=== PATIENT | male | born 1960 | race Caucasian/White ===

== ENCOUNTER 2020-08-04 15:48 | Inpatient (IN) | payer OTHER ==
[2020-08-04] VITALS (7 sets, daily range): BP systolic 118–152; BP diastolic 62–94
[~2020-08-04] VITALS: Ht 175.3 cm; Wt 97.4 kg
[~2020-08-04 15:48] MED LIST: AMIODARONE 150 MG/3 ML VIAL ONE; ATROPINE 1 MG/10 ML DISP.SYRINGE. ONE; CALCIUM CHLORIDE IV ONE; DOPamine 400MG/250ML PREMIX 400 MG/250 ML BAG IV ONE; EPINEPHrine SYRINGE 1 MG/10 ML SYRINGE ONE; LIDOCAINE 2% 100 MG/5 ML SYRINGE. ONE; SODIUM BICARB ADULT 8.4% 50 MEQ/50 ML DISP.SYRIN. ONE
[2020-08-04] MEDS ORDERED: HEPARIN for IV BOLUS 10,000 UNIT/10 ML VIAL. IV ONE (16:30)
[2020-08-04] MEDS ORDERED: NOREPINEPHRINE VIAL 8 MG in IV DEXTROSE 5% 250 ML IV ONE (16:30)
[2020-08-04] MEDS ORDERED: LIDOCAINE 1% Multi-Dose 20 ML VIAL. ONE (16:31)
[2020-08-04] MEDS ORDERED: IODIXANOL 320 MG/ML 100 ML VIAL. ONE (16:31)
[2020-08-04 16:41] LABS: BASO # 0.1 x10^3/uL (0.0-0.2); BASO % 1 % (0-3); EOS # 0.1 x10^3/uL (0.0-0.7); EOS % 1 % (0-3); HEMATOCRIT 53.2 % (39.0-53.0); LYMPH % 75 % (24-48); MEAN CORPUSCULAR HEMOGLOBIN 32 pg (25-35); MEAN CORPUSCULAR HGB CONC 32 g/dL (31-37); MEAN CORPUSCULAR VOLUME 99 fL (79-100); MONO # 0.3 x10^3/uL (0.0-1.1); MONO % 5 % (0-9); NEUT # 1.2 x10^3/uL (1.8-7.7); NEUT % 18 % (31-73); PLATELET COUNT 81 x10^3/uL (140-400); RED CELL DISTRIBUTION WIDTH 14.7 % (11.5-14.5); WHITE BLOOD COUNT 6.8 x10^3/uL (4.0-11.0)
[2020-08-04] MEDS ORDERED: NOREPINEPHRINE VIAL 8 MG in IV DEXTROSE 5% 250 ML IV PRN ×2 (16:45→17:45)
[2020-08-04 16:52] LABS: CREATININE ISTAT 1.6 mg/dL (0.5-1.4); HEMOGLOBIN ISTAT 18.4 g/dL (14-18); ION CA ISTAT 1.06 mmol/L (1.13-1.32); POTASSIUM ISTAT 2.9 mmol/L (3.5-5.0)
[2020-08-04] MEDS ORDERED: PHENYLEPHRINE INJ 50 MG in IV NS 250 ML IV ONE (17:15)
[2020-08-04] MEDS ORDERED: IODIXANOL 320 MG/ML 100 ML VIAL. IART ONE (17:15)
[2020-08-04] MEDS ORDERED: LIDOCAINE 1% Multi-Dose 20 ML VIAL. INJ ONE (17:15)
[2020-08-04] MEDS ORDERED: VASOPRESSIN 20 UNIT in IV DEXTROSE 5% 100ML 100 ML IV ONE (17:15)
[2020-08-04] MEDS ORDERED: IOHEXOL 350 MG/ML 100 ML VIAL. IV ONE (17:30)
--- NOTE | 2020-08-04 17:44 | ED.ADGEN ---
General Adult EDM: Chief Complaint: CPR/FULL ARREST HPI: HPI: Patient is 60-year-old male who presents to the emergency room in cardiac arrest. 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 His coworkers witnessed him become diaphoretic and dizzy. He clutched his chest and then fell to the ground. He did not have a pulse at that time and the school grabbed an AED which shocked him 3 times. Upon EMS arrival they found that the patient was then ventricular fibrillation. He was shocked multiple times prior to arrival as well as given amiodarone and epinephrine. Patient reportedly has a history of high blood pressure but is otherwise healthy. He reportedly was not ill prior to the episode. EMS does state that he tried to make purposeful movements while in the ambulance and that he had a gag reflex. They tried to put an LMA in him which he coughed out. Review of Systems: Review of Systems: Complete ROS is negative unless otherwise documented in HPI Current Medications: Current Medications Medications (Trade) Dose Ordered Sig/Imelda Start Time Stop Time Status Last Admin Dose Admin Heparin Sodium (Porcine) (Heparin Sodium) 4,000 unit 1X ONCE 08/04/20 16:30 08/04/20 16:36 DC Heparin Sodium/ Sodium Chloride (HEPARIN for ARTERIAL LINE FLUSH) 1,000 unit 1X ONCE 08/04/20 17:15 08/04/20 17:16 DC Iodixanol (Visipaque 320) 100 ml 1X ONCE 08/04/20 17:15 08/04/20 17:16 DC Iohexol (Omnipaque 350 Mg/ml) 100 ml 1X ONCE 08/04/20 17:30 08/04/20 17:31 UNV Lidocaine HCl (Lidocaine 1% 20ml Vial) 20 ml 1X ONCE 08/04/20 17:15 08/04/20 17:16 DC Norepinephrine Bitartrate 8 mg/ Dextrose 258 ml @ 0 mls/hr CONT PRN 08/04/20 16:45 Phenylephrine HCl 50 mg/Sodium Chloride 255 ml @ 0 mls/hr 1X ONCE 08/04/20 17:15 08/04/20 17:16 DC Vasopressin 20 unit/Dextrose 101 ml @ 11.882 mls/ hr 1X ONCE 08/04/20 17:15 08/05/20 01:44 Allergies: Allergies: Allergies Coded Allergies Type Severity Reaction Last Updated Verified No Known Drug Allergies 08/04/20 No Physical Exam: PE: General: unresponsive, toxic appearing, CPR in progress HEENT: Normocephalic, atraumatic, no drainage from eyes Neck: Supple, atraumatic, trachea midline Cardiology: No radial/femoral pulses bilaterally, no heart sounds Pulmonary: Bilateral breath sounds, agonal breathing Abdomen: soft, nondistended Skin: intact, dry, cool Extremities: No deformities Neurology: nonresponsive, nonverbal, no movement, GCS 3 Current Patient Data: Labs: Laboratory Tests Test 08/04/20 16:00 08/04/20 16:17 White Blood Count 6.8 x10^3/uL (4.0-11.0) Red Blood Count 5.40 x10^6/uL (4.30-5.70) Hemoglobin 17.0 g/dL (13.0-17.5) Hematocrit 53.2 % (39.0-53.0) H Mean Corpuscular Volume 99 fL (79-100) Mean Corpuscular Hemoglobin 32 pg (25-35) Mean Corpuscular Hemoglobin Concent 32 g/dL (31-37) Red Cell Distribution Width 14.7 % (11.5-14.5) H Platelet Count 81 x10^3/uL (140-400) L Neutrophils (%) (Auto) 18 % (31-73) L Lymphocytes (%) (Auto) 75 % (24-48) H Monocytes (%) (Auto) 5 % (0-9) Eosinophils (%) (Auto) 1 % (0-3) Basophils (%) (Auto) 1 % (0-3) Neutrophils # (Auto) 1.2 x10^3/uL (1.8-7.7) L Lymphocytes # (Auto) 5.0 x10^3/uL (1.0-4.8) H Monocytes # (Auto) 0.3 x10^3/uL (0.0-1.1) Eosinophils # (Auto) 0.1 x10^3/uL (0.0-0.7) Basophils # (Auto) 0.1 x10^3/uL (0.0-0.2) POC Hemoglobin 18.4 g/dL (14-18) H POC Hematocrit 54 % (37-52) H POC Sodium 141 mmol/L (135-145) POC Potassium 2.9 mmol/L (3.5-5.0) L POC Chloride 108 mmol/L (98-110) POC Total CO2 15 mmol/L (23-32) L Anion Gap 22 mmol/L (6-14) H POC Blood Urea Nitrogen 33 mg/dL (8-26) H POC Creatinine 1.6 mg/dL (0.5-1.4) H Glucose Level 321 mg/dL (70-99) H POC Ionized Calcium (Radha) 1.06 mmol/L (1.13-1.32) L POC Troponin I 0.11 ng/ml (<0.08) Laboratory Tests 08/04/20 16:00 Laboratory Tests 08/04/20 16:17 Vital Signs: Vital Signs Date Time Temp Pulse Resp B/P (MAP) Pulse Ox O2 Delivery O2 Flow Rate FiO2 08/04/20 17:27 69 24 100 Ventilator EKG: EKG: [] Heart Score: Risk Factors: Risk Factors: DM, Current or recent (<one month) smoker, HTN, HLP, family history of CAD, obesity. Risk Scores: Score 0 - 3: 2.5% MACE over next 6 weeks - Discharge Home Score 4 - 6: 20.3% MACE over next 6 weeks - Admit for Clinical Observation Score 7 - 10: 72.7% MACE over next 6 weeks - Early Invasive Strategies Radiology/Procedures: Radiology/Procedures: [] Course & Med Decision Making: Course & Med Decision Making Pertinent Labs and Imaging studies reviewed. (See chart for details) Patient is a 60-year-old male who presents to the emergency room in cardiac arrest. Upon arrival patient is in ventricular fibrillation. He received multiple shocks here in the emergency room. Patient also received epinephrine, lidocaine, bicarbonate, amiodarone. ROSC was obtained and patient has a bradycardia arrhythmia. I discussed the case with the on-call loss mitigation specialist Dr. Baer. At this time he will do an emergent cath. He was started on dopamine and norepinephrine drip. I have given updates to the family and have discussed with them that he is in grave condition. Family states understanding. Bharati Disclaimer: Bharati Disclaimer: This electronic medical record was generated, in whole or in part, using a voice recognition dictation system. Departure Departure Impression: Primary Impression: Cardiac arrest Disposition: ADMITTED INPT THIS HOSP Condition: CRITICAL Referrals: ANN MCKINLEY DO (PCP) Critical Care Time Critical Care: Authorized and Performed by: Johnson Kyle MD Total critical care time: approximately 75 minutes Due to a high probability of clinically significant, life threatening deterioration, the patient required my highest level of preparedness to intervene emergently and I personally spent this critical care time directly and personally managing the patient. This critical care time included obtaining a history; examining the patient; pulse oximetry; ventilator management if necessary; ordering and review of studies; arranging urgent treatment with development of a management plan; evaluation of patient's response to treatment; frequent reassessment; discussion with patient/family; and, discussions with other providers. This critical care time was performed to assess and manage the high probability of imminent, life-threatening deterioration that could result in multi-organ failure. It was exclusive of separately billable procedures and treating other patients and teaching time. Please see MDM section and the rest of the note for further information on patient assessment and treatment. PROCEDURE Procedure Intubation Performed by: Johnson Kyle MD Consent: Verbal consent not obtained. The procedure was performed in an emergent situation. Required items: required blood products, implants, devices, and special equipment available Patient identity confirmed: arm band Time out: Immediately prior to procedure a "time out" was called to verify the correct patient, procedure, equipment, legal support assistant and site/side marked as required. Indications: respiratory failure and airway protection Intubation method: direct Patient status: paralyzed (RSI) Preoxygenation: BVM Laryngoscope size: Mac 4 Tube size: 7.5 mm Tube type: cuffed Number of attempts: 1 Cords visualized: yes Post-procedure assessment: chest rise, BS = bilaterally none over epigastrum, +CO2 detector Breath sounds: equal and absent over the epigastrium Cuff inflated: yes Tube secured with: adhesive tape Chest x-ray interpreted by me. Chest x-ray findings: endotracheal tube in appropriate position Patient tolerance: Patient tolerated the procedure well with no immediate complications. JOHNSON KYLE MD Aug 04, 2020 17:44
[2020-08-04] MEDS ORDERED: VECURONIUM BOLUS 10 MG VIAL. IV PRN (17:45)
[2020-08-04] MEDS ORDERED: MORPHINE SULFATE 2 MG/ML VIAL. IV PRN ×2 (17:45→18:15)
[2020-08-04] MEDS ORDERED: MIDAZOLAM HCL/PF 2 MG/2 ML VIAL. IV ONE (17:45)
[2020-08-04] MEDS ORDERED: MORPHINE SULFATE 4 MG/ML VIAL. IV PRN (17:45)
[2020-08-04] MEDS ORDERED: CONTRAST GIVEN. MC PRN (17:45)
[2020-08-04] MEDS ORDERED: fentaNYL PF VIAL 100 MCG/2 ML VIAL IV ONE (17:45)
[2020-08-04] MEDS ORDERED: POLYVINYL ALCOHOL 1.4% OPHTH SOLUTION 15ML BOTTLE. OU PRN (17:45)
[2020-08-04] MEDS ORDERED: fentaNYL PF VIAL 100 MCG/2 ML VIAL IV PRN ×3 (17:45→18:15)
--- NOTE | 2020-08-04 17:51 | PDOC1 ---
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 Per EMS report, patient clutched his chest and began complaining of dizziness prior to his collapse. Chest compressions were initiated and patient received one defibrillation prior to EMS arrival. Patient was coded in EMS prior to arrival in ED. ROSC was obtained shortly after arrival in the ED. He was taken emergently to [facility] where he coded again. He was ultimately intubated and placed in ICU. Will admit patient for medical management. Past Medical History Past Medical History Unable to obtain at this time due to clinical condition Past Surgical History Past Surgical History Unable to obtain at this time due to clinical condition Family History Family History Unable to obtain at this time due to clinical condition Current Medications Current Medications Current Medications Heparin Sodium (Porcine) (Heparin Sodium) 4,000 unit 1X ONCE IV ; Start 08/04/20 at 16:30; Stop 08/04/20 at 16:36; Status DC Norepinephrine Bitartrate 8 mg/ Dextrose 258 ml @ 17.609 mls/ hr 1X ONCE IV ; Start 08/04/20 at 16:30; Stop 08/05/20 at 07:09; Status UNV Norepinephrine Bitartrate 8 mg/ Dextrose 258 ml @ 0 mls/hr 1X ONCE IV ; Start 08/04/20 at 16:30; Stop 08/04/20 at 16:31; Status DC Norepinephrine Bitartrate 8 mg/ Dextrose 258 ml @ 0 mls/hr CONT PRN IV PER PROTOCOL; Start 08/04/20 at 16:45 Iodixanol (Visipaque 320) 100 ml STK-MED ONCE .ROUTE ; Start 08/04/20 at 16:31; Stop 08/04/20 at 16:31; Status DC Lidocaine HCl (Lidocaine 1% 20ml Vial) 20 ml STK-MED ONCE .ROUTE ; Start at 16:31; Stop 08/04/20 at 16:31; Status DC Heparin Sodium/ Sodium Chloride 1,000 ml @ As Directed STK-MED ONCE .ROUTE ; Start 08/04/20 at 16:31; Stop 08/04/20 at 16:32; Status DC Heparin Sodium/ Sodium Chloride (HEPARIN for ARTERIAL LINE FLUSH) 1,000 unit 1X ONCE IART ; Start 08/04/20 at 17:15; Stop 08/04/20 at 17:16; Status DC Heparin Sodium/ Sodium Chloride (HEPARIN for ARTERIAL LINE FLUSH) 1,000 unit 1X ONCE IART ; Start 08/04/20 at 17:15; Stop 08/04/20 at 17:16; Status DC Iodixanol (Visipaque 320) 100 ml 1X ONCE IART ; Start 08/04/20 at 17:15; Stop 08/04/20 at 17:16; Status DC Lidocaine HCl (Lidocaine 1% 20ml Vial) 20 ml 1X ONCE INJ ; Start 08/04/20 at 17:15; Stop 08/04/20 at 17:16; Status DC Vasopressin 20 unit/Dextrose 101 ml @ 11.882 mls/ hr 1X ONCE IV ; Start 08/04/20 at 17:15; Stop 08/05/20 at 01:44 Phenylephrine HCl 50 mg/Sodium Chloride 255 ml @ 0 mls/hr 1X ONCE IV ; Start 08/04/20 at 17:15; Stop 08/04/20 at 17:16; Status DC Iohexol (Omnipaque 350 Mg/ml) 100 ml 1X ONCE IV ; Start 08/04/20 at 17:30; Stop 08/04/20 at 17:32; Status DC Info (CONTRAST GIVEN -- Rx MONITORING) 1 each PRN DAILY PRN MC SEE COMMENTS; Start 08/04/20 at 17:45; Stop 08/06/20 at 17:44 Fentanyl Citrate 30 ml @ 0 mls/hr CONT PRN IV SEE PROTOCOL; Start 08/04/20 at 17:45; Status UNV Fentanyl Citrate (Fentanyl 2ml Vial) 25 mcg PRN Q1HR PRN IV SEE COMMENTS; Start 08/04/20 at 17:45; Status UNV Fentanyl Citrate (Fentanyl 2ml Vial) 50 mcg PRN Q1HR PRN IV SEE COMMENTS; Start 08/04/20 at 17:45; Status UNV Chlorhexidine Gluconate (Peridex) 15 ml BID MM ; Start 08/04/20 at 21:00; Status UNV Morphine Sulfate (Morphine Sulfate) 2 mg PRN Q1HR PRN IV SEE COMMENTS.; Start 08/04/20 at 17:45; Status UNV Morphine Sulfate (Morphine Sulfate) 4 mg PRN Q1HR PRN IV SEE COMMENTS.; Start 08/04/20 at 17:45; Status UNV Midazolam HCl 100 ml @ 0 mls/hr CONT PRN IV SEE PROTOCOL; Start 08/04/20 at 17:45; Status UNV Norepinephrine Bitartrate 8 mg/ Dextrose 258 ml @ 17.609 mls/ hr CONT PRN IV PER PROTOCOL; Start 08/04/20 at 17:45; Status UNV Dopamine HCl/ Dextrose 250 ml @ 17.063 mls/ hr CONT PRN IV SEE I/O RECORD; Start 08/04/20 at 17:45; Status UNV Allergies Allergies: Coded Allergies: No Known Drug Allergies (Unverified , 08/04/20) ROS Review of System Unable to obtain at this time due to clinical condition Physical Exam Physical Exam General: Intubated and sedated, no acute distress HEENT: Normocephalic atraumatic Lungs: Intubated, some slight bibasilar crackles Heart: RRR, no murmurs Cardiovascular: S1, S2 Abdomen: Normal bowel sounds, Soft, No tenderness Extremities: No clubbing, No cyanosis Skin: Bruising to mid-sternum. No rashes, No significant lesion Neuro: Sedated on vent Psych/Mental Status: Sedated on vent Vitals Vitals Vital Signs Date Time Temp Pulse Resp B/P (MAP) Pulse Ox O2 Delivery O2 Flow Rate FiO2 08/04/20 17:27 69 24 100 Ventilator Labs Labs Laboratory Tests Test 08/04/20 16:00 08/04/20 16:17 White Blood Count 6.8 x10^3/uL (4.0-11.0) Red Blood Count 5.40 x10^6/uL (4.30-5.70) Hemoglobin 17.0 g/dL (13.0-17.5) Hematocrit 53.2 % (39.0-53.0) Mean Corpuscular Volume 99 fL (79-100) Mean Corpuscular Hemoglobin 32 pg (25-35) Mean Corpuscular Hemoglobin Concent 32 g/dL (31-37) Red Cell Distribution Width 14.7 % (11.5-14.5) Platelet Count 81 x10^3/uL (140-400) Neutrophils (%) (Auto) 18 % (31-73) Lymphocytes (%) (Auto) 75 % (24-48) Monocytes (%) (Auto) 5 % (0-9) Eosinophils (%) (Auto) 1 % (0-3) Basophils (%) (Auto) 1 % (0-3) Neutrophils # (Auto) 1.2 x10^3/uL (1.8-7.7) Lymphocytes # (Auto) 5.0 x10^3/uL (1.0-4.8) Monocytes # (Auto) 0.3 x10^3/uL (0.0-1.1) Eosinophils # (Auto) 0.1 x10^3/uL (0.0-0.7) Basophils # (Auto) 0.1 x10^3/uL (0.0-0.2) Bedside Hemoglobin 18.4 g/dL (14-18) Bedside Hematocrit 54 % (37-52) Bedside Sodium 141 mmol/L (135-145) Bedside Potassium 2.9 mmol/L (3.5-5.0) Bedside Chloride 108 mmol/L (98-110) Bedside Total CO2 15 mmol/L (23-32) Anion Gap 22 mmol/L (6-14) Bedside Blood Urea Nitrogen 33 mg/dL (8-26) Bedside Creatinine 1.6 mg/dL (0.5-1.4) Glucose Level 321 mg/dL (70-99) Bedside Ionized Calcium (Radha) 1.06 mmol/L (1.13-1.32) Bedside Troponin I 0.11 ng/ml (<0.08) Laboratory Tests Test 08/04/20 16:00 08/04/20 16:17 White Blood Count 6.8 x10^3/uL (4.0-11.0) Red Blood Count 5.40 x10^6/uL (4.30-5.70) Hemoglobin 17.0 g/dL (13.0-17.5) Hematocrit 53.2 % (39.0-53.0) Mean Corpuscular Volume 99 fL (79-100) Mean Corpuscular Hemoglobin 32 pg (25-35) Mean Corpuscular Hemoglobin Concent 32 g/dL (31-37) Red Cell Distribution Width 14.7 % (11.5-14.5) Platelet Count 81 x10^3/uL (140-400) Neutrophils (%) (Auto) 18 % (31-73) Lymphocytes (%) (Auto) 75 % (24-48) Monocytes (%) (Auto) 5 % (0-9) Eosinophils (%) (Auto) 1 % (0-3) Basophils (%) (Auto) 1 % (0-3) Neutrophils # (Auto) 1.2 x10^3/uL (1.8-7.7) Lymphocytes # (Auto) 5.0 x10^3/uL (1.0-4.8) Monocytes # (Auto) 0.3 x10^3/uL (0.0-1.1) Eosinophils # (Auto) 0.1 x10^3/uL (0.0-0.7) Basophils # (Auto) 0.1 x10^3/uL (0.0-0.2) Bedside Hemoglobin 18.4 g/dL (14-18) Bedside Hematocrit 54 % (37-52) Bedside Sodium 141 mmol/L (135-145) Bedside Potassium 2.9 mmol/L (3.5-5.0) Bedside Chloride 108 mmol/L (98-110) Bedside Total CO2 15 mmol/L (23-32) Anion Gap 22 mmol/L (6-14) Bedside Blood Urea Nitrogen 33 mg/dL (8-26) Bedside Creatinine 1.6 mg/dL (0.5-1.4) Glucose Level 321 mg/dL (70-99) Bedside Ionized Calcium (Radha) 1.06 mmol/L (1.13-1.32) Bedside Troponin I 0.11 ng/ml (<0.08) VTE Prophylaxis Ordered VTE Prophylaxis Devices: No VTE Pharmacological Prophylaxi: Yes Assessment/Plan Assessment/Plan Cardiopulmonary arrest Plan: Patient was taken to the [facility] upon arrival in ER, and subsequently coded. Consults to cardiology Consult to pulmonology Patient currently intubated Will initiate therapeutic hypothermia over next 24 hours to reduce risk of neurologic injury; target temperature range 32-34 (89.6-39.2 F); avoid fever Titrate sedation to supress shivering (propofol, fentanyl, midazolam) Appreciate cardiology and pulmonology recommendations FEN - NPO PPX - Lovenox FULL CODE Dispo - inpatient for above Justifications for Admission Other Justification TEJ WOODS MD Aug 04, 2020 17:51
--- NOTE | 2020-08-04 18:04 | PDOC2 ---
CONSULT Date of Consult Date of Consult DATE: 08/04/20 TIME: 18:04 Reason for Consult Reason for Consult: Cardiopulmonary arrest Referring Physician Referring Physician: Dr. 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 AED was placed immediately and he was shocked few times. EMS found him in ventricular fibrillation and he underwent CPR/defibrillation/epinephrine/amiodarone and brought to ED where he was found to be in ventricular fibrillation. He was defibrillated few more times with ROSC. He was intubated and placed on pressors for hypotension. Per his , he has been very active and actually went for a run with her yesterday without any problems. Since he had an episode of diaphoresis and near syncope in may, his PCP obtained coronary calcium score recently and they were told it was normal. Per his , he did not complain of any recent chest pain or palpitations. Past Medical History Past Medical History HTN HLP Past Surgical History Past Surgical History: No pertinent history Family History Family History: Coronary Artery Disease Social History Social History Patient has history of social intake of alcohol but per his does not smoke or use illicit drugs Current Problem List Problem List Problems Medical Problems: (1) Cardiac arrest Status: Acute Current Medications Current Medications Current Medications Heparin Sodium (Porcine) (Heparin Sodium) 4,000 unit 1X ONCE IV ; Start 08/04/20 at 16:30; Stop 08/04/20 at 16:36; Status DC Norepinephrine Bitartrate 8 mg/ Dextrose 258 ml @ 17.609 mls/ hr 1X ONCE IV ; Start 08/04/20 at 16:30; Stop 08/05/20 at 07:09; Status UNV Norepinephrine Bitartrate 8 mg/ Dextrose 258 ml @ 0 mls/hr 1X ONCE IV ; Start 08/04/20 at 16:30; Stop 08/04/20 at 16:31; Status DC Norepinephrine Bitartrate 8 mg/ Dextrose 258 ml @ 0 mls/hr CONT PRN IV PER PROTOCOL; Start 08/04/20 at 16:45 Iodixanol (Visipaque 320) 100 ml STK-MED ONCE .ROUTE ; Start 08/04/20 at 16:31; Stop 08/04/20 at 16:31; Status DC Lidocaine HCl (Lidocaine 1% 20ml Vial) 20 ml STK-MED ONCE .ROUTE ; Start 08/04/20 at 16:31; Stop 08/04/20 at 16:31; Status DC Heparin Sodium/ Sodium Chloride 1,000 ml @ As Directed STK-MED ONCE .ROUTE ; Start 08/04/20 at 16:31; Stop 08/04/20 at 16:32; Status DC Heparin Sodium/ Sodium Chloride (HEPARIN for ARTERIAL LINE FLUSH) 1,000 unit 1X ONCE IART ; Start 08/04/20 at 17:15; Stop 08/04/20 at 17:16; Status DC Heparin Sodium/ Sodium Chloride (HEPARIN for ARTERIAL LINE FLUSH) 1,000 unit 1X ONCE IART ; Start 08/04/20 at 17:15; Stop 08/04/20 at 17:16; Status DC Iodixanol (Visipaque 320) 100 ml 1X ONCE IART ; Start 08/04/20 at 17:15; Stop 08/04/20 at 17:16; Status DC Lidocaine HCl (Lidocaine 1% 20ml Vial) 20 ml 1X ONCE INJ ; Start 08/04/20 at 17:15; Stop 08/04/20 at 17:16; Status DC Vasopressin 20 unit/Dextrose 101 ml @ 11.882 mls/ hr 1X ONCE IV ; Start 08/04/20 at 17:15; Stop 08/05/20 at 01:44 Phenylephrine HCl 50 mg/Sodium Chloride 255 ml @ 0 mls/hr 1X ONCE IV ; Start 08/04/20 at 17:15; Stop 08/04/20 at 17:16; Status DC Iohexol (Omnipaque 350 Mg/ml) 100 ml 1X ONCE IV ; Start 08/04/20 at 17:30; Stop 08/04/20 at 17:32; Status DC Info (CONTRAST GIVEN -- Rx MONITORING) 1 each PRN DAILY PRN MC SEE COMMENTS; Start 08/04/20 at 17:45; Stop 08/06/20 at 17:44 Fentanyl Citrate 30 ml @ 0 mls/hr CONT PRN IV SEE PROTOCOL; Start 08/04/20 at 17:45 Fentanyl Citrate (Fentanyl 2ml Vial) 25 mcg PRN Q1HR PRN IV SEE COMMENTS; Start 08/04/20 at 17:45 Fentanyl Citrate (Fentanyl 2ml Vial) 50 mcg PRN Q1HR PRN IV SEE COMMENTS; Start 08/04/20 at 17:45 Chlorhexidine Gluconate (Peridex) 15 ml BID MM ; Start 08/04/20 at 21:00 Morphine Sulfate (Morphine Sulfate) 2 mg PRN Q1HR PRN IV SEE COMMENTS.; Start 08/04/20 at 17:45 Morphine Sulfate (Morphine Sulfate) 4 mg PRN Q1HR PRN IV SEE COMMENTS.; Start 08/04/20 at 17:45 Midazolam HCl 100 ml @ 0 mls/hr CONT PRN IV SEE PROTOCOL; Start 08/04/20 at 17:45 Norepinephrine Bitartrate 8 mg/ Dextrose 258 ml @ 17.609 mls/ hr CONT PRN IV PER PROTOCOL; Start 08/04/20 at 17:45 Dopamine HCl/ Dextrose 250 ml @ 17.063 mls/ hr CONT PRN IV SEE I/O RECORD; Start 08/04/20 at 17:45 Norepinephrine Bitartrate 32 mg/ Dextrose 250 ml @ 4.266 mls/ hr CONT PRN IV SEE I/O RECORD; Start 08/04/20 at 18:00 Fentanyl Citrate (Fentanyl 2ml Vial) 100 mcg 1X ONCE IV ; Start 08/04/20 at 17:45; Stop 08/04/20 at 17:46 Midazolam HCl (Versed) 2 mg 1X ONCE IV ; Start 08/04/20 at 17:45; Stop 08/04/20 at 17:46 Magnesium Sulfate/ Dextrose 100 ml @ 100 mls/hr 1X ONCE IV ; Start 08/04/20 at 17:45; Stop 08/04/20 at 18:44; Status UNV Buspirone HCl (Buspar) 30 mg Q8H NG ; Start 08/04/20 at 17:45; Stop 08/06/20 at 09:46; Status UNV Acetaminophen (Tylenol) 650 mg Q4H NG ; Start 08/04/20 at 17:45; Status UNV Glycerin/ Hypromellose/ Polyethylene (Artificial Tears) 1 drop Q6HRS OU ; Start 08/04/20 at 18:00; Status UNV Glycerin/ Hypromellose/ Polyethylene (Artificial Tears) 1 drop PRN Q15MIN PRN OU DRY EYE; Start 08/04/20 at 17:45; Status UNV Pantoprazole Sodium (PROTONIX VIAL for IV PUSH) 40 mg DAILY IVP ; Start 08/05/20 at 09:00; Status UNV Vecuronium Clinchco (Norcuron Bolus) 9 mg PRN Q1HR PRN IV SHIVERING; Start 08/04/20 at 17:45; Status UNV Allergies Allergies: Coded Allergies: No Known Drug Allergies (Unverified , 08/04/20) ROS Review of System cannot be obtained since he is intubated Physical Exam General: Other (intubated and sedated) HEENT: Atraumatic Lungs: Clear to auscultation Heart: Regular rate Abdomen: Soft Extremities: No edema Vitals VITALS Vital Signs Date Time Temp Pulse Resp B/P (MAP) Pulse Ox O2 Delivery O2 Flow Rate FiO2 08/04/20 17:27 69 24 100 Ventilator Labs Labs Laboratory Tests Test 08/04/20 16:00 08/04/20 16:17 White Blood Count 6.8 x10^3/uL (4.0-11.0) Red Blood Count 5.40 x10^6/uL (4.30-5.70) Hemoglobin 17.0 g/dL (13.0-17.5) Hematocrit 53.2 % (39.0-53.0) Mean Corpuscular Volume 99 fL (79-100) Mean Corpuscular Hemoglobin 32 pg (25-35) Mean Corpuscular Hemoglobin Concent 32 g/dL (31-37) Red Cell Distribution Width 14.7 % (11.5-14.5) Platelet Count 81 x10^3/uL (140-400) Neutrophils (%) (Auto) 18 % (31-73) Lymphocytes (%) (Auto) 75 % (24-48) Monocytes (%) (Auto) 5 % (0-9) Eosinophils (%) (Auto) 1 % (0-3) Basophils (%) (Auto) 1 % (0-3) Neutrophils # (Auto) 1.2 x10^3/uL (1.8-7.7) Lymphocytes # (Auto) 5.0 x10^3/uL (1.0-4.8) Monocytes # (Auto) 0.3 x10^3/uL (0.0-1.1) Eosinophils # (Auto) 0.1 x10^3/uL (0.0-0.7) Basophils # (Auto) 0.1 x10^3/uL (0.0-0.2) Bedside Hemoglobin 18.4 g/dL (14-18) Bedside Hematocrit 54 % (37-52) Bedside Sodium 141 mmol/L (135-145) Bedside Potassium 2.9 mmol/L (3.5-5.0) Bedside Chloride 108 mmol/L (98-110) Bedside Total CO2 15 mmol/L (23-32) Anion Gap 22 mmol/L (6-14) Bedside Blood Urea Nitrogen 33 mg/dL (8-26) Bedside Creatinine 1.6 mg/dL (0.5-1.4) Glucose Level 321 mg/dL (70-99) Bedside Ionized Calcium (Radha) 1.06 mmol/L (1.13-1.32) Bedside Troponin I 0.11 ng/ml (<0.08) Laboratory Tests Test 08/04/20 16:00 08/04/20 16:17 White Blood Count 6.8 x10^3/uL (4.0-11.0) Red Blood Count 5.40 x10^6/uL (4.30-5.70) Hemoglobin 17.0 g/dL (13.0-17.5) Hematocrit 53.2 % (39.0-53.0) Mean Corpuscular Volume 99 fL (79-100) Mean Corpuscular Hemoglobin 32 pg (25-35) Mean Corpuscular Hemoglobin Concent 32 g/dL (31-37) Red Cell Distribution Width 14.7 % (11.5-14.5) Platelet Count 81 x10^3/uL (140-400) Neutrophils (%) (Auto) 18 % (31-73) Lymphocytes (%) (Auto) 75 % (24-48) Monocytes (%) (Auto) 5 % (0-9) Eosinophils (%) (Auto) 1 % (0-3) Basophils (%) (Auto) 1 % (0-3) Neutrophils # (Auto) 1.2 x10^3/uL (1.8-7.7) Lymphocytes # (Auto) 5.0 x10^3/uL (1.0-4.8) Monocytes # (Auto) 0.3 x10^3/uL (0.0-1.1) Eosinophils # (Auto) 0.1 x10^3/uL (0.0-0.7) Basophils # (Auto) 0.1 x10^3/uL (0.0-0.2) Bedside Hemoglobin 18.4 g/dL (14-18) Bedside Hematocrit 54 % (37-52) Bedside Sodium 141 mmol/L (135-145) Bedside Potassium 2.9 mmol/L (3.5-5.0) Bedside Chloride 108 mmol/L (98-110) Bedside Total CO2 15 mmol/L (23-32) Anion Gap 22 mmol/L (6-14) Bedside Blood Urea Nitrogen 33 mg/dL (8-26) Bedside Creatinine 1.6 mg/dL (0.5-1.4) Glucose Level 321 mg/dL (70-99) Bedside Ionized Calcium (Radha) 1.06 mmol/L (1.13-1.32) Bedside Troponin I 0.11 ng/ml (<0.08) Assessment/Plan Assessment/Plan 1. Acute respiratory failure secondary to cardiopulmonary arrest s/p intubation. CTA chest did not show any acute pulm embolism. Start hypothermia protocol. We will consult pulm for further recommendations. 2. Cardiac arrest secondary to ventricular fibrillation s/p CPR and multiple shock therapies, brief PEA/asystole s/p multiple epinephrine injections presently in SR. Emergent cardiac cath did not show any major coronary stenosis (he had diagonal branch stenosis that does not explain his presentation. His LVEF is within normal limits and has atleast moderate mitral regurgitation on left ventriculography. We will evaluate further with 2D echocardiogram. Start amiodarone infusion to suppress VT/VF. Consult neurology team to evaluate neurological prognosis. If he has meaningful recovery, we will consider AICD implantation. 3. Hypotension needing pressor support. Patient's family denied any recent symptoms suggestive of any infection/covid. Wean pressors off as tolerated. 4. Hypokalemia: replace Thank you for your consultation Total critical care time spent evaluating patient and talking to family 45 mins. DOMINGA DOAN MD Aug 04, 2020 18:04
[2020-08-04] MEDS ORDERED: 0.9 % SODIUM CHLORIDE 10 ML DISP.SYRIN. IV PRN (18:15)
[2020-08-04] MEDS ORDERED: MAGNESIUM SULFATE 1GM 100 ML IV ONE (18:15)
[2020-08-04] MEDS ORDERED: ONDANSETRON PF 4 MG/2 ML VIAL. IVP PRN (18:15)
--- NOTE | 2020-08-04 18:21 | RAD ---
Exam: CT of chest with contrast INDICATION: Post code, TECHNIQUE: Sequential axial images through the chest obtained following the administration 100 mL of Omni 350 IV contrast. Sagittal and coronal reformatted images were reconstructed from the axial data and reviewed. 3-D reformatted images were reconstructed from the axial data and reviewed. Comparisons: None FINDINGS: Visualized portions of the thyroid are unremarkable. No enlarged mediastinal nodes are identified. Heart size is normal. No pericardial effusion. Thoracic aorta has a normal course and caliber. Pulmon arianna artery is not enlarged. No pulmonary embolus identified within the main, lobar or segmental pulmo nary arteries. Airways are patent. There is a endotracheal tube noted within the trachea. Dependent consolidative ch anges noted in the lungs bilaterally. No pneumothorax. No pleural effusion or thickening. No suspicious osseous lesions. Displaced anterior rib fractures noted bilaterally. Evaluation of the sternum is markedly limited secondary to extensive respiratory motion. IMPRESSION: 1. No pulmonary embolus identified within the main, lobar or proximal segmental pulmonary arteries. Evaluation distally is limited secondary to extensive respiratory motion. 2. Consolidative changes at the dependent portion lungs bilaterally may relate to edema. 3. Bilateral anterior rib fractures. Exposure: One or more of the following in the visualized dose reduction techniques were utilized for this examination: 1. Automated exposure control 2. Adjustment of the MA and/or KV according to patient size 3. Use of iterative of reconstructive technique Electronically signed by: Kiarra Sandoval MD (08/04/2020 6:18 PM) [facility]
[2020-08-04] MEDS: MIDAZOLAM 100mg/100ml NS BAG 100 ML IV PRN (18:47)
[2020-08-04] MEDS: NOREPINEPHRINE VIAL 32 MG in IV D5W 250ML IV PRN (18:48)
--- NOTE | 2020-08-04 19:08 | NUR ---
Pt was in central lab technician, code was called, this RN and the charge nurse responded, code was conducted by Dr Baer and ER physician, see code sheet. Pt cath was clean and CTA chest for PE was ordered, this RN and central lab technician RN took pt to CT. Pt in central lab technician for quite a while trying to get IV to work. Pt HR stable and being bagged by RT the whole time, pt ears and fingers cold and unable to obtain spo2 most of the time, when able spo2 was 94%. Pt started waking up and moving in central lab technician so he was given 10 mg versed. Pt then brought to ICU, arctic sun placed on pt, pt was already 32 degrees, temp fermin and rectal temp probe inserted, [address] pt on levophed, dopamine, vasopressin and normal saline. og in place and ett. family was updated and report given to shift production supervisor rn
[2020-08-04 19:59] LABS: BASE EXCESS ABG -19 mmol/L (-3-3); CORRECTED PCO2 ABG 49 mmHg; CORRECTED PH ABG 7.03; CORRECTED PO2 ABG 35 mmHg; HCO3 ABG 13 mmol/L (21-28); PCO2 ABG 57 mmHg (35-46)
[2020-08-04] MEDS ORDERED: POTASSIUM BICARB 20 MEQ EFFERVESCENT TABLET. PEG ONE (20:15)
[2020-08-04] MEDS ORDERED: FUROSEMIDE 40 MG/4 ML VIAL. IVP ONE (20:15)
[2020-08-04 20:22] LABS: FIO2 ABG 100; PO2 ABG 44 mmHg (65-108); SAT O2 ABG 60 % (92-99)
[2020-08-04] MEDS: ENOXAPARIN 40 MG/0.4 ML SYRINGE. SQ SCH (20:28)
[2020-08-04] MEDS ORDERED: AMIODARONE 450 MG in IV DEXTROSE 5% 250 ML IV ONE (20:30)
[2020-08-04] MEDS: POLYVINYL ALCOHOL 1.4% OPHTH SOLUTION 15ML BOTTLE. OU SCH (20:33)
[2020-08-04] MEDS: ACETAMINOPHEN 650 MG/20.3 ML SOLUTION. NG SCH ×2 (20:35→23:00)
[2020-08-04] MEDS: busPIRone 10 MG TABLET. NG SCH (20:40)
--- NOTE | 2020-08-04 20:40 | RAD ---
Single view chest and single view abdomen dated 08/04/2020. Comparison made to CT dated same day. CLINICAL INDICATION: Tube placement. FINDINGS: Single supine portable view of the chest shows endotracheal tube at mid trachea, unchanged. NG tube e xtends to the level of the gastric fundus, also unchanged. Heart and mediastinal contours are stable. There is widespread airspace disease, unchanged. Single supine portable exam of the abdomen show mildly dilated right colon with scattered gas in the small bowel and colon. There are bilateral nephrograms with contrast material in the collecting syste ms. IMPRESSION: 1. Bilateral airspace disease, unchanged. 2. Tubes and lines as above. 3. Mildly prominent gas-filled loops of small and large bowel, nonspecific. Electronically signed by: Qasim Echevarria MD (08/04/2020 8:38 PM) [id number]
[2020-08-04] MEDS ORDERED: SODIUM BICARB ADULT 8.4% 50 MEQ/50 ML DISP.SYRIN. IV ONE ×2 (20:45→23:00)
[2020-08-04] MEDS: FAMOTIDINE 20 MG/2 ML VIAL IVP SCH (20:54)
[2020-08-04] MEDS: CHLORHEXIDINE 0.12% 15 ML MOUTHWASH. MM SCH (20:54)
[2020-08-04] MEDS: PANTOPRAZOLE IV PUSH 40 MG VIAL. IVP SCH (21:00)
[2020-08-04 21:51] LABS: BASO # 0.1 x10^3/uL (0.0-0.2); BASO % 0 % (0-3); EOS # 0.1 x10^3/uL (0.0-0.7); EOS % 0 % (0-3); HEMATOCRIT 47.5 % (39.0-53.0); HEMOGLOBIN 15.7 g/dL (13.0-17.5); LYMPH % 9 % (24-48); MEAN CORPUSCULAR HEMOGLOBIN 32 pg (25-35); MEAN CORPUSCULAR HGB CONC 33 g/dL (31-37); MEAN CORPUSCULAR VOLUME 96 fL (79-100); MONO # 0.3 x10^3/uL (0.0-1.1); MONO % 1 % (0-9); NEUT # 19.3 x10^3/uL (1.8-7.7); NEUT % 89 % (31-73); PLATELET COUNT 153 x10^3/uL (140-400); RED BLOOD COUNT 4.97 x10^6/uL (4.30-5.70); RED CELL DISTRIBUTION WIDTH 14.2 % (11.5-14.5); WHITE BLOOD COUNT 21.6 x10^3/uL (4.0-11.0)
[2020-08-04 22:01] LABS: PROTHROMBIN TIME PATIENT 19.6 SEC (11.7-14.0)
[2020-08-04 22:09] LABS: CALCIUM 7.3 mg/dL (8.5-10.1); CREATININE 2.2 mg/dL (0.7-1.3); GFR 30.8; MAGNESIUM 2.6 mg/dL (1.8-2.4); POTASSIUM 3.6 mmol/L (3.5-5.1)
[2020-08-04 22:11] LABS: PHOSPHORUS 9.1 mg/dL (2.6-4.7)
[2020-08-04 22:19] LABS: BASE EXCESS ABG -15 mmol/L (-3-3); CORRECTED PCO2 ABG 41 mmHg; CORRECTED PH ABG 7.14; CORRECTED PO2 ABG 63 mmHg; HCO3 ABG 14 mmol/L (21-28); PCO2 ABG 45 mmHg (35-46); PO2 ABG 73 mmHg (65-108); SAT O2 ABG 90 % (92-99)
[2020-08-04] MEDS ORDERED: INSULIN REGULAR VIAL 100 UNIT in IV NORMAL SALINE 100ML 100 ML IV PRN (22:45)
[2020-08-04] MEDS ORDERED: PIP/TAZO PER PHARMACY MC PRN (22:45)
[2020-08-04 23:23] LABS: FIO2 ABG 100
[2020-08-05] VITALS (25 sets, daily range): BP systolic 94–142; BP diastolic 70–92
[2020-08-05] MEDS ORDERED: LIDOCAINE 2% 100 MG/5 ML SYRINGE. IV ONE
--- NOTE | 2020-08-05 00:23 | CONS ---
DATE OF CONSULTATION: 08/04/2020 ATTENDING PHYSICIAN: Kyle Castillo MD REASON FOR CONSULTATION: Respiratory failure, cardiac arrest. HISTORY OF PRESENT ILLNESS: The patient is a 60-year-old male who has past medical history of hyperlipidemia and hypertension. He was brought in at [facility] in cardiac arrest. 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 His coworkers witnessed him becoming diaphoretic and dizzy. He clutched his chest and then fell to the ground. He did not have a pulse at that time. The school grabbed an AED, which shocked him 3 times. Upon EMS arrival, they found that the patient was in ventricular fibrillation. He was shocked multiple times prior to arrival. He was given amiodarone and epinephrine as well. The patient was intubated by the ER physician. He apparently and reportedly had a CPR and shock for close to an hour. The patient's CTA chest was reviewed by me. There was no evidence of pulmonary embolism within the lobar or proximal segmental arteries or main pulmonary artery. There were extensive atelectatic changes at the bases and some interstitial markings. There were bilateral anterior rib fractures. No definite pneumothorax seen. The patient was emergently taken to cardiac paint laboratory technician. I have discussed with Dr. Baer. There was no significant coronary artery disease. He did mention normal ejection fraction, but moderate to severe mitral regurgitation. Official report of cardiac paint laboratory technician is not available at the time of dictation. The patient's arterial blood gases showed a pH of 7.03, pCO2 of 57 and a pO2 of 35, on 100% oxygen and 10 of PEEP. I had given 2 amps of bicarbonate as his bicarbonate was low. He is in LEONOR. Not making much urine. The patient's ABGs improved after increasing the rate with a pH of 7.14, pCO2 of 40 and a pO2 of 62 with a bicarbonate of 14. Have done this consultation via Telemedicine. PAST MEDICAL HISTORY: 1. Hypertension. 2. Dyslipidemia. PAST SURGICAL HISTORY: None. ALLERGIES: None. MEDICATIONS: All reviewed that is listed in the MRAD. REVIEW OF SYSTEMS: Unable to obtain from the patient. PHYSICAL EXAMINATION: GENERAL: On examination which was done via Telemedicine, he is intubated and sedated. VITAL SIGNS: His blood pressure is 126 systolic. He is hypothermic. He is on 3 vasopressors. He is sedated with fentanyl and Versed. No obvious paradoxical breathing. EXTREMITIES: No obvious leg edema. SKIN: No skin rash. LABORATORY DATA: Reviewed. ABGs as discussed in my history of present illness. BUN is 31 and creatinine of 2.2. Phosphorus 9.1. Magnesium 2.6. Triglycerides 102. Sodium 137, potassium 3.6, bicarbonate is 15. CT chest findings are discussed in my history of present illness. IMPRESSION: 1. Acute hypoxic and hypercapnic respiratory failure secondary to cardiac arrest. 2. Ventricular fibrillation cardiac arrest. 3. Shock, likely cardiogenic. 4. Abnormal CT chest with moderate amount of bilateral atelectasis and some interstitial markings suggestive of possible pulmonary edema. No evidence of pulmonary embolism. 5. Acute kidney injury. 6. Hyperphosphatemia. 7. Status post cardiac catheterization. No significant coronary artery disease. Normal ejection fraction, but moderate to severe mitral regurgitation. Official cardiac catheterization report pending. 8. Cannot exclude anoxic encephalopathy. RECOMMENDATIONS: 1. I have discussed with respiratory therapist and RN. I have increased the respiratory rate as well as given 2 more amps of bicarbonate. 2. Follow ABGs and make necessary adjustment. 3. The patient has severe hypoxia, likely related to acute lung injury and shock. Cannot exclude the possibility of aspiration as he does have moderate atelectasis or infiltrates in the lower lobes. I have empirically covered with Zosyn. 4. Follow cardiology recommendations. 5. Follow renal recommendations. He will need dialysis. His phosphorus needs to be corrected as well. 6. The patient did receive one dose of Lasix. We will withhold further Lasix. 7. Lovenox for deep vein thrombosis prophylaxis. 8. Follow hypothermic protocol. In fact, the patient was already hypothermic on arrival. 9. Prognosis is extremely grim with likelihood of anoxic brain injury from prolonged CPR and shock. 10. Obtain an echocardiogram. 11. Discussed with RN and RT. Chart reviewed. Imaging studies reviewed. 12. Consult done via Telemedicine. Critical care time, 37 minutes. ANDREINA TAMAYO MD DR: EVA/janet JOB#: [id number] / [id number]
--- NOTE | 2020-08-05 01:13 | NUR ---
Notified Dr. Felder regarding ABGs. Dr. Felder able to do rounds via teleconf. Vent settings reviewed, orders received. Notified Dr. Baer about wide complex rhythm and runs of Vtach. Given Lidocaine. I've been able to titrate dopamine down to help with ectopy. Family at bedside at beginning of shift and updated on pt status. To remain a full code. No urine output noted. Consult to Dr. Yi and contacted and reviewed case with her. [facility] vascular to place PICC line.
[2020-08-05] MEDS: PIPERACILLIN/TAZOBACTAM 3.375 GM in IV NORMAL SALINE 50ML 50 ML IV SCH ×5 (02:13→22:34)
--- NOTE | 2020-08-05 02:38 | RAD ---
EXAM: XR CHEST 1V 08/05/2020 1:20 AM CLINICAL INDICATION: PICC line COMPARISON: Chest radiograph 08/04/2020 TECHNIQUE: AP view of the chest FINDINGS: The endotracheal tube terminates approximately 5 cm above the ophelia. A right PICC tip pro jects over the lower superior vena cava. A nasogastric tube terminates in the gastric fundus. The car diac silhouette is stable. Bilateral airspace opacities have mildly decreased. No pleural effusion or pneumothorax. IMPRESSION: 1. Right PICC in appropriate position. 2. Improving pulmonary opacities, likely pulmonary edema. Electronically signed by: Celia Su MD (08/05/2020 2:35 AM) [id number]
[2020-08-05] MEDS: NOREPINEPHRINE VIAL 32 MG in IV D5W 250ML IV PRN ×2 (02:46→16:47)
--- NOTE | 2020-08-05 02:48 | NUR ---
At 0230 pt went into sustained Vtach, unsynchronized shock at 200j. Pulse back after shock with return of BP on a-line.
[2020-08-05] MEDS: ACETAMINOPHEN 650 MG/20.3 ML SOLUTION. NG SCH ×6 (03:41→23:25)
[2020-08-05] MEDS: busPIRone 10 MG TABLET. NG SCH ×3 (03:41→19:09)
[2020-08-05 04:00] LABS: BASO % 0 % (0-3); EOS % 0 % (0-3); HEMATOCRIT 43.7 % (39.0-53.0); HEMOGLOBIN 14.8 g/dL (13.0-17.5); LYMPH # 0.9 x10^3/uL (1.0-4.8); LYMPH % 4 % (24-48); MEAN CORPUSCULAR HEMOGLOBIN 32 pg (25-35); MEAN CORPUSCULAR HGB CONC 34 g/dL (31-37); MEAN CORPUSCULAR VOLUME 94 fL (79-100); MONO % 5 % (0-9); NEUT # 20.8 x10^3/uL (1.8-7.7); NEUT % 92 % (31-73); PLATELET COUNT 124 x10^3/uL (140-400); RED BLOOD COUNT 4.65 x10^6/uL (4.30-5.70); RED CELL DISTRIBUTION WIDTH 13.9 % (11.5-14.5); WHITE BLOOD COUNT 22.7 x10^3/uL (4.0-11.0)
[2020-08-05 04:12] LABS: PROTHROMBIN TIME PATIENT 22.4 SEC (11.7-14.0)
[2020-08-05 04:15] LABS: CALCIUM 7.2 mg/dL (8.5-10.1); CREATININE 2.7 mg/dL (0.7-1.3); GFR 24.3; MAGNESIUM 2.1 mg/dL (1.8-2.4); PHOSPHORUS 3.4 mg/dL (2.6-4.7)
[2020-08-05 04:19] LABS: POTASSIUM 2.8 mmol/L (3.5-5.1)
[2020-08-05] MEDS ORDERED: POTASSIUM CHLORIDE 20MEQ 100 ML IV ONE ×2 (04:30→09:30)
[2020-08-05] MEDS ORDERED: AMIODARONE 450 MG in IV DEXTROSE 5% 250 ML IV ONE ×2 (06:00→20:00)
[2020-08-05] MEDS: POLYVINYL ALCOHOL 1.4% OPHTH SOLUTION 15ML BOTTLE. OU SCH ×5 (06:03→23:25)
[2020-08-05 07:38] LABS: BASE EXCESS ABG -16 mmol/L (-3-3); CORRECTED PCO2 ABG 31 mmHg; CORRECTED PH ABG 7.19; CORRECTED PO2 ABG 143 mmHg; HCO3 ABG 12 mmol/L (21-28); PCO2 ABG 35 mmHg (35-46); PO2 ABG 156 mmHg (65-108); SAT O2 ABG 98 % (92-99)
[2020-08-05 07:42] LABS: FIO2 ABG 100 VENT
[2020-08-05] MEDS ORDERED: MAGNESIUM SULFATE 2GM 50 ML IV ONE (07:45)
[2020-08-05] MEDS ORDERED: LIDOCAINE WITH 8.4% SOD BICARB 3 ML DISP.SYRIN. ONE (08:02)
[2020-08-05] MEDS ORDERED: HEPARIN for IV BOLUS 10,000 UNIT/10 ML VIAL. ONE (08:02)
[2020-08-05] MEDS ORDERED: LIDOCAINE WITH 8.4% SOD BICARB 3 ML DISP.SYRIN. INJ ONE (08:30)
[2020-08-05] MEDS: SODIUM BICARBONATE VIAL 150 MEQ in IV DEXTROSE 5% 1,000 ML IV SCH ×2 (08:39→17:06)
[2020-08-05] MEDS: PANTOPRAZOLE IV PUSH 40 MG VIAL. IVP SCH (08:39)
[2020-08-05] MEDS: FAMOTIDINE 20 MG/2 ML VIAL IVP SCH ×2 (08:40→20:59)
[2020-08-05] MEDS: CHLORHEXIDINE 0.12% 15 ML MOUTHWASH. MM SCH ×2 (08:41→20:59)
[2020-08-05] MEDS ORDERED: MAGNESIUM SULFATE 1GM 100 ML IV ONE (08:45)
[2020-08-05] MEDS: MIDAZOLAM 100mg/100ml NS BAG 100 ML IV PRN (09:11)
[2020-08-05] MEDS: VASOPRESSIN 20 UNIT in IV DEXTROSE 5% 100ML 100 ML IV PRN ×2 (09:12→17:06)
--- NOTE | 2020-08-05 09:25 | PDOC2 ---
CONSULT Date of Consult Date of Consult DATE: 08/05/20 TIME: 09:18 Reason for Consult Reason for Consult: leonor Identification/Chief Complaint Chief Complaint Unable to Obtain, Intubated Source Source: Chart review History of Present Illness Reason for Visit: Patient is 60-year-old CM who presents to the emergency room in cardiac arrest. 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 His coworkers witnessed him become diaphoretic and dizzy. He clutched his chest and then fell to the ground. He did not have a pulse at that time and the school grabbed an AED which shocked him 3 times. Upon EMS arrival they found that the patient was then ventricular fibrillation. He was shocked multiple times prior to arrival as well as given amiodarone and epinephrine. Patient reportedly has a history of high blood pressure but is otherwise healthy. He reportedly was not ill prior to the episode. EMS does state that he tried to make purposeful movements while in the ambulance and that he had a gag reflex. at bedside- she reports he has history of chronic dizziness and feels every time he stands. He has been seen and evaluated by cardiology as OP. She is not sure if any Neuro burger including Carotid US has been done. She reports they work out regularly and eat healthy. She states recently he has not been eating much as trying to loose weight, Denies following any kind of specific diet (eg Keto etc) . Denies use of health supplements- like Creatine, steroids etc . Denies any urinary complaints reported by her , he doesnt drink much water and she feels his urine output in general is not great. No reported N/V/D. No abdominal pain She states they do drink socially but excessive etoh use, denies any Illegal drug use (No UDS done) CTA chest no evidence of pulmonary embolism within the lobar or proximal segmental arteries or main pulmonary artery. There were extensive atelectatic changes at the bases and some interstitial markings. There were bilateral anterior rib fractures. No definite pneumothorax seen. He was emergently taken to cardiac director of labor relations , no significant coronary artery disease with normal ejection fraction, but moderate to severe mitral regurgitation. Currently he is Oligoanuric with LEONOR Past Medical History Past Medical History Hypertension. Dyslipidemia. Chronic Dizziness Past Surgical History Past Surgical History None. Past Surgical History: No pertinent history Family History Family History: Coronary Artery Disease Social History Social History Per Social ETOH. No Illegal drugs Current Problem List Problem List Problems Medical Problems: (1) Cardiac arrest Status: Acute Current Medications Current Medications Current Medications Heparin Sodium (Porcine) (Heparin Sodium) 4,000 unit 1X ONCE IV Last administered on 08/04/20at 16:39; Start 08/04/20 at 16:30; Stop 08/04/20 at 16:36; Status DC Norepinephrine Bitartrate 8 mg/ Dextrose 258 ml @ 17.609 mls/ hr 1X ONCE IV ; Start 08/04/20 at 16:30; Stop 08/05/20 at 07:09; Status UNV Norepinephrine Bitartrate 8 mg/ Dextrose 258 ml @ 0 mls/hr 1X ONCE IV Last administered on 08/04/20at 16:28; Start 08/04/20 at 16:30; Stop 08/04/20 at 16:31; Status DC Norepinephrine Bitartrate 8 mg/ Dextrose 258 ml @ 0 mls/hr CONT PRN IV PER PROTOCOL Last administered on 08/04/20at 18:49; Start 08/04/20 at 16:45; Stop 08/05/20 at 01:41; Status DC Iodixanol (Visipaque 320) 100 ml STK-MED ONCE .ROUTE ; Start 08/04/20 at 16:31; Stop 08/04/20 at 16:31; Status DC Lidocaine HCl (Lidocaine 1% 20ml Vial) 20 ml STK-MED ONCE .ROUTE ; Start 08/04/20 at 16:31; Stop 08/04/20 at 16:31; Status DC Heparin Sodium/ Sodium Chloride 1,000 ml @ As Directed STK-MED ONCE .ROUTE ; Start 08/04/20 at 16:31; Stop 08/04/20 at 16:32; Status DC Heparin Sodium/ Sodium Chloride (HEPARIN for ARTERIAL LINE FLUSH) 1,000 unit 1X ONCE IART Last administered on 08/04/20at 17:15; Start 08/04/20 at 17:15; Stop 08/04/20 at 17:16; Status DC Heparin Sodium/ Sodium Chloride (HEPARIN for ARTERIAL LINE FLUSH) 1,000 unit 1X ONCE IART Last administered on 08/04/20at 17:15; Start 08/04/20 at 17:15; Stop 08/04/20 at 17:16; Status DC Iodixanol (Visipaque 320) 100 ml 1X ONCE IART Last administered on 08/04/20at 17:15; Start 08/04/20 at 17:15; Stop 08/04/20 at 17:16; Status DC Lidocaine HCl (Lidocaine 1% 20ml Vial) 20 ml 1X ONCE INJ Last administered on 08/04/20at 17:15; Start 08/04/20 at 17:15; Stop 08/04/20 at 17:16; Status DC Vasopressin 20 unit/Dextrose 101 ml @ 11.882 mls/ hr 1X ONCE IV Last administered on 08/04/20at 18:49; Start 08/04/20 at 17:15; Stop 08/05/20 at 01:44; Status DC Phenylephrine HCl 50 mg/Sodium Chloride 255 ml @ 0 mls/hr 1X ONCE IV ; Start 08/04/20 at 17:15; Stop 08/04/20 at 17:16; Status DC Iohexol (Omnipaque 350 Mg/ml) 100 ml 1X ONCE IV ; Start 08/04/20 at 17:30; Stop 08/04/20 at 17:32; Status DC Info (CONTRAST GIVEN -- Rx MONITORING) 1 each PRN DAILY PRN MC SEE COMMENTS; Start 08/04/20 at 17:45; Stop 08/06/20 at 17:44 Fentanyl Citrate 30 ml @ 0 mls/hr CONT PRN IV SEE PROTOCOL Last administered on 08/05/20at 02:44; Start 08/04/20 at 17:45 Fentanyl Citrate (Fentanyl 2ml Vial) 25 mcg PRN Q1HR PRN IV SEE COMMENTS; Start 08/04/20 at 17:45 Fentanyl Citrate (Fentanyl 2ml Vial) 50 mcg PRN Q1HR PRN IV SEE COMMENTS; Start 08/04/20 at 17:45 Chlorhexidine Gluconate (Peridex) 15 ml BID MM Last administered on 08/05/20at 08:41; Start 08/04/20 at 21:00 Morphine Sulfate (Morphine Sulfate) 2 mg PRN Q1HR PRN IV SEE COMMENTS.; Start 08/04/20 at 17:45 Morphine Sulfate (Morphine Sulfate) 4 mg PRN Q1HR PRN IV SEE COMMENTS.; Start 08/04/20 at 17:45 Midazolam HCl 100 ml @ 0 mls/hr CONT PRN IV SEE PROTOCOL Last administered on 08/05/20at 09:11; Start 08/04/20 at 17:45 Norepinephrine Bitartrate 8 mg/ Dextrose 258 ml @ 17.609 mls/ hr CONT PRN IV PER PROTOCOL; Start 08/04/20 at 17:45; Stop 08/05/20 at 01:41; Status DC Dopamine HCl/ Dextrose 250 ml @ 17.063 mls/ hr CONT PRN IV SEE I/O RECORD Last administered on 08/04/20at 19:32; Start 08/04/20 at 17:45 Norepinephrine Bitartrate 32 mg/ Dextrose 250 ml @ 4.266 mls/ hr CONT PRN IV SEE I/O RECORD Last administered on 08/05/20at 02:46; Start 08/04/20 at 18:00 Fentanyl Citrate (Fentanyl 2ml Vial) 100 mcg 1X ONCE IV ; Start 08/04/20 at 17:45; Stop 08/04/20 at 18:02; Status DC Midazolam HCl (Versed) 2 mg 1X ONCE IV ; Start 08/04/20 at 17:45; Stop 08/04/20 at 18:02; Status DC Magnesium Sulfate/ Dextrose 100 ml @ 100 mls/hr 1X ONCE IV Last administered on 08/04/20at 18:47; Start 08/04/20 at 18:15; Stop 08/04/20 at 19:14; Status DC Buspirone HCl (Buspar) 30 mg Q8H NG Last administered on 08/05/20at 03:41; Start 08/04/20 at 19:00; Stop 08/06/20 at 11:01 Acetaminophen (Tylenol) 650 mg Q4H NG Last administered on 08/05/20at 03:41; Start 08/04/20 at 19:00 Glycerin/ Hypromellose/ Polyethylene (Artificial Tears) 1 drop Q6HRS OU Last administered on 08/05/20at 06:03; Start 08/04/20 at 19:00 Glycerin/ Hypromellose/ Polyethylene (Artificial Tears) 1 drop PRN Q15MIN PRN OU DRY EYE; Start 08/04/20 at 17:45 Pantoprazole Sodium (PROTONIX VIAL for IV PUSH) 40 mg DAILY IVP Last administered on 08/05/20at 08:39; Start 08/04/20 at 21:00 Vecuronium [place] (Norcuron Bolus) 9 mg PRN Q1HR PRN IV SHIVERING; Start 08/04/20 at 17:45 Lorazepam (Ativan Inj) 0.5 mg PRN Q6HRS PRN IVP ANXIETY / AGITATION; Start 08/04/20 at 18:15 Ondansetron HCl (Zofran) 4 mg PRN Q6HRS PRN IVP NAUSEA/VOMITING; Start 08/04/20 at 18:15 Famotidine (Pepcid Vial) 20 mg BID IVP Last administered on 08/05/20at 08:40; Start 08/04/20 at 21:00 Enoxaparin Sodium (Lovenox 40mg Syringe) 40 mg Q24H SQ Last administered on 08/04/20at 20:28; Start 08/04/20 at 19:00 Sodium Chloride (Normal Saline Flush) 3 ml QSHIFT PRN IV AFTER MEDS AND BLOOD DRAWS; Start 08/04/20 at 18:15 Morphine Sulfate (Morphine Sulfate) 2 mg PRN Q1HR PRN IV PAIN-SEE COMMENTS; Start 08/04/20 at 18:15 Fentanyl Citrate (Fentanyl 2ml Vial) 50 mcg PRN Q1HR PRN IV PAIN-SEE COMMENTS; Start 08/04/20 at 18:15 Potassium Bicarbonate (Potassium Effervescent Tablet) 40 meq 1X ONCE PEG Last administered on 08/04/20at 20:29; Start 08/04/20 at 20:15; Stop 08/04/20 at 20:19; Status DC Furosemide (Lasix) 40 mg 1X ONCE IVP Last administered on 08/04/20at 20:28; Start 08/04/20 at 20:15; Stop 08/04/20 at 20:19; Status DC Amiodarone HCl 450 mg/Dextrose 259 ml @ 0 mls/hr 1X ONCE IV Last administered on 08/04/20at 20:29; Start 08/04/20 at 20:30; Stop 08/04/20 at 20:31; Status DC Sodium Bicarbonate (Sodium Bicarb Adult 8.4% Syr) 50 meq 1X ONCE IV Last administered on 08/04/20at 20:54; Start 08/04/20 at 20:45; Stop 08/04/20 at 20:46; Status DC Piperacillin Sod/ Tazobactam Sod (Zosyn Per Pharmacy) 1 each PRN DAILY PRN MC SEE COMMENTS; Start 08/04/20 at 22:45 Insulin Human Regular 100 unit/ Sodium Chloride 101 ml @ 0 mls/hr CONT PRN IV SEE I/O RECORD; Start 08/04/20 at 22:45 Piperacillin Sod/ Tazobactam Sod 3.375 gm/Sodium Chloride 50 ml @ 100 mls/hr Q6H IV Last administered on 08/05/20at 05:26; Start 08/04/20 at 23:00 Sodium Bicarbonate (Sodium Bicarb Adult 8.4% Syr) 100 meq 1X ONCE IV Last administered on 08/04/20at 23:17; Start 08/04/20 at 23:00; Stop 08/04/20 at 23:01; Status DC Lidocaine HCl (Lidocaine HCl 2% Abboject) 100 mg 1X ONCE IV Last administered on 08/04/20at 23:58; Start 08/05/20 at 00:00; Stop 08/05/20 at 00:01; Status DC Potassium Chloride/Water 100 ml @ 100 mls/hr 1X ONCE IV Last administered on 08/05/20at 04:27; Start 08/05/20 at 04:30; Stop 08/05/20 at 05:29; Status DC Amiodarone HCl 450 mg/Dextrose 259 ml @ 0 mls/hr 1X ONCE IV Last administered on 08/05/20at 06:01; Start 08/05/20 at 06:00; Stop 08/05/20 at 06:01; Status DC Sodium Bicarbonate 150 meq/Dextrose 1,150 ml @ 75 mls/hr [id number] IV Last administered on 08/05/20at 08:39; Start 08/05/20 at 07:45 Magnesium Sulfate 50 ml @ 25 mls/hr 1X ONCE IV ; Start 08/05/20 at 07:45; Stop 08/05/20 at 08:34; Status DC Lidocaine HCl (Buffered Lidocaine 1%) 3 ml STK-MED ONCE .ROUTE ; Start 08/05/20 at 08:02; Stop 08/05/20 at 08:02; Status DC Heparin Sodium (Porcine) (Heparin Sodium) 10,000 unit STK-MED ONCE .ROUTE ; Start 08/05/20 at 08:02; Stop 08/05/20 at 08:02; Status DC Lidocaine HCl (Buffered Lidocaine 1%) 6 ml 1X ONCE INJ Last administered on 08/05/20at 08:34; Start 08/05/20 at 08:30; Stop 08/05/20 at 08:31; Status DC Heparin Sodium (Porcine) (Heparin Sodium) 2,500 unit 1X ONCE INT CAT Last administered on 08/05/20at 08:35; Start 08/05/20 at 08:30; Stop 08/05/20 at 08:31; Status DC Magnesium Sulfate/ Dextrose 100 ml @ 100 mls/hr 1X ONCE IV Last administered on 08/05/20at 08:40; Start 08/05/20 at 08:45; Stop 08/05/20 at 09:44 Vasopressin 20 unit/Dextrose 101 ml @ 12 mls/hr CONT PRN IV SEE I/O RECORD Last administered on 08/05/20at 09:12; Start 08/05/20 at 09:00 Allergies Allergies: Coded Allergies: No Known Drug Allergies (Unverified , 08/04/20) ROS Review of System Unable to obtain 2/2 Intubated, unresponsive Physical Exam Physical Exam GENERAL: intubated and sedated, On pressor support HEEN Intubated Neck Supple Lungs CTA ant CV S1S2 Abd Sof Ext No LE edmema, No cyanosis SKIN: No skin rash [place] + Neuro- sedated, Intubated Psych Unable to assess Vital Signs Vital Signs Date Time Temp Pulse Resp B/P (MAP) Pulse Ox O2 Delivery O2 Flow Rate FiO2 08/05/20 07:29 100 Ventilator 08/05/20 06:00 94.2 74 26 95/74 (48) 94.2 Assessment & Plan LEONOR - ATN post cardiac arrest , shock, currently on therapeutic Hypothermia and pressor support E-Lytes stable, Bicarb Low , Oligoanuric Will start CRRt as tolerated (unlikely to tolerate dialysis, currently on pressor support) - until seen by Neuro for prognosis and evaluation for any meaningful recovery Acute hypoxic and hypercapnic respiratory failure secondary to cardiac arrest. No e/o PE on CTA Cardiac arrest secondary to ventricular fibrillation s/p CPR and multiple shock therapies, brief PEA/asystole s/p multiple epinephrine injections presently in SR. Emergent cardiac cath did not show any major coronary stenosis LVEF is within normal limits, has moderate mitral regurgitation on left ventriculography. Metabolic acidosis- 2/2 above- s/p IV bicarb. Started IV BIcarb gtt , continue HypoKalemia ken due to Therapeutic Hypothermia, may go up after he is off Hypothermia . Monitor HypoMg- Monitor Ventricular fibrillation cardiac arrest. Hyperphosphatemia POA - CK not done, pending this am . Phos back to normal Anoxic encephalopathy- neuro eval pending . Discussed with and Nursing at bedside Labs Labs Laboratory Tests Test 08/04/20 16:00 08/04/20 16:17 08/04/20 19:36 08/04/20 21:30 White Blood Count 6.8 x10^3/uL (4.0-11.0) 21.6 x10^3/uL (4.0-11.0) Red Blood Count 5.40 x10^6/uL (4.30-5.70) 4.97 x10^6/uL (4.30-5.70) Hemoglobin 17.0 g/dL (13.0-17.5) 15.7 g/dL (13.0-17.5) Hematocrit 53.2 % (39.0-53.0) 47.5 % (39.0-53.0) Mean Corpuscular Volume 99 fL (79-100) 96 fL (79-100) Mean Corpuscular Hemoglobin 32 pg (25-35) 32 pg (25-35) Mean Corpuscular Hemoglobin Concent 32 g/dL (31-37) 33 g/dL (31-37) Red Cell Distribution Width 14.7 % (11.5-14.5) 14.2 % (11.5-14.5) Platelet Count 81 x10^3/uL (140-400) 153 x10^3/uL (140-400) Neutrophils (%) (Auto) 18 % (31-73) 89 % (31-73) Lymphocytes (%) (Auto) 75 % (24-48) 9 % (24-48) Monocytes (%) (Auto) 5 % (0-9) 1 % (0-9) Eosinophils (%) (Auto) 1 % (0-3) 0 % (0-3) Basophils (%) (Auto) 1 % (0-3) 0 % (0-3) Neutrophils # (Auto) 1.2 x10^3/uL (1.8-7.7) 19.3 x10^3/uL (1.8-7.7) Lymphocytes # (Auto) 5.0 x10^3/uL (1.0-4.8) 2.0 x10^3/uL (1.0-4.8) Monocytes # (Auto) 0.3 x10^3/uL (0.0-1.1) 0.3 x10^3/uL (0.0-1.1) Eosinophils # (Auto) 0.1 x10^3/uL (0.0-0.7) 0.1 x10^3/uL (0.0-0.7) Basophils # (Auto) 0.1 x10^3/uL (0.0-0.2) 0.1 x10^3/uL (0.0-0.2) Bedside Hemoglobin 18.4 g/dL (14-18) Bedside Hematocrit 54 % (37-52) Bedside Sodium 141 mmol/L (135-145) Bedside Potassium 2.9 mmol/L (3.5-5.0) Bedside Chloride 108 mmol/L (98-110) Bedside Total CO2 15 mmol/L (23-32) Anion Gap 22 mmol/L (6-14) 20 (6-14) Bedside Blood Urea Nitrogen 33 mg/dL (8-26) Bedside Creatinine 1.6 mg/dL (0.5-1.4) Glucose Level 321 mg/dL (70-99) 300 mg/dL (70-99) Bedside Ionized Calcium (Radha) 1.06 mmol/L (1.13-1.32) Bedside Troponin I 0.11 ng/ml (<0.08) O2 Saturation 60 % (92-99) Arterial Blood pH 6.98 (7.35-7.45) Arterial Blood pH (Temp corrected) 7.03 Arterial Blood pCO2 at Patient Temp 57 mmHg (35-46) Arterial Blood pCO2 (Temp correct) 49 mmHg Arterial Blood pO2 at Patient Temp 44 mmHg (65-108) Arterial Blood pO2 (Temp corrected) 35 mmHg Arterial Blood HCO3 13 mmol/L (21-28) Arterial Blood Base Excess -19 mmol/L (-3-3) FiO2 100 Prothrombin Time 19.6 SEC (11.7-14.0) Prothromb Time International Ratio 1.7 (0.8-1.1) Activated Partial Thromboplast Time 61 SEC (24-38) Sodium Level 137 mmol/L (136-145) Potassium Level 3.6 mmol/L (3.5-5.1) Chloride Level 102 mmol/L (98-107) Carbon Dioxide Level 15 mmol/L (21-32) Blood Urea Nitrogen 31 mg/dL (8-26) Creatinine 2.2 mg/dL (0.7-1.3) Estimated GFR (Cockcroft-Gault) 30.8 Calcium Level 7.3 mg/dL (8.5-10.1) Phosphorus Level 9.1 mg/dL (2.6-4.7) Magnesium Level 2.6 mg/dL (1.8-2.4) Triglycerides Level 102 mg/dL (0-150) Test 08/04/20 22:08 08/05/20 03:30 08/05/20 06:15 08/05/20 07:35 O2 Saturation 90 % (92-99) 98 % (92-99) Arterial Blood pH 7.11 (7.35-7.45) 7.16 (7.35-7.45) Arterial Blood pH (Temp corrected) 7.14 7.19 Arterial Blood pCO2 at Patient Temp 45 mmHg (35-46) 35 mmHg (35-46) Arterial Blood pCO2 (Temp correct) 41 mmHg 31 mmHg Arterial Blood pO2 at Patient Temp 73 mmHg (65-108) 156 mmHg (65-108) Arterial Blood pO2 (Temp corrected) 63 mmHg 143 mmHg Arterial Blood HCO3 14 mmol/L (21-28) 12 mmol/L (21-28) Arterial Blood Base Excess -15 mmol/L (-3-3) -16 mmol/L (-3-3) FiO2 100 100 vent White Blood Count 22.7 x10^3/uL (4.0-11.0) Red Blood Count 4.65 x10^6/uL (4.30-5.70) Hemoglobin 14.8 g/dL (13.0-17.5) Hematocrit 43.7 % (39.0-53.0) Mean Corpuscular Volume 94 fL (79-100) Mean Corpuscular Hemoglobin 32 pg (25-35) Mean Corpuscular Hemoglobin Concent 34 g/dL (31-37) Red Cell Distribution Width 13.9 % (11.5-14.5) Platelet Count 124 x10^3/uL (140-400) Neutrophils (%) (Auto) 92 % (31-73) Lymphocytes (%) (Auto) 4 % (24-48) Monocytes (%) (Auto) 5 % (0-9) Eosinophils (%) (Auto) 0 % (0-3) Basophils (%) (Auto) 0 % (0-3) Neutrophils # (Auto) 20.8 x10^3/uL (1.8-7.7) Lymphocytes # (Auto) 0.9 x10^3/uL (1.0-4.8) Monocytes # (Auto) 1.0 x10^3/uL (0.0-1.1) Eosinophils # (Auto) 0.0 x10^3/uL (0.0-0.7) Basophils # (Auto) 0.0 x10^3/uL (0.0-0.2) Prothrombin Time 22.4 SEC (11.7-14.0) Prothromb Time International Ratio 2.0 (0.8-1.1) Activated Partial Thromboplast Time 47 SEC (24-38) Sodium Level 141 mmol/L (136-145) Potassium Level 2.8 mmol/L (3.5-5.1) 3.6 mmol/L (3.5-5.1) Chloride Level 105 mmol/L (98-107) Carbon Dioxide Level 17 mmol/L (21-32) Anion Gap 19 (6-14) Blood Urea Nitrogen 33 mg/dL (8-26) Creatinine 2.7 mg/dL (0.7-1.3) Estimated GFR (Cockcroft-Gault) 24.3 Glucose Level 169 mg/dL (70-99) Calcium Level 7.2 mg/dL (8.5-10.1) Phosphorus Level 3.4 mg/dL (2.6-4.7) Magnesium Level 2.1 mg/dL (1.8-2.4) Laboratory Tests Test 08/04/20 16:00 08/04/20 16:17 08/04/20 19:36 08/04/20 21:30 White Blood Count 6.8 x10^3/uL (4.0-11.0) 21.6 x10^3/uL (4.0-11.0) Red Blood Count 5.40 x10^6/uL (4.30-5.70) 4.97 x10^6/uL (4.30-5.70) Hemoglobin 17.0 g/dL (13.0-17.5) 15.7 g/dL (13.0-17.5) Hematocrit 53.2 % (39.0-53.0) 47.5 % (39.0-53.0) Mean Corpuscular Volume 99 fL (79-100) 96 fL (79-100) Mean Corpuscular Hemoglobin 32 pg (25-35) 32 pg (25-35) Mean Corpuscular Hemoglobin Concent 32 g/dL (31-37) 33 g/dL (31-37) Red Cell Distribution Width 14.7 % (11.5-14.5) 14.2 % (11.5-14.5) Platelet Count 81 x10^3/uL (140-400) 153 x10^3/uL (140-400) Neutrophils (%) (Auto) 18 % (31-73) 89 % (31-73) Lymphocytes (%) (Auto) 75 % (24-48) 9 % (24-48) Monocytes (%) (Auto) 5 % (0-9) 1 % (0-9) Eosinophils (%) (Auto) 1 % (0-3) 0 % (0-3) Basophils (%) (Auto) 1 % (0-3) 0 % (0-3) Neutrophils # (Auto) 1.2 x10^3/uL (1.8-7.7) 19.3 x10^3/uL (1.8-7.7) Lymphocytes # (Auto) 5.0 x10^3/uL (1.0-4.8) 2.0 x10^3/uL (1.0-4.8) Monocytes # (Auto) 0.3 x10^3/uL (0.0-1.1) 0.3 x10^3/uL (0.0-1.1) Eosinophils # (Auto) 0.1 x10^3/uL (0.0-0.7) 0.1 x10^3/uL (0.0-0.7) Basophils # (Auto) 0.1 x10^3/uL (0.0-0.2) 0.1 x10^3/uL (0.0-0.2) Bedside Hemoglobin 18.4 g/dL (14-18) Bedside Hematocrit 54 % (37-52) Bedside Sodium 141 mmol/L (135-145) Bedside Potassium 2.9 mmol/L (3.5-5.0) Bedside Chloride 108 mmol/L (98-110) Bedside Total CO2 15 mmol/L (23-32) Anion Gap 22 mmol/L (6-14) 20 (6-14) Bedside Blood Urea Nitrogen 33 mg/dL (8-26) Bedside Creatinine 1.6 mg/dL (0.5-1.4) Glucose Level 321 mg/dL (70-99) 300 mg/dL (70-99) Bedside Ionized Calcium (Radha) 1.06 mmol/L (1.13-1.32) Bedside Troponin I 0.11 ng/ml (<0.08) O2 Saturation 60 % (92-99) Arterial Blood pH 6.98 (7.35-7.45) Arterial Blood pH (Temp corrected) 7.03 Arterial Blood pCO2 at Patient Temp 57 mmHg (35-46) Arterial Blood pCO2 (Temp correct) 49 mmHg Arterial Blood pO2 at Patient Temp 44 mmHg (65-108) Arterial Blood pO2 (Temp corrected) 35 mmHg Arterial Blood HCO3 13 mmol/L (21-28) Arterial Blood Base Excess -19 mmol/L (-3-3) FiO2 100 Prothrombin Time 19.6 SEC (11.7-14.0) Prothromb Time International Ratio 1.7 (0.8-1.1) Activated Partial Thromboplast Time 61 SEC (24-38) Sodium Level 137 mmol/L (136-145) Potassium Level 3.6 mmol/L (3.5-5.1) Chloride Level 102 mmol/L (98-107) Carbon Dioxide Level 15 mmol/L (21-32) Blood Urea Nitrogen 31 mg/dL (8-26) Creatinine 2.2 mg/dL (0.7-1.3) Estimated GFR (Cockcroft-Gault) 30.8 Calcium Level 7.3 mg/dL (8.5-10.1) Phosphorus Level 9.1 mg/dL (2.6-4.7) Magnesium Level 2.6 mg/dL (1.8-2.4) Triglycerides Level 102 mg/dL (0-150) Test 08/04/20 22:08 08/05/20 03:30 08/05/20 06:15 08/05/20 07:35 O2 Saturation 90 % (92-99) 98 % (92-99) Arterial Blood pH 7.11 (7.35-7.45) 7.16 (7.35-7.45) Arterial Blood pH (Temp corrected) 7.14 7.19 Arterial Blood pCO2 at Patient Temp 45 mmHg (35-46) 35 mmHg (35-46) Arterial Blood pCO2 (Temp correct) 41 mmHg 31 mmHg Arterial Blood pO2 at Patient Temp 73 mmHg (65-108) 156 mmHg (65-108) Arterial Blood pO2 (Temp corrected) 63 mmHg 143 mmHg Arterial Blood HCO3 14 mmol/L (21-28) 12 mmol/L (21-28) Arterial Blood Base Excess -15 mmol/L (-3-3) -16 mmol/L (-3-3) FiO2 100 100 vent White Blood Count 22.7 x10^3/uL (4.0-11.0) Red Blood Count 4.65 x10^6/uL (4.30-5.70) Hemoglobin 14.8 g/dL (13.0-17.5) Hematocrit 43.7 % (39.0-53.0) Mean Corpuscular Volume 94 fL (79-100) Mean Corpuscular Hemoglobin 32 pg (25-35) Mean Corpuscular Hemoglobin Concent 34 g/dL (31-37) Red Cell Distribution Width 13.9 % (11.5-14.5) Platelet Count 124 x10^3/uL (140-400) Neutrophils (%) (Auto) 92 % (31-73) Lymphocytes (%) (Auto) 4 % (24-48) Monocytes (%) (Auto) 5 % (0-9) Eosinophils (%) (Auto) 0 % (0-3) Basophils (%) (Auto) 0 % (0-3) Neutrophils # (Auto) 20.8 x10^3/uL (1.8-7.7) Lymphocytes # (Auto) 0.9 x10^3/uL (1.0-4.8) Monocytes # (Auto) 1.0 x10^3/uL (0.0-1.1) Eosinophils # (Auto) 0.0 x10^3/uL (0.0-0.7) Basophils # (Auto) 0.0 x10^3/uL (0.0-0.2) Prothrombin Time 22.4 SEC (11.7-14.0) Prothromb Time International Ratio 2.0 (0.8-1.1) Activated Partial Thromboplast Time 47 SEC (24-38) Sodium Level 141 mmol/L (136-145) Potassium Level 2.8 mmol/L (3.5-5.1) 3.6 mmol/L (3.5-5.1) Chloride Level 105 mmol/L (98-107) Carbon Dioxide Level 17 mmol/L (21-32) Anion Gap 19 (6-14) Blood Urea Nitrogen 33 mg/dL (8-26) Creatinine 2.7 mg/dL (0.7-1.3) Estimated GFR (Cockcroft-Gault) 24.3 Glucose Level 169 mg/dL (70-99) Calcium Level 7.2 mg/dL (8.5-10.1) Phosphorus Level 3.4 mg/dL (2.6-4.7) Magnesium Level 2.1 mg/dL (1.8-2.4) Review All relevant outside records, renal labs, imaging studies, telemetry/EKG's were reviewed. Images Images Exam: CT of chest with contrast INDICATION: Post code, TECHNIQUE: Sequential axial images through the chest obtained following the administration 100 mL of Omni 350 IV contrast. Sagittal and coronal reformatted images were reconstructed from the axial data and reviewed. 3-D reformatted images were reconstructed from the axial data and reviewed. Comparisons: None FINDINGS: Visualized portions of the thyroid are unremarkable. No enlarged mediastinal nodes are identified. Heart size is normal. No pericardial effusion. Thoracic aorta has a normal course and caliber. Pulmonary artery is not enlarged. No pulmonary embolus identified within the main, lobar or segmental pulmonary arteries. Airways are patent. There is a endotracheal tube noted within the trachea. Dependent consolidative changes noted in the lungs bilaterally. No pneumothorax. No pleural effusion or thickening. No suspicious osseous lesions. Displaced anterior rib fractures noted bilaterally. Evaluation of the sternum is markedly limited secondary to extensive respiratory motion. IMPRESSION: 1. No pulmonary embolus identified within the main, lobar or proximal segmental pulmonary arteries. Evaluation distally is limited secondary to extensive respiratory motion. 2. Consolidative changes at the dependent portion lungs bilaterally may relate to edema. 3. Bilateral anterior rib fractures. ALEJANDRO WATERS MD Aug 05, 2020 09:25
--- NOTE | 2020-08-05 09:26 | RAD ---
XR CHEST 1V 8:32 AM CLINICAL INDICATIONS: Reason: Temporary hemodialysis catheter placement COMPARISON: 1:11 AM on same day Findings: Right IJ hemodialysis catheter is in place and the inferior tip is seen at the junction of the superior vena cava with the right atrium. No pneumothorax is evident. ET tube and NG tube and rig ht upper extremity PICC line remain in place. Improvement in bilateral perihilar pulmonary edema is e vident. No pleural effusion is seen. Heart size and mediastinum are stable. IMPRESSION: Placement of right IJ hemodialysis catheter without pneumothorax. Improvement of bilatera l pulmonary edema. Electronically signed by: Patric Wilson MD (08/05/2020 9:24 AM) [id number]
--- NOTE | 2020-08-05 09:38 | EKG ---
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 Architect: [facility] : 1960 Requested By: DANYA DIXON Order Number: [id number] Reading MD: Measurements Intervals [place] Rate: 54 P: 75 NM: 346 QRS: 68 QRSD: 114 T: 68 QT: 526 QTc: 501 Interpretive Statements SINUS RHYTHM PROLONGED NM INTERVAL LOW LIMB LEAD VOLTAGE QRS(T) CONTOUR ABNORMALITY CONSISTENT WITH ANTERIOR INFARCT AGE UNDETERMINED ABNORMAL ECG RI6.02 Compared to ECG 08/04/2020 16:05:37 First degree AV block now present Right superior axis no longer present Right ventricular hypertrophy no longer present Early repolarization no longer present Myocardial infarct finding still present
[2020-08-05 09:41] LABS: CHOLESTEROL/HDL RATIO 2.6
--- NOTE | 2020-08-05 09:53 | PDOC ---
PULMONARY PROGRESS NOTES DATE: 08/05/20 TIME: 09:49 Subjective remains on 2 pressors, AC mode shocked again last night for V-Tac no U/O Vitals Vital Signs Date Time Temp Pulse Resp B/P (MAP) Pulse Ox O2 Delivery O2 Flow Rate FiO2 08/05/20 07:29 100 Ventilator 08/05/20 06:00 94.2 74 26 95/74 (81) 94.2 Lungs: Clear Cardiovascular: S1 Abdomen: Soft Extremities: Other (cold, decrease pulses) Labs Laboratory Tests Test 08/04/20 16:00 08/04/20 16:17 08/04/20 19:36 08/04/20 21:30 White Blood Count 6.8 x10^3/uL (4.0-11.0) 21.6 x10^3/uL (4.0-11.0) Red Blood Count 5.40 x10^6/uL (4.30-5.70) 4.97 x10^6/uL (4.30-5.70) Hemoglobin 17.0 g/dL (13.0-17.5) 15.7 g/dL (13.0-17.5) Hematocrit 53.2 % (39.0-53.0) 47.5 % (39.0-53.0) Mean Corpuscular Volume 99 fL (79-100) 96 fL (79-100) Mean Corpuscular Hemoglobin 32 pg (25-35) 32 pg (25-35) Mean Corpuscular Hemoglobin Concent 32 g/dL (31-37) 33 g/dL (31-37) Red Cell Distribution Width 14.7 % (11.5-14.5) 14.2 % (11.5-14.5) Platelet Count 81 x10^3/uL (140-400) 153 x10^3/uL (140-400) Neutrophils (%) (Auto) 18 % (31-73) 89 % (31-73) Lymphocytes (%) (Auto) 75 % (24-48) 9 % (24-48) Monocytes (%) (Auto) 5 % (0-9) 1 % (0-9) Eosinophils (%) (Auto) 1 % (0-3) 0 % (0-3) Basophils (%) (Auto) 1 % (0-3) 0 % (0-3) Neutrophils # (Auto) 1.2 x10^3/uL (1.8-7.7) 19.3 x10^3/uL (1.8-7.7) Lymphocytes # (Auto) 5.0 x10^3/uL (1.0-4.8) 2.0 x10^3/uL (1.0-4.8) Monocytes # (Auto) 0.3 x10^3/uL (0.0-1.1) 0.3 x10^3/uL (0.0-1.1) Eosinophils # (Auto) 0.1 x10^3/uL (0.0-0.7) 0.1 x10^3/uL (0.0-0.7) Basophils # (Auto) 0.1 x10^3/uL (0.0-0.2) 0.1 x10^3/uL (0.0-0.2) Bedside Hemoglobin 18.4 g/dL (14-18) Bedside Hematocrit 54 % (37-52) Bedside Sodium 141 mmol/L (135-145) Bedside Potassium 2.9 mmol/L (3.5-5.0) Bedside Chloride 108 mmol/L (98-110) Bedside Total CO2 15 mmol/L (23-32) Anion Gap 22 mmol/L (6-14) 20 (6-14) Bedside Blood Urea Nitrogen 33 mg/dL (8-26) Bedside Creatinine 1.6 mg/dL (0.5-1.4) Glucose Level 321 mg/dL (70-99) 300 mg/dL (70-99) Bedside Ionized Calcium (Radha) 1.06 mmol/L (1.13-1.32) Bedside Troponin I 0.11 ng/ml (<0.08) O2 Saturation 60 % (92-99) Arterial Blood pH 6.98 (7.35-7.45) Arterial Blood pH (Temp corrected) 7.03 Arterial Blood pCO2 at Patient Temp 57 mmHg (35-46) Arterial Blood pCO2 (Temp correct) 49 mmHg Arterial Blood pO2 at Patient Temp 44 mmHg (65-108) Arterial Blood pO2 (Temp corrected) 35 mmHg Arterial Blood HCO3 13 mmol/L (21-28) Arterial Blood Base Excess -19 mmol/L (-3-3) FiO2 100 Prothrombin Time 19.6 SEC (11.7-14.0) Prothromb Time International Ratio 1.7 (0.8-1.1) Activated Partial Thromboplast Time 61 SEC (24-38) Sodium Level 137 mmol/L (136-145) Potassium Level 3.6 mmol/L (3.5-5.1) Chloride Level 102 mmol/L (98-107) Carbon Dioxide Level 15 mmol/L (21-32) Blood Urea Nitrogen 31 mg/dL (8-26) Creatinine 2.2 mg/dL (0.7-1.3) Estimated GFR (Cockcroft-Gault) 30.8 Calcium Level 7.3 mg/dL (8.5-10.1) Phosphorus Level 9.1 mg/dL (2.6-4.7) Magnesium Level 2.6 mg/dL (1.8-2.4) Triglycerides Level 102 mg/dL (0-150) Test 08/04/20 22:08 08/05/20 03:30 08/05/20 06:15 08/05/20 07:35 O2 Saturation 90 % (92-99) 98 % (92-99) Arterial Blood pH 7.11 (7.35-7.45) 7.16 (7.35-7.45) Arterial Blood pH (Temp corrected) 7.14 7.19 Arterial Blood pCO2 at Patient Temp 45 mmHg (35-46) 35 mmHg (35-46) Arterial Blood pCO2 (Temp correct) 41 mmHg 31 mmHg Arterial Blood pO2 at Patient Temp 73 mmHg (65-108) 156 mmHg (65-108) Arterial Blood pO2 (Temp corrected) 63 mmHg 143 mmHg Arterial Blood HCO3 14 mmol/L (21-28) 12 mmol/L (21-28) Arterial Blood Base Excess -15 mmol/L (-3-3) -16 mmol/L (-3-3) FiO2 100 100 vent White Blood Count 22.7 x10^3/uL (4.0-11.0) Red Blood Count 4.65 x10^6/uL (4.30-5.70) Hemoglobin 14.8 g/dL (13.0-17.5) Hematocrit 43.7 % (39.0-53.0) Mean Corpuscular Volume 94 fL (79-100) Mean Corpuscular Hemoglobin 32 pg (25-35) Mean Corpuscular Hemoglobin Concent 34 g/dL (31-37) Red Cell Distribution Width 13.9 % (11.5-14.5) Platelet Count 124 x10^3/uL (140-400) Neutrophils (%) (Auto) 92 % (31-73) Lymphocytes (%) (Auto) 4 % (24-48) Monocytes (%) (Auto) 5 % (0-9) Eosinophils (%) (Auto) 0 % (0-3) Basophils (%) (Auto) 0 % (0-3) Neutrophils # (Auto) 20.8 x10^3/uL (1.8-7.7) Lymphocytes # (Auto) 0.9 x10^3/uL (1.0-4.8) Monocytes # (Auto) 1.0 x10^3/uL (0.0-1.1) Eosinophils # (Auto) 0.0 x10^3/uL (0.0-0.7) Basophils # (Auto) 0.0 x10^3/uL (0.0-0.2) Prothrombin Time 22.4 SEC (11.7-14.0) Prothromb Time International Ratio 2.0 (0.8-1.1) Activated Partial Thromboplast Time 47 SEC (24-38) Sodium Level 141 mmol/L (136-145) Potassium Level 2.8 mmol/L (3.5-5.1) 3.6 mmol/L (3.5-5.1) Chloride Level 105 mmol/L (98-107) Carbon Dioxide Level 17 mmol/L (21-32) Anion Gap 19 (6-14) Blood Urea Nitrogen 33 mg/dL (8-26) Creatinine 2.7 mg/dL (0.7-1.3) Estimated GFR (Cockcroft-Gault) 24.3 Glucose Level 169 mg/dL (70-99) Calcium Level 7.2 mg/dL (8.5-10.1) Phosphorus Level 3.4 mg/dL (2.6-4.7) Magnesium Level 2.1 mg/dL (1.8-2.4) Triglycerides Level 97 mg/dL (0-150) Cholesterol Level 132 mg/dL (0-200) LDL Cholesterol, Calculated 63 mg/dL (0-100) VLDL Cholesterol, Calculated 19 mg/dL (0-40) Non-HDL Cholesterol Calculated 82 mg/dL (0-129) HDL Cholesterol 50 mg/dL (40-60) Cholesterol/HDL Ratio 2.6 Thyroid Stimulating Hormone (TSH) 2.498 uIU/mL (0.358-3.74) Laboratory Tests Test 08/04/20 16:00 08/04/20 16:17 08/04/20 19:36 08/04/20 21:30 White Blood Count 6.8 x10^3/uL (4.0-11.0) 21.6 x10^3/uL (4.0-11.0) Red Blood Count 5.40 x10^6/uL (4.30-5.70) 4.97 x10^6/uL (4.30-5.70) Hemoglobin 17.0 g/dL (13.0-17.5) 15.7 g/dL (13.0-17.5) Hematocrit 53.2 % (39.0-53.0) 47.5 % (39.0-53.0) Mean Corpuscular Volume 99 fL (79-100) 96 fL (79-100) Mean Corpuscular Hemoglobin 32 pg (25-35) 32 pg (25-35) Mean Corpuscular Hemoglobin Concent 32 g/dL (31-37) 33 g/dL (31-37) Red Cell Distribution Width 14.7 % (11.5-14.5) 14.2 % (11.5-14.5) Platelet Count 81 x10^3/uL (140-400) 153 x10^3/uL (140-400) Neutrophils (%) (Auto) 18 % (31-73) 89 % (31-73) Lymphocytes (%) (Auto) 75 % (24-48) 9 % (24-48) Monocytes (%) (Auto) 5 % (0-9) 1 % (0-9) Eosinophils (%) (Auto) 1 % (0-3) 0 % (0-3) Basophils (%) (Auto) 1 % (0-3) 0 % (0-3) Neutrophils # (Auto) 1.2 x10^3/uL (1.8-7.7) 19.3 x10^3/uL (1.8-7.7) Lymphocytes # (Auto) 5.0 x10^3/uL (1.0-4.8) 2.0 x10^3/uL (1.0-4.8) Monocytes # (Auto) 0.3 x10^3/uL (0.0-1.1) 0.3 x10^3/uL (0.0-1.1) Eosinophils # (Auto) 0.1 x10^3/uL (0.0-0.7) 0.1 x10^3/uL (0.0-0.7) Basophils # (Auto) 0.1 x10^3/uL (0.0-0.2) 0.1 x10^3/uL (0.0-0.2) Bedside Hemoglobin 18.4 g/dL (14-18) Bedside Hematocrit 54 % (37-52) Bedside Sodium 141 mmol/L (135-145) Bedside Potassium 2.9 mmol/L (3.5-5.0) Bedside Chloride 108 mmol/L (98-110) Bedside Total CO2 15 mmol/L (23-32) Anion Gap 22 mmol/L (6-14) 20 (6-14) Bedside Blood Urea Nitrogen 33 mg/dL (8-26) Bedside Creatinine 1.6 mg/dL (0.5-1.4) Glucose Level 321 mg/dL (70-99) 300 mg/dL (70-99) Bedside Ionized Calcium (Radha) 1.06 mmol/L (1.13-1.32) Bedside Troponin I 0.11 ng/ml (<0.08) O2 Saturation 60 % (92-99) Arterial Blood pH 6.98 (7.35-7.45) Arterial Blood pH (Temp corrected) 7.03 Arterial Blood pCO2 at Patient Temp 57 mmHg (35-46) Arterial Blood pCO2 (Temp correct) 49 mmHg Arterial Blood pO2 at Patient Temp 44 mmHg (65-108) Arterial Blood pO2 (Temp corrected) 35 mmHg Arterial Blood HCO3 13 mmol/L (21-28) Arterial Blood Base Excess -19 mmol/L (-3-3) FiO2 100 Prothrombin Time 19.6 SEC (11.7-14.0) Prothromb Time International Ratio 1.7 (0.8-1.1) Activated Partial Thromboplast Time 61 SEC (24-38) Sodium Level 137 mmol/L (136-145) Potassium Level 3.6 mmol/L (3.5-5.1) Chloride Level 102 mmol/L (98-107) Carbon Dioxide Level 15 mmol/L (21-32) Blood Urea Nitrogen 31 mg/dL (8-26) Creatinine 2.2 mg/dL (0.7-1.3) Estimated GFR (Cockcroft-Gault) 30.8 Calcium Level 7.3 mg/dL (8.5-10.1) Phosphorus Level 9.1 mg/dL (2.6-4.7) Magnesium Level 2.6 mg/dL (1.8-2.4) Triglycerides Level 102 mg/dL (0-150) Test 08/04/20 22:08 08/05/20 03:30 08/05/20 06:15 08/05/20 07:35 O2 Saturation 90 % (92-99) 98 % (92-99) Arterial Blood pH 7.11 (7.35-7.45) 7.16 (7.35-7.45) Arterial Blood pH (Temp corrected) 7.14 7.19 Arterial Blood pCO2 at Patient Temp 45 mmHg (35-46) 35 mmHg (35-46) Arterial Blood pCO2 (Temp correct) 41 mmHg 31 mmHg Arterial Blood pO2 at Patient Temp 73 mmHg (65-108) 156 mmHg (65-108) Arterial Blood pO2 (Temp corrected) 63 mmHg 143 mmHg Arterial Blood HCO3 14 mmol/L (21-28) 12 mmol/L (21-28) Arterial Blood Base Excess -15 mmol/L (-3-3) -16 mmol/L (-3-3) FiO2 100 100 vent White Blood Count 22.7 x10^3/uL (4.0-11.0) Red Blood Count 4.65 x10^6/uL (4.30-5.70) Hemoglobin 14.8 g/dL (13.0-17.5) Hematocrit 43.7 % (39.0-53.0) Mean Corpuscular Volume 94 fL (79-100) Mean Corpuscular Hemoglobin 32 pg (25-35) Mean Corpuscular Hemoglobin Concent 34 g/dL (31-37) Red Cell Distribution Width 13.9 % (11.5-14.5) Platelet Count 124 x10^3/uL (140-400) Neutrophils (%) (Auto) 92 % (31-73) Lymphocytes (%) (Auto) 4 % (24-48) Monocytes (%) (Auto) 5 % (0-9) Eosinophils (%) (Auto) 0 % (0-3) Basophils (%) (Auto) 0 % (0-3) Neutrophils # (Auto) 20.8 x10^3/uL (1.8-7.7) Lymphocytes # (Auto) 0.9 x10^3/uL (1.0-4.8) Monocytes # (Auto) 1.0 x10^3/uL (0.0-1.1) Eosinophils # (Auto) 0.0 x10^3/uL (0.0-0.7) Basophils # (Auto) 0.0 x10^3/uL (0.0-0.2) Prothrombin Time 22.4 SEC (11.7-14.0) Prothromb Time International Ratio 2.0 (0.8-1.1) Activated Partial Thromboplast Time 47 SEC (24-38) Sodium Level 141 mmol/L (136-145) Potassium Level 2.8 mmol/L (3.5-5.1) 3.6 mmol/L (3.5-5.1) Chloride Level 105 mmol/L (98-107) Carbon Dioxide Level 17 mmol/L (21-32) Anion Gap 19 (6-14) Blood Urea Nitrogen 33 mg/dL (8-26) Creatinine 2.7 mg/dL (0.7-1.3) Estimated GFR (Cockcroft-Gault) 24.3 Glucose Level 169 mg/dL (70-99) Calcium Level 7.2 mg/dL (8.5-10.1) Phosphorus Level 3.4 mg/dL (2.6-4.7) Magnesium Level 2.1 mg/dL (1.8-2.4) Triglycerides Level 97 mg/dL (0-150) Cholesterol Level 132 mg/dL (0-200) LDL Cholesterol, Calculated 63 mg/dL (0-100) VLDL Cholesterol, Calculated 19 mg/dL (0-40) Non-HDL Cholesterol Calculated 82 mg/dL (0-129) HDL Cholesterol 50 mg/dL (40-60) Cholesterol/HDL Ratio 2.6 Thyroid Stimulating Hormone (TSH) 2.498 uIU/mL (0.358-3.74) Impression . 1. Acute hypoxic and hypercapnic respiratory failure secondary to cardiac arrest. 2. Ventricular fibrillation cardiac arrest. 3. Shock, likely cardiogenic. 4. Abnormal CT chest with moderate amount of bilateral atelectasis and some interstitial markings suggestive of possible pulmonary edema. No evidence of pulmonary embolism. 5. Acute kidney injury. 6. Hyperphosphatemia.improved 7. Status post cardiac catheterization. No significant coronary artery disease. Normal ejection fraction, but moderate to severe mitral regurgitation. Official cardiac catheterization report pending. 8. Cannot exclude anoxic encephalopathy. 9. V-Tac/ V-Fib Plan . 1. AC mode, wean FIO2/ PEEP, improving oxygenation. 2. Follow ABGs and make necessary adjustment. 3. The patient has severe hypoxia, likely related to acute lung injury and shock. Cannot exclude the possibility of aspiration as he does have moderate atelectasis or infiltrates in the lower lobes. I have empirically covered with Zosyn. cxr with improving CHF 4. Follow cardiology recommendations. 5. Follow renal recommendations. He will need dialysis. 6. PRN Bicarb 7. Lovenox for deep vein thrombosis prophylaxis. 8. Follow hypothermic protocol. In fact, the patient was already hypothermic on arrival. 9. Prognosis is extremely grim with likelihood of anoxic brain injury from prolonged CPR and shock. 10. Obtain an echocardiogram. 11. Discussed with RN and RT. Chart reviewed. Imaging studies reviewed. 12. d/w in detail. d/w Renal Critical care time, 35 minutes. ANDREINA TAMAYO MD Aug 05, 2020 09:53
[2020-08-05 09:59] LABS: % BANDS 16 % (0-9); % EOS 1 % (0-5); % LYMPHS 6 % (24-48); % MONOS 4 % (0-10); % SEGS 73 % (35-66); PLT ESTIMATE DECREASED (ADEQUATE)
--- NOTE | 2020-08-05 09:59 | NUR ---
SS following for discharge planning. SS reviewed pt chart and discussed with pt RN. Pt is from home with spouse and is currently on the vent at 100%. 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 Coded yesterday. Pt on IV Zosyn and Amiodarone. Pressors. Dialysis cath placed today and pt to start CRRT. Hypothermia protocol. Not stable. SS will continue to follow for discharge planning.
[2020-08-05 12:11] LABS: BASO # 0.1 x10^3/uL (0.0-0.2); BASO % 1 % (0-3); EOS % 0 % (0-3); HEMATOCRIT 41.5 % (39.0-53.0); HEMOGLOBIN 13.8 g/dL (13.0-17.5); LYMPH # 0.8 x10^3/uL (1.0-4.8); LYMPH % 4 % (24-48); MEAN CORPUSCULAR HEMOGLOBIN 31 pg (25-35); MEAN CORPUSCULAR HGB CONC 33 g/dL (31-37); MEAN CORPUSCULAR VOLUME 95 fL (79-100); MONO # 0.4 x10^3/uL (0.0-1.1); MONO % 2 % (0-9); NEUT # 19.9 x10^3/uL (1.8-7.7); NEUT % 94 % (31-73); PLATELET COUNT 79 x10^3/uL (140-400); RED BLOOD COUNT 4.39 x10^6/uL (4.30-5.70); RED CELL DISTRIBUTION WIDTH 14.2 % (11.5-14.5); WHITE BLOOD COUNT 21.3 x10^3/uL (4.0-11.0)
[2020-08-05 12:18] LABS: BASE EXCESS ABG -18 mmol/L (-3-3); CORRECTED PCO2 ABG 26 mmHg; CORRECTED PH ABG 7.18; CORRECTED PO2 ABG 88 mmHg; HCO3 ABG 10 mmol/L (21-28); PCO2 ABG 32 mmHg (35-46); PO2 ABG 112 mmHg (65-108); SAT O2 ABG 97 % (92-99)
[2020-08-05 12:22] LABS: PROTHROMBIN TIME PATIENT 30.2 SEC (11.7-14.0)
[2020-08-05 12:22] LABS: FIO2 ABG 100
[2020-08-05 12:25] LABS: CALCIUM 6.5 mg/dL (8.5-10.1); CREATININE 3.2 mg/dL (0.7-1.3); MAGNESIUM 2.4 mg/dL (1.8-2.4); PHOSPHORUS 5.3 mg/dL (2.6-4.7); POTASSIUM 3.7 mmol/L (3.5-5.1)
--- NOTE | 2020-08-05 12:50 | PDOC ---
DANYA DIXON PUBLIC HEALTH PHYSICIAN 08/05/20 1250: CARDIO Progress Notes Date and Time Date of Service 08/05/2020 Time of Evaluation 1030 Subjective Subjective: Other (sedated) Vitals Vitals Vital Signs Date Time Temp Pulse Resp B/P (MAP) Pulse Ox O2 Delivery O2 Flow Rate FiO2 08/05/20 12:20 94 08/05/20 12:08 Mechanical Ventilator 08/05/20 12:08 90.3 08/05/20 12:00 50 26 Weight Weight [ ] Input and Output Intake and Output Intake and Output 08/05/20 07:00 Intake Total 1415 ml Output Total 35 ml Balance 1380 ml Intake IV Total 1415 ml Output Urine Total 35 ml Laboratory Labs Laboratory Tests Test 08/04/20 16:00 08/04/20 16:17 08/04/20 19:36 08/04/20 21:30 White Blood Count 6.8 x10^3/uL (4.0-11.0) 21.6 x10^3/uL (4.0-11.0) Red Blood Count 5.40 x10^6/uL (4.30-5.70) 4.97 x10^6/uL (4.30-5.70) Hemoglobin 17.0 g/dL (13.0-17.5) 15.7 g/dL (13.0-17.5) Hematocrit 53.2 % (39.0-53.0) 47.5 % (39.0-53.0) Mean Corpuscular Volume 99 fL (79-100) 96 fL (79-100) Mean Corpuscular Hemoglobin 32 pg (25-35) 32 pg (25-35) Mean Corpuscular Hemoglobin Concent 32 g/dL (31-37) 33 g/dL (31-37) Red Cell Distribution Width 14.7 % (11.5-14.5) 14.2 % (11.5-14.5) Platelet Count 81 x10^3/uL (140-400) 153 x10^3/uL (140-400) Neutrophils (%) (Auto) 18 % (31-73) 89 % (31-73) Lymphocytes (%) (Auto) 75 % (24-48) 9 % (24-48) Monocytes (%) (Auto) 5 % (0-9) 1 % (0-9) Eosinophils (%) (Auto) 1 % (0-3) 0 % (0-3) Basophils (%) (Auto) 1 % (0-3) 0 % (0-3) Neutrophils # (Auto) 1.2 x10^3/uL (1.8-7.7) 19.3 x10^3/uL (1.8-7.7) Lymphocytes # (Auto) 5.0 x10^3/uL (1.0-4.8) 2.0 x10^3/uL (1.0-4.8) Monocytes # (Auto) 0.3 x10^3/uL (0.0-1.1) 0.3 x10^3/uL (0.0-1.1) Eosinophils # (Auto) 0.1 x10^3/uL (0.0-0.7) 0.1 x10^3/uL (0.0-0.7) Basophils # (Auto) 0.1 x10^3/uL (0.0-0.2) 0.1 x10^3/uL (0.0-0.2) Bedside Hemoglobin 18.4 g/dL (14-18) Bedside Hematocrit 54 % (37-52) Bedside Sodium 141 mmol/L (135-145) Bedside Potassium 2.9 mmol/L (3.5-5.0) Bedside Chloride 108 mmol/L (98-110) Bedside Total CO2 15 mmol/L (23-32) Anion Gap 22 mmol/L (6-14) 20 (6-14) Bedside Blood Urea Nitrogen 33 mg/dL (8-26) Bedside Creatinine 1.6 mg/dL (0.5-1.4) Glucose Level 321 mg/dL (70-99) 300 mg/dL (70-99) Bedside Ionized Calcium (Radha) 1.06 mmol/L (1.13-1.32) Bedside Troponin I 0.11 ng/ml (<0.08) O2 Saturation 60 % (92-99) Arterial Blood pH 6.98 (7.35-7.45) Arterial Blood pH (Temp corrected) 7.03 Arterial Blood pCO2 at Patient Temp 57 mmHg (35-46) Arterial Blood pCO2 (Temp correct) 49 mmHg Arterial Blood pO2 at Patient Temp 44 mmHg (65-108) Arterial Blood pO2 (Temp corrected) 35 mmHg Arterial Blood HCO3 13 mmol/L (21-28) Arterial Blood Base Excess -19 mmol/L (-3-3) FiO2 100 Prothrombin Time 19.6 SEC (11.7-14.0) Prothromb Time International Ratio 1.7 (0.8-1.1) Activated Partial Thromboplast Time 61 SEC (24-38) Sodium Level 137 mmol/L (136-145) Potassium Level 3.6 mmol/L (3.5-5.1) Chloride Level 102 mmol/L (98-107) Carbon Dioxide Level 15 mmol/L (21-32) Blood Urea Nitrogen 31 mg/dL (8-26) Creatinine 2.2 mg/dL (0.7-1.3) Estimated GFR (Cockcroft-Gault) 30.8 Calcium Level 7.3 mg/dL (8.5-10.1) Phosphorus Level 9.1 mg/dL (2.6-4.7) Magnesium Level 2.6 mg/dL (1.8-2.4) Triglycerides Level 102 mg/dL (0-150) Test 08/04/20 22:08 08/05/20 03:30 08/05/20 06:15 08/05/20 07:35 O2 Saturation 90 % (92-99) 98 % (92-99) Arterial Blood pH 7.11 (7.35-7.45) 7.16 (7.35-7.45) Arterial Blood pH (Temp corrected) 7.14 7.19 Arterial Blood pCO2 at Patient Temp 45 mmHg (35-46) 35 mmHg (35-46) Arterial Blood pCO2 (Temp correct) 41 mmHg 31 mmHg Arterial Blood pO2 at Patient Temp 73 mmHg (65-108) 156 mmHg (65-108) Arterial Blood pO2 (Temp corrected) 63 mmHg 143 mmHg Arterial Blood HCO3 14 mmol/L (21-28) 12 mmol/L (21-28) Arterial Blood Base Excess -15 mmol/L (-3-3) -16 mmol/L (-3-3) FiO2 100 100 vent White Blood Count 22.7 x10^3/uL (4.0-11.0) Red Blood Count 4.65 x10^6/uL (4.30-5.70) Hemoglobin 14.8 g/dL (13.0-17.5) Hematocrit 43.7 % (39.0-53.0) Mean Corpuscular Volume 94 fL (79-100) Mean Corpuscular Hemoglobin 32 pg (25-35) Mean Corpuscular Hemoglobin Concent 34 g/dL (31-37) Red Cell Distribution Width 13.9 % (11.5-14.5) Platelet Count 124 x10^3/uL (140-400) Neutrophils (%) (Auto) 92 % (31-73) Lymphocytes (%) (Auto) 4 % (24-48) Monocytes (%) (Auto) 5 % (0-9) Eosinophils (%) (Auto) 0 % (0-3) Basophils (%) (Auto) 0 % (0-3) Neutrophils # (Auto) 20.8 x10^3/uL (1.8-7.7) Lymphocytes # (Auto) 0.9 x10^3/uL (1.0-4.8) Monocytes # (Auto) 1.0 x10^3/uL (0.0-1.1) Eosinophils # (Auto) 0.0 x10^3/uL (0.0-0.7) Basophils # (Auto) 0.0 x10^3/uL (0.0-0.2) Segmented Neutrophils % 73 % (35-66) Band Neutrophils % 16 % (0-9) Lymphocytes % 6 % (24-48) Monocytes % 4 % (0-10) Eosinophils % 1 % (0-5) Platelet Estimate Decreased (ADEQUATE) Large Platelets Few Prothrombin Time 22.4 SEC (11.7-14.0) Prothromb Time International Ratio 2.0 (0.8-1.1) Activated Partial Thromboplast Time 47 SEC (24-38) Sodium Level 141 mmol/L (136-145) Potassium Level 2.8 mmol/L (3.5-5.1) 3.6 mmol/L (3.5-5.1) Chloride Level 105 mmol/L (98-107) Carbon Dioxide Level 17 mmol/L (21-32) Anion Gap 19 (6-14) Blood Urea Nitrogen 33 mg/dL (8-26) Creatinine 2.7 mg/dL (0.7-1.3) Estimated GFR (Cockcroft-Gault) 24.3 Glucose Level 169 mg/dL (70-99) Calcium Level 7.2 mg/dL (8.5-10.1) Phosphorus Level 3.4 mg/dL (2.6-4.7) Magnesium Level 2.1 mg/dL (1.8-2.4) Hepatitis B Surface Antigen Nonreactive (Nonreactive) Creatine Kinase 76538 U/L (39-308) Triglycerides Level 97 mg/dL (0-150) Cholesterol Level 132 mg/dL (0-200) LDL Cholesterol, Calculated 63 mg/dL (0-100) VLDL Cholesterol, Calculated 19 mg/dL (0-40) Non-HDL Cholesterol Calculated 82 mg/dL (0-129) HDL Cholesterol 50 mg/dL (40-60) Cholesterol/HDL Ratio 2.6 Thyroid Stimulating Hormone (TSH) 2.498 uIU/mL (0.358-3.74) Test 08/05/20 11:55 08/05/20 12:14 White Blood Count 21.3 x10^3/uL (4.0-11.0) Red Blood Count 4.39 x10^6/uL (4.30-5.70) Hemoglobin 13.8 g/dL (13.0-17.5) Hematocrit 41.5 % (39.0-53.0) Mean Corpuscular Volume 95 fL (79-100) Mean Corpuscular Hemoglobin 31 pg (25-35) Mean Corpuscular Hemoglobin Concent 33 g/dL (31-37) Red Cell Distribution Width 14.2 % (11.5-14.5) Platelet Count 79 x10^3/uL (140-400) Neutrophils (%) (Auto) 94 % (31-73) Lymphocytes (%) (Auto) 4 % (24-48) Monocytes (%) (Auto) 2 % (0-9) Eosinophils (%) (Auto) 0 % (0-3) Basophils (%) (Auto) 1 % (0-3) Neutrophils # (Auto) 19.9 x10^3/uL (1.8-7.7) Lymphocytes # (Auto) 0.8 x10^3/uL (1.0-4.8) Monocytes # (Auto) 0.4 x10^3/uL (0.0-1.1) Eosinophils # (Auto) 0.0 x10^3/uL (0.0-0.7) Basophils # (Auto) 0.1 x10^3/uL (0.0-0.2) Ionized Calcium 0.93 mmol/L (1.13-1.32) O2 Saturation 97 % (92-99) Arterial Blood pH 7.12 (7.35-7.45) Arterial Blood pH (Temp corrected) 7.18 Arterial Blood pCO2 at Patient Temp 32 mmHg (35-46) Arterial Blood pCO2 (Temp correct) 26 mmHg Arterial Blood pO2 at Patient Temp 112 mmHg (65-108) Arterial Blood pO2 (Temp corrected) 88 mmHg Arterial Blood HCO3 10 mmol/L (21-28) Arterial Blood Base Excess -18 mmol/L (-3-3) FiO2 100 Physical Exam HEENT: Neck Supple W Full Motion Chest: Symmetric LUNGS: Other (intubated vent) Heart: RRR (SR with LBBB with long first degree AV block) Abdomen: Other (sodt) Extremities: Other (currently on hypothermia protocol) Neurology: other (sedated) Assessment Assessment 1. Acute respiratory failure secondary to cardiopulmonary arrest s/p intubation. No PE per CTA. Hypothermia protocol ongoing. 2. OOH VFIB cardiac arrest: Immediate AED occurred at [employer]. Multiple shocks since then and multiple CPR episodes. Also with brief PEA/asystole s/p multiple epinephrine injections presently in SR. This necessitated emergent cardiac cath did not show any major coronary stenosis (he had diagonal branch stenosis that does not explain his presentation. His LVEF is within normal limits and has at least moderate mitral regurgitation on left ventriculography. He did have another episodes of monomorphic VT around 230 AM prompting another shock. Since then no further sustained VT with amiodarone in place. 3. Hypotension needing pressor support. Patient's family denied any recent symptoms suggestive of any infection/covid. 4. Hypokalemia: replace 5. Severe LEONOR 6. Severe rhabdomyolysis 7. Coagulopathy 8. Hx of presyncopal events but no known MCOT prior per spouse 9. MR 10. LBBB with long first degree AV block Recommendations 1. Consult neurology team to evaluate neurological prognosis. Consult pulmonary. 2. Continue pressor support with levophed and vasopressin. DC dopamine. 3. Continue amiodarone for VT suppression. QTc is 501. 4. Differentials include possible conduction issues, myocarditis, viral. Pt has been having presyncopal events more lately but only have one episode to which it was more pronounced related to postural changes per spouse but has not had any MCOT. If he has meaningful recovery, we will consider AICD implantation for secondary prevention. Also genetic studies and EP referral would also be a consideration. Would also consider for EMB 5. He will likely need CRRT. Consult nephrology. 6. TTE, check LFTs 7. Maintain K and Mg at 4.0 and 2.0 respectively. 8. Await Covid PCR Justicifation of Admission Dx: Justifications for Admission: Justification of Admission Dx: Yes DOMINGA DOAN MD 08/05/201954: CARDIO Progress Notes Assessment Assessment Patient seen and examined. 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 Tele with VT episodes overnight noted - presently in SR Continue amiodarone infusion - if VT recurs we will consider Lidocaine gtt Cardiac cath did not show any lesions needing intervention. LVEF within normal limits. Plan neuro eval once hypothermia protocol completed. K replaced. PUI - covid pcr pending Plan ICD implantation if he has meaningful neurological recovery. Wean pressors off as tolerated. Continue vent management per pulm team. DANYA DIXON APRN Aug 05, 2020 12:50 DOMINGA DOAN MD Aug 05, 2020 19:55
--- NOTE | 2020-08-05 12:54 | PDOC ---
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 Pt shocked 9 times in field, without return of pulse, maybe 90 total minutes of CPR given had been healthy will r/o COVID infection Vitals Vitals Vital Signs Date Time Temp Pulse Resp B/P (MAP) Pulse Ox O2 Delivery O2 Flow Rate FiO2 08/05/20 12:20 94 08/05/20 12:08 Mechanical Ventilator 08/05/20 12:08 90.3 08/05/20 12:00 50 26 Physical Exam General: Other (intubated and sedated) Heart: Regular rate Lungs: Clear Abdomen: Soft Extremities: No cyanosis, No edema Skin: No rashes, No breakdown Labs LABS Laboratory Tests Test 08/04/20 16:00 08/04/20 16:17 08/04/20 19:36 08/04/20 21:30 White Blood Count 6.8 x10^3/uL (4.0-11.0) 21.6 x10^3/uL (4.0-11.0) Red Blood Count 5.40 x10^6/uL (4.30-5.70) 4.97 x10^6/uL (4.30-5.70) Hemoglobin 17.0 g/dL (13.0-17.5) 15.7 g/dL (13.0-17.5) Hematocrit 53.2 % (39.0-53.0) 47.5 % (39.0-53.0) Mean Corpuscular Volume 99 fL (79-100) 96 fL (79-100) Mean Corpuscular Hemoglobin 32 pg (25-35) 32 pg (25-35) Mean Corpuscular Hemoglobin Concent 32 g/dL (31-37) 33 g/dL (31-37) Red Cell Distribution Width 14.7 % (11.5-14.5) 14.2 % (11.5-14.5) Platelet Count 81 x10^3/uL (140-400) 153 x10^3/uL (140-400) Neutrophils (%) (Auto) 18 % (31-73) 89 % (31-73) Lymphocytes (%) (Auto) 75 % (24-48) 9 % (24-48) Monocytes (%) (Auto) 5 % (0-9) 1 % (0-9) Eosinophils (%) (Auto) 1 % (0-3) 0 % (0-3) Basophils (%) (Auto) 1 % (0-3) 0 % (0-3) Neutrophils # (Auto) 1.2 x10^3/uL (1.8-7.7) 19.3 x10^3/uL (1.8-7.7) Lymphocytes # (Auto) 5.0 x10^3/uL (1.0-4.8) 2.0 x10^3/uL (1.0-4.8) Monocytes # (Auto) 0.3 x10^3/uL (0.0-1.1) 0.3 x10^3/uL (0.0-1.1) Eosinophils # (Auto) 0.1 x10^3/uL (0.0-0.7) 0.1 x10^3/uL (0.0-0.7) Basophils # (Auto) 0.1 x10^3/uL (0.0-0.2) 0.1 x10^3/uL (0.0-0.2) Bedside Hemoglobin 18.4 g/dL (14-18) Bedside Hematocrit 54 % (37-52) Bedside Sodium 141 mmol/L (135-145) Bedside Potassium 2.9 mmol/L (3.5-5.0) Bedside Chloride 108 mmol/L (98-110) Bedside Total CO2 15 mmol/L (23-32) Anion Gap 22 mmol/L (6-14) 20 (6-14) Bedside Blood Urea Nitrogen 33 mg/dL (8-26) Bedside Creatinine 1.6 mg/dL (0.5-1.4) Glucose Level 321 mg/dL (70-99) 300 mg/dL (70-99) Bedside Ionized Calcium (Radha) 1.06 mmol/L (1.13-1.32) Bedside Troponin I 0.11 ng/ml (<0.08) O2 Saturation 60 % (92-99) Arterial Blood pH 6.98 (7.35-7.45) Arterial Blood pH (Temp corrected) 7.03 Arterial Blood pCO2 at Patient Temp 57 mmHg (35-46) Arterial Blood pCO2 (Temp correct) 49 mmHg Arterial Blood pO2 at Patient Temp 44 mmHg (65-108) Arterial Blood pO2 (Temp corrected) 35 mmHg Arterial Blood HCO3 13 mmol/L (21-28) Arterial Blood Base Excess -19 mmol/L (-3-3) FiO2 100 Prothrombin Time 19.6 SEC (11.7-14.0) Prothromb Time International Ratio 1.7 (0.8-1.1) Activated Partial Thromboplast Time 61 SEC (24-38) Sodium Level 137 mmol/L (136-145) Potassium Level 3.6 mmol/L (3.5-5.1) Chloride Level 102 mmol/L (98-107) Carbon Dioxide Level 15 mmol/L (21-32) Blood Urea Nitrogen 31 mg/dL (8-26) Creatinine 2.2 mg/dL (0.7-1.3) Estimated GFR (Cockcroft-Gault) 30.8 Calcium Level 7.3 mg/dL (8.5-10.1) Phosphorus Level 9.1 mg/dL (2.6-4.7) Magnesium Level 2.6 mg/dL (1.8-2.4) Triglycerides Level 102 mg/dL (0-150) Test 08/04/20 22:08 08/05/20 03:30 08/05/20 06:15 08/05/20 07:35 O2 Saturation 90 % (92-99) 98 % (92-99) Arterial Blood pH 7.11 (7.35-7.45) 7.16 (7.35-7.45) Arterial Blood pH (Temp corrected) 7.14 7.19 Arterial Blood pCO2 at Patient Temp 45 mmHg (35-46) 35 mmHg (35-46) Arterial Blood pCO2 (Temp correct) 41 mmHg 31 mmHg Arterial Blood pO2 at Patient Temp 73 mmHg (65-108) 156 mmHg (65-108) Arterial Blood pO2 (Temp corrected) 63 mmHg 143 mmHg Arterial Blood HCO3 14 mmol/L (21-28) 12 mmol/L (21-28) Arterial Blood Base Excess -15 mmol/L (-3-3) -16 mmol/L (-3-3) FiO2 100 100 vent White Blood Count 22.7 x10^3/uL (4.0-11.0) Red Blood Count 4.65 x10^6/uL (4.30-5.70) Hemoglobin 14.8 g/dL (13.0-17.5) Hematocrit 43.7 % (39.0-53.0) Mean Corpuscular Volume 94 fL (79-100) Mean Corpuscular Hemoglobin 32 pg (25-35) Mean Corpuscular Hemoglobin Concent 34 g/dL (31-37) Red Cell Distribution Width 13.9 % (11.5-14.5) Platelet Count 124 x10^3/uL (140-400) Neutrophils (%) (Auto) 92 % (31-73) Lymphocytes (%) (Auto) 4 % (24-48) Monocytes (%) (Auto) 5 % (0-9) Eosinophils (%) (Auto) 0 % (0-3) Basophils (%) (Auto) 0 % (0-3) Neutrophils # (Auto) 20.8 x10^3/uL (1.8-7.7) Lymphocytes # (Auto) 0.9 x10^3/uL (1.0-4.8) Monocytes # (Auto) 1.0 x10^3/uL (0.0-1.1) Eosinophils # (Auto) 0.0 x10^3/uL (0.0-0.7) Basophils # (Auto) 0.0 x10^3/uL (0.0-0.2) Segmented Neutrophils % 73 % (35-66) Band Neutrophils % 16 % (0-9) Lymphocytes % 6 % (24-48) Monocytes % 4 % (0-10) Eosinophils % 1 % (0-5) Platelet Estimate Decreased (ADEQUATE) Large Platelets Few Prothrombin Time 22.4 SEC (11.7-14.0) Prothromb Time International Ratio 2.0 (0.8-1.1) Activated Partial Thromboplast Time 47 SEC (24-38) Sodium Level 141 mmol/L (136-145) Potassium Level 2.8 mmol/L (3.5-5.1) 3.6 mmol/L (3.5-5.1) Chloride Level 105 mmol/L (98-107) Carbon Dioxide Level 17 mmol/L (21-32) Anion Gap 19 (6-14) Blood Urea Nitrogen 33 mg/dL (8-26) Creatinine 2.7 mg/dL (0.7-1.3) Estimated GFR (Cockcroft-Gault) 24.3 Glucose Level 169 mg/dL (70-99) Calcium Level 7.2 mg/dL (8.5-10.1) Phosphorus Level 3.4 mg/dL (2.6-4.7) Magnesium Level 2.1 mg/dL (1.8-2.4) Hepatitis B Surface Antigen Nonreactive (Nonreactive) Creatine Kinase 59835 U/L (39-308) Triglycerides Level 97 mg/dL (0-150) Cholesterol Level 132 mg/dL (0-200) LDL Cholesterol, Calculated 63 mg/dL (0-100) VLDL Cholesterol, Calculated 19 mg/dL (0-40) Non-HDL Cholesterol Calculated 82 mg/dL (0-129) HDL Cholesterol 50 mg/dL (40-60) Cholesterol/HDL Ratio 2.6 Thyroid Stimulating Hormone (TSH) 2.498 uIU/mL (0.358-3.74) Test 08/05/20 11:55 08/05/20 12:14 White Blood Count 21.3 x10^3/uL (4.0-11.0) Red Blood Count 4.39 x10^6/uL (4.30-5.70) Hemoglobin 13.8 g/dL (13.0-17.5) Hematocrit 41.5 % (39.0-53.0) Mean Corpuscular Volume 95 fL (79-100) Mean Corpuscular Hemoglobin 31 pg (25-35) Mean Corpuscular Hemoglobin Concent 33 g/dL (31-37) Red Cell Distribution Width 14.2 % (11.5-14.5) Platelet Count 79 x10^3/uL (140-400) Neutrophils (%) (Auto) 94 % (31-73) Lymphocytes (%) (Auto) 4 % (24-48) Monocytes (%) (Auto) 2 % (0-9) Eosinophils (%) (Auto) 0 % (0-3) Basophils (%) (Auto) 1 % (0-3) Neutrophils # (Auto) 19.9 x10^3/uL (1.8-7.7) Lymphocytes # (Auto) 0.8 x10^3/uL (1.0-4.8) Monocytes # (Auto) 0.4 x10^3/uL (0.0-1.1) Eosinophils # (Auto) 0.0 x10^3/uL (0.0-0.7) Basophils # (Auto) 0.1 x10^3/uL (0.0-0.2) Prothrombin Time 30.2 SEC (11.7-14.0) Prothromb Time International Ratio 2.9 (0.8-1.1) Activated Partial Thromboplast Time 52 SEC (24-38) Sodium Level 143 mmol/L (136-145) Potassium Level 3.7 mmol/L (3.5-5.1) Chloride Level 106 mmol/L (98-107) Carbon Dioxide Level 13 mmol/L (21-32) Anion Gap 24 (6-14) Blood Urea Nitrogen 35 mg/dL (8-26) Creatinine 3.2 mg/dL (0.7-1.3) Estimated GFR (Cockcroft-Gault) 20.0 Glucose Level 238 mg/dL (70-99) Calcium Level 6.5 mg/dL (8.5-10.1) Ionized Calcium 0.93 mmol/L (1.13-1.32) Phosphorus Level 5.3 mg/dL (2.6-4.7) Magnesium Level 2.4 mg/dL (1.8-2.4) O2 Saturation 97 % (92-99) Arterial Blood pH 7.12 (7.35-7.45) Arterial Blood pH (Temp corrected) 7.18 Arterial Blood pCO2 at Patient Temp 32 mmHg (35-46) Arterial Blood pCO2 (Temp correct) 26 mmHg Arterial Blood pO2 at Patient Temp 112 mmHg (65-108) Arterial Blood pO2 (Temp corrected) 88 mmHg Arterial Blood HCO3 10 mmol/L (21-28) Arterial Blood Base Excess -18 mmol/L (-3-3) FiO2 100 Review of Systems Review of Systems unable, sedate on vent Assessment and Plan Assessmemt and Plan Problems Medical Problems: (1) Cardiac arrest Status: Acute Comment Review of Relevant I have reviewed the following items rachel (where applicable) has been applied. Labs Laboratory Tests Test 08/04/20 16:00 08/04/20 16:17 08/04/20 19:36 08/04/20 21:30 White Blood Count 6.8 x10^3/uL (4.0-11.0) 21.6 x10^3/uL (4.0-11.0) Red Blood Count 5.40 x10^6/uL (4.30-5.70) 4.97 x10^6/uL (4.30-5.70) Hemoglobin 17.0 g/dL (13.0-17.5) 15.7 g/dL (13.0-17.5) Hematocrit 53.2 % (39.0-53.0) 47.5 % (39.0-53.0) Mean Corpuscular Volume 99 fL (79-100) 96 fL (79-100) Mean Corpuscular Hemoglobin 32 pg (25-35) 32 pg (25-35) Mean Corpuscular Hemoglobin Concent 32 g/dL (31-37) 33 g/dL (31-37) Red Cell Distribution Width 14.7 % (11.5-14.5) 14.2 % (11.5-14.5) Platelet Count 81 x10^3/uL (140-400) 153 x10^3/uL (140-400) Neutrophils (%) (Auto) 18 % (31-73) 89 % (31-73) Lymphocytes (%) (Auto) 75 % (24-48) 9 % (24-48) Monocytes (%) (Auto) 5 % (0-9) 1 % (0-9) Eosinophils (%) (Auto) 1 % (0-3) 0 % (0-3) Basophils (%) (Auto) 1 % (0-3) 0 % (0-3) Neutrophils # (Auto) 1.2 x10^3/uL (1.8-7.7) 19.3 x10^3/uL (1.8-7.7) Lymphocytes # (Auto) 5.0 x10^3/uL (1.0-4.8) 2.0 x10^3/uL (1.0-4.8) Monocytes # (Auto) 0.3 x10^3/uL (0.0-1.1) 0.3 x10^3/uL (0.0-1.1) Eosinophils # (Auto) 0.1 x10^3/uL (0.0-0.7) 0.1 x10^3/uL (0.0-0.7) Basophils # (Auto) 0.1 x10^3/uL (0.0-0.2) 0.1 x10^3/uL (0.0-0.2) Bedside Hemoglobin 18.4 g/dL (14-18) Bedside Hematocrit 54 % (37-52) Bedside Sodium 141 mmol/L (135-145) Bedside Potassium 2.9 mmol/L (3.5-5.0) Bedside Chloride 108 mmol/L (98-110) Bedside Total CO2 15 mmol/L (23-32) Anion Gap 22 mmol/L (6-14) 20 (6-14) Bedside Blood Urea Nitrogen 33 mg/dL (8-26) Bedside Creatinine 1.6 mg/dL (0.5-1.4) Glucose Level 321 mg/dL (70-99) 300 mg/dL (70-99) Bedside Ionized Calcium (Radha) 1.06 mmol/L (1.13-1.32) Bedside Troponin I 0.11 ng/ml (<0.08) O2 Saturation 60 % (92-99) Arterial Blood pH 6.98 (7.35-7.45) Arterial Blood pH (Temp corrected) 7.03 Arterial Blood pCO2 at Patient Temp 57 mmHg (35-46) Arterial Blood pCO2 (Temp correct) 49 mmHg Arterial Blood pO2 at Patient Temp 44 mmHg (65-108) Arterial Blood pO2 (Temp corrected) 35 mmHg Arterial Blood HCO3 13 mmol/L (21-28) Arterial Blood Base Excess -19 mmol/L (-3-3) FiO2 100 Prothrombin Time 19.6 SEC (11.7-14.0) Prothromb Time International Ratio 1.7 (0.8-1.1) Activated Partial Thromboplast Time 61 SEC (24-38) Sodium Level 137 mmol/L (136-145) Potassium Level 3.6 mmol/L (3.5-5.1) Chloride Level 102 mmol/L (98-107) Carbon Dioxide Level 15 mmol/L (21-32) Blood Urea Nitrogen 31 mg/dL (8-26) Creatinine 2.2 mg/dL (0.7-1.3) Estimated GFR (Cockcroft-Gault) 30.8 Calcium Level 7.3 mg/dL (8.5-10.1) Phosphorus Level 9.1 mg/dL (2.6-4.7) Magnesium Level 2.6 mg/dL (1.8-2.4) Triglycerides Level 102 mg/dL (0-150) Test 08/04/20 22:08 08/05/20 03:30 08/05/20 06:15 08/05/20 07:35 O2 Saturation 90 % (92-99) 98 % (92-99) Arterial Blood pH 7.11 (7.35-7.45) 7.16 (7.35-7.45) Arterial Blood pH (Temp corrected) 7.14 7.19 Arterial Blood pCO2 at Patient Temp 45 mmHg (35-46) 35 mmHg (35-46) Arterial Blood pCO2 (Temp correct) 41 mmHg 31 mmHg Arterial Blood pO2 at Patient Temp 73 mmHg (65-108) 156 mmHg (65-108) Arterial Blood pO2 (Temp corrected) 63 mmHg 143 mmHg Arterial Blood HCO3 14 mmol/L (21-28) 12 mmol/L (21-28) Arterial Blood Base Excess -15 mmol/L (-3-3) -16 mmol/L (-3-3) FiO2 100 100 vent White Blood Count 22.7 x10^3/uL (4.0-11.0) Red Blood Count 4.65 x10^6/uL (4.30-5.70) Hemoglobin 14.8 g/dL (13.0-17.5) Hematocrit 43.7 % (39.0-53.0) Mean Corpuscular Volume 94 fL (79-100) Mean Corpuscular Hemoglobin 32 pg (25-35) Mean Corpuscular Hemoglobin Concent 34 g/dL (31-37) Red Cell Distribution Width 13.9 % (11.5-14.5) Platelet Count 124 x10^3/uL (140-400) Neutrophils (%) (Auto) 92 % (31-73) Lymphocytes (%) (Auto) 4 % (24-48) Monocytes (%) (Auto) 5 % (0-9) Eosinophils (%) (Auto) 0 % (0-3) Basophils (%) (Auto) 0 % (0-3) Neutrophils # (Auto) 20.8 x10^3/uL (1.8-7.7) Lymphocytes # (Auto) 0.9 x10^3/uL (1.0-4.8) Monocytes # (Auto) 1.0 x10^3/uL (0.0-1.1) Eosinophils # (Auto) 0.0 x10^3/uL (0.0-0.7) Basophils # (Auto) 0.0 x10^3/uL (0.0-0.2) Segmented Neutrophils % 73 % (35-66) Band Neutrophils % 16 % (0-9) Lymphocytes % 6 % (24-48) Monocytes % 4 % (0-10) Eosinophils % 1 % (0-5) Platelet Estimate Decreased (ADEQUATE) Large Platelets Few Prothrombin Time 22.4 SEC (11.7-14.0) Prothromb Time International Ratio 2.0 (0.8-1.1) Activated Partial Thromboplast Time 47 SEC (24-38) Sodium Level 141 mmol/L (136-145) Potassium Level 2.8 mmol/L (3.5-5.1) 3.6 mmol/L (3.5-5.1) Chloride Level 105 mmol/L (98-107) Carbon Dioxide Level 17 mmol/L (21-32) Anion Gap 19 (6-14) Blood Urea Nitrogen 33 mg/dL (8-26) Creatinine 2.7 mg/dL (0.7-1.3) Estimated GFR (Cockcroft-Gault) 24.3 Glucose Level 169 mg/dL (70-99) Calcium Level 7.2 mg/dL (8.5-10.1) Phosphorus Level 3.4 mg/dL (2.6-4.7) Magnesium Level 2.1 mg/dL (1.8-2.4) Hepatitis B Surface Antigen Nonreactive (Nonreactive) Creatine Kinase 42200 U/L (39-308) Triglycerides Level 97 mg/dL (0-150) Cholesterol Level 132 mg/dL (0-200) LDL Cholesterol, Calculated 63 mg/dL (0-100) VLDL Cholesterol, Calculated 19 mg/dL (0-40) Non-HDL Cholesterol Calculated 82 mg/dL (0-129) HDL Cholesterol 50 mg/dL (40-60) Cholesterol/HDL Ratio 2.6 Thyroid Stimulating Hormone (TSH) 2.498 uIU/mL (0.358-3.74) Test 08/05/20 11:55 08/05/20 12:14 White Blood Count 21.3 x10^3/uL (4.0-11.0) Red Blood Count 4.39 x10^6/uL (4.30-5.70) Hemoglobin 13.8 g/dL (13.0-17.5) Hematocrit 41.5 % (39.0-53.0) Mean Corpuscular Volume 95 fL (79-100) Mean Corpuscular Hemoglobin 31 pg (25-35) Mean Corpuscular Hemoglobin Concent 33 g/dL (31-37) Red Cell Distribution Width 14.2 % (11.5-14.5) Platelet Count 79 x10^3/uL (140-400) Neutrophils (%) (Auto) 94 % (31-73) Lymphocytes (%) (Auto) 4 % (24-48) Monocytes (%) (Auto) 2 % (0-9) Eosinophils (%) (Auto) 0 % (0-3) Basophils (%) (Auto) 1 % (0-3) Neutrophils # (Auto) 19.9 x10^3/uL (1.8-7.7) Lymphocytes # (Auto) 0.8 x10^3/uL (1.0-4.8) Monocytes # (Auto) 0.4 x10^3/uL (0.0-1.1) Eosinophils # (Auto) 0.0 x10^3/uL (0.0-0.7) Basophils # (Auto) 0.1 x10^3/uL (0.0-0.2) Prothrombin Time 30.2 SEC (11.7-14.0) Prothromb Time International Ratio 2.9 (0.8-1.1) Activated Partial Thromboplast Time 52 SEC (24-38) Sodium Level 143 mmol/L (136-145) Potassium Level 3.7 mmol/L (3.5-5.1) Chloride Level 106 mmol/L (98-107) Carbon Dioxide Level 13 mmol/L (21-32) Anion Gap 24 (6-14) Blood Urea Nitrogen 35 mg/dL (8-26) Creatinine 3.2 mg/dL (0.7-1.3) Estimated GFR (Cockcroft-Gault) 20.0 Glucose Level 238 mg/dL (70-99) Calcium Level 6.5 mg/dL (8.5-10.1) Ionized Calcium 0.93 mmol/L (1.13-1.32) Phosphorus Level 5.3 mg/dL (2.6-4.7) Magnesium Level 2.4 mg/dL (1.8-2.4) O2 Saturation 97 % (92-99) Arterial Blood pH 7.12 (7.35-7.45) Arterial Blood pH (Temp corrected) 7.18 Arterial Blood pCO2 at Patient Temp 32 mmHg (35-46) Arterial Blood pCO2 (Temp correct) 26 mmHg Arterial Blood pO2 at Patient Temp 112 mmHg (65-108) Arterial Blood pO2 (Temp corrected) 88 mmHg Arterial Blood HCO3 10 mmol/L (21-28) Arterial Blood Base Excess -18 mmol/L (-3-3) FiO2 100 Laboratory Tests Test 08/04/20 16:00 08/04/20 16:17 08/04/20 19:36 08/04/20 21:30 White Blood Count 6.8 x10^3/uL (4.0-11.0) 21.6 x10^3/uL (4.0-11.0) Red Blood Count 5.40 x10^6/uL (4.30-5.70) 4.97 x10^6/uL (4.30-5.70) Hemoglobin 17.0 g/dL (13.0-17.5) 15.7 g/dL (13.0-17.5) Hematocrit 53.2 % (39.0-53.0) 47.5 % (39.0-53.0) Mean Corpuscular Volume 99 fL (79-100) 96 fL (79-100) Mean Corpuscular Hemoglobin 32 pg (25-35) 32 pg (25-35) Mean Corpuscular Hemoglobin Concent 32 g/dL (31-37) 33 g/dL (31-37) Red Cell Distribution Width 14.7 % (11.5-14.5) 14.2 % (11.5-14.5) Platelet Count 81 x10^3/uL (140-400) 153 x10^3/uL (140-400) Neutrophils (%) (Auto) 18 % (31-73) 89 % (31-73) Lymphocytes (%) (Auto) 75 % (24-48) 9 % (24-48) Monocytes (%) (Auto) 5 % (0-9) 1 % (0-9) Eosinophils (%) (Auto) 1 % (0-3) 0 % (0-3) Basophils (%) (Auto) 1 % (0-3) 0 % (0-3) Neutrophils # (Auto) 1.2 x10^3/uL (1.8-7.7) 19.3 x10^3/uL (1.8-7.7) Lymphocytes # (Auto) 5.0 x10^3/uL (1.0-4.8) 2.0 x10^3/uL (1.0-4.8) Monocytes # (Auto) 0.3 x10^3/uL (0.0-1.1) 0.3 x10^3/uL (0.0-1.1) Eosinophils # (Auto) 0.1 x10^3/uL (0.0-0.7) 0.1 x10^3/uL (0.0-0.7) Basophils # (Auto) 0.1 x10^3/uL (0.0-0.2) 0.1 x10^3/uL (0.0-0.2) Bedside Hemoglobin 18.4 g/dL (14-18) Bedside Hematocrit 54 % (37-52) Bedside Sodium 141 mmol/L (135-145) Bedside Potassium 2.9 mmol/L (3.5-5.0) Bedside Chloride 108 mmol/L (98-110) Bedside Total CO2 15 mmol/L (23-32) Anion Gap 22 mmol/L (6-14) 20 (6-14) Bedside Blood Urea Nitrogen 33 mg/dL (8-26) Bedside Creatinine 1.6 mg/dL (0.5-1.4) Glucose Level 321 mg/dL (70-99) 300 mg/dL (70-99) Bedside Ionized Calcium (Radha) 1.06 mmol/L (1.13-1.32) Bedside Troponin I 0.11 ng/ml (<0.08) O2 Saturation 60 % (92-99) Arterial Blood pH 6.98 (7.35-7.45) Arterial Blood pH (Temp corrected) 7.03 Arterial Blood pCO2 at Patient Temp 57 mmHg (35-46) Arterial Blood pCO2 (Temp correct) 49 mmHg Arterial Blood pO2 at Patient Temp 44 mmHg (65-108) Arterial Blood pO2 (Temp corrected) 35 mmHg Arterial Blood HCO3 13 mmol/L (21-28) Arterial Blood Base Excess -19 mmol/L (-3-3) FiO2 100 Prothrombin Time 19.6 SEC (11.7-14.0) Prothromb Time International Ratio 1.7 (0.8-1.1) Activated Partial Thromboplast Time 61 SEC (24-38) Sodium Level 137 mmol/L (136-145) Potassium Level 3.6 mmol/L (3.5-5.1) Chloride Level 102 mmol/L (98-107) Carbon Dioxide Level 15 mmol/L (21-32) Blood Urea Nitrogen 31 mg/dL (8-26) Creatinine 2.2 mg/dL (0.7-1.3) Estimated GFR (Cockcroft-Gault) 30.8 Calcium Level 7.3 mg/dL (8.5-10.1) Phosphorus Level 9.1 mg/dL (2.6-4.7) Magnesium Level 2.6 mg/dL (1.8-2.4) Triglycerides Level 102 mg/dL (0-150) Test 08/04/20 22:08 08/05/20 03:30 08/05/20 06:15 08/05/20 07:35 O2 Saturation 90 % (92-99) 98 % (92-99) Arterial Blood pH 7.11 (7.35-7.45) 7.16 (7.35-7.45) Arterial Blood pH (Temp corrected) 7.14 7.19 Arterial Blood pCO2 at Patient Temp 45 mmHg (35-46) 35 mmHg (35-46) Arterial Blood pCO2 (Temp correct) 41 mmHg 31 mmHg Arterial Blood pO2 at Patient Temp 73 mmHg (65-108) 156 mmHg (65-108) Arterial Blood pO2 (Temp corrected) 63 mmHg 143 mmHg Arterial Blood HCO3 14 mmol/L (21-28) 12 mmol/L (21-28) Arterial Blood Base Excess -15 mmol/L (-3-3) -16 mmol/L (-3-3) FiO2 100 100 vent White Blood Count 22.7 x10^3/uL (4.0-11.0) Red Blood Count 4.65 x10^6/uL (4.30-5.70) Hemoglobin 14.8 g/dL (13.0-17.5) Hematocrit 43.7 % (39.0-53.0) Mean Corpuscular Volume 94 fL (79-100) Mean Corpuscular Hemoglobin 32 pg (25-35) Mean Corpuscular Hemoglobin Concent 34 g/dL (31-37) Red Cell Distribution Width 13.9 % (11.5-14.5) Platelet Count 124 x10^3/uL (140-400) Neutrophils (%) (Auto) 92 % (31-73) Lymphocytes (%) (Auto) 4 % (24-48) Monocytes (%) (Auto) 5 % (0-9) Eosinophils (%) (Auto) 0 % (0-3) Basophils (%) (Auto) 0 % (0-3) Neutrophils # (Auto) 20.8 x10^3/uL (1.8-7.7) Lymphocytes # (Auto) 0.9 x10^3/uL (1.0-4.8) Monocytes # (Auto) 1.0 x10^3/uL (0.0-1.1) Eosinophils # (Auto) 0.0 x10^3/uL (0.0-0.7) Basophils # (Auto) 0.0 x10^3/uL (0.0-0.2) Segmented Neutrophils % 73 % (35-66) Band Neutrophils % 16 % (0-9) Lymphocytes % 6 % (24-48) Monocytes % 4 % (0-10) Eosinophils % 1 % (0-5) Platelet Estimate Decreased (ADEQUATE) Large Platelets Few Prothrombin Time 22.4 SEC (11.7-14.0) Prothromb Time International Ratio 2.0 (0.8-1.1) Activated Partial Thromboplast Time 47 SEC (24-38) Sodium Level 141 mmol/L (136-145) Potassium Level 2.8 mmol/L (3.5-5.1) 3.6 mmol/L (3.5-5.1) Chloride Level 105 mmol/L (98-107) Carbon Dioxide Level 17 mmol/L (21-32) Anion Gap 19 (6-14) Blood Urea Nitrogen 33 mg/dL (8-26) Creatinine 2.7 mg/dL (0.7-1.3) Estimated GFR (Cockcroft-Gault) 24.3 Glucose Level 169 mg/dL (70-99) Calcium Level 7.2 mg/dL (8.5-10.1) Phosphorus Level 3.4 mg/dL (2.6-4.7) Magnesium Level 2.1 mg/dL (1.8-2.4) Hepatitis B Surface Antigen Nonreactive (Nonreactive) Creatine Kinase 95153 U/L (39-308) Triglycerides Level 97 mg/dL (0-150) Cholesterol Level 132 mg/dL (0-200) LDL Cholesterol, Calculated 63 mg/dL (0-100) VLDL Cholesterol, Calculated 19 mg/dL (0-40) Non-HDL Cholesterol Calculated 82 mg/dL (0-129) HDL Cholesterol 50 mg/dL (40-60) Cholesterol/HDL Ratio 2.6 Thyroid Stimulating Hormone (TSH) 2.498 uIU/mL (0.358-3.74) Test 08/05/20 11:55 08/05/20 12:14 White Blood Count 21.3 x10^3/uL (4.0-11.0) Red Blood Count 4.39 x10^6/uL (4.30-5.70) Hemoglobin 13.8 g/dL (13.0-17.5) Hematocrit 41.5 % (39.0-53.0) Mean Corpuscular Volume 95 fL (79-100) Mean Corpuscular Hemoglobin 31 pg (25-35) Mean Corpuscular Hemoglobin Concent 33 g/dL (31-37) Red Cell Distribution Width 14.2 % (11.5-14.5) Platelet Count 79 x10^3/uL (140-400) Neutrophils (%) (Auto) 94 % (31-73) Lymphocytes (%) (Auto) 4 % (24-48) Monocytes (%) (Auto) 2 % (0-9) Eosinophils (%) (Auto) 0 % (0-3) Basophils (%) (Auto) 1 % (0-3) Neutrophils # (Auto) 19.9 x10^3/uL (1.8-7.7) Lymphocytes # (Auto) 0.8 x10^3/uL (1.0-4.8) Monocytes # (Auto) 0.4 x10^3/uL (0.0-1.1) Eosinophils # (Auto) 0.0 x10^3/uL (0.0-0.7) Basophils # (Auto) 0.1 x10^3/uL (0.0-0.2) Prothrombin Time 30.2 SEC (11.7-14.0) Prothromb Time International Ratio 2.9 (0.8-1.1) Activated Partial Thromboplast Time 52 SEC (24-38) Sodium Level 143 mmol/L (136-145) Potassium Level 3.7 mmol/L (3.5-5.1) Chloride Level 106 mmol/L (98-107) Carbon Dioxide Level 13 mmol/L (21-32) Anion Gap 24 (6-14) Blood Urea Nitrogen 35 mg/dL (8-26) Creatinine 3.2 mg/dL (0.7-1.3) Estimated GFR (Cockcroft-Gault) 20.0 Glucose Level 238 mg/dL (70-99) Calcium Level 6.5 mg/dL (8.5-10.1) Ionized Calcium 0.93 mmol/L (1.13-1.32) Phosphorus Level 5.3 mg/dL (2.6-4.7) Magnesium Level 2.4 mg/dL (1.8-2.4) O2 Saturation 97 % (92-99) Arterial Blood pH 7.12 (7.35-7.45) Arterial Blood pH (Temp corrected) 7.18 Arterial Blood pCO2 at Patient Temp 32 mmHg (35-46) Arterial Blood pCO2 (Temp correct) 26 mmHg Arterial Blood pO2 at Patient Temp 112 mmHg (65-108) Arterial Blood pO2 (Temp corrected) 88 mmHg Arterial Blood HCO3 10 mmol/L (21-28) Arterial Blood Base Excess -18 mmol/L (-3-3) FiO2 100 Medications Current Medications Heparin Sodium (Porcine) (Heparin Sodium) 4,000 unit 1X ONCE IV Last administered on 08/04/20at 16:39; Start 08/04/20 at 16:30; Stop 08/04/20 at 16:36; Status DC Norepinephrine Bitartrate 8 mg/ Dextrose 258 ml @ 17.609 mls/ hr 1X ONCE IV ; Start 08/04/20 at 16:30; Stop 08/05/20 at 07:09; Status UNV Norepinephrine Bitartrate 8 mg/ Dextrose 258 ml @ 0 mls/hr 1X ONCE IV Last administered on 08/04/20at 16:28; Start 08/04/20 at 16:30; Stop 08/04/20 at 16:31; Status DC Norepinephrine Bitartrate 8 mg/ Dextrose 258 ml @ 0 mls/hr CONT PRN IV PER PROTOCOL Last administered on 08/04/20at 18:49; Start 08/04/20 at 16:45; Stop 08/05/20 at 01:41; Status DC Iodixanol (Visipaque 320) 100 ml STK-MED ONCE .ROUTE ; Start 08/04/20 at 16:31; Stop 08/04/20 at 16:31; Status DC Lidocaine HCl (Lidocaine 1% 20ml Vial) 20 ml STK-MED ONCE .ROUTE ; Start 08/04/20 at 16:31; Stop 08/04/20 at 16:31; Status DC Heparin Sodium/ Sodium Chloride 1,000 ml @ As Directed STK-MED ONCE .ROUTE ; Start 08/04/20 at 16:31; Stop 08/04/20 at 16:32; Status DC Heparin Sodium/ Sodium Chloride (HEPARIN for ARTERIAL LINE FLUSH) 1,000 unit 1X ONCE IART Last administered on 08/04/20at 17:15; Start 08/04/20 at 17:15; Stop 08/04/20 at 17:16; Status DC Heparin Sodium/ Sodium Chloride (HEPARIN for ARTERIAL LINE FLUSH) 1,000 unit 1X ONCE IART Last administered on 08/04/20at 17:15; Start 08/04/20 at 17:15; Stop 08/04/20 at 17:16; Status DC Iodixanol (Visipaque 320) 100 ml 1X ONCE IART Last administered on 08/04/20at 17:15; Start 08/04/20 at 17:15; Stop 08/04/20 at 17:16; Status DC Lidocaine HCl (Lidocaine 1% 20ml Vial) 20 ml 1X ONCE INJ Last administered on 08/04/20at 17:15; Start 08/04/20 at 17:15; Stop 08/04/20 at 17:16; Status DC Vasopressin 20 unit/Dextrose 101 ml @ 11.882 mls/ hr 1X ONCE IV Last administered on 08/04/20at 18:49; Start 08/04/20 at 17:15; Stop 08/05/20 at 01:44; Status DC Phenylephrine HCl 50 mg/Sodium Chloride 255 ml @ 0 mls/hr 1X ONCE IV ; Start 08/04/20 at 17:15; Stop 08/04/20 at 17:16; Status DC Iohexol (Omnipaque 350 Mg/ml) 100 ml 1X ONCE IV ; Start 08/04/20 at 17:30; Stop 08/04/20 at 17:32; Status DC Info (CONTRAST GIVEN -- Rx MONITORING) 1 each PRN DAILY PRN MC SEE COMMENTS; Start 08/04/20 at 17:45; Stop 08/06/20 at 17:44 Fentanyl Citrate 30 ml @ 0 mls/hr CONT PRN IV SEE PROTOCOL Last administered on 08/05/20at 02:44; Start 08/04/20 at 17:45 Fentanyl Citrate (Fentanyl 2ml Vial) 25 mcg PRN Q1HR PRN IV SEE COMMENTS; Sta rt 08/04/20 at 17:45 Fentanyl Citrate (Fentanyl 2ml Vial) 50 mcg PRN Q1HR PRN IV SEE COMMENTS; Start 08/04/20 at 17:45 Chlorhexidine Gluconate (Peridex) 15 ml BID MM Last administered on 08/05/20at 08:41; Start 08/04/20 at 21:00 Morphine Sulfate (Morphine Sulfate) 2 mg PRN Q1HR PRN IV SEE COMMENTS.; Start 08/04/20 at 17:45 Morphine Sulfate (Morphine Sulfate) 4 mg PRN Q1HR PRN IV SEE COMMENTS.; Start 08/04/20 at 17:45 Midazolam HCl 100 ml @ 0 mls/hr CONT PRN IV SEE PROTOCOL Last administered on 08/05/20at 09:11; Start 08/04/20 at 17:45 Norepinephrine Bitartrate 8 mg/ Dextrose 258 ml @ 17.609 mls/ hr CONT PRN IV PER PROTOCOL; Start 08/04/20 at 17:45; Stop 08/05/20 at 01:41; Status DC Dopamine HCl/ Dextrose 250 ml @ 17.063 mls/ hr CONT PRN IV SEE I/O RECORD Last administered on 08/04/20at 19:32; Start 08/04/20 at 17:45 Norepinephrine Bitartrate 32 mg/ Dextrose 250 ml @ 4.266 mls/ hr CONT PRN IV SEE I/O RECORD Last administered on 08/05/20at 02:46; Start 08/04/20 at 18:00 Fentanyl Citrate (Fentanyl 2ml Vial) 100 mcg 1X ONCE IV ; Start 08/04/20 at 17:45; Stop 08/04/20 at 18:02; Status DC Midazolam HCl (Versed) 2 mg 1X ONCE IV ; Start 08/04/20 at 17:45; Stop 08/04/20 at 18:02; Status DC Magnesium Sulfate/ Dextrose 100 ml @ 100 mls/hr 1X ONCE IV Last administered on 08/04/20at 18:47; Start 08/04/20 at 18:15; Stop 08/04/20 at 19:14; Status DC Buspirone HCl (Buspar) 30 mg Q8H NG Last administered on 08/05/20at 10:48; Start 08/04/20 at 19:00; Stop 08/06/20 at 11:01 Acetaminophen (Tylenol) 650 mg Q4H NG Last administered on 08/05/20at 10:48; Start 08/04/20 at 19:00 Glycerin/ Hypromellose/ Polyethylene (Artificial Tears) 1 drop Q6HRS OU Last administered on 08/05/20at 10:48; Start 08/04/20 at 19:00 Glycerin/ Hypromellose/ Polyethylene (Artificial Tears) 1 drop PRN Q15MIN PRN OU DRY EYE; Start 08/04/20 at 17:45 Pantoprazole Sodium (PROTONIX VIAL for IV PUSH) 40 mg DAILY IVP Last admin istered on 08/05/20at 08:39; Start 08/04/20 at 21:00 Vecuronium [place] (Norcuron Bolus) 9 mg PRN Q1HR PRN IV SHIVERING; Start 08/04/20 at 17:45 Lorazepam (Ativan Inj) 0.5 mg PRN Q6HRS PRN IVP ANXIETY / AGITATION; Start 08/04/20 at 18:15 Ondansetron HCl (Zofran) 4 mg PRN Q6HRS PRN IVP NAUSEA/VOMITING; Start 08/04/20 at 18:15 Famotidine (Pepcid Vial) 20 mg BID IVP Last administered on 08/05/20at 08:40; Start 08/04/20 at 21:00 Enoxaparin Sodium (Lovenox 40mg Syringe) 40 mg Q24H SQ Last administered on 08/04/20at 20:28; Start 08/04/20 at 19:00 Sodium Chloride (Normal Saline Flush) 3 ml QSHIFT PRN IV AFTER MEDS AND BLOOD DRAWS; Start 08/04/20 at 18:15 Morphine Sulfate (Morphine Sulfate) 2 mg PRN Q1HR PRN IV PAIN-SEE COMMENTS; Start 08/04/20 at 18:15 Fentanyl Citrate (Fentanyl 2ml Vial) 50 mcg PRN Q1HR PRN IV PAIN-SEE COMMENTS; Start 08/04/20 at 18:15 Potassium Bicarbonate (Potassium Effervescent Tablet) 40 meq 1X ONCE PEG Last administered on 08/04/20at 20:29; Start 08/04/20 at 20:15; Stop 08/04/20 at 20:19 ; Status DC Furosemide (Lasix) 40 mg 1X ONCE IVP Last administered on 08/04/20at 20:28; Start 08/04/20 at 20:15; Stop 08/04/20 at 20:19; Status DC Amiodarone HCl 450 mg/Dextrose 259 ml @ 0 mls/hr 1X ONCE IV Last administered on 08/04/20at 20:29; Start 08/04/20 at 20:30; Stop 08/04/20 at 20:31; Status DC Sodium Bicarbonate (Sodium Bicarb Adult 8.4% Syr) 50 meq 1X ONCE IV Last administered on 08/04/20at 20:54; Start 08/04/20 at 20:45; Stop 08/04/20 at 20:46; Status DC Piperacillin Sod/ Tazobactam Sod (Zosyn Per Pharmacy) 1 each PRN DAILY PRN MC SEE COMMENTS; Start 08/04/20 at 22:45 Insulin Human Regular 100 unit/ Sodium Chloride 101 ml @ 0 mls/hr CONT PRN IV SEE I/O RECORD; Start 08/04/20 at 22:45 Piperacillin Sod/ Tazobactam Sod 3.375 gm/Sodium Chloride 50 ml @ 100 mls/hr Q6H IV Last administered on 08/05/20at 10:48; Start 08/04/20 at 23:00 Sodium Bicarbonate (Sodium Bicarb Adult 8.4% Syr) 100 meq 1X ONCE IV Last administered on 08/04/20at 23:17; Start 08/04/20 at 23:00; Stop 08/04/20 at 23:01; Status DC Lidocaine HCl (Lidocaine HCl 2% Abboject) 100 mg 1X ONCE IV Last administered on 08/04/20at 23:58; Start 08/05/20 at 00:00; Stop 08/05/20 at 00:01; Status DC Potassium Chloride/Water 100 ml @ 100 mls/hr 1X ONCE IV Last administered on 08/05/20at 04:27; Start 08/05/20 at 04:30; Stop 08/05/20 at 05:29; Status DC Amiodarone HCl 450 mg/Dextrose 259 ml @ 0 mls/hr 1X ONCE IV Last administered on 08/05/20at 06:01; Start 08/05/20 at 06:00; Stop 08/05/20 at 06:01; Status DC Sodium Bicarbonate 150 meq/Dextrose 1,150 ml @ 150 mls/hr Q7H40M IV Last administered on 08/05/20at 08:39; Start 08/05/20 at 07:45 Magnesium Sulfate 50 ml @ 25 mls/hr 1X ONCE IV ; Start 08/05/20 at 07:45; Stop 08/05/20 at 08:34; Status DC Lidocaine HCl (Buffered Lidocaine 1%) 3 ml STK-MED ONCE .ROUTE ; Start 08/05/20 at 08:02; Stop 08/05/20 at 08:02; Status DC Heparin Sodium (Porcine) (Heparin Sodium) 10,000 unit STK-MED ONCE .ROUTE ; Start 08/05/20 at 08:02; Stop 08/05/20 at 08:02; Status DC Lidocaine HCl (Buffered Lidocaine 1%) 6 ml 1X ONCE INJ Last administered on 08/05/20at 08:34; Start 08/05/20 at 08:30; Stop 08/05/20 at 08:31; Status DC Heparin Sodium (Porcine) (Heparin Sodium) 2,500 unit 1X ONCE INT CAT Last administered on 08/05/20at 08:35; Start 08/05/20 at 08:30; Stop 08/05/20 at 08:31; Status DC Magnesium Sulfate/ Dextrose 100 ml @ 100 mls/hr 1X ONCE IV Last administered on 08/05/20at 08:40; Start 08/05/20 at 08:45; Stop 08/05/20 at 09:44; Status DC Vasopressin 20 unit/Dextrose 101 ml @ 12 mls/hr CONT PRN IV SEE I/O RECORD Last administered on 08/05/20at 09:12; Start 08/05/20 at 09:00 Potassium Chloride/Water 100 ml @ 100 mls/hr 1X ONCE IV Last administered on 08/05/20at 10:14; Start 08/05/20 at 09:30; Stop 08/05/20 at 10:29; Status DC Potassium Chloride 15 meq/ Bicarbonate Dialysis Soln w/ out KCl 5,007.5 ml @ 1,100 mls/ hr Q4H34M IV ; Start 08/05/20 at 11:00 Potassium Chloride 15 meq/ Bicarbonate Dialysis Soln w/ out KCl 5,007.5 ml @ 1,100 mls/ hr Q4H34M IV ; Start 08/05/20 at 11:00 Potassium Chloride 15 meq/ Bicarbonate Dialysis Soln w/ out KCl 5,007.5 ml @ 1,100 mls/ hr Q4H34M IV ; Start 08/05/20 at 11:00 Vitals/I & O Vital Sign - Last 24 Hours 08/04/20 08/04/20 08/04/20 08/04/20 15:48 16:02 16:07 16:16 Pulse 42 42 Resp 34 B/P (MAP) 101/57 (72) 66/35 (45) 70/44 (53) O2 Delivery NonRebreather Mask Bag Valve Mask Bag Valve Mask Bag Valve Mask 08/04/20 08/04/20 08/04/20 08/04/20 16:19 16:22 16:25 16:27 Pulse 40 52 41 39 B/P (MAP) 65/43 (50) 79/51 (60) 75/39 (51) 67/35 (46) O2 Delivery Bag Valve Mask Bag Valve Mask Bag Valve Mask Bag Valve Mask 08/04/20 08/04/20 08/04/20 08/04/20 16:29 16:32 16:36 17:27 Pulse 37 38 38 69 Resp 24 B/P (MAP) 60/32 (41) 65/31 (42) 64/32 (43) Pulse Ox 100 O2 Delivery Bag Valve Mask Bag Valve Mask Bag Valve Mask Ventilator 08/04/20 08/04/20 08/04/20 08/04/20 18:15 18:47 19:00 19:30 Temp 93.6 91.0 91.0 Pulse 110 92 Resp 24 26 B/P (MAP) 128/62 144/73 (96) O2 Delivery Ventilator Ventilator Ventilator Ventilator 08/04/20 08/04/20 08/04/20 08/04/20 20:00 20:00 20:00 20:16 Temp 93.8 Pulse 77 96 Resp 26 B/P (MAP) 137/88 134/79 (97) O2 Delivery Mechanical Ventilator Ventilator Ventilator Ventilator 08/04/20 08/04/20 08/04/20 08/04/20 21:00 21:00 22:00 22:00 Temp 94.3 94.6 Pulse 87 64 76 84 Resp 26 B/P (MAP) 118/88 152/90 (110) 130/92 (105) 126/94 O2 Delivery Ventilator Ventilator Ventilator Ventilator 08/04/20 08/04/20 08/04/20 08/04/20 23:00 23:00 23:32 23:58 Temp 94.1 94.2 94.2 Pulse 84 86 89 Resp 26 B/P (MAP) 140/89 126/90 (102) 106/88 O2 Delivery Ventilator Ventilator Ventilator 08/04/20 08/05/20 08/05/20 08/05/20 23:59 00:00 00:00 01:00 Temp 93.2 93.0 93.2 93.2 93.2 Pulse 86 85 Resp 26 B/P (MAP) 140/92 (108) 142/86 (104) Pulse Ox 93 O2 Delivery Mechanical Ventilator Ventilator Ventilator 08/05/20 08/05/20 08/05/20 08/05/20 01:00 02:00 02:00 02:44 Temp 92.1 91.7 91.5 91.5 Pulse 79 Resp 26 B/P (MAP) 128/91 (103) Pulse Ox 94 97 O2 Delivery Ventilator Ventilator 08/05/20 08/05/20 08/05/20 08/05/20 03:00 03:00 03:55 04:00 Temp 91.9 91.9 93.7 91.9 Pulse 91 Resp 26 B/P (MAP) 111/75 (87) Pulse Ox 98 O2 Delivery Ventilator Mechanical Ventilator 08/05/20 08/05/20 08/05/20 08/05/20 04:00 04:12 05:00 06:00 Temp 93.3 94.1 94.6 93.3 94.1 Pulse 98 81 Resp B/P (MAP) 110/81 (91) 123/91 (102) Pulse Ox 100 100 O2 Delivery Ventilator Ventilator Ventilator 08/05/20 08/05/20 08/05/20 08/05/20 06:00 07:00 07:00 07:29 Temp 94.2 94.3 94.2 94.2 94.2 Pulse 74 68 Resp B/P (MAP) 95/74 (81) 122/88 (99) Pulse Ox 100 100 100 O2 Delivery Ventilator Ventilator Ventilator 08/05/20 08/05/20 08/05/20 08/05/20 08:00 08:00 08:00 09:00 Temp 93.5 93.6 91.8 93.5 Pulse 62 Resp B/P (MAP) 94/70 (78) Pulse Ox 100 O2 Delivery Mechanical Ventilator Ventilator 08/05/20 08/05/20 08/05/20 08/05/20 09:00 10:00 10:00 11:00 Temp 89.6 91.0 91.0 90.3 89.6 91.0 90.3 Pulse 60 48 48 Resp 26 B/P (MAP) 104/76 (85) 110/76 (87) 114/76 (89) Pulse Ox 100 100 100 O2 Delivery Ventilator Ventilator Ventilator 08/05/20 08/05/20 08/05/20 08/05/20 11:08 12:00 12:08 12:08 Temp 90.3 90.3 90.3 Pulse 50 Resp B/P (MAP) 110/72 (85) Pulse Ox 96 100 O2 Delivery Ventilator Ventilator Mechanical Ventilator 08/05/20 12:20 Pulse Ox 94 Intake and Output 08/04/20 08/04/20 08/05/20 15:00 23:00 07:00 Intake Total 1415 ml Output Total 0 ml 35 ml Balance 0 ml 1380 ml Justicifation of Admission Dx: Justifications for Admission: Justification of Admission Dx: Yes ALEKS MONTEIRO MD Aug 05, 2020 12:53
[2020-08-05 13:05] LABS: DIRECT BILIRUBIN 0.3 mg/dL (0.0-0.2); TOTAL PROTEIN 3.8 g/dL (6.4-8.2)
[2020-08-05] MEDS: POTASSIUM CHLORIDE 15 MEQ in DIALYSIS SOLUTION BGK 0/2.5 5,000 ML IV SCH ×8 (13:30→22:36)
--- NOTE | 2020-08-05 14:29 | PDOC2 ---
NEUROLOGY CONSULT Date of Service DOS: DATE: 08/05/20 TIME: 14:24 Reason for Consult Reason for Consult: Anoxic encephalopathy Referring Physician Referring Physician: Dr. Castillo Source Source: Caregiver (), Chart review History of Present Illness History of Present Illness The patient is a 60-year-old right-handed male without prior cardiac history who collapsed. AED was placed immediately and was shocked. Emergency medical services found him in ventricular fibrillation and continued CPR with defibrillation, epinephrine, and amiodarone. The patient has had dizzy spells since he was very young, did see some obgyn hospitalist physician, over the years, but it sounds like he never had any type of long-term monitoring. He is now in hypothermia protocol. 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, no tobacco Current Medications Current Medications Current Medications Heparin Sodium (Porcine) (Heparin Sodium) 4,000 unit 1X ONCE IV Last administered on 08/04/20at 16:39; Start 08/04/20 at 16:30; Stop 08/04/20 at 16:36; Status DC Norepinephrine Bitartrate 8 mg/ Dextrose 258 ml @ 17.609 mls/ hr 1X ONCE IV ; Start 08/04/20 at 16:30; Stop 08/05/20 at 07:09; Status UNV Norepinephrine Bitartrate 8 mg/ Dextrose 258 ml @ 0 mls/hr 1X ONCE IV Last administered on 08/04/20at 16:28; Start 08/04/20 at 16:30; Stop 08/04/20 at 16:31; Status DC Norepinephrine Bitartrate 8 mg/ Dextrose 258 ml @ 0 mls/hr CONT PRN IV PER PROTOCOL Last administered on 08/04/20at 18:49; Start 08/04/20 at 16:45; Stop 08/05/20 at 01:41; Status DC Iodixanol (Visipaque 320) 100 ml STK-MED ONCE .ROUTE ; Start 08/04/20 at 16:31; Stop 08/04/20 at 16:31; Status DC Lidocaine HCl (Lidocaine 1% 20ml Vial) 20 ml STK-MED ONCE .ROUTE ; Start 08/04/20 at 16:31; Stop 08/04/20 at 16:31; Status DC Heparin Sodium/ Sodium Chloride 1,000 ml @ As Directed STK-MED ONCE .ROUTE ; Start 08/04/20 at 16:31; Stop 08/04/20 at 16:32; Status DC Heparin Sodium/ Sodium Chloride (HEPARIN for ARTERIAL LINE FLUSH) 1,000 unit 1X ONCE IART Last administered on 08/04/20at 17:15; Start 08/04/20 at 17:15; Stop 08/04/20 at 17:16; Status DC Heparin Sodium/ Sodium Chloride (HEPARIN for ARTERIAL LINE FLUSH) 1,000 unit 1X ONCE IART Last administered on 08/04/20at 17:15; Start 08/04/20 at 17:15; Stop 08/04/20 at 17:16; Status DC Iodixanol (Visipaque 320) 100 ml 1X ONCE IART Last administered on 08/04/20at 17:15; Start 08/04/20 at 17:15; Stop 08/04/20 at 17:16; Status DC Lidocaine HCl (Lidocaine 1% 20ml Vial) 20 ml 1X ONCE INJ Last administered on 08/04/20at 17:15; Start 08/04/20 at 17:15; Stop 08/04/20 at 17:16; Status DC Vasopressin 20 unit/Dextrose 101 ml @ 11.882 mls/ hr 1X ONCE IV Last a dministered on 08/04/20at 18:49; Start 08/04/20 at 17:15; Stop 08/05/20 at 01:44; Status DC Phenylephrine HCl 50 mg/Sodium Chloride 255 ml @ 0 mls/hr 1X ONCE IV ; Start 08/04/20 at 17:15; Stop 08/04/20 at 17:16; Status DC Iohexol (Omnipaque 350 Mg/ml) 100 ml 1X ONCE IV ; Start 08/04/20 at 17:30; Stop 08/04/20 at 17:32; Status DC Info (CONTRAST GIVEN -- Rx MONITORING) 1 each PRN DAILY PRN MC SEE COMMENTS; Start 08/04/20 at 17:45; Stop 08/06/20 at 17:44 Fentanyl Citrate 30 ml @ 0 mls/hr CONT PRN IV SEE PROTOCOL Last administered on 08/05/20at 13:11; Start 08/04/20 at 17:45 Fentanyl Citrate (Fentanyl 2ml Vial) 25 mcg PRN Q1HR PRN IV SEE COMMENTS; Start 08/04/20 at 17:45 Fentanyl Citrate (Fentanyl 2ml Vial) 50 mcg PRN Q1HR PRN IV SEE COMMENTS; Start 08/04/20 at 17:45 Chlorhexidine Gluconate (Peridex) 15 ml BID MM Last administered on 08/05/20at 08:41; Start 08/04/20 at 21:00 Morphine Sulfate (Morphine Sulfate) 2 mg PRN Q1HR PRN IV SEE COMMENTS.; Start 08/04/20 at 17:45 Morphine Sulfate (Morphine Sulfate) 4 mg PRN Q1HR PRN IV SEE COMMENTS.; Start 08/04/20 at 17:45 Midazolam HCl 100 ml @ 0 mls/hr CONT PRN IV SEE PROTOCOL Last administered on 08/05/20at 09:11; Start 08/04/20 at 17:45 Norepinephrine Bitartrate 8 mg/ Dextrose 258 ml @ 17.609 mls/ hr CONT PRN IV PER PROTOCOL; Start 08/04/20 at 17:45; Stop 08/05/20 at 01:41; Status DC Dopamine HCl/ Dextrose 250 ml @ 17.063 mls/ hr CONT PRN IV SEE I/O RECORD Last administered on 08/04/20at 19:32; Start 08/04/20 at 17:45 Norepinephrine Bitartrate 32 mg/ Dextrose 250 ml @ 4.266 mls/ hr CONT PRN IV SEE I/O RECORD Last administered on 08/05/20at 02:46; Start 08/04/20 at 18:00 Fentanyl Citrate (Fentanyl 2ml Vial) 100 mcg 1X ONCE IV ; Start 08/04/20 at 17:45; Stop 08/04/20 at 18:02; Status DC Midazolam HCl (Versed) 2 mg 1X ONCE IV ; Start 08/04/20 at 17:45; Stop 08/04/20 at 18:02; Status DC Magnesium Sulfate/ Dextrose 100 ml @ 100 mls/hr 1X ONCE IV Last administered on 08/04/20at 18:47; Start 08/04/20 at 18:15; Stop 08/04/20 at 19:14; Status DC Buspirone HCl (Buspar) 30 mg Q8H NG Last administered on 08/05/20at 10:48; Start 08/04/20 at 19:00; Stop 08/06/20 at 11:01 Acetaminophen (Tylenol) 650 mg Q4H NG Last administered on 08/05/20at 10:48; Start 08/04/20 at 19:00 Glycerin/ Hypromellose/ Polyethylene (Artificial Tears) 1 drop Q6HRS OU Last administered on 08/05/20at 10:48; Start 08/04/20 at 19:00 Glycerin/ Hypromellose/ Polyethylene (Artificial Tears) 1 drop PRN Q15MIN PRN OU DRY EYE; Start 08/04/20 at 17:45 Pantoprazole Sodium (PROTONIX VIAL for IV PUSH) 40 mg DAILY IVP Last administered on 08/05/20at 08:39; Start 08/04/20 at 21:00 Vecuronium Bolivar (Norcuron Bolus) 9 mg PRN Q1HR PRN IV SHIVERING; Start 08/04/20 at 17:45 Lorazepam (Ativan Inj) 0.5 mg PRN Q6HRS PRN IVP ANXIETY / AGITATION; Start 08/04/20 at 18:15 Ondansetron HCl (Zofran) 4 mg PRN Q6HRS PRN IVP NAUSEA/VOMITING; Start 08/04/20 at 18:15 Famotidine (Pepcid Vial) 20 mg BID IVP Last administered on 08/05/20at 08:40; Start 08/04/20 at 21:00 Enoxaparin Sodium (Lovenox 40mg Syringe) 40 mg Q24H SQ Last administered on 08/04/20at 20:28; Start 08/04/20 at 19:00 Sodium Chloride (Normal Saline Flush) 3 ml QSHIFT PRN IV AFTER MEDS AND BLOOD DRAWS; Start 08/04/20 at 18:15 Morphine Sulfate (Morphine Sulfate) 2 mg PRN Q1HR PRN IV PAIN-SEE COMMENTS; Start 08/04/20 at 18:15 Fentanyl Citrate (Fentanyl 2ml Vial) 50 mcg PRN Q1HR PRN IV PAIN-SEE COMMENTS; Start 08/04/20 at 18:15 Potassium Bicarbonate (Potassium Effervescent Tablet) 40 meq 1X ONCE PEG Last administered on 08/04/20at 20:29; Start 08/04/20 at 20:15; Stop 08/04/20 at 20:19; Status DC Furosemide (Lasix) 40 mg 1X ONCE IVP Last administered on 08/04/20at 20:28; Start 08/04/20 at 20:15; Stop 08/04/20 at 20:19; Status DC Amiodarone HCl 450 mg/Dextrose 259 ml @ 0 mls/hr 1X ONCE IV Last administered on 08/04/20at 20:29; Start 08/04/20 at 20:30; Stop 08/04/20 at 20:31; Status DC Sodium Bicarbonate (Sodium Bicarb Adult 8.4% Syr) 50 meq 1X ONCE IV Last administered on 08/04/20at 20:54; Start 08/04/20 at 20:45; Stop 08/04/20 at 20:46; Status DC Piperacillin Sod/ Tazobactam Sod (Zosyn Per Pharmacy) 1 each PRN DAILY PRN MC SEE COMMENTS; Start 08/04/20 at 22:45 Insulin Human Regular 100 unit/ Sodium Chloride 101 ml @ 0 mls/hr CONT PRN IV SEE I/O RECORD; Start 08/04/20 at 22:45 Piperacillin Sod/ Tazobactam Sod 3.375 gm/Sodium Chloride 50 ml @ 100 mls/hr Q6H IV Last administered on 08/05/20at 10:48; Start 08/04/20 at 23:00 Sodium Bicarbonate (Sodium Bicarb Adult 8.4% Syr) 100 meq 1X ONCE IV Last administered on 08/04/20at 23:17; Start 08/04/20 at 23:00; Stop 08/04/20 at 23:01; Status DC Lidocaine HCl (Lidocaine HCl 2% Abboject) 100 mg 1X ONCE IV Last administered on 08/04/20at 23:58; Start 08/05/20 at 00:00; Stop 08/05/20 at 00:01; Status DC Potassium Chloride/Water 100 ml @ 100 mls/hr 1X ONCE IV Last administered on 08/05/20at 04:27; Start 08/05/20 at 04:30; Stop 08/05/20 at 05:29; Status DC Amiodarone HCl 450 mg/Dextrose 259 ml @ 0 mls/hr 1X ONCE IV Last administered on 08/05/20at 06:01; Start 08/05/20 at 06:00; Stop 08/05/20 at 06:01; Status DC Sodium Bicarbonate 150 meq/Dextrose 1,150 ml @ 150 mls/hr Q7H40M IV Last administered on 08/05/20at 08:39; Start 08/05/20 at 07:45 Magnesium Sulfate 50 ml @ 25 mls/hr 1X ONCE IV ; Start 08/05/20 at 07:45; Stop 08/05/20 at 08:34; Status DC Lidocaine HCl (Buffered Lidocaine 1%) 3 ml STK-MED ONCE .ROUTE ; Start 08/05/20 at 08:02; Stop 08/05/20 at 08:02; Status DC Heparin Sodium (Porcine) (Heparin Sodium) 10,000 unit STK-MED ONCE .ROUTE ; Start 08/05/20 at 08:02; Stop 08/05/20 at 08:02; Status DC Lidocaine HCl (Buffered Lidocaine 1%) 6 ml 1X ONCE INJ Last administered on 08/05/20at 08:34; Start 08/05/20 at 08:30; Stop 08/05/20 at 08:31; Status DC Heparin Sodium (Porcine) (Heparin Sodium) 2,500 unit 1X ONCE INT CAT Last administered on 08/05/20at 08:35; Start 08/05/20 at 08:30; Stop 08/05/20 at 08:31; Status DC Magnesium Sulfate/ Dextrose 100 ml @ 100 mls/hr 1X ONCE IV Last administered on 08/05/20at 08:40; Start 08/05/20 at 08:45; Stop 08/05/20 at 09:44; Status DC Vasopressin 20 unit/Dextrose 101 ml @ 12 mls/hr CONT PRN IV SEE I/O RECORD Last administered on 08/05/20at 09:12; Start 08/05/20 at 09:00 Potassium Chloride/Water 100 ml @ 100 mls/hr 1X ONCE IV Last administered on 08/05/20at 10:14; Start 08/05/20 at 09:30; Stop 08/05/20 at 10:29; Status DC Potassium Chloride 15 meq/ Bicarbonate Dialysis Soln w/ out KCl 5,007.5 ml @ 1,100 mls/ hr Q4H34M IV Last administered on 08/05/20at 13:31; Start 08/05/20 at 11:00 Potassium Chloride 15 meq/ Bicarbonate Dialysis Soln w/ out KCl 5,007.5 ml @ 1,100 mls/ hr Q4H34M IV Last administered on 08/05/20at 13:31; Start 08/05/20 at 11:00 Potassium Chloride 15 meq/ Bicarbonate Dialysis Soln w/ out KCl 5,007.5 ml @ 1,100 mls/ hr Q4H34M IV Last administered on 08/05/20at 13:30; Start 08/05/20 at 11:00 Allergies Allergies: Coded Allergies: No Known Drug Allergies (Unverified , 08/04/20) ROS Review of System Negative for fever, chills, weight loss, shortness of breath, chest pain, indigestion, hematochezia, melena, and dysuria. Full 14-point review of systems is negative. Physical Exam Physical Examination General: Well-developed, well-nourished white male in no acute distress HEENT: Normocephalic andatraumatic. Temporal arteriespulsatile and nontender. Neck: Supple without bruit, no meningismus Musculoskeletal: Stability:see neurologic. Gait exam:see neurologic. Tone:see neurologic.Strength:see neurologic. Neurological: Mental Status:Intubated, minimally sedated, hypothermic. Cranial Nerves:Pupils minimally reactive, no spontaneous extraocular movements. There is no facial asymmetry. Reflexes:1+ and symmetric with silent plantar responses. Motor:No response to pain. Coordination and gait:Not cooperative. Sensory:Not cooperative. Vitals VITALS Vital Signs Date Time Temp Pulse Resp B/P (MAP) Pulse Ox O2 Delivery O2 Flow Rate FiO2 08/05/20 13:11 26 100 Ventilator 08/05/20 12:08 90.3 08/05/20 12:00 50 Labs Labs Laboratory Tests Test 08/04/20 16:00 08/04/20 16:17 08/04/20 19:36 08/04/20 21:30 White Blood Count 6.8 x10^3/uL (4.0-11.0) 21.6 x10^3/uL (4.0-11.0) Red Blood Count 5.40 x10^6/uL (4.30-5.70) 4.97 x10^6/uL (4.30-5.70) Hemoglobin 17.0 g/dL (13.0-17.5) 15.7 g/dL (13.0-17.5) Hematocrit 53.2 % (39.0-53.0) 47.5 % (39.0-53.0) Mean Corpuscular Volume 99 fL (79-100) 96 fL (79-100) Mean Corpuscular Hemoglobin 32 pg (25-35) 32 pg (25-35) Mean Corpuscular Hemoglobin Concent 32 g/dL (31-37) 33 g/dL (31-37) Red Cell Distribution Width 14.7 % (11.5-14.5) 14.2 % (11.5-14.5) Platelet Count 81 x10^3/uL (140-400) 153 x10^3/uL (140-400) Neutrophils (%) (Auto) 18 % (31-73) 89 % (31-73) Lymphocytes (%) (Auto) 75 % (24-48) 9 % (24-48) Monocytes (%) (Auto) 5 % (0-9) 1 % (0-9) Eosinophils (%) (Auto) 1 % (0-3) 0 % (0-3) Basophils (%) (Auto) 1 % (0-3) 0 % (0-3) Neutrophils # (Auto) 1.2 x10^3/uL (1.8-7.7) 19.3 x10^3/uL (1.8-7.7) Lymphocytes # (Auto) 5.0 x10^3/uL (1.0-4.8) 2.0 x10^3/uL (1.0-4.8) Monocytes # (Auto) 0.3 x10^3/uL (0.0-1.1) 0.3 x10^3/uL (0.0-1.1) Eosinophils # (Auto) 0.1 x10^3/uL (0.0-0.7) 0.1 x10^3/uL (0.0-0.7) Basophils # (Auto) 0.1 x10^3/uL (0.0-0.2) 0.1 x10^3/uL (0.0-0.2) Bedside Hemoglobin 18.4 g/dL (14-18) Bedside Hematocrit 54 % (37-52) Bedside Sodium 141 mmol/L (135-145) Bedside Potassium 2.9 mmol/L (3.5-5.0) Bedside Chloride 108 mmol/L (98-110) Bedside Total CO2 15 mmol/L (23-32) Anion Gap 22 mmol/L (6-14) 20 (6-14) Bedside Blood Urea Nitrogen 33 mg/dL (8-26) Bedside Creatinine 1.6 mg/dL (0.5-1.4) Glucose Level 321 mg/dL (70-99) 300 mg/dL (70-99) Bedside Ionized Calcium (Radha) 1.06 mmol/L (1.13-1.32) Bedside Troponin I 0.11 ng/ml (<0.08) O2 Saturation 60 % (92-99) Arterial Blood pH 6.98 (7.35-7.45) Arterial Blood pH (Temp corrected) 7.03 Arterial Blood pCO2 at Patient Temp 57 mmHg (35-46) Arterial Blood pCO2 (Temp correct) 49 mmHg Arterial Blood pO2 at Patient Temp 44 mmHg (65-108) Arterial Blood pO2 (Temp corrected) 35 mmHg Arterial Blood HCO3 13 mmol/L (21-28) Arterial Blood Base Excess -19 mmol/L (-3-3) FiO2 100 Prothrombin Time 19.6 SEC (11.7-14.0) Prothromb Time International Ratio 1.7 (0.8-1.1) Activated Partial Thromboplast Time 61 SEC (24-38) Sodium Level 137 mmol/L (136-145) Potassium Level 3.6 mmol/L (3.5-5.1) Chloride Level 102 mmol/L (98-107) Carbon Dioxide Level 15 mmol/L (21-32) Blood Urea Nitrogen 31 mg/dL (8-26) Creatinine 2.2 mg/dL (0.7-1.3) Estimated GFR (Cockcroft-Gault) 30.8 Calcium Level 7.3 mg/dL (8.5-10.1) Phosphorus Level 9.1 mg/dL (2.6-4.7) Magnesium Level 2.6 mg/dL (1.8-2.4) Triglycerides Level 102 mg/dL (0-150) Test 08/04/20 22:08 08/05/20 03:30 08/05/20 06:15 08/05/20 07:35 O2 Saturation 90 % (92-99) 98 % (92-99) Arterial Blood pH 7.11 (7.35-7.45) 7.16 (7.35-7.45) Arterial Blood pH (Temp corrected) 7.14 7.19 Arterial Blood pCO2 at Patient Temp 45 mmHg (35-46) 35 mmHg (35-46) Arterial Blood pCO2 (Temp correct) 41 mmHg 31 mmHg Arterial Blood pO2 at Patient Temp 73 mmHg (65-108) 156 mmHg (65-108) Arterial Blood pO2 (Temp corrected) 63 mmHg 143 mmHg Arterial Blood HCO3 14 mmol/L (21-28) 12 mmol/L (21-28) Arterial Blood Base Excess -15 mmol/L (-3-3) -16 mmol/L (-3-3) FiO2 100 100 vent White Blood Count 22.7 x10^3/uL (4.0-11.0) Red Blood Count 4.65 x10^6/uL (4.30-5.70) Hemoglobin 14.8 g/dL (13.0-17.5) Hematocrit 43.7 % (39.0-53.0) Mean Corpuscular Volume 94 fL (79-100) Mean Corpuscular Hemoglobin 32 pg (25-35) Mean Corpuscular Hemoglobin Concent 34 g/dL (31-37) Red Cell Distribution Width 13.9 % (11.5-14.5) Platelet Count 124 x10^3/uL (140-400) Neutrophils (%) (Auto) 92 % (31-73) Lymphocytes (%) (Auto) 4 % (24-48) Monocytes (%) (Auto) 5 % (0-9) Eosinophils (%) (Auto) 0 % (0-3) Basophils (%) (Auto) 0 % (0-3) Neutrophils # (Auto) 20.8 x10^3/uL (1.8-7.7) Lymphocytes # (Auto) 0.9 x10^3/uL (1.0-4.8) Monocytes # (Auto) 1.0 x10^3/uL (0.0-1.1) Eosinophils # (Auto) 0.0 x10^3/uL (0.0-0.7) Basophils # (Auto) 0.0 x10^3/uL (0.0-0.2) Segmented Neutrophils % 73 % (35-66) Band Neutrophils % 16 % (0-9) Lymphocytes % 6 % (24-48) Monocytes % 4 % (0-10) Eosinophils % 1 % (0-5) Platelet Estimate Decreased (ADEQUATE) Large Platelets Few Prothrombin Time 22.4 SEC (11.7-14.0) Prothromb Time International Ratio 2.0 (0.8-1.1) Activated Partial Thromboplast Time 47 SEC (24-38) Sodium Level 141 mmol/L (136-145) Potassium Level 2.8 mmol/L (3.5-5.1) 3.6 mmol/L (3.5-5.1) Chloride Level 105 mmol/L (98-107) Carbon Dioxide Level 17 mmol/L (21-32) Anion Gap 19 (6-14) Blood Urea Nitrogen 33 mg/dL (8-26) Creatinine 2.7 mg/dL (0.7-1.3) Estimated GFR (Cockcroft-Gault) 24.3 Glucose Level 169 mg/dL (70-99) Calcium Level 7.2 mg/dL (8.5-10.1) Phosphorus Level 3.4 mg/dL (2.6-4.7) Magnesium Level 2.1 mg/dL (1.8-2.4) Hepatitis B Surface Antigen Nonreactive (Nonreactive) Creatine Kinase 56853 U/L (39-308) Triglycerides Level 97 mg/dL (0-150) Cholesterol Level 132 mg/dL (0-200) LDL Cholesterol, Calculated 63 mg/dL (0-100) VLDL Cholesterol, Calculated 19 mg/dL (0-40) Non-HDL Cholesterol Calculated 82 mg/dL (0-129) HDL Cholesterol 50 mg/dL (40-60) Cholesterol/HDL Ratio 2.6 Thyroid Stimulating Hormone (TSH) 2.498 uIU/mL (0.358-3.74) Test 08/05/20 11:55 08/05/20 12:14 White Blood Count 21.3 x10^3/uL (4.0-11.0) Red Blood Count 4.39 x10^6/uL (4.30-5.70) Hemoglobin 13.8 g/dL (13.0-17.5) Hematocrit 41.5 % (39.0-53.0) Mean Corpuscular Volume 95 fL (79-100) Mean Corpuscular Hemoglobin 31 pg (25-35) Mean Corpuscular Hemoglobin Concent 33 g/dL (31-37) Red Cell Distribution Width 14.2 % (11.5-14.5) Platelet Count 79 x10^3/uL (140-400) Neutrophils (%) (Auto) 94 % (31-73) Lymphocytes (%) (Auto) 4 % (24-48) Monocytes (%) (Auto) 2 % (0-9) Eosinophils (%) (Auto) 0 % (0-3) Basophils (%) (Auto) 1 % (0-3) Neutrophils # (Auto) 19.9 x10^3/uL (1.8-7.7) Lymphocytes # (Auto) 0.8 x10^3/uL (1.0-4.8) Monocytes # (Auto) 0.4 x10^3/uL (0.0-1.1) Eosinophils # (Auto) 0.0 x10^3/uL (0.0-0.7) Basophils # (Auto) 0.1 x10^3/uL (0.0-0.2) Prothrombin Time 30.2 SEC (11.7-14.0) Prothromb Time International Ratio 2.9 (0.8-1.1) Activated Partial Thromboplast Time 52 SEC (24-38) Sodium Level 143 mmol/L (136-145) Potassium Level 3.7 mmol/L (3.5-5.1) Chloride Level 106 mmol/L (98-107) Carbon Dioxide Level 13 mmol/L (21-32) Anion Gap 24 (6-14) Blood Urea Nitrogen 35 mg/dL (8-26) Creatinine 3.2 mg/dL (0.7-1.3) Estimated GFR (Cockcroft-Gault) 20.0 Glucose Level 238 mg/dL (70-99) Calcium Level 6.5 mg/dL (8.5-10.1) Ionized Calcium 0.93 mmol/L (1.13-1.32) Phosphorus Level 5.3 mg/dL (2.6-4.7) Magnesium Level 2.4 mg/dL (1.8-2.4) Total Bilirubin 1.0 mg/dL (0.2-1.0) Direct Bilirubin 0.3 mg/dL (0.0-0.2) Aspartate Amino Transf (AST/SGOT) 1886 U/L (15-37) Alanine Aminotransferase (ALT/SGPT) 747 U/L (16-63) Alkaline Phosphatase 60 U/L (46-116) Troponin I Quantitative 139.070 ng/mL (0.000-0.055) Total Protein 3.8 g/dL (6.4-8.2) Albumin 2.0 g/dL (3.4-5.0) O2 Saturation 97 % (92-99) Arterial Blood pH 7.12 (7.35-7.45) Arterial Blood pH (Temp corrected) 7.18 Arterial Blood pCO2 at Patient Temp 32 mmHg (35-46) Arterial Blood pCO2 (Temp correct) 26 mmHg Arterial Blood pO2 at Patient Temp 112 mmHg (65-108) Arterial Blood pO2 (Temp corrected) 88 mmHg Arterial Blood HCO3 10 mmol/L (21-28) Arterial Blood Base Excess -18 mmol/L (-3-3) FiO2 100 Laboratory Tests Test 08/04/20 16:00 08/04/20 16:17 08/04/20 19:36 08/04/20 21:30 White Blood Count 6.8 x10^3/uL (4.0-11.0) 21.6 x10^3/uL (4.0-11.0) Red Blood Count 5.40 x10^6/uL (4.30-5.70) 4.97 x10^6/uL (4.30-5.70) Hemoglobin 17.0 g/dL (13.0-17.5) 15.7 g/dL (13.0-17.5) Hematocrit 53.2 % (39.0-53.0) 47.5 % (39.0-53.0) Mean Corpuscular Volume 99 fL (79-100) 96 fL (79-100) Mean Corpuscular Hemoglobin 32 pg (25-35) 32 pg (25-35) Mean Corpuscular Hemoglobin Concent 32 g/dL (31-37) 33 g/dL (31-37) Red Cell Distribution Width 14.7 % (11.5-14.5) 14.2 % (11.5-14.5) Platelet Count 81 x10^3/uL (140-400) 153 x10^3/uL (140-400) Neutrophils (%) (Auto) 18 % (31-73) 89 % (31-73) Lymphocytes (%) (Auto) 75 % (24-48) 9 % (24-48) Monocytes (%) (Auto) 5 % (0-9) 1 % (0-9) Eosinophils (%) (Auto) 1 % (0-3) 0 % (0-3) Basophils (%) (Auto) 1 % (0-3) 0 % (0-3) Neutrophils # (Auto) 1.2 x10^3/uL (1.8-7.7) 19.3 x10^3/uL (1.8-7.7) Lymphocytes # (Auto) 5.0 x10^3/uL (1.0-4.8) 2.0 x10^3/uL (1.0-4.8) Monocytes # (Auto) 0.3 x10^3/uL (0.0-1.1) 0.3 x10^3/uL (0.0-1.1) Eosinophils # (Auto) 0.1 x10^3/uL (0.0-0.7) 0.1 x10^3/uL (0.0-0.7) Basophils # (Auto) 0.1 x10^3/uL (0.0-0.2) 0.1 x10^3/uL (0.0-0.2) Bedside Hemoglobin 18.4 g/dL (14-18) Bedside Hematocrit 54 % (37-52) Bedside Sodium 141 mmol/L (135-145) Bedside Potassium 2.9 mmol/L (3.5-5.0) Bedside Chloride 108 mmol/L (98-110) Bedside Total CO2 15 mmol/L (23-32) Anion Gap 22 mmol/L (6-14) 20 (6-14) Bedside Blood Urea Nitrogen 33 mg/dL (8-26) Bedside Creatinine 1.6 mg/dL (0.5-1.4) Glucose Level 321 mg/dL (70-99) 300 mg/dL (70-99) Bedside Ionized Calcium (Radha) 1.06 mmol/L (1.13-1.32) Bedside Troponin I 0.11 ng/ml (<0.08) O2 Saturation 60 % (92-99) Arterial Blood pH 6.98 (7.35-7.45) Arterial Blood pH (Temp corrected) 7.03 Arterial Blood pCO2 at Patient Temp 57 mmHg (35-46) Arterial Blood pCO2 (Temp correct) 49 mmHg Arterial Blood pO2 at Patient Temp 44 mmHg (65-108) Arterial Blood pO2 (Temp corrected) 35 mmHg Arterial Blood HCO3 13 mmol/L (21-28) Arterial Blood Base Excess -19 mmol/L (-3-3) FiO2 100 Prothrombin Time 19.6 SEC (11.7-14.0) Prothromb Time International Ratio 1.7 (0.8-1.1) Activated Partial Thromboplast Time 61 SEC (24-38) Sodium Level 137 mmol/L (136-145) Potassium Level 3.6 mmol/L (3.5-5.1) Chloride Level 102 mmol/L (98-107) Carbon Dioxide Level 15 mmol/L (21-32) Blood Urea Nitrogen 31 mg/dL (8-26) Creatinine 2.2 mg/dL (0.7-1.3) Estimated GFR (Cockcroft-Gault) 30.8 Calcium Level 7.3 mg/dL (8.5-10.1) Phosphorus Level 9.1 mg/dL (2.6-4.7) Magnesium Level 2.6 mg/dL (1.8-2.4) Triglycerides Level 102 mg/dL (0-150) Test 08/04/20 22:08 08/05/20 03:30 08/05/20 06:15 08/05/20 07:35 O2 Saturation 90 % (92-99) 98 % (92-99) Arterial Blood pH 7.11 (7.35-7.45) 7.16 (7.35-7.45) Arterial Blood pH (Temp corrected) 7.14 7.19 Arterial Blood pCO2 at Patient Temp 45 mmHg (35-46) 35 mmHg (35-46) Arterial Blood pCO2 (Temp correct) 41 mmHg 31 mmHg Arterial Blood pO2 at Patient Temp 73 mmHg (65-108) 156 mmHg (65-108) Arterial Blood pO2 (Temp corrected) 63 mmHg 143 mmHg Arterial Blood HCO3 14 mmol/L (21-28) 12 mmol/L (21-28) Arterial Blood Base Excess -15 mmol/L (-3-3) -16 mmol/L (-3-3) FiO2 100 100 vent White Blood Count 22.7 x10^3/uL (4.0-11.0) Red Blood Count 4.65 x10^6/uL (4.30-5.70) Hemoglobin 14.8 g/dL (13.0-17.5) Hematocrit 43.7 % (39.0-53.0) Mean Corpuscular Volume 94 fL (79-100) Mean Corpuscular Hemoglobin 32 pg (25-35) Mean Corpuscular Hemoglobin Concent 34 g/dL (31-37) Red Cell Distribution Width 13.9 % (11.5-14.5) Platelet Count 124 x10^3/uL (140-400) Neutrophils (%) (Auto) 92 % (31-73) Lymphocytes (%) (Auto) 4 % (24-48) Monocytes (%) (Auto) 5 % (0-9) Eosinophils (%) (Auto) 0 % (0-3) Basophils (%) (Auto) 0 % (0-3) Neutrophils # (Auto) 20.8 x10^3/uL (1.8-7.7) Lymphocytes # (Auto) 0.9 x10^3/uL (1.0-4.8) Monocytes # (Auto) 1.0 x10^3/uL (0.0-1.1) Eosinophils # (Auto) 0.0 x10^3/uL (0.0-0.7) Basophils # (Auto) 0.0 x10^3/uL (0.0-0.2) Segmented Neutrophils % 73 % (35-66) Band Neutrophils % 16 % (0-9) Lymphocytes % 6 % (24-48) Monocytes % 4 % (0-10) Eosinophils % 1 % (0-5) Platelet Estimate Decreased (ADEQUATE) Large Platelets Few Prothrombin Time 22.4 SEC (11.7-14.0) Prothromb Time International Ratio 2.0 (0.8-1.1) Activated Partial Thromboplast Time 47 SEC (24-38) Sodium Level 141 mmol/L (136-145) Potassium Level 2.8 mmol/L (3.5-5.1) 3.6 mmol/L (3.5-5.1) Chloride Level 105 mmol/L (98-107) Carbon Dioxide Level 17 mmol/L (21-32) Anion Gap 19 (6-14) Blood Urea Nitrogen 33 mg/dL (8-26) Creatinine 2.7 mg/dL (0.7-1.3) Estimated GFR (Cockcroft-Gault) 24.3 Glucose Level 169 mg/dL (70-99) Calcium Level 7.2 mg/dL (8.5-10.1) Phosphorus Level 3.4 mg/dL (2.6-4.7) Magnesium Level 2.1 mg/dL (1.8-2.4) Hepatitis B Surface Antigen Nonreactive (Nonreactive) Creatine Kinase 46047 U/L (39-308) Triglycerides Level 97 mg/dL (0-150) Cholesterol Level 132 mg/dL (0-200) LDL Cholesterol, Calculated 63 mg/dL (0-100) VLDL Cholesterol, Calculated 19 mg/dL (0-40) Non-HDL Cholesterol Calculated 82 mg/dL (0-129) HDL Cholesterol 50 mg/dL (40-60) Cholesterol/HDL Ratio 2.6 Thyroid Stimulating Hormone (TSH) 2.498 uIU/mL (0.358-3.74) Test 08/05/20 11:55 08/05/20 12:14 White Blood Count 21.3 x10^3/uL (4.0-11.0) Red Blood Count 4.39 x10^6/uL (4.30-5.70) Hemoglobin 13.8 g/dL (13.0-17.5) Hematocrit 41.5 % (39.0-53.0) Mean Corpuscular Volume 95 fL (79-100) Mean Corpuscular Hemoglobin 31 pg (25-35) Mean Corpuscular Hemoglobin Concent 33 g/dL (31-37) Red Cell Distribution Width 14.2 % (11.5-14.5) Platelet Count 79 x10^3/uL (140-400) Neutrophils (%) (Auto) 94 % (31-73) Lymphocytes (%) (Auto) 4 % (24-48) Monocytes (%) (Auto) 2 % (0-9) Eosinophils (%) (Auto) 0 % (0-3) Basophils (%) (Auto) 1 % (0-3) Neutrophils # (Auto) 19.9 x10^3/uL (1.8-7.7) Lymphocytes # (Auto) 0.8 x10^3/uL (1.0-4.8) Monocytes # (Auto) 0.4 x10^3/uL (0.0-1.1) Eosinophils # (Auto) 0.0 x10^3/uL (0.0-0.7) Basophils # (Auto) 0.1 x10^3/uL (0.0-0.2) Prothrombin Time 30.2 SEC (11.7-14.0) Prothromb Time International Ratio 2.9 (0.8-1.1) Activated Partial Thromboplast Time 52 SEC (24-38) Sodium Level 143 mmol/L (136-145) Potassium Level 3.7 mmol/L (3.5-5.1) Chloride Level 106 mmol/L (98-107) Carbon Dioxide Level 13 mmol/L (21-32) Anion Gap 24 (6-14) Blood Urea Nitrogen 35 mg/dL (8-26) Creatinine 3.2 mg/dL (0.7-1.3) Estimated GFR (Cockcroft-Gault) 20.0 Glucose Level 238 mg/dL (70-99) Calcium Level 6.5 mg/dL (8.5-10.1) Ionized Calcium 0.93 mmol/L (1.13-1.32) Phosphorus Level 5.3 mg/dL (2.6-4.7) Magnesium Level 2.4 mg/dL (1.8-2.4) Total Bilirubin 1.0 mg/dL (0.2-1.0) Direct Bilirubin 0.3 mg/dL (0.0-0.2) Aspartate Amino Transf (AST/SGOT) 1886 U/L (15-37) Alanine Aminotransferase (ALT/SGPT) 747 U/L (16-63) Alkaline Phosphatase 60 U/L (46-116) Troponin I Quantitative 139.070 ng/mL (0.000-0.055) Total Protein 3.8 g/dL (6.4-8.2) Albumin 2.0 g/dL (3.4-5.0) O2 Saturation 97 % (92-99) Arterial Blood pH 7.12 (7.35-7.45) Arterial Blood pH (Temp corrected) 7.18 Arterial Blood pCO2 at Patient Temp 32 mmHg (35-46) Arterial Blood pCO2 (Temp correct) 26 mmHg Arterial Blood pO2 at Patient Temp 112 mmHg (65-108) Arterial Blood pO2 (Temp corrected) 88 mmHg Arterial Blood HCO3 10 mmol/L (21-28) Arterial Blood Base Excess -18 mmol/L (-3-3) FiO2 100 Assessment/Plan Assessment/Plan Impression: Anoxic encephalopathy, still in hypothermia protocol, too soon to give a prognosis. Recommendations: He should be rewarmed tonight, I will reexamine him tomorrow Further recommendations, such as EEG or CT of the head, depending on his course I discussed with patient's . Thank you for letting me help with the patient's care. DEANNA MATTHEW MD Aug 05, 2020 14:29
--- NOTE | 2020-08-05 15:25 | RAD ---
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 Informed consent was obtained. A timeout procedure was performed. All elements of maximal sterile barrier technique including the use of a cap, mask, sterile gown, sterile gloves, large sterile sheet, appropriate hand hygiene, and 2% chlorhexidine for cutaneous antisepsis (or acceptable alternative antiseptic per current guidelines) were followed for this procedure. The patient was prepped and draped in the usual sterile fashion. Ultrasound interrogation of the right neck revealed patency and compressibility of the right internal jugular vein. A 21-gauge micropuncture was then used to gain access to this vein under ultrasound guidance. A hard copy ultrasound image was recorded. A guidewire was advanced centrally. 5 Tongan sheath was placed. Over a wire following dilatation, a temporary dialysis catheter was advanced centrally. Catheter was found to flush and aspirate normally. Follow-up chest radiograph demonstrates tip in acceptable position. The catheter was secured in place and a sterile dressing was applied. No immediate complications were identified. Impression: Successful ultrasound-guided placement of right internal jugular temporary dialysis catheter
--- NOTE | 2020-08-05 15:59 | CARD ---
MR#: [id number] Date of Study: 08/04/2020 Ordering Physician: DOMINGA BAER, Referring Physician: DOMINGA BAER, Tech: RT Mitch (R) APPROVED REPORT Technologist: RT Mitch (R) Nurse: Meri Vaughn RN Procedure(s) performed: Left heart catheterization, selective coronary angiography and left ventricul ography flouro time 1.5 minutes dose 36.26 Gycm2 contrast 99 Visipaque no sedation INDICATION The indication(s) include : 60-year-old male presented with sudden cardiac arrest secondary to ventri cular fibrillation and underwent CPR and repeated defibrillation therapies out of the hospital and in ED. He was intubated for acute respiratory failure. After discussion with family, we decided to proc eed with cardiac catheterization to rule out ischemic etiology for his ventricular fibrillation. As s oon as patient got to the [facility], he went into PEA and underwent CPR and multiple injections of epi nephrine with ROSC.. [place] Clinical Frailty Scale [place] Clinical Frailty Scale: Managing Well Heart Failure Heart Failure: No PROCEDURE NARRATIVE And informed consent was obtained from patient's family since patient was intubated. His right groin was prepped and draped in the usual fashion. 10 cc of 2% lidocaine was infiltrated in the skin and subcutaneous tissues for local anesthesia. Arterial access was obtained in the right common femoral artery and a 6 Croatian sheath was inserted. 6 Croatian JL4 and 6 Croatian JR4 catheters were used to perf orm selective angiography of the left and right coronary arteries. 6 Croatian pigtail catheter was use d to perform left ventriculography. Patient tolerated the procedure well. Hemostasis was achieved u sing Angio-Seal. There were no immediate complications. FINDINGS 1. Hemodynamics: Left ventricular end-diastolic pressure 25 mmHg. No pullback gradient across the a ortic valve. 2. Left ventriculography: Normal left ventricle systolic function with ejection fraction estimated a t 60%. 2-3+ mitral regurgitation with left atrial dilatation was seen. 3. Coronary angiography: a. Left main coronary artery arose from the left sinus of Valsalva, gave rise to the left anterior d escending and left circumflex arteries and did not show any significant stenosis. b. The left antidescending artery did not show any significant stenosis in the main vessel. The joshua gonal branch which is a small to medium caliber vessel showed 70% stenosis in the ostial segment. c. The left circumflex artery did not show any significant stenosis. d. The right coronary artery arose from the right sinus of Valsalva and did not show any significant stenosis. Conclusion 1. No significant major coronary artery stenosis. Patient had 70% stenosis in a small to medium marco a iber diagonal branch. 2. Normal left ventricle systolic function with ejection fraction estimated at 60%. 3. 2-3+ mitral regurgitation. Recommendations Plan CT chest to rule out PE although clinical suspicion low. Admit to ICU and continue amiodarone for antiarrhythmic therapy. Check 2D echo to further evaluate mitral regurgitation. Consider AICD implantation for secondary prevention of sudden cardiac if patient has meaningful neurological recovery. Signed by : Dominga Baer, Electronically Approved : 08/05/2020 15:59:12
--- NOTE | 2020-08-05 16:48 | CARD ---
MR#: [id number] Date of Study: 08/05/2020 Ordering Physician: DANYA DIXON, Referring Physician: DANYA DIXON Tech: Pura Bull YELENA APPROVED REPORT EXAM: LIMITED Two-dimensional echocardiogram with Doppler and color Doppler. Other Information Quality : Technically Limited Technically limited study due to ventilatora and supine position INDICATION Cardiac Arrest RISK FACTORS Hypertension Hyperlipidemia 2D DIMENSIONS RVDd2.9 (2.9-3.5cm)Left Atrium(2D)3.0 (1.6-4.0cm) IVSd1.2 (0.7-1.1cm)Aortic Root(2D)3.2 (2.0-3.7cm) LVDd4.1 (3.9-5.9cm)PWd1.0 (0.7-1.1cm) LVDs3.7 (2.5-4.0cm)FS (%) 9.0 % SV14.9 mlLVEF(%)20.0 (>50%) Tricuspid Valve TR P. [id number] [id number] TR Peak Gr.[id number] LEFT VENTRICLE The left ventricular systolic function appears to be normal. The ejection fraction is estimated at 50 -55%. Septal motion consistent with conduction abnormality. MITRAL VALVE There is no mitral valve stenosis. Doppler and Color-flow revealed moderate mitral regurgitation. TRICUSPID VALVE The tricuspid valve is normal in structure and function. Doppler and Color Flow revealed trace tricus pid regurgitation. The PA pressure was estimated at 22 mmHg. There is no tricuspid valve stenosis. PERICARDIAL EFFUSION There is no evidence of significant pericardial effusion. Critical Notification Critical Value: No <Conclusion> Technically very difficult study. The left ventricular systolic function appears to be normal. The ejection fraction is estimated at 50-55%. Moderate mitral regurgitation. Trace tricuspid regurgitation. The PA pressure was estimated at 22 mmHg. There is no evidence of significant pericardial effusion. Signed by : Jay Baer, Electronically Approved : 08/05/2020 16:47:52
[2020-08-05 17:44] LABS: BASO # 0.1 x10^3/uL (0.0-0.2); BASO % 1 % (0-3); EOS % 0 % (0-3); HEMATOCRIT 41.9 % (39.0-53.0); HEMOGLOBIN 14.1 g/dL (13.0-17.5); LYMPH # 1.2 x10^3/uL (1.0-4.8); LYMPH % 6 % (24-48); MEAN CORPUSCULAR HEMOGLOBIN 31 pg (25-35); MEAN CORPUSCULAR HGB CONC 34 g/dL (31-37); MEAN CORPUSCULAR VOLUME 93 fL (79-100); MONO # 0.4 x10^3/uL (0.0-1.1); MONO % 2 % (0-9); NEUT # 18.8 x10^3/uL (1.8-7.7); NEUT % 92 % (31-73); PLATELET COUNT 82 x10^3/uL (140-400); RED CELL DISTRIBUTION WIDTH 13.9 % (11.5-14.5); WHITE BLOOD COUNT 20.5 x10^3/uL (4.0-11.0)
[2020-08-05 17:54] LABS: PROTHROMBIN TIME PATIENT 28.1 SEC (11.7-14.0)
[2020-08-05 18:32] LABS: CALCIUM 6.6 mg/dL (8.5-10.1); CREATININE 2.6 mg/dL (0.7-1.3); GFR 25.4; MAGNESIUM 2.1 mg/dL (1.8-2.4); PHOSPHORUS 3.7 mg/dL (2.6-4.7); POTASSIUM 3.5 mmol/L (3.5-5.1)
[2020-08-05] MEDS: ENOXAPARIN 40 MG/0.4 ML SYRINGE. SQ SCH (19:10)
[2020-08-06] VITALS (16 sets, daily range): BP systolic 42–132; BP diastolic 30–74
[2020-08-06 00:10] LABS: BASO % 0 % (0-3); EOS % 0 % (0-3); HEMATOCRIT 43.2 % (39.0-53.0); HEMOGLOBIN 14.4 g/dL (13.0-17.5); LYMPH # 1.2 x10^3/uL (1.0-4.8); LYMPH % 6 % (24-48); MEAN CORPUSCULAR HEMOGLOBIN 31 pg (25-35); MEAN CORPUSCULAR HGB CONC 33 g/dL (31-37); MEAN CORPUSCULAR VOLUME 94 fL (79-100); MONO # 0.7 x10^3/uL (0.0-1.1); MONO % 4 % (0-9); NEUT # 17.5 x10^3/uL (1.8-7.7); NEUT % 90 % (31-73); PLATELET COUNT 57 x10^3/uL (140-400); RED CELL DISTRIBUTION WIDTH 13.8 % (11.5-14.5); WHITE BLOOD COUNT 19.4 x10^3/uL (4.0-11.0)
[2020-08-06 00:22] LABS: CALCIUM 6.4 mg/dL (8.5-10.1); CREATININE 2.4 mg/dL (0.7-1.3); GFR 27.8; MAGNESIUM 2.2 mg/dL (1.8-2.4); PHOSPHORUS 5.2 mg/dL (2.6-4.7); POTASSIUM 4.2 mmol/L (3.5-5.1)
[2020-08-06 00:23] LABS: PROTHROMBIN TIME PATIENT 28.7 SEC (11.7-14.0)
[2020-08-06] MEDS: NOREPINEPHRINE VIAL 32 MG in IV D5W 250ML IV PRN ×2 (00:24→09:22)
[2020-08-06] MEDS: SODIUM BICARBONATE VIAL 150 MEQ in IV DEXTROSE 5% 1,000 ML IV SCH ×2 (01:05→09:18)
[2020-08-06 01:08] LABS: HEMOGLOBIN A1C 5.6 % (4.8-5.6)
[2020-08-06] MEDS: VASOPRESSIN 20 UNIT in IV DEXTROSE 5% 100ML 100 ML IV PRN ×2 (02:40→11:25)
[2020-08-06] MEDS: busPIRone 10 MG TABLET. NG SCH ×2 (03:04→11:28)
[2020-08-06] MEDS: ACETAMINOPHEN 650 MG/20.3 ML SOLUTION. NG SCH ×2 (03:04→09:25)
[2020-08-06] MEDS: POTASSIUM CHLORIDE 15 MEQ in DIALYSIS SOLUTION BGK 0/2.5 5,000 ML IV SCH ×6 (03:28→08:44)
--- NOTE | 2020-08-06 04:55 | NUR ---
Nursing Note: Difficulty warming patient tonight with arctic sun. Paula hugger placed on high. Remains on levophed and vasopressin. Updated brother tonight on pt condition.
[2020-08-06] MEDS: PIPERACILLIN/TAZOBACTAM 3.375 GM in IV NORMAL SALINE 50ML 50 ML IV SCH ×2 (05:27→11:25)
[2020-08-06 05:53] LABS: BASO % 0 % (0-3); EOS % 0 % (0-3); HEMATOCRIT 42.6 % (39.0-53.0); LYMPH # 1.4 x10^3/uL (1.0-4.8); LYMPH % 7 % (24-48); MEAN CORPUSCULAR HEMOGLOBIN 32 pg (25-35); MEAN CORPUSCULAR HGB CONC 33 g/dL (31-37); MEAN CORPUSCULAR VOLUME 96 fL (79-100); MONO # 0.6 x10^3/uL (0.0-1.1); MONO % 3 % (0-9); NEUT # 17.2 x10^3/uL (1.8-7.7); NEUT % 89 % (31-73); PLATELET COUNT 58 x10^3/uL (140-400); RED BLOOD COUNT 4.45 x10^6/uL (4.30-5.70); RED CELL DISTRIBUTION WIDTH 14.6 % (11.5-14.5); WHITE BLOOD COUNT 19.3 x10^3/uL (4.0-11.0)
[2020-08-06 06:01] LABS: MAGNESIUM 2.5 mg/dL (1.8-2.4); PHOSPHORUS 7.3 mg/dL (2.6-4.7)
[2020-08-06] MEDS: POLYVINYL ALCOHOL 1.4% OPHTH SOLUTION 15ML BOTTLE. OU SCH (06:09)
[2020-08-06 08:10] LABS: BASE EXCESS ABG -20 mmol/L (-3-3); HCO3 ABG 11 mmol/L (21-28); PCO2 ABG 45 mmHg (35-46); PO2 ABG 109 mmHg (65-108); SAT O2 ABG 96 % (92-99)
[2020-08-06 08:12] LABS: CORRECTED PCO2 ABG 40 mmHg; CORRECTED PH ABG 7.04; CORRECTED PO2 ABG 96 mmHg
[2020-08-06] MEDS ORDERED: AMIODARONE 450 MG in IV DEXTROSE 5% 250 ML IV PRN (08:45)
--- NOTE | 2020-08-06 08:56 | RAD ---
EXAM: XR CHEST 1V INDICATION: Reason: covid pend; resp failure / Spl. Instructions: / History: . TECHNIQUE: Single view COMPARISON: 08/05/2020 FINDINGS: Right jugular approach dual-lumen central venous catheter remains in place. Enteric tube passes below the diaphragms. Endotracheal tube is present, tip terminating 5.7 cm above the ophelia. Right PICC line is present, tip terminating near the cavoatrial junction. The heart size is normal. The great vessels appear unremarkable. There is no hilar or mediastinal mass. Lungs show bibasilar atelectasis and perihilar airspace opacities compatible with edema that have imp roved in the interval. There is no pleural effusion or pneumothorax. There are no significant osseous abnormalities. IMPRESSION: Stable lines and tubes including endotracheal tube with improving bibasilar and perihilar airspace op acities, compatible with improving pulmonary edema. Electronically signed by: Tom Alcantar MD (08/06/2020 8:53 AM) [id number]
--- NOTE | 2020-08-06 09:08 | PDOC ---
PROGRESS NOTES Date of Service DATE: 08/06/20 TIME: 09:05 Assessment Problems Medical Problems: (1) Cardiac arrest Status: Acute Anoxic encephalopathy, still sedated and hypothermic, now also on dialysis, but I cannot give a prognosis. Plan Dr. Vega will check the patient tomorrow Further recommendations, such as EEG or CT of the head, depending on his course Subjective None Objective Vital Signs Date Time Temp Pulse Resp B/P (MAP) Pulse Ox O2 Delivery O2 Flow Rate FiO2 08/06/20 08:00 Mechanical Ventilator 08/06/20 06:00 93.7 08/06/20 06:00 54 26 08/06/20 04:12 96 Intake and Output 08/06/20 07:00 Intake Total 2873.14 ml Output Total 940 ml Balance 1933.14 ml Intake IV Total 2873.14 ml Output Urine Total 40 ml Gastric Drainage Total 900 ml PHYSICAL EXAM Sedated on ventilator No pupillary light reflex or oculocephalic response CN: no focal findings. Muscle tone: normal. Muscle strength: No response to pain DTR: 1+ Plantar reflex: Silent Gait: not examined. Sensory exam: Not cooperative. Cerebellar: Not cooperative. Review of Relevant I have reviewed the following items rachel (where applicable) has been applied. Labs Laboratory Tests Test 08/04/20 16:00 08/04/20 16:17 08/04/20 19:36 08/04/20 21:30 White Blood Count 6.8 x10^3/uL (4.0-11.0) 21.6 x10^3/uL (4.0-11.0) Red Blood Count 5.40 x10^6/uL (4.30-5.70) 4.97 x10^6/uL (4.30-5.70) Hemoglobin 17.0 g/dL (13.0-17.5) 15.7 g/dL (13.0-17.5) Hematocrit 53.2 % (39.0-53.0) 47.5 % (39.0-53.0) Mean Corpuscular Volume 99 fL (79-100) 96 fL (79-100) Mean Corpuscular Hemoglobin 32 pg (25-35) 32 pg (25-35) Mean Corpuscular Hemoglobin Concent 32 g/dL (31-37) 33 g/dL (31-37) Red Cell Distribution Width 14.7 % (11.5-14.5) 14.2 % (11.5-14.5) Platelet Count 81 x10^3/uL (140-400) 153 x10^3/uL (140-400) Neutrophils (%) (Auto) 18 % (31-73) 89 % (31-73) Lymphocytes (%) (Auto) 75 % (24-48) 9 % (24-48) Monocytes (%) (Auto) 5 % (0-9) 1 % (0-9) Eosinophils (%) (Auto) 1 % (0-3) 0 % (0-3) Basophils (%) (Auto) 1 % (0-3) 0 % (0-3) Neutrophils # (Auto) 1.2 x10^3/uL (1.8-7.7) 19.3 x10^3/uL (1.8-7.7) Lymphocytes # (Auto) 5.0 x10^3/uL (1.0-4.8) 2.0 x10^3/uL (1.0-4.8) Monocytes # (Auto) 0.3 x10^3/uL (0.0-1.1) 0.3 x10^3/uL (0.0-1.1) Eosinophils # (Auto) 0.1 x10^3/uL (0.0-0.7) 0.1 x10^3/uL (0.0-0.7) Basophils # (Auto) 0.1 x10^3/uL (0.0-0.2) 0.1 x10^3/uL (0.0-0.2) Bedside Hemoglobin 18.4 g/dL (14-18) Bedside Hematocrit 54 % (37-52) Bedside Sodium 141 mmol/L (135-145) Bedside Potassium 2.9 mmol/L (3.5-5.0) Bedside Chloride 108 mmol/L (98-110) Bedside Total CO2 15 mmol/L (23-32) Anion Gap 22 mmol/L (6-14) 20 (6-14) Bedside Blood Urea Nitrogen 33 mg/dL (8-26) Bedside Creatinine 1.6 mg/dL (0.5-1.4) Glucose Level 321 mg/dL (70-99) 300 mg/dL (70-99) Bedside Ionized Calcium (Radha) 1.06 mmol/L (1.13-1.32) Bedside Troponin I 0.11 ng/ml (<0.08) O2 Saturation 60 % (92-99) Arterial Blood pH 6.98 (7.35-7.45) Arterial Blood pH (Temp corrected) 7.03 Arterial Blood pCO2 at Patient Temp 57 mmHg (35-46) Arterial Blood pCO2 (Temp correct) 49 mmHg Arterial Blood pO2 at Patient Temp 44 mmHg (65-108) Arterial Blood pO2 (Temp corrected) 35 mmHg Arterial Blood HCO3 13 mmol/L (21-28) Arterial Blood Base Excess -19 mmol/L (-3-3) FiO2 100 Prothrombin Time 19.6 SEC (11.7-14.0) Prothromb Time International Ratio 1.7 (0.8-1.1) Activated Partial Thromboplast Time 61 SEC (24-38) Sodium Level 137 mmol/L (136-145) Potassium Level 3.6 mmol/L (3.5-5.1) Chloride Level 102 mmol/L (98-107) Carbon Dioxide Level 15 mmol/L (21-32) Blood Urea Nitrogen 31 mg/dL (8-26) Creatinine 2.2 mg/dL (0.7-1.3) Estimated GFR (Cockcroft-Gault) 30.8 Calcium Level 7.3 mg/dL (8.5-10.1) Phosphorus Level 9.1 mg/dL (2.6-4.7) Magnesium Level 2.6 mg/dL (1.8-2.4) Triglycerides Level 102 mg/dL (0-150) Test 08/04/20 22:08 08/05/20 03:00 08/05/20 03:30 08/05/20 06:15 O2 Saturation 90 % (92-99) Arterial Blood pH 7.11 (7.35-7.45) Arterial Blood pH (Temp corrected) 7.14 Arterial Blood pCO2 at Patient Temp 45 mmHg (35-46) Arterial Blood pCO2 (Temp correct) 41 mmHg Arterial Blood pO2 at Patient Temp 73 mmHg (65-108) Arterial Blood pO2 (Temp corrected) 63 mmHg Arterial Blood HCO3 14 mmol/L (21-28) Arterial Blood Base Excess -15 mmol/L (-3-3) FiO2 100 Hemoglobin A1c 5.6 % (4.8-5.6) White Blood Count 22.7 x10^3/uL (4.0-11.0) Red Blood Count 4.65 x10^6/uL (4.30-5.70) Hemoglobin 14.8 g/dL (13.0-17.5) Hematocrit 43.7 % (39.0-53.0) Mean Corpuscular Volume 94 fL (79-100) Mean Corpuscular Hemoglobin 32 pg (25-35) Mean Corpuscular Hemoglobin Concent 34 g/dL (31-37) Red Cell Distribution Width 13.9 % (11.5-14.5) Platelet Count 124 x10^3/uL (140-400) Neutrophils (%) (Auto) 92 % (31-73) Lymphocytes (%) (Auto) 4 % (24-48) Monocytes (%) (Auto) 5 % (0-9) Eosinophils (%) (Auto) 0 % (0-3) Basophils (%) (Auto) 0 % (0-3) Neutrophils # (Auto) 20.8 x10^3/uL (1.8-7.7) Lymphocytes # (Auto) 0.9 x10^3/uL (1.0-4.8) Monocytes # (Auto) 1.0 x10^3/uL (0.0-1.1) Eosinophils # (Auto) 0.0 x10^3/uL (0.0-0.7) Basophils # (Auto) 0.0 x10^3/uL (0.0-0.2) Segmented Neutrophils % 73 % (35-66) Band Neutrophils % 16 % (0-9) Lymphocytes % 6 % (24-48) Monocytes % 4 % (0-10) Eosinophils % 1 % (0-5) Platelet Estimate Decreased (ADEQUATE) Large Platelets Few Prothrombin Time 22.4 SEC (11.7-14.0) Prothromb Time International Ratio 2.0 (0.8-1.1) Activated Partial Thromboplast Time 47 SEC (24-38) Sodium Level 141 mmol/L (136-145) Potassium Level 2.8 mmol/L (3.5-5.1) 3.6 mmol/L (3.5-5.1) Chloride Level 105 mmol/L (98-107) Carbon Dioxide Level 17 mmol/L (21-32) Anion Gap 19 (6-14) Blood Urea Nitrogen 33 mg/dL (8-26) Creatinine 2.7 mg/dL (0.7-1.3) Estimated GFR (Cockcroft-Gault) 24.3 Glucose Level 169 mg/dL (70-99) Calcium Level 7.2 mg/dL (8.5-10.1) Phosphorus Level 3.4 mg/dL (2.6-4.7) Magnesium Level 2.1 mg/dL (1.8-2.4) Hepatitis B Surface Antigen Nonreactive (Nonreactive) Hepatitis B Surface Antibody, Quant 7.2 mIU/mL (Immunity>9.9) Creatine Kinase 28868 U/L (39-308) Triglycerides Level 97 mg/dL (0-150) Cholesterol Level 132 mg/dL (0-200) LDL Cholesterol, Calculated 63 mg/dL (0-100) VLDL Cholesterol, Calculated 19 mg/dL (0-40) Non-HDL Cholesterol Calculated 82 mg/dL (0-129) HDL Cholesterol 50 mg/dL (40-60) Cholesterol/HDL Ratio 2.6 Thyroid Stimulating Hormone (TSH) 2.498 uIU/mL (0.358-3.74) Test 08/05/20 06:27 08/05/20 07:35 08/05/20 11:55 08/05/20 12:14 Coronavirus (PCR) Not detected (Not Detected) O2 Saturation 98 % (92-99) 97 % (92-99) Arterial Blood pH 7.16 (7.35-7.45) 7.12 (7.35-7.45) Arterial Blood pH (Temp corrected) 7.19 7.18 Arterial Blood pCO2 at Patient Temp 35 mmHg (35-46) 32 mmHg (35-46) Arterial Blood pCO2 (Temp correct) 31 mmHg 26 mmHg Arterial Blood pO2 at Patient Temp 156 mmHg (65-108) 112 mmHg (65-108) Arterial Blood pO2 (Temp corrected) 143 mmHg 88 mmHg Arterial Blood HCO3 12 mmol/L (21-28) 10 mmol/L (21-28) Arterial Blood Base Excess -16 mmol/L (-3-3) -18 mmol/L (-3-3) FiO2 100 vent 100 White Blood Count 21.3 x10^3/uL (4.0-11.0) Red Blood Count 4.39 x10^6/uL (4.30-5.70) Hemoglobin 13.8 g/dL (13.0-17.5) Hematocrit 41.5 % (39.0-53.0) Mean Corpuscular Volume 95 fL (79-100) Mean Corpuscular Hemoglobin 31 pg (25-35) Mean Corpuscular Hemoglobin Concent 33 g/dL (31-37) Red Cell Distribution Width 14.2 % (11.5-14.5) Platelet Count 79 x10^3/uL (140-400) Neutrophils (%) (Auto) 94 % (31-73) Lymphocytes (%) (Auto) 4 % (24-48) Monocytes (%) (Auto) 2 % (0-9) Eosinophils (%) (Auto) 0 % (0-3) Basophils (%) (Auto) 1 % (0-3) Neutrophils # (Auto) 19.9 x10^3/uL (1.8-7.7) Lymphocytes # (Auto) 0.8 x10^3/uL (1.0-4.8) Monocytes # (Auto) 0.4 x10^3/uL (0.0-1.1) Eosinophils # (Auto) 0.0 x10^3/uL (0.0-0.7) Basophils # (Auto) 0.1 x10^3/uL (0.0-0.2) Prothrombin Time 30.2 SEC (11.7-14.0) Prothromb Time International Ratio 2.9 (0.8-1.1) Activated Partial Thromboplast Time 52 SEC (24-38) Sodium Level 143 mmol/L (136-145) Potassium Level 3.7 mmol/L (3.5-5.1) Chloride Level 106 mmol/L (98-107) Carbon Dioxide Level 13 mmol/L (21-32) Anion Gap 24 (6-14) Blood Urea Nitrogen 35 mg/dL (8-26) Creatinine 3.2 mg/dL (0.7-1.3) Estimated GFR (Cockcroft-Gault) 20.0 Glucose Level 238 mg/dL (70-99) Calcium Level 6.5 mg/dL (8.5-10.1) Ionized Calcium 0.93 mmol/L (1.13-1.32) Phosphorus Level 5.3 mg/dL (2.6-4.7) Magnesium Level 2.4 mg/dL (1.8-2.4) Total Bilirubin 1.0 mg/dL (0.2-1.0) Direct Bilirubin 0.3 mg/dL (0.0-0.2) Aspartate Amino Transf (AST/SGOT) 1886 U/L (15-37) Alanine Aminotransferase (ALT/SGPT) 747 U/L (16-63) Alkaline Phosphatase 60 U/L (46-116) Troponin I Quantitative 139.070 ng/mL (0.000-0.055) Total Protein 3.8 g/dL (6.4-8.2) Albumin 2.0 g/dL (3.4-5.0) Test 08/05/20 17:25 08/05/20 23:30 08/06/20 05:30 08/06/20 08:00 White Blood Count 20.5 x10^3/uL (4.0-11.0) 19.4 x10^3/uL (4.0-11.0) 19.3 x10^3/uL (4.0-11.0) Red Blood Count 4.50 x10^6/uL (4.30-5.70) 4.60 x10^6/uL (4.30-5.70) 4.45 x10^6/uL (4.30-5.70) Hemoglobin 14.1 g/dL (13.0-17.5) 14.4 g/dL (13.0-17.5) 14.0 g/dL (13.0-17.5) Hematocrit 41.9 % (39.0-53.0) 43.2 % (39.0-53.0) 42.6 % (39.0-53.0) Mean Corpuscular Volume 93 fL (79-100) 94 fL (79-100) 96 fL (79-100) Mean Corpuscular Hemoglobin 31 pg (25-35) 31 pg (25-35) 32 pg (25-35) Mean Corpuscular Hemoglobin Concent 34 g/dL (31-37) 33 g/dL (31-37) 33 g/dL (31-37) Red Cell Distribution Width 13.9 % (11.5-14.5) 13.8 % (11.5-14.5) 14.6 % (11.5-14.5) Platelet Count 82 x10^3/uL (140-400) 57 x10^3/uL (140-400) 58 x10^3/uL (140-400) Neutrophils (%) (Auto) 92 % (31-73) 90 % (31-73) 89 % (31-73) Lymphocytes (%) (Auto) 6 % (24-48) 6 % (24-48) 7 % (24-48) Monocytes (%) (Auto) 2 % (0-9) 4 % (0-9) 3 % (0-9) Eosinophils (%) (Auto) 0 % (0-3) 0 % (0-3) 0 % (0-3) Basophils (%) (Auto) 1 % (0-3) 0 % (0-3) 0 % (0-3) Neutrophils # (Auto) 18.8 x10^3/uL (1.8-7.7) 17.5 x10^3/uL (1.8-7.7) 17.2 x10^3/uL (1.8-7.7) Lymphocytes # (Auto) 1.2 x10^3/uL (1.0-4.8) 1.2 x10^3/uL (1.0-4.8) 1.4 x10^3/uL (1.0-4.8) Monocytes # (Auto) 0.4 x10^3/uL (0.0-1.1) 0.7 x10^3/uL (0.0-1.1) 0.6 x10^3/uL (0.0-1.1) Eosinophils # (Auto) 0.0 x10^3/uL (0.0-0.7) 0.0 x10^3/uL (0.0-0.7) 0.0 x10^3/uL (0.0-0.7) Basophils # (Auto) 0.1 x10^3/uL (0.0-0.2) 0.0 x10^3/uL (0.0-0.2) 0.0 x10^3/uL (0.0-0.2) Prothrombin Time 28.1 SEC (11.7-14.0) 28.7 SEC (11.7-14.0) Prothromb Time International Ratio 2.6 (0.8-1.1) 2.7 (0.8-1.1) Activated Partial Thromboplast Time 49 SEC (24-38) 53 SEC (24-38) Sodium Level 137 mmol/L (136-145) 136 mmol/L (136-145) Potassium Level 3.5 mmol/L (3.5-5.1) 4.2 mmol/L (3.5-5.1) Chloride Level 103 mmol/L (98-107) 102 mmol/L (98-107) Carbon Dioxide Level 16 mmol/L (21-32) 14 mmol/L (21-32) Anion Gap 18 (6-14) 20 (6-14) Blood Urea Nitrogen 29 mg/dL (8-26) 24 mg/dL (8-26) Creatinine 2.6 mg/dL (0.7-1.3) 2.4 mg/dL (0.7-1.3) Estimated GFR (Cockcroft-Gault) 25.4 27.8 Glucose Level 175 mg/dL (70-99) 71 mg/dL (70-99) Calcium Level 6.6 mg/dL (8.5-10.1) 6.4 mg/dL (8.5-10.1) Ionized Calcium 0.88 mmol/L (1.13-1.32) Phosphorus Level 3.7 mg/dL (2.6-4.7) 5.2 mg/dL (2.6-4.7) 7.3 mg/dL (2.6-4.7) Magnesium Level 2.1 mg/dL (1.8-2.4) 2.2 mg/dL (1.8-2.4) 2.5 mg/dL (1.8-2.4) O2 Saturation 96 % (92-99) Arterial Blood pH 7.01 (7.35-7.45) Arterial Blood pH (Temp corrected) 7.04 Arterial Blood pCO2 at Patient Temp 45 mmHg (35-46) Arterial Blood pCO2 (Temp correct) 40 mmHg Arterial Blood pO2 at Patient Temp 109 mmHg (65-108) Arterial Blood pO2 (Temp corrected) 96 mmHg Arterial Blood HCO3 11 mmol/L (21-28) Arterial Blood Base Excess -20 mmol/L (-3-3) Laboratory Tests Test 08/05/20 11:55 08/05/20 12:14 08/05/20 17:25 08/05/20 23:30 White Blood Count 21.3 x10^3/uL (4.0-11.0) 20.5 x10^3/uL (4.0-11.0) 19.4 x10^3/uL (4.0-11.0) Red Blood Count 4.39 x10^6/uL (4.30-5.70) 4.50 x10^6/uL (4.30-5.70) 4.60 x10^6/uL (4.30-5.70) Hemoglobin 13.8 g/dL (13.0-17.5) 14.1 g/dL (13.0-17.5) 14.4 g/dL (13.0-17.5) Hematocrit 41.5 % (39.0-53.0) 41.9 % (39.0-53.0) 43.2 % (39.0-53.0) Mean Corpuscular Volume 95 fL (79-100) 93 fL (79-100) 94 fL (79-100) Mean Corpuscular Hemoglobin 31 pg (25-35) 31 pg (25-35) 31 pg (25-35) Mean Corpuscular Hemoglobin Concent 33 g/dL (31-37) 34 g/dL (31-37) 33 g/dL (31-37) Red Cell Distribution Width 14.2 % (11.5-14.5) 13.9 % (11.5-14.5) 13.8 % (11.5-14.5) Platelet Count 79 x10^3/uL (140-400) 82 x10^3/uL (140-400) 57 x10^3/uL (140-400) Neutrophils (%) (Auto) 94 % (31-73) 92 % (31-73) 90 % (31-73) Lymphocytes (%) (Auto) 4 % (24-48) 6 % (24-48) 6 % (24-48) Monocytes (%) (Auto) 2 % (0-9) 2 % (0-9) 4 % (0-9) Eosinophils (%) (Auto) 0 % (0-3) 0 % (0-3) 0 % (0-3) Basophils (%) (Auto) 1 % (0-3) 1 % (0-3) 0 % (0-3) Neutrophils # (Auto) 19.9 x10^3/uL (1.8-7.7) 18.8 x10^3/uL (1.8-7.7) 17.5 x10^3/uL (1.8-7.7) Lymphocytes # (Auto) 0.8 x10^3/uL (1.0-4.8) 1.2 x10^3/uL (1.0-4.8) 1.2 x10^3/uL (1.0-4.8) Monocytes # (Auto) 0.4 x10^3/uL (0.0-1.1) 0.4 x10^3/uL (0.0-1.1) 0.7 x10^3/uL (0.0-1.1) Eosinophils # (Auto) 0.0 x10^3/uL (0.0-0.7) 0.0 x10^3/uL (0.0-0.7) 0.0 x10^3/uL (0.0-0.7) Basophils # (Auto) 0.1 x10^3/uL (0.0-0.2) 0.1 x10^3/uL (0.0-0.2) 0.0 x10^3/uL (0.0-0.2) Prothrombin Time 30.2 SEC (11.7-14.0) 28.1 SEC (11.7-14.0) 28.7 SEC (11.7-14.0) Prothromb Time International Ratio 2.9 (0.8-1.1) 2.6 (0.8-1.1) 2.7 (0.8-1.1) Activated Partial Thromboplast Time 52 SEC (24-38) 49 SEC (24-38) 53 SEC (24-38) Sodium Level 143 mmol/L (136-145) 137 mmol/L (136-145) 136 mmol/L (136-145) Potassium Level 3.7 mmol/L (3.5-5.1) 3.5 mmol/L (3.5-5.1) 4.2 mmol/L (3.5-5.1) Chloride Level 106 mmol/L (98-107) 103 mmol/L (98-107) 102 mmol/L (98-107) Carbon Dioxide Level 13 mmol/L (21-32) 16 mmol/L (21-32) 14 mmol/L (21-32) Anion Gap 24 (6-14) 18 (6-14) 20 (6-14) Blood Urea Nitrogen 35 mg/dL (8-26) 29 mg/dL (8-26) 24 mg/dL (8-26) Creatinine 3.2 mg/dL (0.7-1.3) 2.6 mg/dL (0.7-1.3) 2.4 mg/dL (0.7-1.3) Estimated GFR (Cockcroft-Gault) 20.0 25.4 27.8 Glucose Level 238 mg/dL (70-99) 175 mg/dL (70-99) 71 mg/dL (70-99) Calcium Level 6.5 mg/dL (8.5-10.1) 6.6 mg/dL (8.5-10.1) 6.4 mg/dL (8.5-10.1) Ionized Calcium 0.93 mmol/L (1.13-1.32) 0.88 mmol/L (1.13-1.32) Phosphorus Level 5.3 mg/dL (2.6-4.7) 3.7 mg/dL (2.6-4.7) 5.2 mg/dL (2.6-4.7) Magnesium Level 2.4 mg/dL (1.8-2.4) 2.1 mg/dL (1.8-2.4) 2.2 mg/dL (1.8-2.4) Total Bilirubin 1.0 mg/dL (0.2-1.0) Direct Bilirubin 0.3 mg/dL (0.0-0.2) Aspartate Amino Transf (AST/SGOT) 1886 U/L (15-37) Alanine Aminotransferase (ALT/SGPT) 747 U/L (16-63) Alkaline Phosphatase 60 U/L (46-116) Troponin I Quantitative 139.070 ng/mL (0.000-0.055) Total Protein 3.8 g/dL (6.4-8.2) Albumin 2.0 g/dL (3.4-5.0) O2 Saturation 97 % (92-99) Arterial Blood pH 7.12 (7.35-7.45) Arterial Blood pH (Temp corrected) 7.18 Arterial Blood pCO2 at Patient Temp 32 mmHg (35-46) Arterial Blood pCO2 (Temp correct) 26 mmHg Arterial Blood pO2 at Patient Temp 112 mmHg (65-108) Arterial Blood pO2 (Temp corrected) 88 mmHg Arterial Blood HCO3 10 mmol/L (21-28) Arterial Blood Base Excess -18 mmol/L (-3-3) FiO2 100 Test 08/06/20 05:30 08/06/20 08:00 White Blood Count 19.3 x10^3/uL (4.0-11.0) Red Blood Count 4.45 x10^6/uL (4.30-5.70) Hemoglobin 14.0 g/dL (13.0-17.5) Hematocrit 42.6 % (39.0-53.0) Mean Corpuscular Volume 96 fL (79-100) Mean Corpuscular Hemoglobin 32 pg (25-35) Mean Corpuscular Hemoglobin Concent 33 g/dL (31-37) Red Cell Distribution Width 14.6 % (11.5-14.5) Platelet Count 58 x10^3/uL (140-400) Neutrophils (%) (Auto) 89 % (31-73) Lymphocytes (%) (Auto) 7 % (24-48) Monocytes (%) (Auto) 3 % (0-9) Eosinophils (%) (Auto) 0 % (0-3) Basophils (%) (Auto) 0 % (0-3) Neutrophils # (Auto) 17.2 x10^3/uL (1.8-7.7) Lymphocytes # (Auto) 1.4 x10^3/uL (1.0-4.8) Monocytes # (Auto) 0.6 x10^3/uL (0.0-1.1) Eosinophils # (Auto) 0.0 x10^3/uL (0.0-0.7) Basophils # (Auto) 0.0 x10^3/uL (0.0-0.2) Phosphorus Level 7.3 mg/dL (2.6-4.7) Magnesium Level 2.5 mg/dL (1.8-2.4) O2 Saturation 96 % (92-99) Arterial Blood pH 7.01 (7.35-7.45) Arterial Blood pH (Temp corrected) 7.04 Arterial Blood pCO2 at Patient Temp 45 mmHg (35-46) Arterial Blood pCO2 (Temp correct) 40 mmHg Arterial Blood pO2 at Patient Temp 109 mmHg (65-108) Arterial Blood pO2 (Temp corrected) 96 mmHg Arterial Blood HCO3 11 mmol/L (21-28) Arterial Blood Base Excess -20 mmol/L (-3-3) Medications Current Medications Heparin Sodium (Porcine) (Heparin Sodium) 4,000 unit 1X ONCE IV Last administered on 08/04/20at 16:39; Start 08/04/20 at 16:30; Stop 08/04/20 at 16:36; Status DC Norepinephrine Bitartrate 8 mg/ Dextrose 258 ml @ 17.609 mls/ hr 1X ONCE IV ; Start 08/04/20 at 16:30; Stop 08/05/20 at 07:09; Status UNV Norepinephrine Bitartrate 8 mg/ Dextrose 258 ml @ 0 mls/hr 1X ONCE IV Last administered on 08/04/20at 16:28; Start 08/04/20 at 16:30; Stop 08/04/20 at 16:31; Status DC Norepinephrine Bitartrate 8 mg/ Dextrose 258 ml @ 0 mls/hr CONT PRN IV PER PROTOCOL Last administered on 08/04/20at 18:49; Start 08/04/20 at 16:45; Stop 08/05/20 at 01:41; Status DC Iodixanol (Visipaque 320) 100 ml STK-MED ONCE .ROUTE ; Start 08/04/20 at 16:31; Stop 08/04/20 at 16:31; Status DC Lidocaine HCl (Lidocaine 1% 20ml Vial) 20 ml STK-MED ONCE .ROUTE ; Start 08/04/20 at 16:31; Stop 08/04/20 at 16:31; Status DC Heparin Sodium/ Sodium Chloride 1,000 ml @ As Directed STK-MED ONCE .ROUTE ; Start 08/04/20 at 16:31; Stop 08/04/20 at 16:32; Status DC Heparin Sodium/ Sodium Chloride (HEPARIN for ARTERIAL LINE FLUSH) 1,000 unit 1X ONCE IART Last administered on 08/04/20at 17:15; Start 08/04/20 at 17:15; Stop 08/04/20 at 17:16; Status DC Heparin Sodium/ Sodium Chloride (HEPARIN for ARTERIAL LINE FLUSH) 1,000 unit 1X ONCE IART Last administered on 08/04/20at 17:15; Start 08/04/20 at 17:15; Stop 08/04/20 at 17:16; Status DC Iodixanol (Visipaque 320) 100 ml 1X ONCE IART Last administered on 08/04/20at 17:15; Start 08/04/20 at 17:15; Stop 08/04/20 at 17:16; Status DC Lidocaine HCl (Lidocaine 1% 20ml Vial) 20 ml 1X ONCE INJ Last administered on 08/04/20at 17:15; Start 08/04/20 at 17:15; Stop 08/04/20 at 17:16; Status DC Vasopressin 20 unit/Dextrose 101 ml @ 11.882 mls/ hr 1X ONCE IV Last administered on 08/04/20at 18:49; Start 08/04/20 at 17:15; Stop 08/05/20 at 01:44; Status DC Phenylephrine HCl 50 mg/Sodium Chloride 255 ml @ 0 mls/hr 1X ONCE IV ; Start 08/04/20 at 17:15; Stop 08/04/20 at 17:16; Status DC Iohexol (Omnipaque 350 Mg/ml) 100 ml 1X ONCE IV ; Start 08/04/20 at 17:30; Stop 08/04/20 at 17:32; Status DC Info (CONTRAST GIVEN -- Rx MONITORING) 1 each PRN DAILY PRN MC SEE COMMENTS; Start 08/04/20 at 17:45; Stop 08/06/20 at 17:44 Fentanyl Citrate 30 ml @ 0 mls/hr CONT PRN IV SEE PROTOCOL Last administered on 08/06/20at 00:25; Start 08/04/20 at 17:45 Fentanyl Citrate (Fentanyl 2ml Vial) 25 mcg PRN Q1HR PRN IV SEE COMMENTS; Start 08/04/20 at 17:45 Fentanyl Citrate (Fentanyl 2ml Vial) 50 mcg PRN Q1HR PRN IV SEE COMMENTS; Start 08/04/20 at 17:45 Chlorhexidine Gluconate (Peridex) 15 ml BID MM Last administered on 08/05/20at 20:59; Start 08/04/20 at 21:00 Morphine Sulfate (Morphine Sulfate) 2 mg PRN Q1HR PRN IV SEE COMMENTS.; Start 08/04/20 at 17:45 Morphine Sulfate (Morphine Sulfate) 4 mg PRN Q1HR PRN IV SEE COMMENTS.; Start 08/04/20 at 17:45 Midazolam HCl 100 ml @ 0 mls/hr CONT PRN IV SEE PROTOCOL Last administered on 08/05/20at 09:11; Start 08/04/20 at 17:45 Norepinephrine Bitartrate 8 mg/ Dextrose 258 ml @ 17.609 mls/ hr CONT PRN IV PER PROTOCOL; Start 08/04/20 at 17:45; Stop 08/05/20 at 01:41; Status DC Dopamine HCl/ Dextrose 250 ml @ 17.063 mls/ hr CONT PRN IV SEE I/O RECORD Last administered on 08/06/20at 08:04; Start 08/04/20 at 17:45 Norepinephrine Bitartrate 32 mg/ Dextrose 250 ml @ 4.266 mls/ hr CONT PRN IV SEE I/O RECORD Last administered on 08/06/20at 00:24; Start 08/04/20 at 18:00 Fentanyl Citrate (Fentanyl 2ml Vial) 100 mcg 1X ONCE IV ; Start 08/04/20 at 17:45; Stop 08/04/20 at 18:02; Status DC Midazolam HCl (Versed) 2 mg 1X ONCE IV ; Start 08/04/20 at 17:45; Stop 08/04/20 at 18:02; Status DC Magnesium Sulfate/ Dextrose 100 ml @ 100 mls/hr 1X ONCE IV Last administered on 08/04/20at 18:47; Start 08/04/20 at 18:15; Stop 08/04/20 at 19:14; Status DC Buspirone HCl (Buspar) 30 mg Q8H NG Last administered on 08/06/20at 03:04; Start 08/04/20 at 19:00; Stop 08/06/20 at 11:01 Acetaminophen (Tylenol) 650 mg Q4H NG Last administered on 08/06/20at 03:04; Start 08/04/20 at 19:00 Glycerin/ Hypromellose/ Polyethylene (Artificial Tears) 1 drop Q6HRS OU Last administered on 08/06/20at 06:09; Start 08/04/20 at 19:00 Glycerin/ Hypromellose/ Polyethylene (Artificial Tears) 1 drop PRN Q15MIN PRN OU DRY EYE; Start 08/04/20 at 17:45 Pantoprazole Sodium (PROTONIX VIAL for IV PUSH) 40 mg DAILY IVP Last administered on 08/05/20at 08:39; Start 08/04/20 at 21:00 Vecuronium [place] (Norcuron Bolus) 9 mg PRN Q1HR PRN IV SHIVERING; Start 08/04/20 at 17:45 Lorazepam (Ativan Inj) 0.5 mg PRN Q6HRS PRN IVP ANXIETY / AGITATION; Start 08/04/20 at 18:15 Ondansetron HCl (Zofran) 4 mg PRN Q6HRS PRN IVP NAUSEA/VOMITING; Start 08/04/20 at 18:15 Famotidine (Pepcid Vial) 20 mg BID IVP Last administered on 08/05/20at 20:59; Start 08/04/20 at 21:00 Enoxaparin Sodium (Lovenox 40mg Syringe) 40 mg Q24H SQ Last administered on 08/05/20at 19:10; Start 08/04/20 at 19:00 Sodium Chloride (Normal Saline Flush) 3 ml QSHIFT PRN IV AFTER MEDS AND BLOOD DRAWS; Start 08/04/20 at 18:15 Morphine Sulfate (Morphine Sulfate) 2 mg PRN Q1HR PRN IV PAIN-SEE COMMENTS; Start 08/04/20 at 18:15 Fentanyl Citrate (Fentanyl 2ml Vial) 50 mcg PRN Q1HR PRN IV PAIN-SEE COMMENTS; Start 08/04/20 at 18:15 Potassium Bicarbonate (Potassium Effervescent Tablet) 40 meq 1X ONCE PEG Last administered on 08/04/20at 20:29; Start 08/04/20 at 20:15; Stop 08/04/20 at 20:19; Status DC Furosemide (Lasix) 40 mg 1X ONCE IVP Last administered on 08/04/20at 20:28; S tart 08/04/20 at 20:15; Stop 08/04/20 at 20:19; Status DC Amiodarone HCl 450 mg/Dextrose 259 ml @ 0 mls/hr 1X ONCE IV Last administered on 08/04/20at 20:29; Start 08/04/20 at 20:30; Stop 08/04/20 at 20:31; Status DC Sodium Bicarbonate (Sodium Bicarb Adult 8.4% Syr) 50 meq 1X ONCE IV Last administered on 08/04/20at 20:54; Start 08/04/20 at 20:45; Stop 08/04/20 at 20:46; Status DC Piperacillin Sod/ Tazobactam Sod (Zosyn Per Pharmacy) 1 each PRN DAILY PRN MC SEE COMMENTS; Start 08/04/20 at 22:45 Insulin Human Regular 100 unit/ Sodium Chloride 101 ml @ 0 mls/hr CONT PRN IV SEE I/O RECORD Last administered on 08/05/20at 20:17; Start 08/04/20 at 22:45 Piperacillin Sod/ Tazobactam Sod 3.375 gm/Sodium Chloride 50 ml @ 100 mls/hr Q6H IV Last administered on 08/06/20at 05:27; Start 08/04/20 at 23:00 Sodium Bicarbonate (Sodium Bicarb Adult 8.4% Syr) 100 meq 1X ONCE IV Last administered on 08/04/20at 23:17; Start 08/04/20 at 23:00; Stop 08/04/20 at 23:01; Status DC Lidocaine HCl (Lidocaine HCl 2% Abboject) 100 mg 1X ONCE IV Last administered on 08/04/20at 23:58; Start 08/05/20 at 00:00; Stop 08/05/20 at 00:01; Status DC Potassium Chloride/Water 100 ml @ 100 mls/hr 1X ONCE IV Last administered on 08/05/20at 04:27; Start 08/05/20 at 04:30; Stop 08/05/20 at 05:29; Status DC Amiodarone HCl 450 mg/Dextrose 259 ml @ 0 mls/hr 1X ONCE IV Last administered on 08/05/20at 06:01; Start 08/05/20 at 06:00; Stop 08/05/20 at 06:01; Status DC Sodium Bicarbonate 150 meq/Dextrose 1,150 ml @ 150 mls/hr [id number] IV Last administered on 08/05/20at 17:06; Start 08/05/20 at 07:45 Magnesium Sulfate 50 ml @ 25 mls/hr 1X ONCE IV ; Start 08/05/20 at 07:45; Stop 08/05/20 at 08:34; Status DC Lidocaine HCl (Buffered Lidocaine 1%) 3 ml STK-MED ONCE .ROUTE ; Start 08/05/20 at 08:02; Stop 08/05/20 at 08:02; Status DC Heparin Sodium (Porcine) (Heparin Sodium) 10,000 unit STK-MED ONCE .ROUTE ; Start 08/05/20 at 08:02; Stop 08/05/20 at 08:02; Status DC Lidocaine HCl (Buffered Lidocaine 1%) 6 ml 1X ONCE INJ Last administered on 08/05/20at 08:34; Start 08/05/20 at 08:30; Stop 08/05/20 at 08:31; Status DC Heparin Sodium (Porcine) (Heparin Sodium) 2,500 unit 1X ONCE INT CAT Last administered on 08/05/20at 08:35; Start 08/05/20 at 08:30; Stop 08/05/20 at 08:31; Status DC Magnesium Sulfate/ Dextrose 100 ml @ 100 mls/hr 1X ONCE IV Last administered on 08/05/20at 08:40; Start 08/05/20 at 08:45; Stop 08/05/20 at 09:44; Status DC Vasopressin 20 unit/Dextrose 101 ml @ 12 mls/hr CONT PRN IV SEE I/O RECORD Last administered on 08/06/20at 02:40; Start 08/05/20 at 09:00 Potassium Chloride/Water 100 ml @ 100 mls/hr 1X ONCE IV Last administered on 08/05/20at 10:14; Start 08/05/20 at 09:30; Stop 08/05/20 at 10:29; Status DC Potassium Chloride 15 meq/ Bicarbonate Dialysis Soln w/ out KCl 5,007.5 ml @ 1, 100 mls/ hr Q4H34M IV Last administered on 08/06/20at 08:44; Start 08/05/20 at 11:00 Potassium Chloride 15 meq/ Bicarbonate Dialysis Soln w/ out KCl 5,007.5 ml @ 1,100 mls/ hr Q4H34M IV Last administered on 08/06/20at 08:44; Start 08/05/20 at 11:00 Potassium Chloride 15 meq/ Bicarbonate Dialysis Soln w/ out KCl 5,007.5 ml @ 1,100 mls/ hr Q4H34M IV Last administered on 08/06/20at 08:44; Start 08/05/20 at 11:00 Amiodarone HCl 450 mg/Dextrose 259 ml @ 0 mls/hr 1X ONCE IV Last administered on 08/05/20at 20:16; Start 08/05/20 at 20:00; Stop 08/05/20 at 20:01; Status DC Amiodarone HCl 450 mg/Dextrose 259 ml @ 16.7 mls/hr CONT PRN IV SEE I/O RECORD; Start 08/06/20 at 08:45 Vitals/I & O Vital Sign - Last 24 Hours 08/05/20 08/05/20 08/05/20 08/05/20 10:00 10:00 11:00 11:08 Temp 91.0 91.0 90.3 91.0 90.3 Pulse 48 48 Resp B/P (MAP) 110/76 (87) 114/76 (89) Pulse Ox 100 100 96 O2 Delivery Ventilator Ventilator Ventilator 08/05/20 08/05/20 08/05/20 08/05/20 12:00 12:08 12:08 12:20 Temp 90.3 90.3 90.3 Pulse 50 Resp 26 B/P (MAP) 110/72 (85) Pulse Ox 100 94 O2 Delivery Ventilator Mechanical Ventilator 08/05/20 08/05/20 08/05/20 08/05/20 13:00 13:00 13:11 14:00 Temp 90.7 90.7 91.7 90.7 91.7 Pulse 50 52 Resp B/P (MAP) 102/70 (81) 124/74 (91) Pulse Ox 100 100 100 O2 Delivery Ventilator Ventilator Ventilator 08/05/20 08/05/20 08/05/20 08/05/20 14:00 14:30 15:00 15:00 Temp 91.8 92.5 92.5 92.5 Pulse 48 Resp B/P (MAP) 116/74 (88) Pulse Ox 99 100 O2 Delivery Ventilator Ventilator 08/05/20 08/05/20 08/05/20 08/05/20 16:00 16:00 16:00 16:11 Temp 92.8 92.8 92.8 Pulse 45 Resp 26 B/P (MAP) 108/73 (85) Pulse Ox 97 99 O2 Delivery Mechanical Ventilator Ventilator Ventilator 08/05/20 08/05/20 08/05/20 08/05/20 17:00 17:00 18:00 18:00 Temp 92.8 92.8 92.9 92.9 92.8 92.9 Pulse 50 48 Resp 26 26 B/P (MAP) 107/78 (88) 110/77 (88) Pulse Ox 100 97 O2 Delivery Ventilator Ventilator 08/05/20 08/05/20 08/05/20 08/05/20 19:00 19:00 19:50 20:00 Temp 93.0 93.0 93.0 93.0 93.0 Pulse 49 49 Resp 26 B/P (MAP) 126/80 (95) 106/71 (83) Pulse Ox 93 O2 Delivery Ventilator Mechanical Ventilator Ventilator 08/05/20 08/05/20 08/05/20 08/05/20 20:00 20:28 21:00 21:00 Temp 93.0 93.2 93.2 93.2 Pulse 51 Resp 26 B/P (MAP) 127/77 (94) Pulse Ox 96 O2 Delivery Ventilator Ventilator 08/05/20 08/05/20 08/05/20 08/05/20 22:00 22:00 23:00 23:00 Temp 93.2 93.2 93.3 93.3 93.2 93.3 Pulse 50 52 Resp 26 26 B/P (MAP) 120/76 (91) 132/79 (96) O2 Delivery Ventilator Ventilator 08/06/20 08/06/20 08/06/20 08/06/20 00:00 00:00 00:00 00:25 Temp 93.3 93.3 93.3 Pulse 51 Resp 26 B/P (MAP) 132/74 (93) Pulse Ox 96 O2 Delivery Ventilator Mechanical Ventilator 08/06/20 08/06/20 08/06/20 08/06/20 00:47 00:55 01:00 01:00 Temp 93.3 93.3 93.3 Pulse 53 Resp 26 B/P (MAP) 111/65 (80) Pulse Ox 96 96 O2 Delivery Ventilator Ventilator 08/06/20 08/06/20 08/06/20 08/06/20 02:00 02:00 03:00 03:00 Temp 93.7 93.7 93.9 93.9 93.7 93.9 Pulse 49 51 Resp 26 B/P (MAP) 118/66 (83) 106/56 (73) O2 Delivery Ventilator Ventilator 08/06/20 08/06/20 08/06/20 08/06/20 04:00 04:00 04:00 04:12 Temp 93.7 93.7 93.7 Pulse 51 Resp B/P (MAP) 104/62 (76) Pulse Ox 96 O2 Delivery Mechanical Ventilator Ventilator Ventilator 08/06/20 08/06/20 08/06/20 08/06/20 05:00 05:00 06:00 06:00 Temp 93.7 93.5 93.9 93.7 93.7 93.9 Pulse 55 54 Resp B/P (MAP) 106/61 (76) 89/53 (65) O2 Delivery Ventilator Ventilator 08/06/20 08:00 O2 Delivery Mechanical Ventilator Intake and Output 08/05/20 08/05/20 08/06/20 15:00 23:00 07:00 Intake Total 299.5 ml 1447.04 ml 1126.6 ml Output Total 25 ml 565 ml 350 ml Balance 274.5 ml 882.04 ml 776.6 ml Justicifation of Admission Dx: Justifications for Admission: Justification of Admission Dx: Yes DEANNA MATTHEW MD Aug 06, 2020 09:08
[2020-08-06] MEDS: PANTOPRAZOLE IV PUSH 40 MG VIAL. IVP SCH (09:24)
[2020-08-06] MEDS: CHLORHEXIDINE 0.12% 15 ML MOUTHWASH. MM SCH (09:25)
[2020-08-06] MEDS: FAMOTIDINE 20 MG/2 ML VIAL IVP SCH (09:25)
[2020-08-06 09:28] LABS: ALBUMIN 2.6 g/dL (3.4-5.0); CALCIUM 6.2 mg/dL (8.5-10.1); CREATININE 2.5 mg/dL (0.7-1.3); GFR 26.6; TOTAL BILIRUBIN 2.2 mg/dL (0.2-1.0); TOTAL PROTEIN 5.2 g/dL (6.4-8.2)
[2020-08-06 09:38] LABS: PROTHROMBIN TIME PATIENT 41.4 SEC (11.7-14.0)
--- NOTE | 2020-08-06 09:39 | PDOC ---
DATE OF SERVICE DATE: 08/06/20 TIME: 09:31 SUBJECTIVE ROS Anoxic encephalopathy ( per neuro) , sedated, on pressor support, OBJECTIVE Vital Signs Vital Signs Date Time Temp Pulse Resp B/P (MAP) Pulse Ox O2 Delivery O2 Flow Rate FiO2 08/06/20 08:00 Mechanical Ventilator 08/06/20 06:00 93.7 08/06/20 06:00 54 26 08/06/20 04:12 96 I & 0 Intake and Output 08/06/20 07:00 Intake Total 2873.14 ml Output Total 940 ml Balance 1933.14 ml Intake IV Total 2873.14 ml Output Urine Total 40 ml Gastric Drainage Total 900 ml PHYSICAL EXAM Physical Exam GENERAL: intubated and sedated, On pressor support HEEN Intubated Neck Supple Lungs CTA ant CV S1S2 Abd Sof Ext No LE edema, No cyanosis SKIN: No skin rash [place] + Neuro- sedated, Intubated Psych Unable to assess DIAGNOSIS/ASSESSMENT Assessment & Plan LEONOR - ATN post cardiac arrest , shock, currently on therapeutic Hypothermia and pressor support Neuro cannot give prognosis , On CRRt , continue as tolerated Acute hypoxic and hypercapnic respiratory failure secondary to cardiac arrest. No e/o PE on CTA Cardiac arrest secondary to ventricular fibrillation s/p CPR and multiple shock therapies, brief PEA/asystole s/p multiple epinephrine injections presently in S R. Emergent cardiac cath did not show any major coronary stenosis LVEF is within normal limits, has moderate mitral regurgitation on left ventriculography. Metabolic acidosis- 2/2 above- No Improvement , PH 7.0, Incre Ventricular fibrillation cardiac arrest. Hyperphosphatemia POA - resolved Anoxic encephalopathy- neuro unable to give prognosis . Critical, prognosis poor Discussed with family at bedside and Nursing at bedside COMMENT/RELEVANT DATA Meds Current Medications Medications (Trade) Dose Ordered Sig/Imelda Start Time Stop Time Status Last Admin Dose Admin Acetaminophen (Tylenol) 650 mg Q4H 08/04/20 19:00 08/06/20 03:04 650 MG Amiodarone HCl 450 mg/Dextrose 259 ml @ 16.7 mls/hr CONT PRN 08/06/20 08:45 Buspirone HCl (Buspar) 30 mg Q8H 08/04/20 19:00 08/06/20 11:01 08/06/20 03:04 30 MG Chlorhexidine Gluconate (Peridex) 15 ml BID 08/04/20 21:00 08/05/20 20:59 15 ML Dopamine HCl/ Dextrose 250 ml @ 17.063 mls/ hr CONT PRN 08/04/20 17:45 08/06/20 08:04 6.825 MLS/HR Enoxaparin Sodium (Lovenox 40mg Syringe) 40 mg Q24H 08/04/20 19:00 08/05/20 19:10 40 MG Famotidine (Pepcid Vial) 20 mg BID 08/04/20 21:00 08/05/20 20:59 20 MG Fentanyl Citrate (Fentanyl 2ml Vial) 50 mcg PRN Q1HR PRN 08/04/20 18:15 Furosemide (Lasix) 40 mg 1X ONCE 08/04/20 20:15 08/04/20 20:19 DC 08/04/20 20:28 40 MG Glycerin/ Hypromellose/ Polyethylene (Artificial Tears) 1 drop PRN Q15MIN PRN 08/04/20 17:45 Heparin Sodium (Porcine) (Heparin Sodium) 2,500 unit 1X ONCE 08/05/20 08:30 08/05/20 08:31 DC 08/05/20 08:35 2,500 UNIT Heparin Sodium/ Sodium Chloride (HEPARIN for ARTERIAL LINE FLUSH) 1,000 unit 1X ONCE 08/04/20 17:15 08/04/20 17:16 DC 08/04/20 17:15 1,000 UNIT Info (CONTRAST GIVEN -- Rx MONITORING) 1 each PRN DAILY PRN 08/04/20 17:45 08/06/20 17:44 Insulin Human Regular 100 unit/ Sodium Chloride 101 ml @ 0 mls/hr CONT PRN 08/04/20 22:45 08/05/20 20:17 3.7 MLS/HR Iodixanol (Visipaque 320) 100 ml 1X ONCE 08/04/20 17:15 08/04/20 17:16 DC 08/04/20 17:15 99 ML Iohexol (Omnipaque 350 Mg/ml) 100 ml 1X ONCE 08/04/20 17:30 08/04/20 17:32 DC Lidocaine HCl (Buffered Lidocaine 1%) 6 ml 1X ONCE 08/05/20 08:30 08/05/20 08:31 DC 08/05/20 08:34 3 ML Lidocaine HCl (Lidocaine 1% 20ml Vial) 20 ml 1X ONCE 08/04/20 17:15 08/04/20 17:16 DC 08/04/20 17:15 20 ML Lidocaine HCl (Lidocaine HCl 2% Abboject) 100 mg 1X ONCE 08/05/20 00:00 08/05/20 00:01 DC 08/04/20 23:58 100 MG Lorazepam (Ativan Inj) 0.5 mg PRN Q6HRS PRN 08/04/20 18:15 Magnesium Sulfate 50 ml @ 25 mls/hr 1X ONCE 08/05/20 07:45 08/05/20 08:34 DC Magnesium Sulfate/ Dextrose 100 ml @ 100 mls/hr 1X ONCE 08/05/20 08:45 08/05/20 09:44 DC 08/05/20 08:40 100 MLS/HR Midazolam HCl (Versed) 2 mg 1X ONCE 08/04/20 17:45 08/04/20 18:02 DC Morphine Sulfate (Morphine Sulfate) 2 mg PRN Q1HR PRN 08/04/20 18:15 Norepinephrine Bitartrate 32 mg/ Dextrose 250 ml @ 4.266 mls/ hr CONT PRN 08/04/20 18:00 08/06/20 00:24 25.3 MLS/HR Norepinephrine Bitartrate 8 mg/ Dextrose 258 ml @ 17.609 mls/ hr CONT PRN 08/04/20 17:45 08/05/20 01:41 DC Ondansetron HCl (Zofran) 4 mg PRN Q6HRS PRN 08/04/20 18:15 Pantoprazole Sodium (PROTONIX VIAL for IV PUSH) 40 mg DAILY 08/04/20 21:00 08/05/20 08:39 40 MG Phenylephrine HCl 50 mg/Sodium Chloride 255 ml @ 0 mls/hr 1X ONCE 08/04/20 17:15 08/04/20 17:16 DC Piperacillin Sod/ Tazobactam Sod (Zosyn Per Pharmacy) 1 each PRN DAILY PRN 08/04/20 22:45 Piperacillin Sod/ Tazobactam Sod 3.375 gm/Sodium Chloride 50 ml @ 100 mls/hr Q6H 08/04/20 23:00 08/06/20 05:27 100 MLS/HR Potassium Bicarbonate (Potassium Effervescent Tablet) 40 meq 1X ONCE 08/04/20 20:15 08/04/20 20:19 DC 08/04/20 20:29 40 MEQ Potassium Chloride 15 meq/ Bicarbonate Dialysis Soln w/ out KCl 5,007.5 ml @ 1,100 mls/ hr Q4H34M 08/05/20 11:00 08/06/20 08:44 1,100 MLS/HR Potassium Chloride/Water 100 ml @ 100 mls/hr 1X ONCE 08/05/20 09:30 08/05/20 10:29 DC 08/05/20 10:14 100 MLS/HR Sodium Bicarbonate 150 meq/Dextrose 1,150 ml @ 150 mls/hr Q7H40M 08/05/20 07:45 08/05/20 17:06 150 MLS/HR Sodium Bicarbonate (Sodium Bicarb Adult 8.4% Syr) 100 meq 1X ONCE 08/04/20 23:00 08/04/20 23:01 DC 08/04/20 23:17 100 MEQ Sodium Chloride (Normal Saline Flush) 3 ml QSHIFT PRN 08/04/20 18:15 Vasopressin 20 unit/Dextrose 101 ml @ 12 mls/hr CONT PRN 08/05/20 09:00 08/06/20 02:40 12 MLS/HR Vecuronium [place] (Norcuron Bolus) 9 mg PRN Q1HR PRN 08/04/20 17:45 Lab Laboratory Tests Test 08/05/20 11:12 08/05/20 11:55 08/05/20 12:14 08/05/20 12:21 Glucose (Fingerstick) 233 mg/dL (70-99) 244 mg/dL (70-99) White Blood Count 21.3 x10^3/uL (4.0-11.0) Red Blood Count 4.39 x10^6/uL (4.30-5.70) Hemoglobin 13.8 g/dL (13.0-17.5) Hematocrit 41.5 % (39.0-53.0) Mean Corpuscular Volume 95 fL (79-100) Mean Corpuscular Hemoglobin 31 pg (25-35) Mean Corpuscular Hemoglobin Concent 33 g/dL (31-37) Red Cell Distribution Width 14.2 % (11.5-14.5) Platelet Count 79 x10^3/uL (140-400) Neutrophils (%) (Auto) 94 % (31-73) Lymphocytes (%) (Auto) 4 % (24-48) Monocytes (%) (Auto) 2 % (0-9) Eosinophils (%) (Auto) 0 % (0-3) Basophils (%) (Auto) 1 % (0-3) Neutrophils # (Auto) 19.9 x10^3/uL (1.8-7.7) Lymphocytes # (Auto) 0.8 x10^3/uL (1.0-4.8) Monocytes # (Auto) 0.4 x10^3/uL (0.0-1.1) Eosinophils # (Auto) 0.0 x10^3/uL (0.0-0.7) Basophils # (Auto) 0.1 x10^3/uL (0.0-0.2) Prothrombin Time 30.2 SEC (11.7-14.0) Prothromb Time International Ratio 2.9 (0.8-1.1) Activated Partial Thromboplast Time 52 SEC (24-38) Sodium Level 143 mmol/L (136-145) Potassium Level 3.7 mmol/L (3.5-5.1) Chloride Level 106 mmol/L (98-107) Carbon Dioxide Level 13 mmol/L (21-32) Anion Gap 24 (6-14) Blood Urea Nitrogen 35 mg/dL (8-26) Creatinine 3.2 mg/dL (0.7-1.3) Estimated GFR (Cockcroft-Gault) 20.0 Glucose Level 238 mg/dL (70-99) Calcium Level 6.5 mg/dL (8.5-10.1) Ionized Calcium 0.93 mmol/L (1.13-1.32) Phosphorus Level 5.3 mg/dL (2.6-4.7) Magnesium Level 2.4 mg/dL (1.8-2.4) Total Bilirubin 1.0 mg/dL (0.2-1.0) Direct Bilirubin 0.3 mg/dL (0.0-0.2) Aspartate Amino Transf (AST/SGOT) 1886 U/L (15-37) Alanine Aminotransferase (ALT/SGPT) 747 U/L (16-63) Alkaline Phosphatase 60 U/L (46-116) Troponin I Quantitative 139.070 ng/mL (0.000-0.055) Total Protein 3.8 g/dL (6.4-8.2) Albumin 2.0 g/dL (3.4-5.0) O2 Saturation 97 % (92-99) Arterial Blood pH 7.12 (7.35-7.45) Arterial Blood pH (Temp corrected) 7.18 Arterial Blood pCO2 at Patient Temp 32 mmHg (35-46) Arterial Blood pCO2 (Temp correct) 26 mmHg Arterial Blood pO2 at Patient Temp 112 mmHg (65-108) Arterial Blood pO2 (Temp corrected) 88 mmHg Arterial Blood HCO3 10 mmol/L (21-28) Arterial Blood Base Excess -18 mmol/L (-3-3) FiO2 100 Test 08/05/20 13:28 08/05/20 14:39 08/05/20 15:45 08/05/20 16:35 Glucose (Fingerstick) 242 mg/dL (70-99) 227 mg/dL (70-99) 195 mg/dL (70-99) 178 mg/dL (70-99) Test 08/05/20 17:25 08/05/20 17:51 08/05/20 19:08 08/05/20 20:14 White Blood Count 20.5 x10^3/uL (4.0-11.0) Red Blood Count 4.50 x10^6/uL (4.30-5.70) Hemoglobin 14.1 g/dL (13.0-17.5) Hematocrit 41.9 % (39.0-53.0) Mean Corpuscular Volume 93 fL (79-100) Mean Corpuscular Hemoglobin 31 pg (25-35) Mean Corpuscular Hemoglobin Concent 34 g/dL (31-37) Red Cell Distribution Width 13.9 % (11.5-14.5) Platelet Count 82 x10^3/uL (140-400) Neutrophils (%) (Auto) 92 % (31-73) Lymphocytes (%) (Auto) 6 % (24-48) Monocytes (%) (Auto) 2 % (0-9) Eosinophils (%) (Auto) 0 % (0-3) Basophils (%) (Auto) 1 % (0-3) Neutrophils # (Auto) 18.8 x10^3/uL (1.8-7.7) Lymphocytes # (Auto) 1.2 x10^3/uL (1.0-4.8) Monocytes # (Auto) 0.4 x10^3/uL (0.0-1.1) Eosinophils # (Auto) 0.0 x10^3/uL (0.0-0.7) Basophils # (Auto) 0.1 x10^3/uL (0.0-0.2) Prothrombin Time 28.1 SEC (11.7-14.0) Prothromb Time International Ratio 2.6 (0.8-1.1) Activated Partial Thromboplast Time 49 SEC (24-38) Sodium Level 137 mmol/L (136-145) Potassium Level 3.5 mmol/L (3.5-5.1) Chloride Level 103 mmol/L (98-107) Carbon Dioxide Level 16 mmol/L (21-32) Anion Gap 18 (6-14) Blood Urea Nitrogen 29 mg/dL (8-26) Creatinine 2.6 mg/dL (0.7-1.3) Estimated GFR (Cockcroft-Gault) 25.4 Glucose Level 175 mg/dL (70-99) Calcium Level 6.6 mg/dL (8.5-10.1) Ionized Calcium 0.88 mmol/L (1.13-1.32) Phosphorus Level 3.7 mg/dL (2.6-4.7) Magnesium Level 2.1 mg/dL (1.8-2.4) Glucose (Fingerstick) 180 mg/dL (70-99) 138 mg/dL (70-99) 113 mg/dL (70-99) Test 08/05/20 21:16 08/05/20 22:20 08/05/20 23:23 08/05/20 23:30 Glucose (Fingerstick) 79 mg/dL (70-99) 75 mg/dL (70-99) 83 mg/dL (70-99) White Blood Count 19.4 x10^3/uL (4.0-11.0) Red Blood Count 4.60 x10^6/uL (4.30-5.70) Hemoglobin 14.4 g/dL (13.0-17.5) Hematocrit 43.2 % (39.0-53.0) Mean Corpuscular Volume 94 fL (79-100) Mean Corpuscular Hemoglobin 31 pg (25-35) Mean Corpuscular Hemoglobin Concent 33 g/dL (31-37) Red Cell Distribution Width 13.8 % (11.5-14.5) Platelet Count 57 x10^3/uL (140-400) Neutrophils (%) (Auto) 90 % (31-73) Lymphocytes (%) (Auto) 6 % (24-48) Monocytes (%) (Auto) 4 % (0-9) Eosinophils (%) (Auto) 0 % (0-3) Basophils (%) (Auto) 0 % (0-3) Neutrophils # (Auto) 17.5 x10^3/uL (1.8-7.7) Lymphocytes # (Auto) 1.2 x10^3/uL (1.0-4.8) Monocytes # (Auto) 0.7 x10^3/uL (0.0-1.1) Eosinophils # (Auto) 0.0 x10^3/uL (0.0-0.7) Basophils # (Auto) 0.0 x10^3/uL (0.0-0.2) Prothrombin Time 28.7 SEC (11.7-14.0) Prothromb Time International Ratio 2.7 (0.8-1.1) Activated Partial Thromboplast Time 53 SEC (24-38) Sodium Level 136 mmol/L (136-145) Potassium Level 4.2 mmol/L (3.5-5.1) Chloride Level 102 mmol/L (98-107) Carbon Dioxide Level 14 mmol/L (21-32) Anion Gap 20 (6-14) Blood Urea Nitrogen 24 mg/dL (8-26) Creatinine 2.4 mg/dL (0.7-1.3) Estimated GFR (Cockcroft-Gault) 27.8 Glucose Level 71 mg/dL (70-99) Calcium Level 6.4 mg/dL (8.5-10.1) Phosphorus Level 5.2 mg/dL (2.6-4.7) Magnesium Level 2.2 mg/dL (1.8-2.4) Test 08/06/20 05:30 08/06/20 08:00 White Blood Count 19.3 x10^3/uL (4.0-11.0) Red Blood Count 4.45 x10^6/uL (4.30-5.70) Hemoglobin 14.0 g/dL (13.0-17.5) Hematocrit 42.6 % (39.0-53.0) Mean Corpuscular Volume 96 fL (79-100) Mean Corpuscular Hemoglobin 32 pg (25-35) Mean Corpuscular Hemoglobin Concent 33 g/dL (31-37) Red Cell Distribution Width 14.6 % (11.5-14.5) Platelet Count 58 x10^3/uL (140-400) Neutrophils (%) (Auto) 89 % (31-73) Lymphocytes (%) (Auto) 7 % (24-48) Monocytes (%) (Auto) 3 % (0-9) Eosinophils (%) (Auto) 0 % (0-3) Basophils (%) (Auto) 0 % (0-3) Neutrophils # (Auto) 17.2 x10^3/uL (1.8-7.7) Lymphocytes # (Auto) 1.4 x10^3/uL (1.0-4.8) Monocytes # (Auto) 0.6 x10^3/uL (0.0-1.1) Eosinophils # (Auto) 0.0 x10^3/uL (0.0-0.7) Basophils # (Auto) 0.0 x10^3/uL (0.0-0.2) Phosphorus Level 7.3 mg/dL (2.6-4.7) Magnesium Level 2.5 mg/dL (1.8-2.4) O2 Saturation 96 % (92-99) Arterial Blood pH 7.01 (7.35-7.45) Arterial Blood pH (Temp corrected) 7.04 Arterial Blood pCO2 at Patient Temp 45 mmHg (35-46) Arterial Blood pCO2 (Temp correct) 40 mmHg Arterial Blood pO2 at Patient Temp 109 mmHg (65-108) Arterial Blood pO2 (Temp corrected) 96 mmHg Arterial Blood HCO3 11 mmol/L (21-28) Arterial Blood Base Excess -20 mmol/L (-3-3) Results All relevant outside records, renal labs, imaging studies, telemetry/EKG's were reviewed. Justicifation of Admission Dx: Justifications for Admission: Justification of Admission Dx: Yes ALEJANDRO WATERS MD Aug 06, 2020 09:39
--- NOTE | 2020-08-06 09:50 | PDOC ---
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 08/06/20 0950: CARDIO Progress Notes Date and Time Date of Service 08/06/2020 Time of Evaluation 0940 Subjective Subjective: Other (sedated) Vitals Vitals Vital Signs Date Time Temp Pulse Resp B/P (MAP) Pulse Ox O2 Delivery O2 Flow Rate FiO2 08/06/20 08:00 Mechanical Ventilator 08/06/20 06:00 93.7 08/06/20 06:00 54 26 08/06/20 04:12 96 Weight Weight [ ] Input and Output Intake and Output Intake and Output 08/06/20 07:00 Intake Total 2873.14 ml Output Total 940 ml Balance 1933.14 ml Intake IV Total 2873.14 ml Output Urine Total 40 ml Gastric Drainage Total 900 ml Laboratory Labs Laboratory Tests Test 08/05/20 11:12 08/05/20 11:55 08/05/20 12:14 08/05/20 12:21 Glucose (Fingerstick) 233 mg/dL (70-99) 244 mg/dL (70-99) White Blood Count 21.3 x10^3/uL (4.0-11.0) Red Blood Count 4.39 x10^6/uL (4.30-5.70) Hemoglobin 13.8 g/dL (13.0-17.5) Hematocrit 41.5 % (39.0-53.0) Mean Corpuscular Volume 95 fL (79-100) Mean Corpuscular Hemoglobin 31 pg (25-35) Mean Corpuscular Hemoglobin Concent 33 g/dL (31-37) Red Cell Distribution Width 14.2 % (11.5-14.5) Platelet Count 79 x10^3/uL (140-400) Neutrophils (%) (Auto) 94 % (31-73) Lymphocytes (%) (Auto) 4 % (24-48) Monocytes (%) (Auto) 2 % (0-9) Eosinophils (%) (Auto) 0 % (0-3) Basophils (%) (Auto) 1 % (0-3) Neutrophils # (Auto) 19.9 x10^3/uL (1.8-7.7) Lymphocytes # (Auto) 0.8 x10^3/uL (1.0-4.8) Monocytes # (Auto) 0.4 x10^3/uL (0.0-1.1) Eosinophils # (Auto) 0.0 x10^3/uL (0.0-0.7) Basophils # (Auto) 0.1 x10^3/uL (0.0-0.2) Prothrombin Time 30.2 SEC (11.7-14.0) Prothromb Time International Ratio 2.9 (0.8-1.1) Activated Partial Thromboplast Time 52 SEC (24-38) Sodium Level 143 mmol/L (136-145) Potassium Level 3.7 mmol/L (3.5-5.1) Chloride Level 106 mmol/L (98-107) Carbon Dioxide Level 13 mmol/L (21-32) Anion Gap 24 (6-14) Blood Urea Nitrogen 35 mg/dL (8-26) Creatinine 3.2 mg/dL (0.7-1.3) Estimated GFR (Cockcroft-Gault) 20.0 Glucose Level 238 mg/dL (70-99) Calcium Level 6.5 mg/dL (8.5-10.1) Ionized Calcium 0.93 mmol/L (1.13-1.32) Phosphorus Level 5.3 mg/dL (2.6-4.7) Magnesium Level 2.4 mg/dL (1.8-2.4) Total Bilirubin 1.0 mg/dL (0.2-1.0) Direct Bilirubin 0.3 mg/dL (0.0-0.2) Aspartate Amino Transf (AST/SGOT) 1886 U/L (15-37) Alanine Aminotransferase (ALT/SGPT) 747 U/L (16-63) Alkaline Phosphatase 60 U/L (46-116) Troponin I Quantitative 139.070 ng/mL (0.000-0.055) Total Protein 3.8 g/dL (6.4-8.2) Albumin 2.0 g/dL (3.4-5.0) O2 Saturation 97 % (92-99) Arterial Blood pH 7.12 (7.35-7.45) Arterial Blood pH (Temp corrected) 7.18 Arterial Blood pCO2 at Patient Temp 32 mmHg (35-46) Arterial Blood pCO2 (Temp correct) 26 mmHg Arterial Blood pO2 at Patient Temp 112 mmHg (65-108) Arterial Blood pO2 (Temp corrected) 88 mmHg Arterial Blood HCO3 10 mmol/L (21-28) Arterial Blood Base Excess -18 mmol/L (-3-3) FiO2 100 Test 08/05/20 13:28 08/05/20 14:39 08/05/20 15:45 08/05/20 16:35 Glucose (Fingerstick) 242 mg/dL (70-99) 227 mg/dL (70-99) 195 mg/dL (70-99) 178 mg/dL (70-99) Test 08/05/20 17:25 08/05/20 17:51 08/05/20 19:08 08/05/20 20:14 White Blood Count 20.5 x10^3/uL (4.0-11.0) Red Blood Count 4.50 x10^6/uL (4.30-5.70) Hemoglobin 14.1 g/dL (13.0-17.5) Hematocrit 41.9 % (39.0-53.0) Mean Corpuscular Volume 93 fL (79-100) Mean Corpuscular Hemoglobin 31 pg (25-35) Mean Corpuscular Hemoglobin Concent 34 g/dL (31-37) Red Cell Distribution Width 13.9 % (11.5-14.5) Platelet Count 82 x10^3/uL (140-400) Neutrophils (%) (Auto) 92 % (31-73) Lymphocytes (%) (Auto) 6 % (24-48) Monocytes (%) (Auto) 2 % (0-9) Eosinophils (%) (Auto) 0 % (0-3) Basophils (%) (Auto) 1 % (0-3) Neutrophils # (Auto) 18.8 x10^3/uL (1.8-7.7) Lymphocytes # (Auto) 1.2 x10^3/uL (1.0-4.8) Monocytes # (Auto) 0.4 x10^3/uL (0.0-1.1) Eosinophils # (Auto) 0.0 x10^3/uL (0.0-0.7) Basophils # (Auto) 0.1 x10^3/uL (0.0-0.2) Prothrombin Time 28.1 SEC (11.7-14.0) Prothromb Time International Ratio 2.6 (0.8-1.1) Activated Partial Thromboplast Time 49 SEC (24-38) Sodium Level 137 mmol/L (136-145) Potassium Level 3.5 mmol/L (3.5-5.1) Chloride Level 103 mmol/L (98-107) Carbon Dioxide Level 16 mmol/L (21-32) Anion Gap 18 (6-14) Blood Urea Nitrogen 29 mg/dL (8-26) Creatinine 2.6 mg/dL (0.7-1.3) Estimated GFR (Cockcroft-Gault) 25.4 Glucose Level 175 mg/dL (70-99) Calcium Level 6.6 mg/dL (8.5-10.1) Ionized Calcium 0.88 mmol/L (1.13-1.32) Phosphorus Level 3.7 mg/dL (2.6-4.7) Magnesium Level 2.1 mg/dL (1.8-2.4) Glucose (Fingerstick) 180 mg/dL (70-99) 138 mg/dL (70-99) 113 mg/dL (70-99) Test 08/05/20 21:16 08/05/20 22:20 08/05/20 23:23 08/05/20 23:30 Glucose (Fingerstick) 79 mg/dL (70-99) 75 mg/dL (70-99) 83 mg/dL (70-99) White Blood Count 19.4 x10^3/uL (4.0-11.0) Red Blood Count 4.60 x10^6/uL (4.30-5.70) Hemoglobin 14.4 g/dL (13.0-17.5) Hematocrit 43.2 % (39.0-53.0) Mean Corpuscular Volume 94 fL (79-100) Mean Corpuscular Hemoglobin 31 pg (25-35) Mean Corpuscular Hemoglobin Concent 33 g/dL (31-37) Red Cell Distribution Width 13.8 % (11.5-14.5) Platelet Count 57 x10^3/uL (140-400) Neutrophils (%) (Auto) 90 % (31-73) Lymphocytes (%) (Auto) 6 % (24-48) Monocytes (%) (Auto) 4 % (0-9) Eosinophils (%) (Auto) 0 % (0-3) Basophils (%) (Auto) 0 % (0-3) Neutrophils # (Auto) 17.5 x10^3/uL (1.8-7.7) Lymphocytes # (Auto) 1.2 x10^3/uL (1.0-4.8) Monocytes # (Auto) 0.7 x10^3/uL (0.0-1.1) Eosinophils # (Auto) 0.0 x10^3/uL (0.0-0.7) Basophils # (Auto) 0.0 x10^3/uL (0.0-0.2) Prothrombin Time 28.7 SEC (11.7-14.0) Prothromb Time International Ratio 2.7 (0.8-1.1) Activated Partial Thromboplast Time 53 SEC (24-38) Sodium Level 136 mmol/L (136-145) Potassium Level 4.2 mmol/L (3.5-5.1) Chloride Level 102 mmol/L (98-107) Carbon Dioxide Level 14 mmol/L (21-32) Anion Gap 20 (6-14) Blood Urea Nitrogen 24 mg/dL (8-26) Creatinine 2.4 mg/dL (0.7-1.3) Estimated GFR (Cockcroft-Gault) 27.8 Glucose Level 71 mg/dL (70-99) Calcium Level 6.4 mg/dL (8.5-10.1) Phosphorus Level 5.2 mg/dL (2.6-4.7) Magnesium Level 2.2 mg/dL (1.8-2.4) Test 08/06/20 05:30 08/06/20 08:00 White Blood Count 19.3 x10^3/uL (4.0-11.0) Red Blood Count 4.45 x10^6/uL (4.30-5.70) Hemoglobin 14.0 g/dL (13.0-17.5) Hematocrit 42.6 % (39.0-53.0) Mean Corpuscular Volume 96 fL (79-100) Mean Corpuscular Hemoglobin 32 pg (25-35) Mean Corpuscular Hemoglobin Concent 33 g/dL (31-37) Red Cell Distribution Width 14.6 % (11.5-14.5) Platelet Count 58 x10^3/uL (140-400) Neutrophils (%) (Auto) 89 % (31-73) Lymphocytes (%) (Auto) 7 % (24-48) Monocytes (%) (Auto) 3 % (0-9) Eosinophils (%) (Auto) 0 % (0-3) Basophils (%) (Auto) 0 % (0-3) Neutrophils # (Auto) 17.2 x10^3/uL (1.8-7.7) Lymphocytes # (Auto) 1.4 x10^3/uL (1.0-4.8) Monocytes # (Auto) 0.6 x10^3/uL (0.0-1.1) Eosinophils # (Auto) 0.0 x10^3/uL (0.0-0.7) Basophils # (Auto) 0.0 x10^3/uL (0.0-0.2) Phosphorus Level 7.3 mg/dL (2.6-4.7) Magnesium Level 2.5 mg/dL (1.8-2.4) O2 Saturation 96 % (92-99) Arterial Blood pH 7.01 (7.35-7.45) Arterial Blood pH (Temp corrected) 7.04 Arterial Blood pCO2 at Patient Temp 45 mmHg (35-46) Arterial Blood pCO2 (Temp correct) 40 mmHg Arterial Blood pO2 at Patient Temp 109 mmHg (65-108) Arterial Blood pO2 (Temp corrected) 96 mmHg Arterial Blood HCO3 11 mmol/L (21-28) Arterial Blood Base Excess -20 mmol/L (-3-3) Physical Exam HEENT: Neck Supple W Full Motion Chest: Symmetric LUNGS: Other (intubated vent) Heart: RRR (SR with LBBB with long first degree AV block) Abdomen: Other (sodt) Extremities: Other (currently on hypothermia protocol) Neurology: other (sedated) Assessment Assessment 1. Acute respiratory failure secondary to cardiopulmonary arrest s/p intubation. No PE per CTA. Hypothermia protocol ongoing. 2. OOH VFIB cardiac arrest: [facility] [employer]. Multiple shocks since then and multiple CPR episodes. Also with brief PEA/asystole s/p multiple epinephrine injections presently in SR. This necessitated emergent cardiac cath did not show any major coronary stenosis (he had diagonal branch stenosis that does not explain his presentation. His LVEF is within normal limits and has at least moderate mitral regurgitation on left ventriculography. He did have another episodes of monomorphic VT around 230 AM prompting another shock. Since then no further sustained VT with amiodarone in place. 3. Shock needing pressor support. Patient's family denied any recent symptoms suggestive of any infection/covid. 4. Hypokalemia: replace 5. Severe LEONOR: on CRRT 6. Severe rhabdomyolysis 7. Coagulopathy 8. Hx of presyncopal events but no known MCOT prior per spouse 9. MR 10. 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 Severe metabolic acidosis 12. At this time noted as idiopathic VT/Vfib: No obvious structural changes per TTE and EF is nml. differential include myocarditis, genetic conduction issues. No noted Brugada, AVRM, WPW morphology per prior EKG at PCP's office Recommendations 1. Continue with fluid bolus. CRRT ongoing but remains hypotnsive with multiple pressors remains acidemic, critical. Family reevaluating goals of care 2. Continue pressor support. No epi as this may induce VTs. 3. Continue amiodarone for VT suppression. QTc is 501. 4. Very poor prognosis. Supportive care Justicifation of Admission Dx: Justifications for Admission: Justification of Admission Dx: Yes DOMINGA DOAN MD 08/07/20 0915: CARDIO Progress Notes Assessment Assessment Patient seen and examined 08/06/20. Agree with INTERACTIVE MEDIA MARKETING DIRECTOR's assessment and plan. Patient remains intubated and needing pressor support Tele did not show any further VT/VF Cardiac cath showed diagonal branch stenosis that does not explain patient's presentation of VT/VF electrical storm 2D echo showed normal LVF with mod MR Continue amiodarone for VT/VF suppression Complete neuro eval pending rewarming patient but prelim assessment poor prognosis per neurology team DANYA DIXON APRN Aug 06, 2020 09:50 DOMINGA DOAN MD Aug 07, 2020 09:15
[2020-08-06] MEDS ORDERED: DEXTROSE 50% 25 GM / 50ML DISP.SYRIN. IV ONE ×2 (10:58→11:00)
--- NOTE | 2020-08-06 11:00 | PDOC ---
PULMONARY PROGRESS NOTES DATE: 08/06/20 TIME: 10:55 Subjective remains on 3 pressors, AC mode shock liver Coagulopathy no U/O/ CRRT Vitals Vital Signs Date Time Temp Pulse Resp B/P (MAP) Pulse Ox O2 Delivery O2 Flow Rate FiO2 08/06/20 10:00 97.8 58 26 88/44 (59) Ventilator 97.8 08/06/20 04:12 96 Lungs: Other (decrease bs) Cardiovascular: S1 Abdomen: Soft Extremities: Other (cold, decrease pulses) Skin: Warm Labs Laboratory Tests Test 08/04/20 16:00 08/04/20 16:17 08/04/20 19:36 08/04/20 21:30 White Blood Count 6.8 x10^3/uL (4.0-11.0) 21.6 x10^3/uL (4.0-11.0) Red Blood Count 5.40 x10^6/uL (4.30-5.70) 4.97 x10^6/uL (4.30-5.70) Hemoglobin 17.0 g/dL (13.0-17.5) 15.7 g/dL (13.0-17.5) Hematocrit 53.2 % (39.0-53.0) 47.5 % (39.0-53.0) Mean Corpuscular Volume 99 fL (79-100) 96 fL (79-100) Mean Corpuscular Hemoglobin 32 pg (25-35) 32 pg (25-35) Mean Corpuscular Hemoglobin Concent 32 g/dL (31-37) 33 g/dL (31-37) Red Cell Distribution Width 14.7 % (11.5-14.5) 14.2 % (11.5-14.5) Platelet Count 81 x10^3/uL (140-400) 153 x10^3/uL (140-400) Neutrophils (%) (Auto) 18 % (31-73) 89 % (31-73) Lymphocytes (%) (Auto) 75 % (24-48) 9 % (24-48) Monocytes (%) (Auto) 5 % (0-9) 1 % (0-9) Eosinophils (%) (Auto) 1 % (0-3) 0 % (0-3) Basophils (%) (Auto) 1 % (0-3) 0 % (0-3) Neutrophils # (Auto) 1.2 x10^3/uL (1.8-7.7) 19.3 x10^3/uL (1.8-7.7) Lymphocytes # (Auto) 5.0 x10^3/uL (1.0-4.8) 2.0 x10^3/uL (1.0-4.8) Monocytes # (Auto) 0.3 x10^3/uL (0.0-1.1) 0.3 x10^3/uL (0.0-1.1) Eosinophils # (Auto) 0.1 x10^3/uL (0.0-0.7) 0.1 x10^3/uL (0.0-0.7) Basophils # (Auto) 0.1 x10^3/uL (0.0-0.2) 0.1 x10^3/uL (0.0-0.2) Bedside Hemoglobin 18.4 g/dL (14-18) Bedside Hematocrit 54 % (37-52) Bedside Sodium 141 mmol/L (135-145) Bedside Potassium 2.9 mmol/L (3.5-5.0) Bedside Chloride 108 mmol/L (98-110) Bedside Total CO2 15 mmol/L (23-32) Anion Gap 22 mmol/L (6-14) 20 (6-14) Bedside Blood Urea Nitrogen 33 mg/dL (8-26) Bedside Creatinine 1.6 mg/dL (0.5-1.4) Glucose Level 321 mg/dL (70-99) 300 mg/dL (70-99) Bedside Ionized Calcium (Radha) 1.06 mmol/L (1.13-1.32) Bedside Troponin I 0.11 ng/ml (<0.08) O2 Saturation 60 % (92-99) Arterial Blood pH 6.98 (7.35-7.45) Arterial Blood pH (Temp corrected) 7.03 Arterial Blood pCO2 at Patient Temp 57 mmHg (35-46) Arterial Blood pCO2 (Temp correct) 49 mmHg Arterial Blood pO2 at Patient Temp 44 mmHg (65-108) Arterial Blood pO2 (Temp corrected) 35 mmHg Arterial Blood HCO3 13 mmol/L (21-28) Arterial Blood Base Excess -19 mmol/L (-3-3) FiO2 100 Prothrombin Time 19.6 SEC (11.7-14.0) Prothromb Time International Ratio 1.7 (0.8-1.1) Activated Partial Thromboplast Time 61 SEC (24-38) Sodium Level 137 mmol/L (136-145) Potassium Level 3.6 mmol/L (3.5-5.1) Chloride Level 102 mmol/L (98-107) Carbon Dioxide Level 15 mmol/L (21-32) Blood Urea Nitrogen 31 mg/dL (8-26) Creatinine 2.2 mg/dL (0.7-1.3) Estimated GFR (Cockcroft-Gault) 30.8 Calcium Level 7.3 mg/dL (8.5-10.1) Phosphorus Level 9.1 mg/dL (2.6-4.7) Magnesium Level 2.6 mg/dL (1.8-2.4) Triglycerides Level 102 mg/dL (0-150) Test 08/04/20 22:08 08/05/20 01:52 08/05/20 03:00 08/05/20 03:30 O2 Saturation 90 % (92-99) Arterial Blood pH 7.11 (7.35-7.45) Arterial Blood pH (Temp corrected) 7.14 Arterial Blood pCO2 at Patient Temp 45 mmHg (35-46) Arterial Blood pCO2 (Temp correct) 41 mmHg Arterial Blood pO2 at Patient Temp 73 mmHg (65-108) Arterial Blood pO2 (Temp corrected) 63 mmHg Arterial Blood HCO3 14 mmol/L (21-28) Arterial Blood Base Excess -15 mmol/L (-3-3) FiO2 100 Glucose (Fingerstick) 173 mg/dL (70-99) Hemoglobin A1c 5.6 % (4.8-5.6) White Blood Count 22.7 x10^3/uL (4.0-11.0) Red Blood Count 4.65 x10^6/uL (4.30-5.70) Hemoglobin 14.8 g/dL (13.0-17.5) Hematocrit 43.7 % (39.0-53.0) Mean Corpuscular Volume 94 fL (79-100) Mean Corpuscular Hemoglobin 32 pg (25-35) Mean Corpuscular Hemoglobin Concent 34 g/dL (31-37) Red Cell Distribution Width 13.9 % (11.5-14.5) Platelet Count 124 x10^3/uL (140-400) Neutrophils (%) (Auto) 92 % (31-73) Lymphocytes (%) (Auto) 4 % (24-48) Monocytes (%) (Auto) 5 % (0-9) Eosinophils (%) (Auto) 0 % (0-3) Basophils (%) (Auto) 0 % (0-3) Neutrophils # (Auto) 20.8 x10^3/uL (1.8-7.7) Lymphocytes # (Auto) 0.9 x10^3/uL (1.0-4.8) Monocytes # (Auto) 1.0 x10^3/uL (0.0-1.1) Eosinophils # (Auto) 0.0 x10^3/uL (0.0-0.7) Basophils # (Auto) 0.0 x10^3/uL (0.0-0.2) Segmented Neutrophils % 73 % (35-66) Band Neutrophils % 16 % (0-9) Lymphocytes % 6 % (24-48) Monocytes % 4 % (0-10) Eosinophils % 1 % (0-5) Platelet Estimate Decreased (ADEQUATE) Large Platelets Few Prothrombin Time 22.4 SEC (11.7-14.0) Prothromb Time International Ratio 2.0 (0.8-1.1) Activated Partial Thromboplast Time 47 SEC (24-38) Sodium Level 141 mmol/L (136-145) Potassium Level 2.8 mmol/L (3.5-5.1) Chloride Level 105 mmol/L (98-107) Carbon Dioxide Level 17 mmol/L (21-32) Anion Gap 19 (6-14) Blood Urea Nitrogen 33 mg/dL (8-26) Creatinine 2.7 mg/dL (0.7-1.3) Estimated GFR (Cockcroft-Gault) 24.3 Glucose Level 169 mg/dL (70-99) Calcium Level 7.2 mg/dL (8.5-10.1) Phosphorus Level 3.4 mg/dL (2.6-4.7) Magnesium Level 2.1 mg/dL (1.8-2.4) Hepatitis B Surface Antigen Nonreactive (Nonreactive) Hepatitis B Surface Antibody, Quant 7.2 mIU/mL (Immunity>9.9) Test 08/05/20 06:15 08/05/20 06:27 08/05/20 07:35 08/05/20 08:48 Potassium Level 3.6 mmol/L (3.5-5.1) Creatine Kinase 61998 U/L (39-308) Triglycerides Level 97 mg/dL (0-150) Cholesterol Level 132 mg/dL (0-200) LDL Cholesterol, Calculated 63 mg/dL (0-100) VLDL Cholesterol, Calculated 19 mg/dL (0-40) Non-HDL Cholesterol Calculated 82 mg/dL (0-129) HDL Cholesterol 50 mg/dL (40-60) Cholesterol/HDL Ratio 2.6 Thyroid Stimulating Hormone (TSH) 2.498 uIU/mL (0.358-3.74) Coronavirus (PCR) Not detected (Not Detected) O2 Saturation 98 % (92-99) Arterial Blood pH 7.16 (7.35-7.45) Arterial Blood pH (Temp corrected) 7.19 Arterial Blood pCO2 at Patient Temp 35 mmHg (35-46) Arterial Blood pCO2 (Temp correct) 31 mmHg Arterial Blood pO2 at Patient Temp 156 mmHg (65-108) Arterial Blood pO2 (Temp corrected) 143 mmHg Arterial Blood HCO3 12 mmol/L (21-28) Arterial Blood Base Excess -16 mmol/L (-3-3) FiO2 100 vent Glucose (Fingerstick) 163 mg/dL (70-99) Test 08/05/20 11:12 08/05/20 11:55 08/05/20 12:14 08/05/20 12:21 Glucose (Fingerstick) 233 mg/dL (70-99) 244 mg/dL (70-99) White Blood Count 21.3 x10^3/uL (4.0-11.0) Red Blood Count 4.39 x10^6/uL (4.30-5.70) Hemoglobin 13.8 g/dL (13.0-17.5) Hematocrit 41.5 % (39.0-53.0) Mean Corpuscular Volume 95 fL (79-100) Mean Corpuscular Hemoglobin 31 pg (25-35) Mean Corpuscular Hemoglobin Concent 33 g/dL (31-37) Red Cell Distribution Width 14.2 % (11.5-14.5) Platelet Count 79 x10^3/uL (140-400) Neutrophils (%) (Auto) 94 % (31-73) Lymphocytes (%) (Auto) 4 % (24-48) Monocytes (%) (Auto) 2 % (0-9) Eosinophils (%) (Auto) 0 % (0-3) Basophils (%) (Auto) 1 % (0-3) Neutrophils # (Auto) 19.9 x10^3/uL (1.8-7.7) Lymphocytes # (Auto) 0.8 x10^3/uL (1.0-4.8) Monocytes # (Auto) 0.4 x10^3/uL (0.0-1.1) Eosinophils # (Auto) 0.0 x10^3/uL (0.0-0.7) Basophils # (Auto) 0.1 x10^3/uL (0.0-0.2) Prothrombin Time 30.2 SEC (11.7-14.0) Prothromb Time International Ratio 2.9 (0.8-1.1) Activated Partial Thromboplast Time 52 SEC (24-38) Sodium Level 143 mmol/L (136-145) Potassium Level 3.7 mmol/L (3.5-5.1) Chloride Level 106 mmol/L (98-107) Carbon Dioxide Level 13 mmol/L (21-32) Anion Gap 24 (6-14) Blood Urea Nitrogen 35 mg/dL (8-26) Creatinine 3.2 mg/dL (0.7-1.3) Estimated GFR (Cockcroft-Gault) 20.0 Glucose Level 238 mg/dL (70-99) Calcium Level 6.5 mg/dL (8.5-10.1) Ionized Calcium 0.93 mmol/L (1.13-1.32) Phosphorus Level 5.3 mg/dL (2.6-4.7) Magnesium Level 2.4 mg/dL (1.8-2.4) Total Bilirubin 1.0 mg/dL (0.2-1.0) Direct Bilirubin 0.3 mg/dL (0.0-0.2) Aspartate Amino Transf (AST/SGOT) 1886 U/L (15-37) Alanine Aminotransferase (ALT/SGPT) 747 U/L (16-63) Alkaline Phosphatase 60 U/L (46-116) Troponin I Quantitative 139.070 ng/mL (0.000-0.055) Total Protein 3.8 g/dL (6.4-8.2) Albumin 2.0 g/dL (3.4-5.0) O2 Saturation 97 % (92-99) Arterial Blood pH 7.12 (7.35-7.45) Arterial Blood pH (Temp corrected) 7.18 Arterial Blood pCO2 at Patient Temp 32 mmHg (35-46) Arterial Blood pCO2 (Temp correct) 26 mmHg Arterial Blood pO2 at Patient Temp 112 mmHg (65-108) Arterial Blood pO2 (Temp corrected) 88 mmHg Arterial Blood HCO3 10 mmol/L (21-28) Arterial Blood Base Excess -18 mmol/L (-3-3) FiO2 100 Test 08/05/20 13:28 08/05/20 14:39 08/05/20 15:45 08/05/20 16:35 Glucose (Fingerstick) 242 mg/dL (70-99) 227 mg/dL (70-99) 195 mg/dL (70-99) 178 mg/dL (70-99) Test 08/05/20 17:25 08/05/20 17:51 08/05/20 19:08 08/05/20 20:14 White Blood Count 20.5 x10^3/uL (4.0-11.0) Red Blood Count 4.50 x10^6/uL (4.30-5.70) Hemoglobin 14.1 g/dL (13.0-17.5) Hematocrit 41.9 % (39.0-53.0) Mean Corpuscular Volume 93 fL (79-100) Mean Corpuscular Hemoglobin 31 pg (25-35) Mean Corpuscular Hemoglobin Concent 34 g/dL (31-37) Red Cell Distribution Width 13.9 % (11.5-14.5) Platelet Count 82 x10^3/uL (140-400) Neutrophils (%) (Auto) 92 % (31-73) Lymphocytes (%) (Auto) 6 % (24-48) Monocytes (%) (Auto) 2 % (0-9) Eosinophils (%) (Auto) 0 % (0-3) Basophils (%) (Auto) 1 % (0-3) Neutrophils # (Auto) 18.8 x10^3/uL (1.8-7.7) Lymphocytes # (Auto) 1.2 x10^3/uL (1.0-4.8) Monocytes # (Auto) 0.4 x10^3/uL (0.0-1.1) Eosinophils # (Auto) 0.0 x10^3/uL (0.0-0.7) Basophils # (Auto) 0.1 x10^3/uL (0.0-0.2) Prothrombin Time 28.1 SEC (11.7-14.0) Prothromb Time International Ratio 2.6 (0.8-1.1) Activated Partial Thromboplast Time 49 SEC (24-38) Sodium Level 137 mmol/L (136-145) Potassium Level 3.5 mmol/L (3.5-5.1) Chloride Level 103 mmol/L (98-107) Carbon Dioxide Level 16 mmol/L (21-32) Anion Gap 18 (6-14) Blood Urea Nitrogen 29 mg/dL (8-26) Creatinine 2.6 mg/dL (0.7-1.3) Estimated GFR (Cockcroft-Gault) 25.4 Glucose Level 175 mg/dL (70-99) Calcium Level 6.6 mg/dL (8.5-10.1) Ionized Calcium 0.88 mmol/L (1.13-1.32) Phosphorus Level 3.7 mg/dL (2.6-4.7) Magnesium Level 2.1 mg/dL (1.8-2.4) Glucose (Fingerstick) 180 mg/dL (70-99) 138 mg/dL (70-99) 113 mg/dL (70-99) Test 08/05/20 21:16 08/05/20 22:20 08/05/20 23:23 08/05/20 23:30 Glucose (Fingerstick) 79 mg/dL (70-99) 75 mg/dL (70-99) 83 mg/dL (70-99) White Blood Count 19.4 x10^3/uL (4.0-11.0) Red Blood Count 4.60 x10^6/uL (4.30-5.70) Hemoglobin 14.4 g/dL (13.0-17.5) Hematocrit 43.2 % (39.0-53.0) Mean Corpuscular Volume 94 fL (79-100) Mean Corpuscular Hemoglobin 31 pg (25-35) Mean Corpuscular Hemoglobin Concent 33 g/dL (31-37) Red Cell Distribution Width 13.8 % (11.5-14.5) Platelet Count 57 x10^3/uL (140-400) Neutrophils (%) (Auto) 90 % (31-73) Lymphocytes (%) (Auto) 6 % (24-48) Monocytes (%) (Auto) 4 % (0-9) Eosinophils (%) (Auto) 0 % (0-3) Basophils (%) (Auto) 0 % (0-3) Neutrophils # (Auto) 17.5 x10^3/uL (1.8-7.7) Lymphocytes # (Auto) 1.2 x10^3/uL (1.0-4.8) Monocytes # (Auto) 0.7 x10^3/uL (0.0-1.1) Eosinophils # (Auto) 0.0 x10^3/uL (0.0-0.7) Basophils # (Auto) 0.0 x10^3/uL (0.0-0.2) Prothrombin Time 28.7 SEC (11.7-14.0) Prothromb Time International Ratio 2.7 (0.8-1.1) Activated Partial Thromboplast Time 53 SEC (24-38) Sodium Level 136 mmol/L (136-145) Potassium Level 4.2 mmol/L (3.5-5.1) Chloride Level 102 mmol/L (98-107) Carbon Dioxide Level 14 mmol/L (21-32) Anion Gap 20 (6-14) Blood Urea Nitrogen 24 mg/dL (8-26) Creatinine 2.4 mg/dL (0.7-1.3) Estimated GFR (Cockcroft-Gault) 27.8 Glucose Level 71 mg/dL (70-99) Calcium Level 6.4 mg/dL (8.5-10.1) Phosphorus Level 5.2 mg/dL (2.6-4.7) Magnesium Level 2.2 mg/dL (1.8-2.4) Test 08/06/20 05:30 08/06/20 07:08 08/06/20 08:00 08/06/20 09:00 White Blood Count 19.3 x10^3/uL (4.0-11.0) Red Blood Count 4.45 x10^6/uL (4.30-5.70) Hemoglobin 14.0 g/dL (13.0-17.5) Hematocrit 42.6 % (39.0-53.0) Mean Corpuscular Volume 96 fL (79-100) Mean Corpuscular Hemoglobin 32 pg (25-35) Mean Corpuscular Hemoglobin Concent 33 g/dL (31-37) Red Cell Distribution Width 14.6 % (11.5-14.5) Platelet Count 58 x10^3/uL (140-400) Neutrophils (%) (Auto) 89 % (31-73) Lymphocytes (%) (Auto) 7 % (24-48) Monocytes (%) (Auto) 3 % (0-9) Eosinophils (%) (Auto) 0 % (0-3) Basophils (%) (Auto) 0 % (0-3) Neutrophils # (Auto) 17.2 x10^3/uL (1.8-7.7) Lymphocytes # (Auto) 1.4 x10^3/uL (1.0-4.8) Monocytes # (Auto) 0.6 x10^3/uL (0.0-1.1) Eosinophils # (Auto) 0.0 x10^3/uL (0.0-0.7) Basophils # (Auto) 0.0 x10^3/uL (0.0-0.2) Phosphorus Level 7.3 mg/dL (2.6-4.7) Magnesium Level 2.5 mg/dL (1.8-2.4) Sodium Level 138 mmol/L (136-145) Potassium Level 5.0 mmol/L (3.5-5.1) Chloride Level 102 mmol/L (98-107) Carbon Dioxide Level 11 mmol/L (21-32) Anion Gap 25 (6-14) Blood Urea Nitrogen 21 mg/dL (8-26) Creatinine 2.5 mg/dL (0.7-1.3) Estimated GFR (Cockcroft-Gault) 26.6 BUN/Creatinine Ratio 8 (6-20) Glucose Level 109 mg/dL (70-99) Calcium Level 6.2 mg/dL (8.5-10.1) Total Bilirubin 2.2 mg/dL (0.2-1.0) Aspartate Amino Transf (AST/SGOT) 07942 U/L (15-37) Alanine Aminotransferase (ALT/SGPT) 64083 U/L (16-63) Alkaline Phosphatase 90 U/L (46-116) Total Protein 5.2 g/dL (6.4-8.2) Albumin 2.6 g/dL (3.4-5.0) Albumin/Globulin Ratio 1.0 (1.0-1.7) O2 Saturation 96 % (92-99) Arterial Blood pH 7.01 (7.35-7.45) Arterial Blood pH (Temp corrected) 7.04 Arterial Blood pCO2 at Patient Temp 45 mmHg (35-46) Arterial Blood pCO2 (Temp correct) 40 mmHg Arterial Blood pO2 at Patient Temp 109 mmHg (65-108) Arterial Blood pO2 (Temp corrected) 96 mmHg Arterial Blood HCO3 11 mmol/L (21-28) Arterial Blood Base Excess -20 mmol/L (-3-3) Prothrombin Time 41.4 SEC (11.7-14.0) Prothromb Time International Ratio 4.2 (0.8-1.1) Laboratory Tests Test 08/05/20 11:12 08/05/20 11:55 08/05/20 12:14 08/05/20 12:21 Glucose (Fingerstick) 233 mg/dL (70-99) 244 mg/dL (70-99) White Blood Count 21.3 x10^3/uL (4.0-11.0) Red Blood Count 4.39 x10^6/uL (4.30-5.70) Hemoglobin 13.8 g/dL (13.0-17.5) Hematocrit 41.5 % (39.0-53.0) Mean Corpuscular Volume 95 fL (79-100) Mean Corpuscular Hemoglobin 31 pg (25-35) Mean Corpuscular Hemoglobin Concent 33 g/dL (31-37) Red Cell Distribution Width 14.2 % (11.5-14.5) Platelet Count 79 x10^3/uL (140-400) Neutrophils (%) (Auto) 94 % (31-73) Lymphocytes (%) (Auto) 4 % (24-48) Monocytes (%) (Auto) 2 % (0-9) Eosinophils (%) (Auto) 0 % (0-3) Basophils (%) (Auto) 1 % (0-3) Neutrophils # (Auto) 19.9 x10^3/uL (1.8-7.7) Lymphocytes # (Auto) 0.8 x10^3/uL (1.0-4.8) Monocytes # (Auto) 0.4 x10^3/uL (0.0-1.1) Eosinophils # (Auto) 0.0 x10^3/uL (0.0-0.7) Basophils # (Auto) 0.1 x10^3/uL (0.0-0.2) Prothrombin Time 30.2 SEC (11.7-14.0) Prothromb Time International Ratio 2.9 (0.8-1.1) Activated Partial Thromboplast Time 52 SEC (24-38) Sodium Level 143 mmol/L (136-145) Potassium Level 3.7 mmol/L (3.5-5.1) Chloride Level 106 mmol/L (98-107) Carbon Dioxide Level 13 mmol/L (21-32) Anion Gap 24 (6-14) Blood Urea Nitrogen 35 mg/dL (8-26) Creatinine 3.2 mg/dL (0.7-1.3) Estimated GFR (Cockcroft-Gault) 20.0 Glucose Level 238 mg/dL (70-99) Calcium Level 6.5 mg/dL (8.5-10.1) Ionized Calcium 0.93 mmol/L (1.13-1.32) Phosphorus Level 5.3 mg/dL (2.6-4.7) Magnesium Level 2.4 mg/dL (1.8-2.4) Total Bilirubin 1.0 mg/dL (0.2-1.0) Direct Bilirubin 0.3 mg/dL (0.0-0.2) Aspartate Amino Transf (AST/SGOT) 1886 U/L (15-37) Alanine Aminotransferase (ALT/SGPT) 747 U/L (16-63) Alkaline Phosphatase 60 U/L (46-116) Troponin I Quantitative 139.070 ng/mL (0.000-0.055) Total Protein 3.8 g/dL (6.4-8.2) Albumin 2.0 g/dL (3.4-5.0) O2 Saturation 97 % (92-99) Arterial Blood pH 7.12 (7.35-7.45) Arterial Blood pH (Temp corrected) 7.18 Arterial Blood pCO2 at Patient Temp 32 mmHg (35-46) Arterial Blood pCO2 (Temp correct) 26 mmHg Arterial Blood pO2 at Patient Temp 112 mmHg (65-108) Arterial Blood pO2 (Temp corrected) 88 mmHg Arterial Blood HCO3 10 mmol/L (21-28) Arterial Blood Base Excess -18 mmol/L (-3-3) FiO2 100 Test 08/05/20 13:28 08/05/20 14:39 08/05/20 15:45 08/05/20 16:35 Glucose (Fingerstick) 242 mg/dL (70-99) 227 mg/dL (70-99) 195 mg/dL (70-99) 178 mg/dL (70-99) Test 08/05/20 17:25 08/05/20 17:51 08/05/20 19:08 08/05/20 20:14 White Blood Count 20.5 x10^3/uL (4.0-11.0) Red Blood Count 4.50 x10^6/uL (4.30-5.70) Hemoglobin 14.1 g/dL (13.0-17.5) Hematocrit 41.9 % (39.0-53.0) Mean Corpuscular Volume 93 fL (79-100) Mean Corpuscular Hemoglobin 31 pg (25-35) Mean Corpuscular Hemoglobin Concent 34 g/dL (31-37) Red Cell Distribution Width 13.9 % (11.5-14.5) Platelet Count 82 x10^3/uL (140-400) Neutrophils (%) (Auto) 92 % (31-73) Lymphocytes (%) (Auto) 6 % (24-48) Monocytes (%) (Auto) 2 % (0-9) Eosinophils (%) (Auto) 0 % (0-3) Basophils (%) (Auto) 1 % (0-3) Neutrophils # (Auto) 18.8 x10^3/uL (1.8-7.7) Lymphocytes # (Auto) 1.2 x10^3/uL (1.0-4.8) Monocytes # (Auto) 0.4 x10^3/uL (0.0-1.1) Eosinophils # (Auto) 0.0 x10^3/uL (0.0-0.7) Basophils # (Auto) 0.1 x10^3/uL (0.0-0.2) Prothrombin Time 28.1 SEC (11.7-14.0) Prothromb Time International Ratio 2.6 (0.8-1.1) Activated Partial Thromboplast Time 49 SEC (24-38) Sodium Level 137 mmol/L (136-145) Potassium Level 3.5 mmol/L (3.5-5.1) Chloride Level 103 mmol/L (98-107) Carbon Dioxide Level 16 mmol/L (21-32) Anion Gap 18 (6-14) Blood Urea Nitrogen 29 mg/dL (8-26) Creatinine 2.6 mg/dL (0.7-1.3) Estimated GFR (Cockcroft-Gault) 25.4 Glucose Level 175 mg/dL (70-99) Calcium Level 6.6 mg/dL (8.5-10.1) Ionized Calcium 0.88 mmol/L (1.13-1.32) Phosphorus Level 3.7 mg/dL (2.6-4.7) Magnesium Level 2.1 mg/dL (1.8-2.4) Glucose (Fingerstick) 180 mg/dL (70-99) 138 mg/dL (70-99) 113 mg/dL (70-99) Test 08/05/20 21:16 08/05/20 22:20 08/05/20 23:23 08/05/20 23:30 Glucose (Fingerstick) 79 mg/dL (70-99) 75 mg/dL (70-99) 83 mg/dL (70-99) White Blood Count 19.4 x10^3/uL (4.0-11.0) Red Blood Count 4.60 x10^6/uL (4.30-5.70) Hemoglobin 14.4 g/dL (13.0-17.5) Hematocrit 43.2 % (39.0-53.0) Mean Corpuscular Volume 94 fL (79-100) Mean Corpuscular Hemoglobin 31 pg (25-35) Mean Corpuscular Hemoglobin Concent 33 g/dL (31-37) Red Cell Distribution Width 13.8 % (11.5-14.5) Platelet Count 57 x10^3/uL (140-400) Neutrophils (%) (Auto) 90 % (31-73) Lymphocytes (%) (Auto) 6 % (24-48) Monocytes (%) (Auto) 4 % (0-9) Eosinophils (%) (Auto) 0 % (0-3) Basophils (%) (Auto) 0 % (0-3) Neutrophils # (Auto) 17.5 x10^3/uL (1.8-7.7) Lymphocytes # (Auto) 1.2 x10^3/uL (1.0-4.8) Monocytes # (Auto) 0.7 x10^3/uL (0.0-1.1) Eosinophils # (Auto) 0.0 x10^3/uL (0.0-0.7) Basophils # (Auto) 0.0 x10^3/uL (0.0-0.2) Prothrombin Time 28.7 SEC (11.7-14.0) Prothromb Time International Ratio 2.7 (0.8-1.1) Activated Partial Thromboplast Time 53 SEC (24-38) Sodium Level 136 mmol/L (136-145) Potassium Level 4.2 mmol/L (3.5-5.1) Chloride Level 102 mmol/L (98-107) Carbon Dioxide Level 14 mmol/L (21-32) Anion Gap 20 (6-14) Blood Urea Nitrogen 24 mg/dL (8-26) Creatinine 2.4 mg/dL (0.7-1.3) Estimated GFR (Cockcroft-Gault) 27.8 Glucose Level 71 mg/dL (70-99) Calcium Level 6.4 mg/dL (8.5-10.1) Phosphorus Level 5.2 mg/dL (2.6-4.7) Magnesium Level 2.2 mg/dL (1.8-2.4) Test 08/06/20 05:30 08/06/20 07:08 08/06/20 08:00 08/06/20 09:00 White Blood Count 19.3 x10^3/uL (4.0-11.0) Red Blood Count 4.45 x10^6/uL (4.30-5.70) Hemoglobin 14.0 g/dL (13.0-17.5) Hematocrit 42.6 % (39.0-53.0) Mean Corpuscular Volume 96 fL (79-100) Mean Corpuscular Hemoglobin 32 pg (25-35) Mean Corpuscular Hemoglobin Concent 33 g/dL (31-37) Red Cell Distribution Width 14.6 % (11.5-14.5) Platelet Count 58 x10^3/uL (140-400) Neutrophils (%) (Auto) 89 % (31-73) Lymphocytes (%) (Auto) 7 % (24-48) Monocytes (%) (Auto) 3 % (0-9) Eosinophils (%) (Auto) 0 % (0-3) Basophils (%) (Auto) 0 % (0-3) Neutrophils # (Auto) 17.2 x10^3/uL (1.8-7.7) Lymphocytes # (Auto) 1.4 x10^3/uL (1.0-4.8) Monocytes # (Auto) 0.6 x10^3/uL (0.0-1.1) Eosinophils # (Auto) 0.0 x10^3/uL (0.0-0.7) Basophils # (Auto) 0.0 x10^3/uL (0.0-0.2) Phosphorus Level 7.3 mg/dL (2.6-4.7) Magnesium Level 2.5 mg/dL (1.8-2.4) Sodium Level 138 mmol/L (136-145) Potassium Level 5.0 mmol/L (3.5-5.1) Chloride Level 102 mmol/L (98-107) Carbon Dioxide Level 11 mmol/L (21-32) Anion Gap 25 (6-14) Blood Urea Nitrogen 21 mg/dL (8-26) Creatinine 2.5 mg/dL (0.7-1.3) Estimated GFR (Cockcroft-Gault) 26.6 BUN/Creatinine Ratio 8 (6-20) Glucose Level 109 mg/dL (70-99) Calcium Level 6.2 mg/dL (8.5-10.1) Total Bilirubin 2.2 mg/dL (0.2-1.0) Aspartate Amino Transf (AST/SGOT) 02774 U/L (15-37) Alanine Aminotransferase (ALT/SGPT) 17112 U/L (16-63) Alkaline Phosphatase 90 U/L (46-116) Total Protein 5.2 g/dL (6.4-8.2) Albumin 2.6 g/dL (3.4-5.0) Albumin/Globulin Ratio 1.0 (1.0-1.7) O2 Saturation 96 % (92-99) Arterial Blood pH 7.01 (7.35-7.45) Arterial Blood pH (Temp corrected) 7.04 Arterial Blood pCO2 at Patient Temp 45 mmHg (35-46) Arterial Blood pCO2 (Temp correct) 40 mmHg Arterial Blood pO2 at Patient Temp 109 mmHg (65-108) Arterial Blood pO2 (Temp corrected) 96 mmHg Arterial Blood HCO3 11 mmol/L (21-28) Arterial Blood Base Excess -20 mmol/L (-3-3) Prothrombin Time 41.4 SEC (11.7-14.0) Prothromb Time International Ratio 4.2 (0.8-1.1) Impression . 1. Acute hypoxic and hypercapnic respiratory failure secondary to cardiac arrest. 2. Ventricular fibrillation cardiac arrest.idiopathic 3. Shock, likely cardiogenic. 4. Abnormal CT chest with moderate amount of bilateral atelectasis and some interstitial markings suggestive of possible pulmonary edema. No evidence of pulmonary embolism. improved infiltrates 5. Acute kidney injury./ on CRRT 6. Hyperphosphatemia.improved 7. Status post cardiac catheterization. No significant coronary artery disease. Normal ejection fraction, but moderate to severe mitral regurgitation. Official cardiac catheterization report pending. 8. Cannot exclude anoxic encephalopathy. 9. V-Tac/ V-Fib 10. Severe metabolic acidosis Plan . 1. AC mode, wean FIO2/ PEEP, improving oxygenation. 2. Follow ABGs and make necessary adjustment.not much to add vent duffy 3. abx 4. Follow cardiology recommendations. 5. Follow renal recommendations. CRRT 6. PRN Bicarb 7. Lovenox for deep vein thrombosis prophylaxis. 8. s/p hypothermic protocol. 9. Prognosis is extremely grim with likelihood of anoxic brain injury from prolonged CPR and shock. 10. echocardiogram./ mod MR 11. shock Liver, worse 12. Discussed with RN and RT. / Dr Randhawa/ family in detail. Poor prognosis fir survival/ multisystem organ failure. They are ok with DNR Critical care time, 30 minutes. ANDREINA TAMAYO MD Aug 06, 2020 11:00
[2020-08-06] MEDS ORDERED: DEXTROSE 50% 25 GM / 50ML DISP.SYRIN. IV PRN (11:15)
[2020-08-06] MEDS ORDERED: SODIUM BICARBONATE IV SCH (11:30)
[2020-08-06] MEDS ORDERED: POTASSIUM CHLORIDE IV SCH (11:30)
[2020-08-06] MEDS ORDERED: [UNRECOGNIZED DRUG - OTHER] IV SCH (11:30)
--- NOTE | 2020-08-06 11:42 | NUR ---
Patient rewarmed at 1100. CRRT stopped temporarly at 1045 d/t air in line. Will monitor.
[2020-08-06] MEDS ORDERED: PHYTONADIONE 10 MG/ML AMPUL. SQ ONE (11:45)
[2020-08-06] MEDS ORDERED: PHENYLEPHRINE INJ 50 MG in IV NORMAL SALINE 250ML 250 ML IV PRN (12:00)
[2020-08-06 13:12] LABS: CALCIUM 5.6 mg/dL (8.5-10.1); CREATININE 3.1 mg/dL (0.7-1.3); GFR 20.7
[2020-08-06 13:13] LABS: POTASSIUM 7.2 mmol/L (3.5-5.1)
[2020-08-06 13:14] LABS: MAGNESIUM 2.4 mg/dL (1.8-2.4); PHOSPHORUS 8.3 mg/dL (2.6-4.7)
[2020-08-06] MEDS ORDERED: MORPHINE SULFATE 10 MG/ML VIAL. IV ONE (13:45)
--- NOTE | 2020-08-06 14:06 | PDOC ---
PROGRESS NOTES Date of Service: DATE: 08/06/20 TIME: 14:04 Chief Complaint Chief Complaint Cardiopulmonary arrest, VEntricular fibrillation, diabetes acute renal failure, did not tolerate CRRT well, shock from code, shock liver, transaminits, acute coagulopathy acute metabolic acidosis cardiogenic shock, unable to maintain BP on 4 perssore History of Present Illness History of Present Illness MADE DNR this AM after discussions with rohit and Dr. Felder poor prognosis discussed with me [place] times. 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 Pt shocked 9 times in field, without return of pulse, maybe 90 total minutes of CPR given had been healthy will r/o COVID infection Vitals Vitals Vital Signs Date Time Temp Pulse Resp B/P (MAP) Pulse Ox O2 Delivery O2 Flow Rate FiO2 08/06/20 13:02 28 Ventilator 08/06/20 11:30 75 08/06/20 11:00 98.6 08/06/20 11:00 46 Physical Exam General: Other (intubated and sedated) Heart: Regular rate Lungs: Other (decrease bs) Abdomen: Soft Extremities: No cyanosis, No edema Skin: No rashes, No breakdown Labs LABS Laboratory Tests Test 08/05/20 14:39 08/05/20 15:45 08/05/20 16:35 08/05/20 17:25 Glucose (Fingerstick) 227 mg/dL (70-99) 195 mg/dL (70-99) 178 mg/dL (70-99) White Blood Count 20.5 x10^3/uL (4.0-11.0) Red Blood Count 4.50 x10^6/uL (4.30-5.70) Hemoglobin 14.1 g/dL (13.0-17.5) Hematocrit 41.9 % (39.0-53.0) Mean Corpuscular Volume 93 fL (79-100) Mean Corpuscular Hemoglobin 31 pg (25-35) Mean Corpuscular Hemoglobin Concent 34 g/dL (31-37) Red Cell Distribution Width 13.9 % (11.5-14.5) Platelet Count 82 x10^3/uL (140-400) Neutrophils (%) (Auto) 92 % (31-73) Lymphocytes (%) (Auto) 6 % (24-48) Monocytes (%) (Auto) 2 % (0-9) Eosinophils (%) (Auto) 0 % (0-3) Basophils (%) (Auto) 1 % (0-3) Neutrophils # (Auto) 18.8 x10^3/uL (1.8-7.7) Lymphocytes # (Auto) 1.2 x10^3/uL (1.0-4.8) Monocytes # (Auto) 0.4 x10^3/uL (0.0-1.1) Eosinophils # (Auto) 0.0 x10^3/uL (0.0-0.7) Basophils # (Auto) 0.1 x10^3/uL (0.0-0.2) Prothrombin Time 28.1 SEC (11.7-14.0) Prothromb Time International Ratio 2.6 (0.8-1.1) Activated Partial Thromboplast Time 49 SEC (24-38) Sodium Level 137 mmol/L (136-145) Potassium Level 3.5 mmol/L (3.5-5.1) Chloride Level 103 mmol/L (98-107) Carbon Dioxide Level 16 mmol/L (21-32) Anion Gap 18 (6-14) Blood Urea Nitrogen 29 mg/dL (8-26) Creatinine 2.6 mg/dL (0.7-1.3) Estimated GFR (Cockcroft-Gault) 25.4 Glucose Level 175 mg/dL (70-99) Calcium Level 6.6 mg/dL (8.5-10.1) Ionized Calcium 0.88 mmol/L (1.13-1.32) Phosphorus Level 3.7 mg/dL (2.6-4.7) Magnesium Level 2.1 mg/dL (1.8-2.4) Test 08/05/20 17:51 08/05/20 19:08 08/05/20 20:14 08/05/20 21:16 Glucose (Fingerstick) 180 mg/dL (70-99) 138 mg/dL (70-99) 113 mg/dL (70-99) 79 mg/dL (70-99) Test 08/05/20 22:20 08/05/20 23:23 08/05/20 23:30 08/06/20 03:19 Glucose (Fingerstick) 75 mg/dL (70-99) 83 mg/dL (70-99) 107 mg/dL (70-99) White Blood Count 19.4 x10^3/uL (4.0-11.0) Red Blood Count 4.60 x10^6/uL (4.30-5.70) Hemoglobin 14.4 g/dL (13.0-17.5) Hematocrit 43.2 % (39.0-53.0) Mean Corpuscular Volume 94 fL (79-100) Mean Corpuscular Hemoglobin 31 pg (25-35) Mean Corpuscular Hemoglobin Concent 33 g/dL (31-37) Red Cell Distribution Width 13.8 % (11.5-14.5) Platelet Count 57 x10^3/uL (140-400) Neutrophils (%) (Auto) 90 % (31-73) Lymphocytes (%) (Auto) 6 % (24-48) Monocytes (%) (Auto) 4 % (0-9) Eosinophils (%) (Auto) 0 % (0-3) Basophils (%) (Auto) 0 % (0-3) Neutrophils # (Auto) 17.5 x10^3/uL (1.8-7.7) Lymphocytes # (Auto) 1.2 x10^3/uL (1.0-4.8) Monocytes # (Auto) 0.7 x10^3/uL (0.0-1.1) Eosinophils # (Auto) 0.0 x10^3/uL (0.0-0.7) Basophils # (Auto) 0.0 x10^3/uL (0.0-0.2) Prothrombin Time 28.7 SEC (11.7-14.0) Prothromb Time International Ratio 2.7 (0.8-1.1) Activated Partial Thromboplast Time 53 SEC (24-38) Sodium Level 136 mmol/L (136-145) Potassium Level 4.2 mmol/L (3.5-5.1) Chloride Level 102 mmol/L (98-107) Carbon Dioxide Level 14 mmol/L (21-32) Anion Gap 20 (6-14) Blood Urea Nitrogen 24 mg/dL (8-26) Creatinine 2.4 mg/dL (0.7-1.3) Estimated GFR (Cockcroft-Gault) 27.8 Glucose Level 71 mg/dL (70-99) Calcium Level 6.4 mg/dL (8.5-10.1) Phosphorus Level 5.2 mg/dL (2.6-4.7) Magnesium Level 2.2 mg/dL (1.8-2.4) Test 08/06/20 04:54 08/06/20 05:30 08/06/20 07:08 08/06/20 08:00 Glucose (Fingerstick) 142 mg/dL (70-99) White Blood Count 19.3 x10^3/uL (4.0-11.0) Red Blood Count 4.45 x10^6/uL (4.30-5.70) Hemoglobin 14.0 g/dL (13.0-17.5) Hematocrit 42.6 % (39.0-53.0) Mean Corpuscular Volume 96 fL (79-100) Mean Corpuscular Hemoglobin 32 pg (25-35) Mean Corpuscular Hemoglobin Concent 33 g/dL (31-37) Red Cell Distribution Width 14.6 % (11.5-14.5) Platelet Count 58 x10^3/uL (140-400) Neutrophils (%) (Auto) 89 % (31-73) Lymphocytes (%) (Auto) 7 % (24-48) Monocytes (%) (Auto) 3 % (0-9) Eosinophils (%) (Auto) 0 % (0-3) Basophils (%) (Auto) 0 % (0-3) Neutrophils # (Auto) 17.2 x10^3/uL (1.8-7.7) Lymphocytes # (Auto) 1.4 x10^3/uL (1.0-4.8) Monocytes # (Auto) 0.6 x10^3/uL (0.0-1.1) Eosinophils # (Auto) 0.0 x10^3/uL (0.0-0.7) Basophils # (Auto) 0.0 x10^3/uL (0.0-0.2) Phosphorus Level 7.3 mg/dL (2.6-4.7) Magnesium Level 2.5 mg/dL (1.8-2.4) Sodium Level 138 mmol/L (136-145) Potassium Level 5.0 mmol/L (3.5-5.1) Chloride Level 102 mmol/L (98-107) Carbon Dioxide Level 11 mmol/L (21-32) Anion Gap 25 (6-14) Blood Urea Nitrogen 21 mg/dL (8-26) Creatinine 2.5 mg/dL (0.7-1.3) Estimated GFR (Cockcroft-Gault) 26.6 BUN/Creatinine Ratio 8 (6-20) Glucose Level 109 mg/dL (70-99) Calcium Level 6.2 mg/dL (8.5-10.1) Total Bilirubin 2.2 mg/dL (0.2-1.0) Aspartate Amino Transf (AST/SGOT) 28692 U/L (15-37) Alanine Aminotransferase (ALT/SGPT) 74218 U/L (16-63) Alkaline Phosphatase 90 U/L (46-116) Total Protein 5.2 g/dL (6.4-8.2) Albumin 2.6 g/dL (3.4-5.0) Albumin/Globulin Ratio 1.0 (1.0-1.7) O2 Saturation 96 % (92-99) Arterial Blood pH 7.01 (7.35-7.45) Arterial Blood pH (Temp corrected) 7.04 Arterial Blood pCO2 at Patient Temp 45 mmHg (35-46) Arterial Blood pCO2 (Temp correct) 40 mmHg Arterial Blood pO2 at Patient Temp 109 mmHg (65-108) Arterial Blood pO2 (Temp corrected) 96 mmHg Arterial Blood HCO3 11 mmol/L (21-28) Arterial Blood Base Excess -20 mmol/L (-3-3) Test 08/06/20 09:00 08/06/20 09:10 08/06/20 10:53 08/06/20 11:15 Prothrombin Time 41.4 SEC (11.7-14.0) Prothromb Time International Ratio 4.2 (0.8-1.1) Glucose (Fingerstick) 116 mg/dL (70-99) 40 mg/dL (70-99) 237 mg/dL (70-99) Test 08/06/20 12:25 Sodium Level 135 mmol/L (136-145) Potassium Level 7.2 mmol/L (3.5-5.1) Chloride Level 101 mmol/L (98-107) Carbon Dioxide Level 9 mmol/L (21-32) Anion Gap 25 (6-14) Blood Urea Nitrogen 22 mg/dL (8-26) Creatinine 3.1 mg/dL (0.7-1.3) Estimated GFR (Cockcroft-Gault) 20.7 Glucose Level 176 mg/dL (70-99) Calcium Level 5.6 mg/dL (8.5-10.1) Phosphorus Level 8.3 mg/dL (2.6-4.7) Magnesium Level 2.4 mg/dL (1.8-2.4) Assessment and Plan Assessmemt and Plan Problems Medical Problems: (1) Cardiac arrest Status: Acute Comment Review of Relevant I have reviewed the following items rachel (where applicable) has been applied. Labs Laboratory Tests Test 08/04/20 16:00 08/04/20 16:17 08/04/20 19:36 08/04/20 21:30 White Blood Count 6.8 x10^3/uL (4.0-11.0) 21.6 x10^3/uL (4.0-11.0) Red Blood Count 5.40 x10^6/uL (4.30-5.70) 4.97 x10^6/uL (4.30-5.70) Hemoglobin 17.0 g/dL (13.0-17.5) 15.7 g/dL (13.0-17.5) Hematocrit 53.2 % (39.0-53.0) 47.5 % (39.0-53.0) Mean Corpuscular Volume 99 fL (79-100) 96 fL (79-100) Mean Corpuscular Hemoglobin 32 pg (25-35) 32 pg (25-35) Mean Corpuscular Hemoglobin Concent 32 g/dL (31-37) 33 g/dL (31-37) Red Cell Distribution Width 14.7 % (11.5-14.5) 14.2 % (11.5-14.5) Platelet Count 81 x10^3/uL (140-400) 153 x10^3/uL (140-400) Neutrophils (%) (Auto) 18 % (31-73) 89 % (31-73) Lymphocytes (%) (Auto) 75 % (24-48) 9 % (24-48) Monocytes (%) (Auto) 5 % (0-9) 1 % (0-9) Eosinophils (%) (Auto) 1 % (0-3) 0 % (0-3) Basophils (%) (Auto) 1 % (0-3) 0 % (0-3) Neutrophils # (Auto) 1.2 x10^3/uL (1.8-7.7) 19.3 x10^3/uL (1.8-7.7) Lymphocytes # (Auto) 5.0 x10^3/uL (1.0-4.8) 2.0 x10^3/uL (1.0-4.8) Monocytes # (Auto) 0.3 x10^3/uL (0.0-1.1) 0.3 x10^3/uL (0.0-1.1) Eosinophils # (Auto) 0.1 x10^3/uL (0.0-0.7) 0.1 x10^3/uL (0.0-0.7) Basophils # (Auto) 0.1 x10^3/uL (0.0-0.2) 0.1 x10^3/uL (0.0-0.2) Bedside Hemoglobin 18.4 g/dL (14-18) Bedside Hematocrit 54 % (37-52) Bedside Sodium 141 mmol/L (135-145) Bedside Potassium 2.9 mmol/L (3.5-5.0) Bedside Chloride 108 mmol/L (98-110) Bedside Total CO2 15 mmol/L (23-32) Anion Gap 22 mmol/L (6-14) 20 (6-14) Bedside Blood Urea Nitrogen 33 mg/dL (8-26) Bedside Creatinine 1.6 mg/dL (0.5-1.4) Glucose Level 321 mg/dL (70-99) 300 mg/dL (70-99) Bedside Ionized Calcium (Radha) 1.06 mmol/L (1.13-1.32) Bedside Troponin I 0.11 ng/ml (<0.08) O2 Saturation 60 % (92-99) Arterial Blood pH 6.98 (7.35-7.45) Arterial Blood pH (Temp corrected) 7.03 Arterial Blood pCO2 at Patient Temp 57 mmHg (35-46) Arterial Blood pCO2 (Temp correct) 49 mmHg Arterial Blood pO2 at Patient Temp 44 mmHg (65-108) Arterial Blood pO2 (Temp corrected) 35 mmHg Arterial Blood HCO3 13 mmol/L (21-28) Arterial Blood Base Excess -19 mmol/L (-3-3) FiO2 100 Prothrombin Time 19.6 SEC (11.7-14.0) Prothromb Time International Ratio 1.7 (0.8-1.1) Activated Partial Thromboplast Time 61 SEC (24-38) Sodium Level 137 mmol/L (136-145) Potassium Level 3.6 mmol/L (3.5-5.1) Chloride Level 102 mmol/L (98-107) Carbon Dioxide Level 15 mmol/L (21-32) Blood Urea Nitrogen 31 mg/dL (8-26) Creatinine 2.2 mg/dL (0.7-1.3) Estimated GFR (Cockcroft-Gault) 30.8 Calcium Level 7.3 mg/dL (8.5-10.1) Phosphorus Level 9.1 mg/dL (2.6-4.7) Magnesium Level 2.6 mg/dL (1.8-2.4) Triglycerides Level 102 mg/dL (0-150) Test 08/04/20 22:08 08/05/20 01:52 08/05/20 03:00 08/05/20 03:30 O2 Saturation 90 % (92-99) Arterial Blood pH 7.11 (7.35-7.45) Arterial Blood pH (Temp corrected) 7.14 Arterial Blood pCO2 at Patient Temp 45 mmHg (35-46) Arterial Blood pCO2 (Temp correct) 41 mmHg Arterial Blood pO2 at Patient Temp 73 mmHg (65-108) Arterial Blood pO2 (Temp corrected) 63 mmHg Arterial Blood HCO3 14 mmol/L (21-28) Arterial Blood Base Excess -15 mmol/L (-3-3) FiO2 100 Glucose (Fingerstick) 173 mg/dL (70-99) Hemoglobin A1c 5.6 % (4.8-5.6) White Blood Count 22.7 x10^3/uL (4.0-11.0) Red Blood Count 4.65 x10^6/uL (4.30-5.70) Hemoglobin 14.8 g/dL (13.0-17.5) Hematocrit 43.7 % (39.0-53.0) Mean Corpuscular Volume 94 fL (79-100) Mean Corpuscular Hemoglobin 32 pg (25-35) Mean Corpuscular Hemoglobin Concent 34 g/dL (31-37) Red Cell Distribution Width 13.9 % (11.5-14.5) Platelet Count 124 x10^3/uL (140-400) Neutrophils (%) (Auto) 92 % (31-73) Lymphocytes (%) (Auto) 4 % (24-48) Monocytes (%) (Auto) 5 % (0-9) Eosinophils (%) (Auto) 0 % (0-3) Basophils (%) (Auto) 0 % (0-3) Neutrophils # (Auto) 20.8 x10^3/uL (1.8-7.7) Lymphocytes # (Auto) 0.9 x10^3/uL (1.0-4.8) Monocytes # (Auto) 1.0 x10^3/uL (0.0-1.1) Eosinophils # (Auto) 0.0 x10^3/uL (0.0-0.7) Basophils # (Auto) 0.0 x10^3/uL (0.0-0.2) Segmented Neutrophils % 73 % (35-66) Band Neutrophils % 16 % (0-9) Lymphocytes % 6 % (24-48) Monocytes % 4 % (0-10) Eosinophils % 1 % (0-5) Platelet Estimate Decreased (ADEQUATE) Large Platelets Few Prothrombin Time 22.4 SEC (11.7-14.0) Prothromb Time International Ratio 2.0 (0.8-1.1) Activated Partial Thromboplast Time 47 SEC (24-38) Sodium Level 141 mmol/L (136-145) Potassium Level 2.8 mmol/L (3.5-5.1) Chloride Level 105 mmol/L (98-107) Carbon Dioxide Level 17 mmol/L (21-32) Anion Gap 19 (6-14) Blood Urea Nitrogen 33 mg/dL (8-26) Creatinine 2.7 mg/dL (0.7-1.3) Estimated GFR (Cockcroft-Gault) 24.3 Glucose Level 169 mg/dL (70-99) Calcium Level 7.2 mg/dL (8.5-10.1) Phosphorus Level 3.4 mg/dL (2.6-4.7) Magnesium Level 2.1 mg/dL (1.8-2.4) Hepatitis B Surface Antigen Nonreactive (Nonreactive) Hepatitis B Surface Antibody, Quant 7.2 mIU/mL (Immunity>9.9) Test 08/05/20 06:15 08/05/20 06:27 08/05/20 07:35 08/05/20 08:48 Potassium Level 3.6 mmol/L (3.5-5.1) Creatine Kinase 01967 U/L (39-308) Triglycerides Level 97 mg/dL (0-150) Cholesterol Level 132 mg/dL (0-200) LDL Cholesterol, Calculated 63 mg/dL (0-100) VLDL Cholesterol, Calculated 19 mg/dL (0-40) Non-HDL Cholesterol Calculated 82 mg/dL (0-129) HDL Cholesterol 50 mg/dL (40-60) Cholesterol/HDL Ratio 2.6 Thyroid Stimulating Hormone (TSH) 2.498 uIU/mL (0.358-3.74) Coronavirus (PCR) Not detected (Not Detected) O2 Saturation 98 % (92-99) Arterial Blood pH 7.16 (7.35-7.45) Arterial Blood pH (Temp corrected) 7.19 Arterial Blood pCO2 at Patient Temp 35 mmHg (35-46) Arterial Blood pCO2 (Temp correct) 31 mmHg Arterial Blood pO2 at Patient Temp 156 mmHg (65-108) Arterial Blood pO2 (Temp corrected) 143 mmHg Arterial Blood HCO3 12 mmol/L (21-28) Arterial Blood Base Excess -16 mmol/L (-3-3) FiO2 100 vent Glucose (Fingerstick) 163 mg/dL (70-99) Test 08/05/20 11:12 08/05/20 11:55 08/05/20 12:14 08/05/20 12:21 Glucose (Fingerstick) 233 mg/dL (70-99) 244 mg/dL (70-99) White Blood Count 21.3 x10^3/uL (4.0-11.0) Red Blood Count 4.39 x10^6/uL (4.30-5.70) Hemoglobin 13.8 g/dL (13.0-17.5) Hematocrit 41.5 % (39.0-53.0) Mean Corpuscular Volume 95 fL (79-100) Mean Corpuscular Hemoglobin 31 pg (25-35) Mean Corpuscular Hemoglobin Concent 33 g/dL (31-37) Red Cell Distribution Width 14.2 % (11.5-14.5) Platelet Count 79 x10^3/uL (140-400) Neutrophils (%) (Auto) 94 % (31-73) Lymphocytes (%) (Auto) 4 % (24-48) Monocytes (%) (Auto) 2 % (0-9) Eosinophils (%) (Auto) 0 % (0-3) Basophils (%) (Auto) 1 % (0-3) Neutrophils # (Auto) 19.9 x10^3/uL (1.8-7.7) Lymphocytes # (Auto) 0.8 x10^3/uL (1.0-4.8) Monocytes # (Auto) 0.4 x10^3/uL (0.0-1.1) Eosinophils # (Auto) 0.0 x10^3/uL (0.0-0.7) Basophils # (Auto) 0.1 x10^3/uL (0.0-0.2) Prothrombin Time 30.2 SEC (11.7-14.0) Prothromb Time International Ratio 2.9 (0.8-1.1) Activated Partial Thromboplast Time 52 SEC (24-38) Sodium Level 143 mmol/L (136-145) Potassium Level 3.7 mmol/L (3.5-5.1) Chloride Level 106 mmol/L (98-107) Carbon Dioxide Level 13 mmol/L (21-32) Anion Gap 24 (6-14) Blood Urea Nitrogen 35 mg/dL (8-26) Creatinine 3.2 mg/dL (0.7-1.3) Estimated GFR (Cockcroft-Gault) 20.0 Glucose Level 238 mg/dL (70-99) Calcium Level 6.5 mg/dL (8.5-10.1) Ionized Calcium 0.93 mmol/L (1.13-1.32) Phosphorus Level 5.3 mg/dL (2.6-4.7) Magnesium Level 2.4 mg/dL (1.8-2.4) Total Bilirubin 1.0 mg/dL (0.2-1.0) Direct Bilirubin 0.3 mg/dL (0.0-0.2) Aspartate Amino Transf (AST/SGOT) 1886 U/L (15-37) Alanine Aminotransferase (ALT/SGPT) 747 U/L (16-63) Alkaline Phosphatase 60 U/L (46-116) Troponin I Quantitative 139.070 ng/mL (0.000-0.055) Total Protein 3.8 g/dL (6.4-8.2) Albumin 2.0 g/dL (3.4-5.0) O2 Saturation 97 % (92-99) Arterial Blood pH 7.12 (7.35-7.45) Arterial Blood pH (Temp corrected) 7.18 Arterial Blood pCO2 at Patient Temp 32 mmHg (35-46) Arterial Blood pCO2 (Temp correct) 26 mmHg Arterial Blood pO2 at Patient Temp 112 mmHg (65-108) Arterial Blood pO2 (Temp corrected) 88 mmHg Arterial Blood HCO3 10 mmol/L (21-28) Arterial Blood Base Excess -18 mmol/L (-3-3) FiO2 100 Test 08/05/20 13:28 08/05/20 14:39 08/05/20 15:45 08/05/20 16:35 Glucose (Fingerstick) 242 mg/dL (70-99) 227 mg/dL (70-99) 195 mg/dL (70-99) 178 mg/dL (70-99) Test 08/05/20 17:25 08/05/20 17:51 08/05/20 19:08 08/05/20 20:14 White Blood Count 20.5 x10^3/uL (4.0-11.0) Red Blood Count 4.50 x10^6/uL (4.30-5.70) Hemoglobin 14.1 g/dL (13.0-17.5) Hematocrit 41.9 % (39.0-53.0) Mean Corpuscular Volume 93 fL (79-100) Mean Corpuscular Hemoglobin 31 pg (25-35) Mean Corpuscular Hemoglobin Concent 34 g/dL (31-37) Red Cell Distribution Width 13.9 % (11.5-14.5) Platelet Count 82 x10^3/uL (140-400) Neutrophils (%) (Auto) 92 % (31-73) Lymphocytes (%) (Auto) 6 % (24-48) Monocytes (%) (Auto) 2 % (0-9) Eosinophils (%) (Auto) 0 % (0-3) Basophils (%) (Auto) 1 % (0-3) Neutrophils # (Auto) 18.8 x10^3/uL (1.8-7.7) Lymphocytes # (Auto) 1.2 x10^3/uL (1.0-4.8) Monocytes # (Auto) 0.4 x10^3/uL (0.0-1.1) Eosinophils # (Auto) 0.0 x10^3/uL (0.0-0.7) Basophils # (Auto) 0.1 x10^3/uL (0.0-0.2) Prothrombin Time 28.1 SEC (11.7-14.0) Prothromb Time International Ratio 2.6 (0.8-1.1) Activated Partial Thromboplast Time 49 SEC (24-38) Sodium Level 137 mmol/L (136-145) Potassium Level 3.5 mmol/L (3.5-5.1) Chloride Level 103 mmol/L (98-107) Carbon Dioxide Level 16 mmol/L (21-32) Anion Gap 18 (6-14) Blood Urea Nitrogen 29 mg/dL (8-26) Creatinine 2.6 mg/dL (0.7-1.3) Estimated GFR (Cockcroft-Gault) 25.4 Glucose Level 175 mg/dL (70-99) Calcium Level 6.6 mg/dL (8.5-10.1) Ionized Calcium 0.88 mmol/L (1.13-1.32) Phosphorus Level 3.7 mg/dL (2.6-4.7) Magnesium Level 2.1 mg/dL (1.8-2.4) Glucose (Fingerstick) 180 mg/dL (70-99) 138 mg/dL (70-99) 113 mg/dL (70-99) Test 08/05/20 21:16 08/05/20 22:20 08/05/20 23:23 08/05/20 23:30 Glucose (Fingerstick) 79 mg/dL (70-99) 75 mg/dL (70-99) 83 mg/dL (70-99) White Blood Count 19.4 x10^3/uL (4.0-11.0) Red Blood Count 4.60 x10^6/uL (4.30-5.70) Hemoglobin 14.4 g/dL (13.0-17.5) Hematocrit 43.2 % (39.0-53.0) Mean Corpuscular Volume 94 fL (79-100) Mean Corpuscular Hemoglobin 31 pg (25-35) Mean Corpuscular Hemoglobin Concent 33 g/dL (31-37) Red Cell Distribution Width 13.8 % (11.5-14.5) Platelet Count 57 x10^3/uL (140-400) Neutrophils (%) (Auto) 90 % (31-73) Lymphocytes (%) (Auto) 6 % (24-48) Monocytes (%) (Auto) 4 % (0-9) Eosinophils (%) (Auto) 0 % (0-3) Basophils (%) (Auto) 0 % (0-3) Neutrophils # (Auto) 17.5 x10^3/uL (1.8-7.7) Lymphocytes # (Auto) 1.2 x10^3/uL (1.0-4.8) Monocytes # (Auto) 0.7 x10^3/uL (0.0-1.1) Eosinophils # (Auto) 0.0 x10^3/uL (0.0-0.7) Basophils # (Auto) 0.0 x10^3/uL (0.0-0.2) Prothrombin Time 28.7 SEC (11.7-14.0) Prothromb Time International Ratio 2.7 (0.8-1.1) Activated Partial Thromboplast Time 53 SEC (24-38) Sodium Level 136 mmol/L (136-145) Potassium Level 4.2 mmol/L (3.5-5.1) Chloride Level 102 mmol/L (98-107) Carbon Dioxide Level 14 mmol/L (21-32) Anion Gap 20 (6-14) Blood Urea Nitrogen 24 mg/dL (8-26) Creatinine 2.4 mg/dL (0.7-1.3) Estimated GFR (Cockcroft-Gault) 27.8 Glucose Level 71 mg/dL (70-99) Calcium Level 6.4 mg/dL (8.5-10.1) Phosphorus Level 5.2 mg/dL (2.6-4.7) Magnesium Level 2.2 mg/dL (1.8-2.4) Test 08/06/20 03:19 08/06/20 04:54 08/06/20 05:30 08/06/20 07:08 Glucose (Fingerstick) 107 mg/dL (70-99) 142 mg/dL (70-99) White Blood Count 19.3 x10^3/uL (4.0-11.0) Red Blood Count 4.45 x10^6/uL (4.30-5.70) Hemoglobin 14.0 g/dL (13.0-17.5) Hematocrit 42.6 % (39.0-53.0) Mean Corpuscular Volume 96 fL (79-100) Mean Corpuscular Hemoglobin 32 pg (25-35) Mean Corpuscular Hemoglobin Concent 33 g/dL (31-37) Red Cell Distribution Width 14.6 % (11.5-14.5) Platelet Count 58 x10^3/uL (140-400) Neutrophils (%) (Auto) 89 % (31-73) Lymphocytes (%) (Auto) 7 % (24-48) Monocytes (%) (Auto) 3 % (0-9) Eosinophils (%) (Auto) 0 % (0-3) Basophils (%) (Auto) 0 % (0-3) Neutrophils # (Auto) 17.2 x10^3/uL (1.8-7.7) Lymphocytes # (Auto) 1.4 x10^3/uL (1.0-4.8) Monocytes # (Auto) 0.6 x10^3/uL (0.0-1.1) Eosinophils # (Auto) 0.0 x10^3/uL (0.0-0.7) Basophils # (Auto) 0.0 x10^3/uL (0.0-0.2) Phosphorus Level 7.3 mg/dL (2.6-4.7) Magnesium Level 2.5 mg/dL (1.8-2.4) Sodium Level 138 mmol/L (136-145) Potassium Level 5.0 mmol/L (3.5-5.1) Chloride Level 102 mmol/L (98-107) Carbon Dioxide Level 11 mmol/L (21-32) Anion Gap 25 (6-14) Blood Urea Nitrogen 21 mg/dL (8-26) Creatinine 2.5 mg/dL (0.7-1.3) Estimated GFR (Cockcroft-Gault) 26.6 BUN/Creatinine Ratio 8 (6-20) Glucose Level 109 mg/dL (70-99) Calcium Level 6.2 mg/dL (8.5-10.1) Total Bilirubin 2.2 mg/dL (0.2-1.0) Aspartate Amino Transf (AST/SGOT) 79008 U/L (15-37) Alanine Aminotransferase (ALT/SGPT) 52292 U/L (16-63) Alkaline Phosphatase 90 U/L (46-116) Total Protein 5.2 g/dL (6.4-8.2) Albumin 2.6 g/dL (3.4-5.0) Albumin/Globulin Ratio 1.0 (1.0-1.7) Test 08/06/20 08:00 08/06/20 09:00 08/06/20 09:10 08/06/20 10:53 O2 Saturation 96 % (92-99) Arterial Blood pH 7.01 (7.35-7.45) Arterial Blood pH (Temp corrected) 7.04 Arterial Blood pCO2 at Patient Temp 45 mmHg (35-46) Arterial Blood pCO2 (Temp correct) 40 mmHg Arterial Blood pO2 at Patient Temp 109 mmHg (65-108) Arterial Blood pO2 (Temp corrected) 96 mmHg Arterial Blood HCO3 11 mmol/L (21-28) Arterial Blood Base Excess -20 mmol/L (-3-3) Prothrombin Time 41.4 SEC (11.7-14.0) Prothromb Time International Ratio 4.2 (0.8-1.1) Glucose (Fingerstick) 116 mg/dL (70-99) 40 mg/dL (70-99) Test 08/06/20 11:15 08/06/20 12:25 Glucose (Fingerstick) 237 mg/dL (70-99) Sodium Level 135 mmol/L (136-145) Potassium Level 7.2 mmol/L (3.5-5.1) Chloride Level 101 mmol/L (98-107) Carbon Dioxide Level 9 mmol/L (21-32) Anion Gap 25 (6-14) Blood Urea Nitrogen 22 mg/dL (8-26) Creatinine 3.1 mg/dL (0.7-1.3) Estimated GFR (Cockcroft-Gault) 20.7 Glucose Level 176 mg/dL (70-99) Calcium Level 5.6 mg/dL (8.5-10.1) Phosphorus Level 8.3 mg/dL (2.6-4.7) Magnesium Level 2.4 mg/dL (1.8-2.4) Laboratory Tests Test 08/05/20 14:39 08/05/20 15:45 08/05/20 16:35 08/05/20 17:25 Glucose (Fingerstick) 227 mg/dL (70-99) 195 mg/dL (70-99) 178 mg/dL (70-99) White Blood Count 20.5 x10^3/uL (4.0-11.0) Red Blood Count 4.50 x10^6/uL (4.30-5.70) Hemoglobin 14.1 g/dL (13.0-17.5) Hematocrit 41.9 % (39.0-53.0) Mean Corpuscular Volume 93 fL (79-100) Mean Corpuscular Hemoglobin 31 pg (25-35) Mean Corpuscular Hemoglobin Concent 34 g/dL (31-37) Red Cell Distribution Width 13.9 % (11.5-14.5) Platelet Count 82 x10^3/uL (140-400) Neutrophils (%) (Auto) 92 % (31-73) Lymphocytes (%) (Auto) 6 % (24-48) Monocytes (%) (Auto) 2 % (0-9) Eosinophils (%) (Auto) 0 % (0-3) Basophils (%) (Auto) 1 % (0-3) Neutrophils # (Auto) 18.8 x10^3/uL (1.8-7.7) Lymphocytes # (Auto) 1.2 x10^3/uL (1.0-4.8) Monocytes # (Auto) 0.4 x10^3/uL (0.0-1.1) Eosinophils # (Auto) 0.0 x10^3/uL (0.0-0.7) Basophils # (Auto) 0.1 x10^3/uL (0.0-0.2) Prothrombin Time 28.1 SEC (11.7-14.0) Prothromb Time International Ratio 2.6 (0.8-1.1) Activated Partial Thromboplast Time 49 SEC (24-38) Sodium Level 137 mmol/L (136-145) Potassium Level 3.5 mmol/L (3.5-5.1) Chloride Level 103 mmol/L (98-107) Carbon Dioxide Level 16 mmol/L (21-32) Anion Gap 18 (6-14) Blood Urea Nitrogen 29 mg/dL (8-26) Creatinine 2.6 mg/dL (0.7-1.3) Estimated GFR (Cockcroft-Gault) 25.4 Glucose Level 175 mg/dL (70-99) Calcium Level 6.6 mg/dL (8.5-10.1) Ionized Calcium 0.88 mmol/L (1.13-1.32) Phosphorus Level 3.7 mg/dL (2.6-4.7) Magnesium Level 2.1 mg/dL (1.8-2.4) Test 08/05/20 17:51 08/05/20 19:08 08/05/20 20:14 08/05/20 21:16 Glucose (Fingerstick) 180 mg/dL (70-99) 138 mg/dL (70-99) 113 mg/dL (70-99) 79 mg/dL (70-99) Test 08/05/20 22:20 08/05/20 23:23 08/05/20 23:30 08/06/20 03:19 Glucose (Fingerstick) 75 mg/dL (70-99) 83 mg/dL (70-99) 107 mg/dL (70-99) White Blood Count 19.4 x10^3/uL (4.0-11.0) Red Blood Count 4.60 x10^6/uL (4.30-5.70) Hemoglobin 14.4 g/dL (13.0-17.5) Hematocrit 43.2 % (39.0-53.0) Mean Corpuscular Volume 94 fL (79-100) Mean Corpuscular Hemoglobin 31 pg (25-35) Mean Corpuscular Hemoglobin Concent 33 g/dL (31-37) Red Cell Distribution Width 13.8 % (11.5-14.5) Platelet Count 57 x10^3/uL (140-400) Neutrophils (%) (Auto) 90 % (31-73) Lymphocytes (%) (Auto) 6 % (24-48) Monocytes (%) (Auto) 4 % (0-9) Eosinophils (%) (Auto) 0 % (0-3) Basophils (%) (Auto) 0 % (0-3) Neutrophils # (Auto) 17.5 x10^3/uL (1.8-7.7) Lymphocytes # (Auto) 1.2 x10^3/uL (1.0-4.8) Monocytes # (Auto) 0.7 x10^3/uL (0.0-1.1) Eosinophils # (Auto) 0.0 x10^3/uL (0.0-0.7) Basophils # (Auto) 0.0 x10^3/uL (0.0-0.2) Prothrombin Time 28.7 SEC (11.7-14.0) Prothromb Time International Ratio 2.7 (0.8-1.1) Activated Partial Thromboplast Time 53 SEC (24-38) Sodium Level 136 mmol/L (136-145) Potassium Level 4.2 mmol/L (3.5-5.1) Chloride Level 102 mmol/L (98-107) Carbon Dioxide Level 14 mmol/L (21-32) Anion Gap 20 (6-14) Blood Urea Nitrogen 24 mg/dL (8-26) Creatinine 2.4 mg/dL (0.7-1.3) Estimated GFR (Cockcroft-Gault) 27.8 Glucose Level 71 mg/dL (70-99) Calcium Level 6.4 mg/dL (8.5-10.1) Phosphorus Level 5.2 mg/dL (2.6-4.7) Magnesium Level 2.2 mg/dL (1.8-2.4) Test 08/06/20 04:54 08/06/20 05:30 08/06/20 07:08 08/06/20 08:00 Glucose (Fingerstick) 142 mg/dL (70-99) White Blood Count 19.3 x10^3/uL (4.0-11.0) Red Blood Count 4.45 x10^6/uL (4.30-5.70) Hemoglobin 14.0 g/dL (13.0-17.5) Hematocrit 42.6 % (39.0-53.0) Mean Corpuscular Volume 96 fL (79-100) Mean Corpuscular Hemoglobin 32 pg (25-35) Mean Corpuscular Hemoglobin Concent 33 g/dL (31-37) Red Cell Distribution Width 14.6 % (11.5-14.5) Platelet Count 58 x10^3/uL (140-400) Neutrophils (%) (Auto) 89 % (31-73) Lymphocytes (%) (Auto) 7 % (24-48) Monocytes (%) (Auto) 3 % (0-9) Eosinophils (%) (Auto) 0 % (0-3) Basophils (%) (Auto) 0 % (0-3) Neutrophils # (Auto) 17.2 x10^3/uL (1.8-7.7) Lymphocytes # (Auto) 1.4 x10^3/uL (1.0-4.8) Monocytes # (Auto) 0.6 x10^3/uL (0.0-1.1) Eosinophils # (Auto) 0.0 x10^3/uL (0.0-0.7) Basophils # (Auto) 0.0 x10^3/uL (0.0-0.2) Phosphorus Level 7.3 mg/dL (2.6-4.7) Magnesium Level 2.5 mg/dL (1.8-2.4) Sodium Level 138 mmol/L (136-145) Potassium Level 5.0 mmol/L (3.5-5.1) Chloride Level 102 mmol/L (98-107) Carbon Dioxide Level 11 mmol/L (21-32) Anion Gap 25 (6-14) Blood Urea Nitrogen 21 mg/dL (8-26) Creatinine 2.5 mg/dL (0.7-1.3) Estimated GFR (Cockcroft-Gault) 26.6 BUN/Creatinine Ratio 8 (6-20) Glucose Level 109 mg/dL (70-99) Calcium Level 6.2 mg/dL (8.5-10.1) Total Bilirubin 2.2 mg/dL (0.2-1.0) Aspartate Amino Transf (AST/SGOT) 04644 U/L (15-37) Alanine Aminotransferase (ALT/SGPT) 26926 U/L (16-63) Alkaline Phosphatase 90 U/L (46-116) Total Protein 5.2 g/dL (6.4-8.2) Albumin 2.6 g/dL (3.4-5.0) Albumin/Globulin Ratio 1.0 (1.0-1.7) O2 Saturation 96 % (92-99) Arterial Blood pH 7.01 (7.35-7.45) Arterial Blood pH (Temp corrected) 7.04 Arterial Blood pCO2 at Patient Temp 45 mmHg (35-46) Arterial Blood pCO2 (Temp correct) 40 mmHg Arterial Blood pO2 at Patient Temp 109 mmHg (65-108) Arterial Blood pO2 (Temp corrected) 96 mmHg Arterial Blood HCO3 11 mmol/L (21-28) Arterial Blood Base Excess -20 mmol/L (-3-3) Test 08/06/20 09:00 08/06/20 09:10 08/06/20 10:53 08/06/20 11:15 Prothrombin Time 41.4 SEC (11.7-14.0) Prothromb Time International Ratio 4.2 (0.8-1.1) Glucose (Fingerstick) 116 mg/dL (70-99) 40 mg/dL (70-99) 237 mg/dL (70-99) Test 08/06/20 12:25 Sodium Level 135 mmol/L (136-145) Potassium Level 7.2 mmol/L (3.5-5.1) Chloride Level 101 mmol/L (98-107) Carbon Dioxide Level 9 mmol/L (21-32) Anion Gap 25 (6-14) Blood Urea Nitrogen 22 mg/dL (8-26) Creatinine 3.1 mg/dL (0.7-1.3) Estimated GFR (Cockcroft-Gault) 20.7 Glucose Level 176 mg/dL (70-99) Calcium Level 5.6 mg/dL (8.5-10.1) Phosphorus Level 8.3 mg/dL (2.6-4.7) Magnesium Level 2.4 mg/dL (1.8-2.4) Medications Current Medications Heparin Sodium (Porcine) (Heparin Sodium) 4,000 unit 1X ONCE IV Last administered on 08/04/20at 16:39; Start 08/04/20 at 16:30; Stop 08/04/20 at 16:36; Status DC Norepinephrine Bitartrate 8 mg/ Dextrose 258 ml @ 17.609 mls/ hr 1X ONCE IV ; Start 08/04/20 at 16:30; Stop 08/05/20 at 07:09; Status UNV Norepinephrine Bitartrate 8 mg/ Dextrose 258 ml @ 0 mls/hr 1X ONCE IV Last administered on 08/04/20at 16:28; Start 08/04/20 at 16:30; Stop 08/04/20 at 16:31; Status DC Norepinephrine Bitartrate 8 mg/ Dextrose 258 ml @ 0 mls/hr CONT PRN IV PER PROTOCOL Last administered on 08/04/20at 18:49; Start 08/04/20 at 16:45; Stop 08/05/20 at 01:41; Status DC Iodixanol (Visipaque 320) 100 ml STK-MED ONCE .ROUTE ; Start 08/04/20 at 16:31; Stop 08/04/20 at 16:31; Status DC Lidocaine HCl (Lidocaine 1% 20ml Vial) 20 ml STK-MED ONCE .ROUTE ; Start 08/04/20 at 16:31; Stop 08/04/20 at 16:31; Status DC Heparin Sodium/ Sodium Chloride 1,000 ml @ As Directed STK-MED ONCE .ROUTE ; Start 08/04/20 at 16:31; Stop 08/04/20 at 16:32; Status DC Heparin Sodium/ Sodium Chloride (HEPARIN for ARTERIAL LINE FLUSH) 1,000 unit 1X ONCE IART Last administered on 08/04/20at 17:15; Start 08/04/20 at 17:15; Stop 08/04/20 at 17:16; Status DC Heparin Sodium/ Sodium Chloride (HEPARIN for ARTERIAL LINE FLUSH) 1,000 unit 1X ONCE IART Last administered on 08/04/20at 17:15; Start 08/04/20 at 17:15; Stop 08/04/20 at 17:16; Status DC Iodixanol (Visipaque 320) 100 ml 1X ONCE IART Last administered on 08/04/20at 17:15; Start 08/04/20 at 17:15; Stop 08/04/20 at 17:16; Status DC Lidocaine HCl (Lidocaine 1% 20ml Vial) 20 ml 1X ONCE INJ Last administered on 08/04/20at 17:15; Start 08/04/20 at 17:15; Stop 08/04/20 at 17:16; Status DC Vasopressin 20 unit/Dextrose 101 ml @ 11.882 mls/ hr 1X ONCE IV Last ad ministered on 08/04/20at 18:49; Start 08/04/20 at 17:15; Stop 08/05/20 at 01:44; Status DC Phenylephrine HCl 50 mg/Sodium Chloride 255 ml @ 0 mls/hr 1X ONCE IV ; Start 08/04/20 at 17:15; Stop 08/04/20 at 17:16; Status DC Iohexol (Omnipaque 350 Mg/ml) 100 ml 1X ONCE IV ; Start 08/04/20 at 17:30; Stop 08/04/20 at 17:32; Status DC Info (CONTRAST GIVEN -- Rx MONITORING) 1 each PRN DAILY PRN MC SEE COMMENTS; Start 08/04/20 at 17:45; Stop 08/06/20 at 17:44 Fentanyl Citrate 30 ml @ 0 mls/hr CONT PRN IV SEE PROTOCOL Last administered on 08/06/20at 13:02; Start 08/04/20 at 17:45 Fentanyl Citrate (Fentanyl 2ml Vial) 25 mcg PRN Q1HR PRN IV SEE COMMENTS; Start 08/04/20 at 17:45 Fentanyl Citrate (Fentanyl 2ml Vial) 50 mcg PRN Q1HR PRN IV SEE COMMENTS; Start 08/04/20 at 17:45 Chlorhexidine Gluconate (Peridex) 15 ml BID MM Last administered on 08/06/20at 09:25; Start 08/04/20 at 21:00 Morphine Sulfate (Morphine Sulfate) 2 mg PRN Q1HR PRN IV SEE COMMENTS.; Start 08/04/20 at 17:45 Morphine Sulfate (Morphine Sulfate) 4 mg PRN Q1HR PRN IV SEE COMMENTS.; Start 08/04/20 at 17:45 Midazolam HCl 100 ml @ 0 mls/hr CONT PRN IV SEE PROTOCOL Last administered on 08/05/20at 09:11; Start 08/04/20 at 17:45 Norepinephrine Bitartrate 8 mg/ Dextrose 258 ml @ 17.609 mls/ hr CONT PRN IV PER PROTOCOL; Start 08/04/20 at 17:45; Stop 08/05/20 at 01:41; Status DC Dopamine HCl/ Dextrose 250 ml @ 17.063 mls/ hr CONT PRN IV SEE I/O RECORD Last administered on 08/06/20at 08:04; Start 08/04/20 at 17:45 Norepinephrine Bitartrate 32 mg/ Dextrose 250 ml @ 4.266 mls/ hr CONT PRN IV SEE I/O RECORD Last administered on 08/06/20at 09:22; Start 08/04/20 at 18:00 Fentanyl Citrate (Fentanyl 2ml Vial) 100 mcg 1X ONCE IV ; Start 08/04/20 at 17:45; Stop 08/04/20 at 18:02; Status DC Midazolam HCl (Versed) 2 mg 1X ONCE IV ; Start 08/04/20 at 17:45; Stop 08/04/20 at 18:02; Status DC Magnesium Sulfate/ Dextrose 100 ml @ 100 mls/hr 1X ONCE IV Last administered on 08/04/20at 18:47; Start 08/04/20 at 18:15; Stop 08/04/20 at 19:14; Status DC Buspirone HCl (Buspar) 30 mg Q8H NG Last administered on 08/06/20at 03:04; Start 08/04/20 at 19:00; Stop 08/06/20 at 11:01; Status DC Acetaminophen (Tylenol) 650 mg Q4H NG Last administered on 08/06/20at 09:25; Start 08/04/20 at 19:00; Stop 08/06/20 at 11:25; Status DC Glycerin/ Hypromellose/ Polyethylene (Artificial Tears) 1 drop Q6HRS OU Last administered on 08/06/20at 06:09; Start 08/04/20 at 19:00 Glycerin/ Hypromellose/ Polyethylene (Artificial Tears) 1 drop PRN Q15MIN PRN OU DRY EYE; Start 08/04/20 at 17:45 Pantoprazole Sodium (PROTONIX VIAL for IV PUSH) 40 mg DAILY IVP Last administered on 08/06/20at 09:24; Start 08/04/20 at 21:00 Vecuronium Beattie (Norcuron Bolus) 9 mg PRN Q1HR PRN IV SHIVERING; Start 08/04/20 at 17:45 Lorazepam (Ativan Inj) 0.5 mg PRN Q6HRS PRN IVP ANXIETY / AGITATION; Start 08/04/20 at 18:15; Stop 08/06/20 at 13:44; Status DC Ondansetron HCl (Zofran) 4 mg PRN Q6HRS PRN IVP NAUSEA/VOMITING; Start 08/04/20 at 18:15 Famotidine (Pepcid Vial) 20 mg BID IVP Last administered on 08/05/20at 20:59; Start 08/04/20 at 21:00 Enoxaparin Sodium (Lovenox 40mg Syringe) 40 mg Q24H SQ Last administered on 08/05/20at 19:10; Start 08/04/20 at 19:00 Sodium Chloride (Normal Saline Flush) 3 ml QSHIFT PRN IV AFTER MEDS AND BLOOD DRAWS; Start 08/04/20 at 18:15 Morphine Sulfate (Morphine Sulfate) 2 mg PRN Q1HR PRN IV PAIN-SEE COMMENTS; Start 08/04/20 at 18:15 Fentanyl Citrate (Fentanyl 2ml Vial) 50 mcg PRN Q1HR PRN IV PAIN-SEE COMMENTS; Start 08/04/20 at 18:15 Potassium Bicarbonate (Potassium Effervescent Tablet) 40 meq 1X ONCE PEG Last administered on 08/04/20at 20:29; Start 08/04/20 at 20:15; Stop 08/04/20 at 20:19; Status DC Furosemide (Lasix) 40 mg 1X ONCE IVP Last administered on 08/04/20at 20:28; Start 08/04/20 at 20:15; Stop 08/04/20 at 20:19; Status DC Amiodarone HCl 450 mg/Dextrose 259 ml @ 0 mls/hr 1X ONCE IV Last administered on 08/04/20at 20:29; Start 08/04/20 at 20:30; Stop 08/04/20 at 20:31; Status DC Sodium Bicarbonate (Sodium Bicarb Adult 8.4% Syr) 50 meq 1X ONCE IV Last administered on 08/04/20at 20:54; Start 08/04/20 at 20:45; Stop 08/04/20 at 20:46; Status DC Piperacillin Sod/ Tazobactam Sod (Zosyn Per Pharmacy) 1 each PRN DAILY PRN MC SEE COMMENTS; Start 08/04/20 at 22:45 Insulin Human Regular 100 unit/ Sodium Chloride 101 ml @ 0 mls/hr CONT PRN IV SEE I/O RECORD Last administered on 08/05/20at 20:17; Start 08/04/20 at 22:45 Piperacillin Sod/ Tazobactam Sod 3.375 gm/Sodium Chloride 50 ml @ 100 mls/hr Q6H IV Last administered on 08/06/20at 11:25; Start 08/04/20 at 23:00 Sodium Bicarbonate (Sodium Bicarb Adult 8.4% Syr) 100 meq 1X ONCE IV Last administered on 08/04/20at 23:17; Start 08/04/20 at 23:00; Stop 08/04/20 at 23:01; Status DC Lidocaine HCl (Lidocaine HCl 2% Abboject) 100 mg 1X ONCE IV Last administered on 08/04/20at 23:58; Start 08/05/20 at 00:00; Stop 08/05/20 at 00:01; Status DC Potassium Chloride/Water 100 ml @ 100 mls/hr 1X ONCE IV Last administered on 08/05/20at 04:27; Start 08/05/20 at 04:30; Stop 08/05/20 at 05:29; Status DC Amiodarone HCl 450 mg/Dextrose 259 ml @ 0 mls/hr 1X ONCE IV Last administered on 08/05/20at 06:01; Start 08/05/20 at 06:00; Stop 08/05/20 at 06:01; Status DC Sodium Bicarbonate 150 meq/Dextrose 1,150 ml @ 150 mls/hr Q7H40M IV Last administered on 08/06/20at 09:18; Start 08/05/20 at 07:45 Magnesium Sulfate 50 ml @ 25 mls/hr 1X ONCE IV ; Start 08/05/20 at 07:45; Stop 08/05/20 at 08:34; Status DC Lidocaine HCl (Buffered Lidocaine 1%) 3 ml STK-MED ONCE .ROUTE ; Start 08/05/20 at 08:02; Stop 08/05/20 at 08:02; Status DC Heparin Sodium (Porcine) (Heparin Sodium) 10,000 unit STK-MED ONCE .ROUTE ; Start 08/05/20 at 08:02; Stop 08/05/20 at 08:02; Status DC Lidocaine HCl (Buffered Lidocaine 1%) 6 ml 1X ONCE INJ Last administered on 08/05/20at 08:34; Start 08/05/20 at 08:30; Stop 08/05/20 at 08:31; Status DC Heparin Sodium (Porcine) (Heparin Sodium) 2,500 unit 1X ONCE INT CAT Last administered on 08/05/20at 08:35; Start 08/05/20 at 08:30; Stop 08/05/20 at 08:31; Status DC Magnesium Sulfate/ Dextrose 100 ml @ 100 mls/hr 1X ONCE IV Last administered on 08/05/20at 08:40; Start 08/05/20 at 08:45; Stop 08/05/20 at 09:44; Status DC Vasopressin 20 unit/Dextrose 101 ml @ 12 mls/hr CONT PRN IV SEE I/O RECORD Last administered on 08/06/20at 11:25; Start 08/05/20 at 09:00 Potassium Chloride/Water 100 ml @ 100 mls/hr 1X ONCE IV Last administered on 08/05/20at 10:14; Start 08/05/20 at 09:30; Stop 08/05/20 at 10:29; Status DC Potassium Chloride 15 meq/ Bicarbonate Dialysis Soln w/ out KCl 5,007.5 ml @ 1,100 mls/ hr Q4H34M IV Last administered on 08/06/20at 08:44; Start 08/05/20 at 11:00; Stop 08/06/20 at 10:56; Status DC Potassium Chloride 15 meq/ Bicarbonate Dialysis Soln w/ out KCl 5,007.5 ml @ 1,100 mls/ hr Q4H34M IV Last administered on 08/06/20at 08:44; Start 08/05/20 at 11:00; Stop 08/06/20 at 10:57; Status DC Potassium Chloride 15 meq/ Bicarbonate Dialysis Soln w/ out KCl 5,007.5 ml @ 1,100 mls/ hr Q4H34M IV Last administered on 08/06/20at 08:44; Start 08/05/20 at 11:00; Stop 08/06/20 at 10:58; Status DC Amiodarone HCl 450 mg/Dextrose 259 ml @ 0 mls/hr 1X ONCE IV Last administered on 08/05/20at 20:16; Start 08/05/20 at 20:00; Stop 08/05/20 at 20:01; Status DC Amiodarone HCl 450 mg/Dextrose 259 ml @ 16.7 mls/hr CONT PRN IV SEE I/O RECORD Last administered on 08/06/20at 12:59; Start 08/06/20 at 08:45 Potassium Chloride 15 meq/ Sodium Bicarbonate 40 meq/Bicarbonate Dialysis Soln w/ out KCl 5,047.5 ml @ 1,100 mls/ hr Q4H36M IV Last administered on 08/06/20at 12:40; Start 08/06/20 at 11:30 Potassium Chloride 15 meq/ Sodium Bicarbonate 40 meq/Bicarbonate Dialysis Soln w/ out KCl 5,047.5 ml @ 1,100 mls/ hr Q4H36M IV Last administered on 08/06/20at 12:41; Start 08/06/20 at 11:30 Potassium Chloride 15 meq/ Sodium Bicarbonate 40 meq/Bicarbonate Dialysis Soln w/ out KCl 5,047.5 ml @ 1,100 mls/ hr Q4H36M IV Last administered on 08/06/20at 12:41; Start 08/06/20 at 11:30 Dextrose (Dextrose 50%-Water Syringe) 25 gm STK-MED ONCE IV ; Start 08/06/20 at 10:58; Stop 08/06/20 at 10:58; Status DC Dextrose (Dextrose 50%-Water Syringe) 12.5 gm PRN Q15MIN PRN IV SEE COMMENTS; Start 08/06/20 at 11:15 Phytonadione (Vitamin K Ampule) 5 mg 1X ONCE SQ Last administered on 08/06/20at 11:49; Start 08/06/20 at 11:45; Stop 08/06/20 at 11:46; Status DC Phenylephrine HCl 50 mg/Sodium Chloride 255 ml @ 14.902 mls/ hr CONT PRN IV S EE I/O RECORD Last administered on 08/06/20at 12:07; Start 08/06/20 at 12:00 Calcium Chloride (Calcium Chloride) 14 meq STK-MED ONCE IV ; Start 08/04/20 at 10:00; Stop 08/06/20 at 12:13; Status DC Sodium Bicarbonate (Sodium Bicarb Adult 8.4% Syr) 150 meq STK-MED ONCE .ROUTE ; Start 08/04/20 at 10:00; Stop 08/06/20 at 12:13; Status DC Amiodarone HCl (Cordarone) 450 mg STK-MED ONCE .ROUTE ; Start 08/04/20 at 10:00; Stop 08/06/20 at 12:13; Status DC Epinephrine HCl (EPINEPHrine SYRINGE) 13 mg STK-MED ONCE .ROUTE ; Start 08/04/20 at 10:00; Stop 08/06/20 at 12:13; Status DC Dopamine HCl/ Dextrose (DOPamine 400MG/ 250ML PREMIX) 400 mg STK-MED ONCE IV ; Start 08/04/20 at 10:00; Stop 08/06/20 at 12:13; Status DC Atropine Sulfate (ATROPINE 1mg SYRINGE) 3 mg STK-MED ONCE .ROUTE ; Start 08/04/20 at 10:00; Stop 08/06/20 at 12:13; Status DC Lidocaine HCl (Lidocaine HCl 2% Abboject) 200 mg STK-MED ONCE .ROUTE ; Start 08/04/20 at 10:00; Stop 08/06/20 at 12:13; Status DC Morphine Sulfate (Morphine Sulfate) 10 mg 1X ONCE IV Last administered on 08/06/20at 13:57; Start 08/06/20 at 13:45; Stop 08/06/20 at 13:46; Status DC Lorazepam (Ativan Inj) 2 mg PRN Q4HRS PRN IVP ANXIETY / AGITATION Last administered on 08/06/20at 13:57; Start 08/06/20 at 13:45 Vitals/I & O Vital Sign - Last 24 Hours 08/05/20 08/05/20 08/05/20 08/05/20 14:30 15:00 15:00 16:00 Temp 92.5 92.5 92.8 92.5 Pulse 48 Resp 26 26 B/P (MAP) 116/74 (88) Pulse Ox 99 100 O2 Delivery Ventilator Ventilator 08/05/20 08/05/20 08/05/20 08/05/20 16:00 16:00 16:11 17:00 Temp 92.8 92.8 92.8 Pulse 45 Resp 26 B/P (MAP) 108/73 (85) Pulse Ox 97 99 O2 Delivery Mechanical Ventilator Ventilator Ventilator 08/05/20 08/05/20 08/05/20 08/05/20 17:00 18:00 18:00 19:00 Temp 92.8 92.9 92.9 93.0 92.8 92.9 93.0 Pulse 50 48 49 Resp 26 B/P (MAP) 107/78 (88) 110/77 (88) 126/80 (95) Pulse Ox 100 97 93 O2 Delivery Ventilator Ventilator Ventilator 08/05/20 08/05/20 08/05/20 08/05/20 19:00 19:50 20:00 20:00 Temp 93.0 93.0 93.0 93.0 Pulse 49 B/P (MAP) 106/71 (83) O2 Delivery Mechanical Ventilator Ventilator 08/05/20 08/05/20 08/05/20 08/05/20 20:28 21:00 21:00 22:00 Temp 93.2 93.2 93.2 93.2 93.2 Pulse 51 50 B/P (MAP) 127/77 (94) 120/76 (91) Pulse Ox 96 O2 Delivery Ventilator Ventilator Ventilator 08/05/20 08/05/20 08/05/20 08/06/20 22:00 23:00 23:00 00:00 Temp 93.2 93.3 93.3 93.3 93.3 93.3 Pulse 52 51 Resp B/P (MAP) 132/79 (96) 132/74 (93) O2 Delivery Ventilator Ventilator 08/06/20 08/06/20 08/06/20 08/06/20 00:00 00:00 00:25 00:47 Temp 93.3 B/P (MAP) Pulse Ox 96 96 O2 Delivery Mechanical Ventilator Ventilator 08/06/20 08/06/20 08/06/20 08/06/20 00:55 01:00 01:00 02:00 Temp 93.3 93.3 93.7 93.3 93.7 Pulse 53 49 Resp B/P (MAP) 111/65 (80) 118/66 (83) Pulse Ox 96 O2 Delivery Ventilator Ventilator 08/06/20 08/06/20 08/06/20 08/06/20 02:00 03:00 03:00 04:00 Temp 93.7 93.9 93.9 93.7 93.9 Pulse 51 B/P (MAP) 106/56 (73) O2 Delivery Ventilator 08/06/20 08/06/20 08/06/20 08/06/20 04:00 04:00 04:12 05:00 Temp 93.7 93.7 93.7 93.7 Pulse 51 55 Resp B/P (MAP) 104/62 (76) 106/61 (76) Pulse Ox 96 O2 Delivery Mechanical Ventilator Ventilator Ventilator Ventilator 08/06/20 08/06/20 08/06/20 08/06/20 05:00 06:00 06:00 07:00 Temp 93.5 93.9 93.7 94.3 93.9 94.3 Pulse 54 56 B/P (MAP) 89/53 (65) 104/56 (72) O2 Delivery Ventilator Ventilator 08/06/20 08/06/20 08/06/20 08/06/20 07:00 07:40 08:00 08:00 Temp 94.2 95.0 B/P (MAP) Pulse Ox 84 O2 Delivery Ventilator Mechanical Ventilator 08/06/20 08/06/20 08/06/20 08/06/20 08:00 09:00 09:00 09:30 Temp 95.0 96.4 96.2 97.2 95.0 96.4 97.2 Pulse 38 58 56 Resp B/P (MAP) 88/38 (55) 88/46 (60) 82/38 (53) O2 Delivery Ventilator Ventilator Ventilator 08/06/20 08/06/20 08/06/20 08/06/20 10:00 10:00 11:00 11:00 Temp 97.8 97.8 99.0 98.6 97.8 99.0 Pulse 58 46 Resp B/P (MAP) 88/44 (59) 105/42 (63) O2 Delivery Ventilator Ventilator 08/06/20 08/06/20 08/06/20 11:30 12:00 13:02 Resp 28 Pulse Ox 75 O2 Delivery Ventilator Mechanical Ventilator Ventilator Intake and Output 08/05/20 08/05/20 08/06/20 15:00 23:00 07:00 Intake Total 299.5 ml 1447.04 ml 1126.6 ml Output Total 25 ml 565 ml 350 ml Balance 274.5 ml 882.04 ml 776.6 ml Justicifation of Admission Dx: Justifications for Admission: Justification of Admission Dx: Yes ALEKS MONTEIRO MD Aug 06, 2020 14:05
--- NOTE | 2020-08-06 14:37 | PDOC3 ---
Discharge Summary Visit Information Date of Admission: Aug 04, 2020 Date of Discharge: Aug 06, 2020 Final Diagnosis 1. Acute hypoxic and hypercapnic respiratory failure secondary to cardiac arrest. 2. Ventricular fibrillation cardiac arrest.idiopathic 3. Shock, cardiogenic. 4. acute pulmonary edema. from arrest 5. Acute kidney injury./ on CRRT 6. Hyperphosphatemia.improved 7. Severe metabolic acidosis coagulopathy, shock liver, Problems Medical Problems: (1) Cardiac arrest Status: Acute Brief Hospital Course Allergies Allergies Coded Allergies Type Severity Reaction Last Updated Verified No Known Drug Allergies 08/04/20 No Vital Signs Vital Signs Date Time Temp Pulse Resp B/P (MAP) Pulse Ox O2 Delivery O2 Flow Rate FiO2 08/06/20 14:00 100.0 22 26 42/30 (34) Ventilator 100.0 08/06/20 11:30 75 Lab Results Laboratory Tests Test 08/04/20 16:00 08/04/20 16:17 08/04/20 19:36 08/04/20 21:30 White Blood Count 6.8 x10^3/uL (4.0-11.0) 21.6 x10^3/uL (4.0-11.0) Red Blood Count 5.40 x10^6/uL (4.30-5.70) 4.97 x10^6/uL (4.30-5.70) Hemoglobin 17.0 g/dL (13.0-17.5) 15.7 g/dL (13.0-17.5) Hematocrit 53.2 % (39.0-53.0) 47.5 % (39.0-53.0) Mean Corpuscular Volume 99 fL (79-100) 96 fL (79-100) Mean Corpuscular Hemoglobin 32 pg (25-35) 32 pg (25-35) Mean Corpuscular Hemoglobin Concent 32 g/dL (31-37) 33 g/dL (31-37) Red Cell Distribution Width 14.7 % (11.5-14.5) 14.2 % (11.5-14.5) Platelet Count 81 x10^3/uL (140-400) 153 x10^3/uL (140-400) Neutrophils (%) (Auto) 18 % (31-73) 89 % (31-73) Lymphocytes (%) (Auto) 75 % (24-48) 9 % (24-48) Monocytes (%) (Auto) 5 % (0-9) 1 % (0-9) Eosinophils (%) (Auto) 1 % (0-3) 0 % (0-3) Basophils (%) (Auto) 1 % (0-3) 0 % (0-3) Neutrophils # (Auto) 1.2 x10^3/uL (1.8-7.7) 19.3 x10^3/uL (1.8-7.7) Lymphocytes # (Auto) 5.0 x10^3/uL (1.0-4.8) 2.0 x10^3/uL (1.0-4.8) Monocytes # (Auto) 0.3 x10^3/uL (0.0-1.1) 0.3 x10^3/uL (0.0-1.1) Eosinophils # (Auto) 0.1 x10^3/uL (0.0-0.7) 0.1 x10^3/uL (0.0-0.7) Basophils # (Auto) 0.1 x10^3/uL (0.0-0.2) 0.1 x10^3/uL (0.0-0.2) Bedside Hemoglobin 18.4 g/dL (14-18) Bedside Hematocrit 54 % (37-52) Bedside Sodium 141 mmol/L (135-145) Bedside Potassium 2.9 mmol/L (3.5-5.0) Bedside Chloride 108 mmol/L (98-110) Bedside Total CO2 15 mmol/L (23-32) Anion Gap 22 mmol/L (6-14) 20 (6-14) Bedside Blood Urea Nitrogen 33 mg/dL (8-26) Bedside Creatinine 1.6 mg/dL (0.5-1.4) Glucose Level 321 mg/dL (70-99) 300 mg/dL (70-99) Bedside Ionized Calcium (Radha) 1.06 mmol/L (1.13-1.32) Bedside Troponin I 0.11 ng/ml (<0.08) O2 Saturation 60 % (92-99) Arterial Blood pH 6.98 (7.35-7.45) Arterial Blood pH (Temp corrected) 7.03 Arterial Blood pCO2 at Patient Temp 57 mmHg (35-46) Arterial Blood pCO2 (Temp correct) 49 mmHg Arterial Blood pO2 at Patient Temp 44 mmHg (65-108) Arterial Blood pO2 (Temp corrected) 35 mmHg Arterial Blood HCO3 13 mmol/L (21-28) Arterial Blood Base Excess -19 mmol/L (-3-3) FiO2 100 Prothrombin Time 19.6 SEC (11.7-14.0) Prothromb Time International Ratio 1.7 (0.8-1.1) Activated Partial Thromboplast Time 61 SEC (24-38) Sodium Level 137 mmol/L (136-145) Potassium Level 3.6 mmol/L (3.5-5.1) Chloride Level 102 mmol/L (98-107) Carbon Dioxide Level 15 mmol/L (21-32) Blood Urea Nitrogen 31 mg/dL (8-26) Creatinine 2.2 mg/dL (0.7-1.3) Estimated GFR (Cockcroft-Gault) 30.8 Calcium Level 7.3 mg/dL (8.5-10.1) Phosphorus Level 9.1 mg/dL (2.6-4.7) Magnesium Level 2.6 mg/dL (1.8-2.4) Triglycerides Level 102 mg/dL (0-150) Test 08/04/20 22:08 08/05/20 01:52 08/05/20 03:00 08/05/20 03:30 O2 Saturation 90 % (92-99) Arterial Blood pH 7.11 (7.35-7.45) Arterial Blood pH (Temp corrected) 7.14 Arterial Blood pCO2 at Patient Temp 45 mmHg (35-46) Arterial Blood pCO2 (Temp correct) 41 mmHg Arterial Blood pO2 at Patient Temp 73 mmHg (65-108) Arterial Blood pO2 (Temp corrected) 63 mmHg Arterial Blood HCO3 14 mmol/L (21-28) Arterial Blood Base Excess -15 mmol/L (-3-3) FiO2 100 Glucose (Fingerstick) 173 mg/dL (70-99) Hemoglobin A1c 5.6 % (4.8-5.6) White Blood Count 22.7 x10^3/uL (4.0-11.0) Red Blood Count 4.65 x10^6/uL (4.30-5.70) Hemoglobin 14.8 g/dL (13.0-17.5) Hematocrit 43.7 % (39.0-53.0) Mean Corpuscular Volume 94 fL (79-100) Mean Corpuscular Hemoglobin 32 pg (25-35) Mean Corpuscular Hemoglobin Concent 34 g/dL (31-37) Red Cell Distribution Width 13.9 % (11.5-14.5) Platelet Count 124 x10^3/uL (140-400) Neutrophils (%) (Auto) 92 % (31-73) Lymphocytes (%) (Auto) 4 % (24-48) Monocytes (%) (Auto) 5 % (0-9) Eosinophils (%) (Auto) 0 % (0-3) Basophils (%) (Auto) 0 % (0-3) Neutrophils # (Auto) 20.8 x10^3/uL (1.8-7.7) Lymphocytes # (Auto) 0.9 x10^3/uL (1.0-4.8) Monocytes # (Auto) 1.0 x10^3/uL (0.0-1.1) Eosinophils # (Auto) 0.0 x10^3/uL (0.0-0.7) Basophils # (Auto) 0.0 x10^3/uL (0.0-0.2) Segmented Neutrophils % 73 % (35-66) Band Neutrophils % 16 % (0-9) Lymphocytes % 6 % (24-48) Monocytes % 4 % (0-10) Eosinophils % 1 % (0-5) Platelet Estimate Decreased (ADEQUATE) Large Platelets Few Prothrombin Time 22.4 SEC (11.7-14.0) Prothromb Time International Ratio 2.0 (0.8-1.1) Activated Partial Thromboplast Time 47 SEC (24-38) Sodium Level 141 mmol/L (136-145) Potassium Level 2.8 mmol/L (3.5-5.1) Chloride Level 105 mmol/L (98-107) Carbon Dioxide Level 17 mmol/L (21-32) Anion Gap 19 (6-14) Blood Urea Nitrogen 33 mg/dL (8-26) Creatinine 2.7 mg/dL (0.7-1.3) Estimated GFR (Cockcroft-Gault) 24.3 Glucose Level 169 mg/dL (70-99) Calcium Level 7.2 mg/dL (8.5-10.1) Phosphorus Level 3.4 mg/dL (2.6-4.7) Magnesium Level 2.1 mg/dL (1.8-2.4) Hepatitis B Surface Antigen Nonreactive (Nonreactive) Hepatitis B Surface Antibody, Quant 7.2 mIU/mL (Immunity>9.9) Test 08/05/20 06:15 08/05/20 06:27 08/05/20 07:35 08/05/20 08:48 Potassium Level 3.6 mmol/L (3.5-5.1) Creatine Kinase 50423 U/L (39-308) Triglycerides Level 97 mg/dL (0-150) Cholesterol Level 132 mg/dL (0-200) LDL Cholesterol, Calculated 63 mg/dL (0-100) VLDL Cholesterol, Calculated 19 mg/dL (0-40) Non-HDL Cholesterol Calculated 82 mg/dL (0-129) HDL Cholesterol 50 mg/dL (40-60) Cholesterol/HDL Ratio 2.6 Thyroid Stimulating Hormone (TSH) 2.498 uIU/mL (0.358-3.74) Coronavirus (PCR) Not detected (Not Detected) O2 Saturation 98 % (92-99) Arterial Blood pH 7.16 (7.35-7.45) Arterial Blood pH (Temp corrected) 7.19 Arterial Blood pCO2 at Patient Temp 35 mmHg (35-46) Arterial Blood pCO2 (Temp correct) 31 mmHg Arterial Blood pO2 at Patient Temp 156 mmHg (65-108) Arterial Blood pO2 (Temp corrected) 143 mmHg Arterial Blood HCO3 12 mmol/L (21-28) Arterial Blood Base Excess -16 mmol/L (-3-3) FiO2 100 vent Glucose (Fingerstick) 163 mg/dL (70-99) Test 08/05/20 11:12 08/05/20 11:55 08/05/20 12:14 08/05/20 12:21 Glucose (Fingerstick) 233 mg/dL (70-99) 244 mg/dL (70-99) White Blood Count 21.3 x10^3/uL (4.0-11.0) Red Blood Count 4.39 x10^6/uL (4.30-5.70) Hemoglobin 13.8 g/dL (13.0-17.5) Hematocrit 41.5 % (39.0-53.0) Mean Corpuscular Volume 95 fL (79-100) Mean Corpuscular Hemoglobin 31 pg (25-35) Mean Corpuscular Hemoglobin Concent 33 g/dL (31-37) Red Cell Distribution Width 14.2 % (11.5-14.5) Platelet Count 79 x10^3/uL (140-400) Neutrophils (%) (Auto) 94 % (31-73) Lymphocytes (%) (Auto) 4 % (24-48) Monocytes (%) (Auto) 2 % (0-9) Eosinophils (%) (Auto) 0 % (0-3) Basophils (%) (Auto) 1 % (0-3) Neutrophils # (Auto) 19.9 x10^3/uL (1.8-7.7) Lymphocytes # (Auto) 0.8 x10^3/uL (1.0-4.8) Monocytes # (Auto) 0.4 x10^3/uL (0.0-1.1) Eosinophils # (Auto) 0.0 x10^3/uL (0.0-0.7) Basophils # (Auto) 0.1 x10^3/uL (0.0-0.2) Prothrombin Time 30.2 SEC (11.7-14.0) Prothromb Time International Ratio 2.9 (0.8-1.1) Activated Partial Thromboplast Time 52 SEC (24-38) Sodium Level 143 mmol/L (136-145) Potassium Level 3.7 mmol/L (3.5-5.1) Chloride Level 106 mmol/L (98-107) Carbon Dioxide Level 13 mmol/L (21-32) Anion Gap 24 (6-14) Blood Urea Nitrogen 35 mg/dL (8-26) Creatinine 3.2 mg/dL (0.7-1.3) Estimated GFR (Cockcroft-Gault) 20.0 Glucose Level 238 mg/dL (70-99) Calcium Level 6.5 mg/dL (8.5-10.1) Ionized Calcium 0.93 mmol/L (1.13-1.32) Phosphorus Level 5.3 mg/dL (2.6-4.7) Magnesium Level 2.4 mg/dL (1.8-2.4) Total Bilirubin 1.0 mg/dL (0.2-1.0) Direct Bilirubin 0.3 mg/dL (0.0-0.2) Aspartate Amino Transf (AST/SGOT) 1886 U/L (15-37) Alanine Aminotransferase (ALT/SGPT) 747 U/L (16-63) Alkaline Phosphatase 60 U/L (46-116) Troponin I Quantitative 139.070 ng/mL (0.000-0.055) Total Protein 3.8 g/dL (6.4-8.2) Albumin 2.0 g/dL (3.4-5.0) O2 Saturation 97 % (92-99) Arterial Blood pH 7.12 (7.35-7.45) Arterial Blood pH (Temp corrected) 7.18 Arterial Blood pCO2 at Patient Temp 32 mmHg (35-46) Arterial Blood pCO2 (Temp correct) 26 mmHg Arterial Blood pO2 at Patient Temp 112 mmHg (65-108) Arterial Blood pO2 (Temp corrected) 88 mmHg Arterial Blood HCO3 10 mmol/L (21-28) Arterial Blood Base Excess -18 mmol/L (-3-3) FiO2 100 Test 08/05/20 13:28 08/05/20 14:39 08/05/20 15:45 08/05/20 16:35 Glucose (Fingerstick) 242 mg/dL (70-99) 227 mg/dL (70-99) 195 mg/dL (70-99) 178 mg/dL (70-99) Test 08/05/20 17:25 08/05/20 17:51 08/05/20 19:08 08/05/20 20:14 White Blood Count 20.5 x10^3/uL (4.0-11.0) Red Blood Count 4.50 x10^6/uL (4.30-5.70) Hemoglobin 14.1 g/dL (13.0-17.5) Hematocrit 41.9 % (39.0-53.0) Mean Corpuscular Volume 93 fL (79-100) Mean Corpuscular Hemoglobin 31 pg (25-35) Mean Corpuscular Hemoglobin Concent 34 g/dL (31-37) Red Cell Distribution Width 13.9 % (11.5-14.5) Platelet Count 82 x10^3/uL (140-400) Neutrophils (%) (Auto) 92 % (31-73) Lymphocytes (%) (Auto) 6 % (24-48) Monocytes (%) (Auto) 2 % (0-9) Eosinophils (%) (Auto) 0 % (0-3) Basophils (%) (Auto) 1 % (0-3) Neutrophils # (Auto) 18.8 x10^3/uL (1.8-7.7) Lymphocytes # (Auto) 1.2 x10^3/uL (1.0-4.8) Monocytes # (Auto) 0.4 x10^3/uL (0.0-1.1) Eosinophils # (Auto) 0.0 x10^3/uL (0.0-0.7) Basophils # (Auto) 0.1 x10^3/uL (0.0-0.2) Prothrombin Time 28.1 SEC (11.7-14.0) Prothromb Time International Ratio 2.6 (0.8-1.1) Activated Partial Thromboplast Time 49 SEC (24-38) Sodium Level 137 mmol/L (136-145) Potassium Level 3.5 mmol/L (3.5-5.1) Chloride Level 103 mmol/L (98-107) Carbon Dioxide Level 16 mmol/L (21-32) Anion Gap 18 (6-14) Blood Urea Nitrogen 29 mg/dL (8-26) Creatinine 2.6 mg/dL (0.7-1.3) Estimated GFR (Cockcroft-Gault) 25.4 Glucose Level 175 mg/dL (70-99) Calcium Level 6.6 mg/dL (8.5-10.1) Ionized Calcium 0.88 mmol/L (1.13-1.32) Phosphorus Level 3.7 mg/dL (2.6-4.7) Magnesium Level 2.1 mg/dL (1.8-2.4) Glucose (Fingerstick) 180 mg/dL (70-99) 138 mg/dL (70-99) 113 mg/dL (70-99) Test 08/05/20 21:16 08/05/20 22:20 08/05/20 23:23 08/05/20 23:30 Glucose (Fingerstick) 79 mg/dL (70-99) 75 mg/dL (70-99) 83 mg/dL (70-99) White Blood Count 19.4 x10^3/uL (4.0-11.0) Red Blood Count 4.60 x10^6/uL (4.30-5.70) Hemoglobin 14.4 g/dL (13.0-17.5) Hematocrit 43.2 % (39.0-53.0) Mean Corpuscular Volume 94 fL (79-100) Mean Corpuscular Hemoglobin 31 pg (25-35) Mean Corpuscular Hemoglobin Concent 33 g/dL (31-37) Red Cell Distribution Width 13.8 % (11.5-14.5) Platelet Count 57 x10^3/uL (140-400) Neutrophils (%) (Auto) 90 % (31-73) Lymphocytes (%) (Auto) 6 % (24-48) Monocytes (%) (Auto) 4 % (0-9) Eosinophils (%) (Auto) 0 % (0-3) Basophils (%) (Auto) 0 % (0-3) Neutrophils # (Auto) 17.5 x10^3/uL (1.8-7.7) Lymphocytes # (Auto) 1.2 x10^3/uL (1.0-4.8) Monocytes # (Auto) 0.7 x10^3/uL (0.0-1.1) Eosinophils # (Auto) 0.0 x10^3/uL (0.0-0.7) Basophils # (Auto) 0.0 x10^3/uL (0.0-0.2) Prothrombin Time 28.7 SEC (11.7-14.0) Prothromb Time International Ratio 2.7 (0.8-1.1) Activated Partial Thromboplast Time 53 SEC (24-38) Sodium Level 136 mmol/L (136-145) Potassium Level 4.2 mmol/L (3.5-5.1) Chloride Level 102 mmol/L (98-107) Carbon Dioxide Level 14 mmol/L (21-32) Anion Gap 20 (6-14) Blood Urea Nitrogen 24 mg/dL (8-26) Creatinine 2.4 mg/dL (0.7-1.3) Estimated GFR (Cockcroft-Gault) 27.8 Glucose Level 71 mg/dL (70-99) Calcium Level 6.4 mg/dL (8.5-10.1) Phosphorus Level 5.2 mg/dL (2.6-4.7) Magnesium Level 2.2 mg/dL (1.8-2.4) Test 08/06/20 03:19 08/06/20 04:54 08/06/20 05:30 08/06/20 07:08 Glucose (Fingerstick) 107 mg/dL (70-99) 142 mg/dL (70-99) White Blood Count 19.3 x10^3/uL (4.0-11.0) Red Blood Count 4.45 x10^6/uL (4.30-5.70) Hemoglobin 14.0 g/dL (13.0-17.5) Hematocrit 42.6 % (39.0-53.0) Mean Corpuscular Volume 96 fL (79-100) Mean Corpuscular Hemoglobin 32 pg (25-35) Mean Corpuscular Hemoglobin Concent 33 g/dL (31-37) Red Cell Distribution Width 14.6 % (11.5-14.5) Platelet Count 58 x10^3/uL (140-400) Neutrophils (%) (Auto) 89 % (31-73) Lymphocytes (%) (Auto) 7 % (24-48) Monocytes (%) (Auto) 3 % (0-9) Eosinophils (%) (Auto) 0 % (0-3) Basophils (%) (Auto) 0 % (0-3) Neutrophils # (Auto) 17.2 x10^3/uL (1.8-7.7) Lymphocytes # (Auto) 1.4 x10^3/uL (1.0-4.8) Monocytes # (Auto) 0.6 x10^3/uL (0.0-1.1) Eosinophils # (Auto) 0.0 x10^3/uL (0.0-0.7) Basophils # (Auto) 0.0 x10^3/uL (0.0-0.2) Phosphorus Level 7.3 mg/dL (2.6-4.7) Magnesium Level 2.5 mg/dL (1.8-2.4) Sodium Level 138 mmol/L (136-145) Potassium Level 5.0 mmol/L (3.5-5.1) Chloride Level 102 mmol/L (98-107) Carbon Dioxide Level 11 mmol/L (21-32) Anion Gap 25 (6-14) Blood Urea Nitrogen 21 mg/dL (8-26) Creatinine 2.5 mg/dL (0.7-1.3) Estimated GFR (Cockcroft-Gault) 26.6 BUN/Creatinine Ratio 8 (6-20) Glucose Level 109 mg/dL (70-99) Calcium Level 6.2 mg/dL (8.5-10.1) Total Bilirubin 2.2 mg/dL (0.2-1.0) Aspartate Amino Transf (AST/SGOT) 83900 U/L (15-37) Alanine Aminotransferase (ALT/SGPT) 56500 U/L (16-63) Alkaline Phosphatase 90 U/L (46-116) Total Protein 5.2 g/dL (6.4-8.2) Albumin 2.6 g/dL (3.4-5.0) Albumin/Globulin Ratio 1.0 (1.0-1.7) Test 08/06/20 08:00 08/06/20 09:00 08/06/20 09:10 08/06/20 10:53 O2 Saturation 96 % (92-99) Arterial Blood pH 7.01 (7.35-7.45) Arterial Blood pH (Temp corrected) 7.04 Arterial Blood pCO2 at Patient Temp 45 mmHg (35-46) Arterial Blood pCO2 (Temp correct) 40 mmHg Arterial Blood pO2 at Patient Temp 109 mmHg (65-108) Arterial Blood pO2 (Temp corrected) 96 mmHg Arterial Blood HCO3 11 mmol/L (21-28) Arterial Blood Base Excess -20 mmol/L (-3-3) Prothrombin Time 41.4 SEC (11.7-14.0) Prothromb Time International Ratio 4.2 (0.8-1.1) Glucose (Fingerstick) 116 mg/dL (70-99) 40 mg/dL (70-99) Test 08/06/20 11:15 08/06/20 12:25 Glucose (Fingerstick) 237 mg/dL (70-99) Sodium Level 135 mmol/L (136-145) Potassium Level 7.2 mmol/L (3.5-5.1) Chloride Level 101 mmol/L (98-107) Carbon Dioxide Level 9 mmol/L (21-32) Anion Gap 25 (6-14) Blood Urea Nitrogen 22 mg/dL (8-26) Creatinine 3.1 mg/dL (0.7-1.3) Estimated GFR (Cockcroft-Gault) 20.7 Glucose Level 176 mg/dL (70-99) Calcium Level 5.6 mg/dL (8.5-10.1) Phosphorus Level 8.3 mg/dL (2.6-4.7) Magnesium Level 2.4 mg/dL (1.8-2.4) Laboratory Tests Test 08/05/20 14:39 08/05/20 15:45 08/05/20 16:35 08/05/20 17:25 Glucose (Fingerstick) 227 mg/dL (70-99) 195 mg/dL (70-99) 178 mg/dL (70-99) White Blood Count 20.5 x10^3/uL (4.0-11.0) Red Blood Count 4.50 x10^6/uL (4.30-5.70) Hemoglobin 14.1 g/dL (13.0-17.5) Hematocrit 41.9 % (39.0-53.0) Mean Corpuscular Volume 93 fL (79-100) Mean Corpuscular Hemoglobin 31 pg (25-35) Mean Corpuscular Hemoglobin Concent 34 g/dL (31-37) Red Cell Distribution Width 13.9 % (11.5-14.5) Platelet Count 82 x10^3/uL (140-400) Neutrophils (%) (Auto) 92 % (31-73) Lymphocytes (%) (Auto) 6 % (24-48) Monocytes (%) (Auto) 2 % (0-9) Eosinophils (%) (Auto) 0 % (0-3) Basophils (%) (Auto) 1 % (0-3) Neutrophils # (Auto) 18.8 x10^3/uL (1.8-7.7) Lymphocytes # (Auto) 1.2 x10^3/uL (1.0-4.8) Monocytes # (Auto) 0.4 x10^3/uL (0.0-1.1) Eosinophils # (Auto) 0.0 x10^3/uL (0.0-0.7) Basophils # (Auto) 0.1 x10^3/uL (0.0-0.2) Prothrombin Time 28.1 SEC (11.7-14.0) Prothromb Time International Ratio 2.6 (0.8-1.1) Activated Partial Thromboplast Time 49 SEC (24-38) Sodium Level 137 mmol/L (136-145) Potassium Level 3.5 mmol/L (3.5-5.1) Chloride Level 103 mmol/L (98-107) Carbon Dioxide Level 16 mmol/L (21-32) Anion Gap 18 (6-14) Blood Urea Nitrogen 29 mg/dL (8-26) Creatinine 2.6 mg/dL (0.7-1.3) Estimated GFR (Cockcroft-Gault) 25.4 Glucose Level 175 mg/dL (70-99) Calcium Level 6.6 mg/dL (8.5-10.1) Ionized Calcium 0.88 mmol/L (1.13-1.32) Phosphorus Level 3.7 mg/dL (2.6-4.7) Magnesium Level 2.1 mg/dL (1.8-2.4) Test 08/05/20 17:51 08/05/20 19:08 08/05/20 20:14 08/05/20 21:16 Glucose (Fingerstick) 180 mg/dL (70-99) 138 mg/dL (70-99) 113 mg/dL (70-99) 79 mg/dL (70-99) Test 08/05/20 22:20 08/05/20 23:23 08/05/20 23:30 08/06/20 03:19 Glucose (Fingerstick) 75 mg/dL (70-99) 83 mg/dL (70-99) 107 mg/dL (70-99) White Blood Count 19.4 x10^3/uL (4.0-11.0) Red Blood Count 4.60 x10^6/uL (4.30-5.70) Hemoglobin 14.4 g/dL (13.0-17.5) Hematocrit 43.2 % (39.0-53.0) Mean Corpuscular Volume 94 fL (79-100) Mean Corpuscular Hemoglobin 31 pg (25-35) Mean Corpuscular Hemoglobin Concent 33 g/dL (31-37) Red Cell Distribution Width 13.8 % (11.5-14.5) Platelet Count 57 x10^3/uL (140-400) Neutrophils (%) (Auto) 90 % (31-73) Lymphocytes (%) (Auto) 6 % (24-48) Monocytes (%) (Auto) 4 % (0-9) Eosinophils (%) (Auto) 0 % (0-3) Basophils (%) (Auto) 0 % (0-3) Neutrophils # (Auto) 17.5 x10^3/uL (1.8-7.7) Lymphocytes # (Auto) 1.2 x10^3/uL (1.0-4.8) Monocytes # (Auto) 0.7 x10^3/uL (0.0-1.1) Eosinophils # (Auto) 0.0 x10^3/uL (0.0-0.7) Basophils # (Auto) 0.0 x10^3/uL (0.0-0.2) Prothrombin Time 28.7 SEC (11.7-14.0) Prothromb Time International Ratio 2.7 (0.8-1.1) Activated Partial Thromboplast Time 53 SEC (24-38) Sodium Level 136 mmol/L (136-145) Potassium Level 4.2 mmol/L (3.5-5.1) Chloride Level 102 mmol/L (98-107) Carbon Dioxide Level 14 mmol/L (21-32) Anion Gap 20 (6-14) Blood Urea Nitrogen 24 mg/dL (8-26) Creatinine 2.4 mg/dL (0.7-1.3) Estimated GFR (Cockcroft-Gault) 27.8 Glucose Level 71 mg/dL (70-99) Calcium Level 6.4 mg/dL (8.5-10.1) Phosphorus Level 5.2 mg/dL (2.6-4.7) Magnesium Level 2.2 mg/dL (1.8-2.4) Test 08/06/20 04:54 08/06/20 05:30 08/06/20 07:08 08/06/20 08:00 Glucose (Fingerstick) 142 mg/dL (70-99) White Blood Count 19.3 x10^3/uL (4.0-11.0) Red Blood Count 4.45 x10^6/uL (4.30-5.70) Hemoglobin 14.0 g/dL (13.0-17.5) Hematocrit 42.6 % (39.0-53.0) Mean Corpuscular Volume 96 fL (79-100) Mean Corpuscular Hemoglobin 32 pg (25-35) Mean Corpuscular Hemoglobin Concent 33 g/dL (31-37) Red Cell Distribution Width 14.6 % (11.5-14.5) Platelet Count 58 x10^3/uL (140-400) Neutrophils (%) (Auto) 89 % (31-73) Lymphocytes (%) (Auto) 7 % (24-48) Monocytes (%) (Auto) 3 % (0-9) Eosinophils (%) (Auto) 0 % (0-3) Basophils (%) (Auto) 0 % (0-3) Neutrophils # (Auto) 17.2 x10^3/uL (1.8-7.7) Lymphocytes # (Auto) 1.4 x10^3/uL (1.0-4.8) Monocytes # (Auto) 0.6 x10^3/uL (0.0-1.1) Eosinophils # (Auto) 0.0 x10^3/uL (0.0-0.7) Basophils # (Auto) 0.0 x10^3/uL (0.0-0.2) Phosphorus Level 7.3 mg/dL (2.6-4.7) Magnesium Level 2.5 mg/dL (1.8-2.4) Sodium Level 138 mmol/L (136-145) Potassium Level 5.0 mmol/L (3.5-5.1) Chloride Level 102 mmol/L (98-107) Carbon Dioxide Level 11 mmol/L (21-32) Anion Gap 25 (6-14) Blood Urea Nitrogen 21 mg/dL (8-26) Creatinine 2.5 mg/dL (0.7-1.3) Estimated GFR (Cockcroft-Gault) 26.6 BUN/Creatinine Ratio 8 (6-20) Glucose Level 109 mg/dL (70-99) Calcium Level 6.2 mg/dL (8.5-10.1) Total Bilirubin 2.2 mg/dL (0.2-1.0) Aspartate Amino Transf (AST/SGOT) 74620 U/L (15-37) Alanine Aminotransferase (ALT/SGPT) 82271 U/L (16-63) Alkaline Phosphatase 90 U/L (46-116) Total Protein 5.2 g/dL (6.4-8.2) Albumin 2.6 g/dL (3.4-5.0) Albumin/Globulin Ratio 1.0 (1.0-1.7) O2 Saturation 96 % (92-99) Arterial Blood pH 7.01 (7.35-7.45) Arterial Blood pH (Temp corrected) 7.04 Arterial Blood pCO2 at Patient Temp 45 mmHg (35-46) Arterial Blood pCO2 (Temp correct) 40 mmHg Arterial Blood pO2 at Patient Temp 109 mmHg (65-108) Arterial Blood pO2 (Temp corrected) 96 mmHg Arterial Blood HCO3 11 mmol/L (21-28) Arterial Blood Base Excess -20 mmol/L (-3-3) Test 08/06/20 09:00 08/06/20 09:10 08/06/20 10:53 08/06/20 11:15 Prothrombin Time 41.4 SEC (11.7-14.0) Prothromb Time International Ratio 4.2 (0.8-1.1) Glucose (Fingerstick) 116 mg/dL (70-99) 40 mg/dL (70-99) 237 mg/dL (70-99) Test 08/06/20 12:25 Sodium Level 135 mmol/L (136-145) Potassium Level 7.2 mmol/L (3.5-5.1) Chloride Level 101 mmol/L (98-107) Carbon Dioxide Level 9 mmol/L (21-32) Anion Gap 25 (6-14) Blood Urea Nitrogen 22 mg/dL (8-26) Creatinine 3.1 mg/dL (0.7-1.3) Estimated GFR (Cockcroft-Gault) 20.7 Glucose Level 176 mg/dL (70-99) Calcium Level 5.6 mg/dL (8.5-10.1) Phosphorus Level 8.3 mg/dL (2.6-4.7) Magnesium Level 2.4 mg/dL (1.8-2.4) Brief Hospital Course Mr. Moreno is a 60 old male who had a witness cardiac arrest, clutched his chest and complained of dizzyness, and then fell, pulseless, The school grabbed an AED, which shocked him 3 times. shocked again in ambulance for V fib given amiodarone and epinephrine, then intubated by the ER physician. taken [facility], arrested again, cardiac cath showed no abnormality that would cause CTA chest - evidence of pulmonary embolism but extensive atelectatic changes at the bases interstitial markings from CHF or shock, his labs worsened markedly, BP dropped, 4 agents for BP support, levaphed, et. al maxed without much BP, he was unable to gee CRRT. family withdrew care, TOD, 1418 today Discharge Information Condition at Discharge: / Patient Instructions Patient Instructions face to face earlier this day x2 Justicifation of Admission Dx: Justifications for Admission: Justification of Admission Dx: Yes ALEKS MONTEIRO MD Aug 06, 2020 14:37
--- NOTE | 2020-08-06 15:03 | NUR ---
Orders to withdraw care per Family. Dr Randhawa notified. Comfort care medications ordered, patient extubated at 1405. Family bedside at TOD. Time of was 1418. has possession of patients belongings. All docs were notified. [facility] called. 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 Nursing [employer] made aware.
== END 2020-08-06 14:18 | DRG 208 ==
LOC: EDBD 15:48 → ER 15:48 → 1 WEST ICU 17:30
PROVIDERS: ADMIT Family Medicine; ATTEND Family Medicine
PROC: 5A1945Z Respiratory Ventilation, 24-96 Consecutive Hours (ICD-10-PCS; principal; 2020-08-04)
PROC: 0BH17EZ Insertion of Endotracheal Airway into Trachea, Via Natural or Artificial Opening (ICD-10-PCS; 2020-08-04)
PROC: 5A12012 Performance of Cardiac Output, Single, Manual (ICD-10-PCS; 2020-08-04)
PROC: 4A023N7 Measurement of Cardiac Sampling and Pressure, Left Heart, Percutaneous Approach (ICD-10-PCS; 2020-08-04)
PROC: B211YZZ Fluoroscopy of Multiple Coronary Arteries using Other Contrast (ICD-10-PCS; 2020-08-04)
PROC: B215YZZ Fluoroscopy of Left Heart using Other Contrast (ICD-10-PCS; 2020-08-04)
PROC: 02HV33Z Insertion of Infusion Device into Superior Vena Cava, Percutaneous Approach (ICD-10-PCS; 2020-08-04)
PROC: 02H633Z Insertion of Infusion Device into Right Atrium, Percutaneous Approach (ICD-10-PCS; 2020-08-05)
PROC: B548ZZA Ultrasonography of Superior Vena Cava, Guidance (ICD-10-PCS; 2020-08-05)
DX: J96.01 Acute respiratory failure with hypoxia (principal); J81.0 Acute pulmonary edema; K72.00 Acute and subacute hepatic failure without coma; N17.9 Acute kidney failure, unspecified; S22.43XA Multiple fractures of ribs, bilateral, initial encounter for closed fracture; D68.9 Coagulation defect, unspecified; E87.2 Acidosis; G93.1 Anoxic brain damage, not elsewhere classified; J98.11 Atelectasis; M62.82 Rhabdomyolysis; I49.01 Ventricular fibrillation; I46.2 Cardiac arrest due to underlying cardiac condition; R57.0 Cardiogenic shock; J96.02 Acute respiratory failure with hypercapnia; E11.9 Type 2 diabetes mellitus without complications; E78.5 Hyperlipidemia, unspecified; E83.39 Other disorders of phosphorus metabolism; E87.6 Hypokalemia; I10 Essential (primary) hypertension; I34.0 Nonrheumatic mitral (valve) insufficiency; Z20.822 Contact with and (suspected) exposure to COVID-19; Z66 Do not resuscitate; Z82.49 Family history of ischemic heart disease and other diseases of the circulatory system; Z99.2 Dependence on renal dialysis
CPT/HCPCS: 31500; 93325; 93458; 96365; 96375; 99291; 99292; G0269; 36415; 36556; 36569; 36600; 71045; 71275; 74018; 76937; 80047; 80048; 80053; 80061; 80076; 82310; 82550; 82805; 82962; 83036; 83735; 84100; 84132; 84443; 84478; 84484; 85007; 85025; 85610; 85730; 86317; 87340; 93005; 93308; 93320; 94002; 94003; C1760; C1769; C1892; C9113; J0171; J0282; J0461; J1265; J1644; J1650; J1815; J1940; J2060; J2250; J2270; J2370; J2543; J3010; J3430; J3475; J3480; J3490; J7050; J7060; Q9967; U0003; C1771; G0378; J7030